=== PATIENT | female | born 1950 | race African-American/Black ===

== ENCOUNTER 2022-01-28 21:33 | Observation (INO) | payer MEDICARE, OTHER ==
[2022-01-28 22:35] LABS: Protime INR 1.37
[2022-01-28 22:36] LABS: Absolute Lymphocytes (CBC) 1.4 K/uL (0.7-4.9); Hematocrit 28.2 % (36.0-45.0); Lymphocytes % 13.4 % (15.3-44.8); MPV 9.4 fL (7.6-11.3); RBC Red Blood Cell Count 3.79 M/uL (3.86-4.86)
[2022-01-28 22:48] LABS: Albumin 3.6 g/dL (3.4-5.0); Bilirubin Direct 0.1 mg/dL (0-0.2); Bilirubin Total 0.3 mg/dL (0.2-1.0); Magnesium 2.5 mg/dL (1.8-2.4); Potassium 3.9 mmol/L (3.5-5.1); Protein, Total 8.1 g/dL (6.4-8.2); Troponin High Sensitivity 19.9 pg/mL (<58.9)
[2022-01-28] MEDS ORDERED: NA CHLORIDE 0.9% 1,000 ML ONE (22:49)
--- NOTE | 2022-01-29 00:14 | EDPHYS ---
Physician Documentation [facility] – [place], [place] Name: Mahendra Wilkins Age: 71 yrs Sex: Female : 1950 Arrival Date: 01/28/2022 Time: 21:36 Bed 3 Private MD: ED Physician Suraj Wilkins HPI: 01/29 00:03 This 71 yrs old Black Female presents to ER via EMS with complaints of chest pain, raghav dyspnea. 00:03 The patient has shortness of breath at rest, with light activity. Onset: The raghav symptoms/episode began/occurred just prior to arrival. Duration: The symptoms are intermittent, with no pattern. The patient's shortness of breath has no apparent modifying factors. The patient or guardian reports chest pain that is located primarily in the anterior chest wall. Onset: just prior to arrival. The pain does not radiate. Severity of symptoms: At their worst the symptoms were mild in the emergency department the symptoms are unchanged. The chest pain is described as a pressure. Historical: - Allergies: 01/28 22:01 No Known Allergies; lg3 - Home Meds: 22:01 gabapentin 300 mg oral cap 1 cap 3 times per day [Active]; Linzess 145 mcg oral cap 1 lg3 cap once daily [Active]; hydralazine 100 mg Oral tab 1 tab 3 times per day [Active]; Eliquis 5 mg oral tab 1 tab 2 times per day [Active]; isosorbide mononitrate 60 mg Oral Tb24 1 tab once daily [Active]; atorvastatin 40 mg oral tab 1 tab once daily [Active]; famotidine 20 mg Oral tab 1 tab once daily [Active]; - PMHx: 22:01 high cholesterol; acid reflux; hypertension; lg3 - PSHx: 22:01 heart; lg3 - Immunization history:: Adult Immunizations up to date, Client reports receiving the 2nd dose of the Covid vaccine, moderna X3. - Social history:: Smoking status: Patient denies any tobacco usage or history of. Patient/guardian denies using alcohol, street drugs. - Family history:: not pertinent. ROS: 01/29 00:03 Constitutional: Negative for fever, chills, and weight loss, Eyes: Negative for injury, raghav pain, redness, and discharge, ENT: Negative for injury, pain, and discharge, Neck: Negative for injury, pain, and swelling, Abdomen/GI: Negative for abdominal pain, nausea, vomiting, diarrhea, and constipation, Back: Negative for injury and pain, : Negative for injury, bleeding, discharge, and swelling, MS/Extremity: Negative for injury and deformity, Skin: Negative for injury, rash, and discoloration, Neuro: Negative for headache, weakness, numbness, tingling, and seizure, Psych: Negative for depression, anxiety, suicide ideation, homicidal ideation, and hallucinations, Allergy/Immunology: Negative for hives, rash, and allergies, Endocrine: Negative for neck swelling, polydipsia, polyuria, polyphagia, and marked weight changes, Hematologic/Lymphatic: Negative for swollen nodes, abnormal bleeding, and unusual bruising. Cardiovascular: Positive for chest pain. Respiratory: Positive for shortness of breath, at rest. Exam: 00:03 Constitutional: This is a well developed, well nourished patient who is awake, alert, raghav and in no acute distress. Head/Face: Normocephalic, atraumatic. Eyes: Pupils equal round and reactive to light, extra-ocular motions intact. Lids and lashes normal. Conjunctiva and sclera are non-icteric and not injected. Cornea within normal limits. Periorbital areas with no swelling, redness, or edema. ENT: Nares patent. No nasal discharge, no septal abnormalities noted. Tympanic membranes are normal and external auditory canals are clear. Oropharynx with no redness, swelling, or masses, exudates, or evidence of obstruction, uvula midline. Mucous membranes moist. Neck: Trachea midline, no thyromegaly or masses palpated, and no cervical lymphadenopathy. Supple, full range of motion without nuchal rigidity, or vertebral point tenderness. No Meningismus. Chest/axilla: Normal chest wall appearance and motion. Nontender with no deformity. No lesions are appreciated. Cardiovascular: Regular rate and rhythm with a normal S1 and S2. No gallops, murmurs, or rubs. Normal PMI, no JVD. No pulse deficits. Abdomen/GI: Soft, non-tender, with normal bowel sounds. No distension or tympany. No guarding or rebound. No evidence of tenderness throughout. Back: No spinal tenderness. No costovertebral tenderness. Full range of motion. Female : Normal external genitalia. Skin: Warm, dry with normal turgor. Normal color with no rashes, no lesions, and no evidence of cellulitis. MS/ Extremity: Pulses equal, no cyanosis. Neurovascular intact. Full, normal range of motion. Neuro: Awake and alert, GCS 15, oriented to person, place, time, and situation. Cranial nerves II-XII grossly intact. Motor strength 5/5 in all extremities. Sensory grossly intact. Cerebellar exam normal. Normal gait. Psych: Awake, alert, with orientation to person, place and time. Behavior, mood, and affect are within normal limits. 00:03 ECG was reviewed by the Attending Physician. 00:03 Respiratory: the patient does not display signs of respiratory distress, Respirations: normal, no acute changes, is not noted, Breath sounds: decreased breath sounds, that are moderate, are located in both bases, Respiratory rate: 22 Vital Signs: 01/28 21:43 BP 161 / 72; Pulse 76; Resp 24; Temp 98.4(O); Pulse Ox 98% on R/A; Weight 95.25 kg (R); lg3 Height 5 ft. 5 in. (165.10 cm) (R); Pain 9/10; 23:18 BP 146 / 88; Pulse 78; Resp 22; Pulse Ox 98% on R/A; lg3 01/29 02:25 BP 159 / 68; Pulse 80; Resp 20; Pulse Ox 99% on R/A; lg3 01/28 21:43 Body Mass Index 34.95 (95.25 kg, 165.10 cm) lg3 MDM: 01/28 21:50 Patient medically screened. raghav 01/29 00:08 Differential diagnosis: CHF exacerbation, Chronic Obstructive Pulmonary Disease raghav abnormal EKG, acute myocardial infarction, Cholelithiasis costochondritis, hiatal hernia, pancreatitis, pneumonia, stable angina, Myocardial Infarction pneumonia, pulmonary edema, reactive airway disease, Unstable Angina. Antibiotic administration: Not indicated. HEART Score: History: Moderately Suspicious (1), ECG: Non specific repolarization disturbance / LBTB / PM (1), Age: > or = 65 years (2), Risk Factors: > or = 3 Risk factors for atherosclerotic disease (2), [Hypercholesterolemia] [Hypertension] [+ Family HX] [Obesity] Troponin: < or = 1 x Normal Limit (0). The patient was not given aspirin in the Emergency Department. Not indicated due to patient's past medical history. The patient's Wells Deep Vein Thrombosis Score was calculated as follows: Total Score: 0. This patient was found to be at low risk for a deep vein thrombosis by using the Well's assessment criteria Total Score: 0-2 Pts- Low Risk. The patient's pulmonary embolism risk score was calculated as follows: Total Score: 0-2 points. This patient was found to be at low risk for a pulmonary embolism by using the Well's assessment criteria Total Score: 0-2 points. This patient was found to be at low risk for a pulmonary embolism by using the Well's assessment criteria. MARY Risk Score: 1 - patient's age is greater or equal to 65 years, 1 - Three or more CAD risk factors, TOTAL SCORE = 2. Immunization status: Pneumococcal vaccine: Influenza vaccine: Data reviewed: vital signs, nurses notes, EMS record, lab test result(s), EKG, radiologic studies, plain films. Data interpreted: riprap placer: rate is 78 beats/min, rhythm is regular, Pulse oximetry: on room air is 98 %. Test interpretation: by ED physician or midlevel provider: ECG, plain radiologic studies. 01/28 21:52 Order name: Basic Metabolic Panel; Complete Time: 00:01 [facility] 01/28 21:52 Order name: CBC with Diff; Complete Time: 00: [facility] 01/28 21:52 Order name: LFT's; Complete Time: 00:01 [facility] 01/28 21:52 Order name: Magnesium; Complete Time: 00:01 [facility] 01/28 21:52 Order name: NT PRO-BNP; Complete Time: 00:01 [facility] 01/28 21:52 Order name: PT-INR; Complete Time: 00:01 [facility] 01/28 21:52 Order name: Troponin HS; Complete Time: 00:01 [facility] 01/28 21:52 Order name: SARS-COV-2 RT PCR (Document "Date of Onset" if Symptomatic); Complete Time: [facility] 01/28 21:52 Order name: Flu; Complete Time: 00:01 [facility] 01/28 21:52 Order name: Blood Culture Adult (2) [facility] 01/29 01:34 Order name: Urine Dipstick-Ancillary EDMS 01/29 01:34 Order name: Urine Culture lg3 01/29 01:34 Order name: Urine Microscopic Only [facility] 01/29 02:04 Order name: Urine Microscopic Only [facility] 01/28 21:52 Order name: XRAY Chest (1 view) [facility] 01/28 21:52 Order name: EKG; Complete Time: 21:53 [facility] 01/28 21:52 Order name: Cardiac monitoring; Complete Time: 22:17 [facility] 01/28 21:52 Order name: EKG - Nurse/Tech; Complete Time: 23:05 [facility] 01/28 21:52 Order name: IV Saline Lock; Complete Time: 22:17 [facility] 01/28 21:52 Order name: Labs collected and sent; Complete Time: 22:17 [facility] 01/28 21:52 Order name: O2 Per Protocol; Complete Time: 22:17 [facility] 01/28 21:52 Order name: O2 Sat Monitoring; Complete Time: 22:17 [facility] 01/28 21:52 Order name: Urine Dipstick-Ancillary (obtain specimen); Complete Time: 01:35 [facility] 01/29 01:17 Order name: Benjamin; Complete Time: 01:17 lg3 EC:03 Rate is 74 beats/min. Rhythm is regular. QRS [place] is Normal. OR interval is normal. QRS raghav interval is normal. QT interval is normal. No Q waves. T waves are Normal. No ST changes noted. Clinical impression: NSR w/ Non-specific ST/T Changes and No evidence of ischemia. Interpreted by me. Reviewed by me. Administered Medications: 00:02 Discontinued: NS 0.9% 1000 ml IV at 75 ml/hr continuous [facility] 01/28 23:06 Drug: NS 0.9% 1000 ml Route: IV; Rate: 75 ml/hr; Site: left antecubital; lg3 01/29 02:25 Drug: Lasix (furosemide) 40 mg Route: IVP; Site: left antecubital; lg3 02:25 Follow up: Response: No adverse reaction lg3 02:25 Drug: Rocephin (cefTRIAXone) 1 grams Route: IV; Rate: per protocol; Site: left lg3 antecubital; 02:25 Follow up: Response: No adverse reaction; IV Status: Completed infusion; IV Intake: [id number] Disposition Summary: 01/29/22 00:13 Hospitalization Ordered Hospitalization Status: Observation raghav Provider: Kristine Ruiz cha Location: Telemetry/MedSurg (observation)(01/29/22 00:13) raghav Condition: Fair(01/29/22 00:13) raghav Problem: new(01/29/22 00:13) raghav Symptoms: have improved(01/29/22 00:13) raghav Bed/Room Type: Standard raghav Room Assignment: 228(01/29/22 01:45) cg Diagnosis - Chest pain, unspecified(01/29/22 00:13) raghav - Dyspnea raghav - Obesity, unspecified(01/29/22 00:13) raghav - Unspecified kidney failure raghav - Anemia, unspecified(01/29/22 00:13) raghav - UTI/ Urinary tract infection, site not specified raghav Forms: - Medication Reconciliation Form raghav - SBAR form raghav Signatures: Dispatcher [employer] EDSuraj Saleh MD MD cha Garcia, Cindy, RN RN Hazel Dutta RN RN lg3 Sissy Calixto, JAYLEN PA sb3 Corrections: (The following items were deleted from the chart) 00:12 00:11 Home raghav raghav 00: 00:11 new raghav raghav 00: 00:11 have improved raghav raghav :12 00:11 Stable raghav raghav : 00:11 Chest pain, unspecified raghav raghav 00:12 00:11 Anemia, unspecified raghav raghav 00:12 00:11 Obesity, unspecified raghav raghav 00:12 00:11 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
--- NOTE | 2022-01-29 00:14 | ER ---
Nurse's Notes [facility] Name: Mahendra Wilkins Age: 71 yrs Sex: Female : 1950 Arrival Date: 01/28/2022 Time: 21:36 Bed 3 Private MD: Diagnosis: Chest pain, unspecified;Dyspnea;Obesity, unspecified;Unspecified kidney failure;Anemia, unspecified;UTI/ Urinary tract infection, site not specified Presentation: 01/28 21:43 Chief complaint: EMS states: toned out for shortness of breath exacerbated by episode lg3 of chest pain. onset around 1900 and shortly dissipated. in transit to ER chest pain began again. 7/10 pain scale. described as pulling. pt reports HX of COPD and abnormal heart beat. wears 2L via NC at home as needed. Coronavirus screen: Client denies travel out of the [place] in the last 14 days. At this time, the client does not indicate any symptoms associated with coronavirus-19. Ebola Screen: No symptoms or risks identified at this time. Initial Sepsis Screen: Does the patient meet any 2 criteria? No. Patient's initial sepsis screen is negative. Does the patient have a suspected source of infection? No. Patient's initial sepsis screen is negative. Risk Assessment: Do you want to hurt yourself or someone else? Patient reports no desire to harm self or others. Onset of symptoms was January 28, 2022 at 19:00. 21:43 Method Of Arrival: EMS: [facility] lg3 21:43 Acuity: SUSAN 3 lg3 Triage Assessment: 22:01 General: Appears in no apparent distress. comfortable, Behavior is calm, cooperative. lg3 Pain: Complains of pain in chest Pain does not radiate. Pain currently is 9 out of 10 on a pain scale. Quality of pain is described as pulling/tearing. EENT: No deficits noted. No signs and/or symptoms were reported regarding the EENT system. Neuro: No deficits noted. [place] Agitation-Sedation Scale (RASS): 0 - Alert and Calm Level of Consciousness is awake, alert, obeys commands, Oriented to person, place, time, situation. Cardiovascular: Reports chest pain, Capillary refill < 3 seconds Clubbing of nail beds is absent Patient's skin is warm and dry. Respiratory: Reports shortness of breath on exertion Airway is patent Trachea midline Respiratory effort is even, unlabored, Respiratory pattern is regular, symmetrical. GI: No deficits noted. No signs and/or symptoms were reported involving the gastrointestinal system. Abdomen is round non-distended. : No deficits noted. No signs and/or symptoms were reported regarding the genitourinary system. Derm: No deficits noted. No signs and/or symptoms reported regarding the dermatologic system. Skin is intact, is healthy with good turgor, Skin is dry, Skin temperature is warm. Musculoskeletal: No deficits noted. No signs and/or symptoms reported regarding the musculoskeletal system. Circulation, motion, and sensation intact. Range of motion: intact in all extremities. Historical: - Allergies: 22:01 No Known Allergies; lg3 - Home Meds: 22:01 gabapentin 300 mg oral cap 1 cap 3 times per day [Active]; Linzess 145 mcg oral cap 1 lg3 cap once daily [Active]; hydralazine 100 mg Oral tab 1 tab 3 times per day [Active]; Eliquis 5 mg oral tab 1 tab 2 times per day [Active]; isosorbide mononitrate 60 mg Oral Tb24 1 tab once daily [Active]; atorvastatin 40 mg oral tab 1 tab once daily [Active]; famotidine 20 mg Oral tab 1 tab once daily [Active]; - PMHx: 22:01 high cholesterol; acid reflux; hypertension; lg3 - PSHx: 22:01 heart; lg3 - Immunization history:: Adult Immunizations up to date, Client reports receiving the 2nd dose of the Covid vaccine, moderna X3. - Social history:: Smoking status: Patient denies any tobacco usage or history of. Patient/guardian denies using alcohol, street drugs. - Family history:: not pertinent. Screenin:09 Abuse screen: Denies threats or abuse. Denies injuries from another. Nutritional lg3 screening: No deficits noted. Tuberculosis screening: No symptoms or risk factors identified. Fall Risk None identified. Assessment: 21:44 General: see triage assessment . lg3 23:17 Reassessment: Patient appears in no apparent distress at this time. No changes from lg3 previously documented assessment. Patient and/or family updated on plan of care and expected duration. Pain level reassessed. Patient is alert, oriented x 3, equal unlabored respirations, skin warm/dry/pink. Patient states feeling better. 01/29 02:25 Reassessment: Patient appears in no apparent distress at this time. No changes from lg3 previously documented assessment. Patient and/or family updated on plan of care and expected duration. Pain level reassessed. Patient is alert, oriented x 3, equal unlabored respirations, skin warm/dry/pink. Patient states feeling better. Patient states symptoms have improved. Vital Signs: 01/28 21:43 BP 161 / 72; Pulse 76; Resp 24; Temp 98.4(O); Pulse Ox 98% on R/A; Weight 95.25 kg (R); lg3 Height 5 ft. 5 in. (165.10 cm) (R); Pain 9/10; 23:18 BP 146 / 88; Pulse 78; Resp 22; Pulse Ox 98% on R/A; lg3 01/29 02:25 BP 159 / 68; Pulse 80; Resp 20; Pulse Ox 99% on R/A; lg3 01/28 21:43 Body Mass Index 34.95 (95.25 kg, 165.10 cm) lg3 ED Course: 01/28 21:36 Patient arrived in ED. mw2 21:41 Hazel De La Cruz, RN is Primary Nurse. lg3 21:50 Suraj Wilkins MD is Attending Physician. raghav 22:01 Triage completed. lg3 22:01 Arm band placed on left wrist. lg3 22:09 Patient has correct armband on for positive identification. Placed in gown. Bed in low lg3 position. Call light in reach. Side rails up X2. Client placed on continuous cardiac and pulse oximetry monitoring. NIBP monitoring applied. traffic monitor specialist on. Door closed. Noise minimized. Warm blanket given. Family accompanied patient. 22:16 Inserted saline lock: 20 gauge in left antecubital area, using aseptic technique. Blood lg3 collected. 22:17 Blood Culture Adult (2) Sent. lg3 22:17 Basic Metabolic Panel Sent. lg3 22:17 CBC with Diff Sent. lg3 22:17 LFT's Sent. lg3 22:17 Magnesium Sent. lg3 22:17 NT PRO-BNP Sent. lg3 22:17 PT-INR Sent. lg3 22:17 Troponin HS Sent. lg3 22:28 XRAY Chest (1 view) In Process Unspecified. EDMS 23:06 Blood Culture Adult (2) Sent. lg3 23:17 Flu Sent. lg3 23:17 SARS-COV-2 RT PCR (Document "Date of Onset" if Symptomatic) Sent. lg3 23:53 Flu Sent. lg3 23:53 SARS-COV-2 RT PCR (Document "Date of Onset" if Symptomatic) Sent. lg3 01/29 00:10 Kristine Ruiz MD is Referral Physician. raghav 00:12 Kristine Ruiz MD is Hospitalizing Provider. raghav 01:10 Benjamin cath inserted, using sterile technique, 16 Fr., by wv, balloon inflated, to ds4 gravity drainage, returned souleymane urine. Patient tolerated well. 01:40 Urine Microscopic Only Sent. lg3 01:40 Urine Culture Sent. lg3 02:25 Accessed peripheral vein via ultrasound, utilizing dynamic ultrasound technique using lp1 ,sterile technique, per hospital protocol. Clean \\T\\ dry. Dressing intact. Good blood return. Flushes easily. 20g IV to L AC. 02:26 No provider procedures requiring assistance completed. Patient admitted, IV remains in lg3 place. intact, No redness/swelling at site. Administered Medications: 00:02 Discontinued: NS 0.9% 1000 ml IV at 75 ml/hr continuous [facility] 01/28 23:06 Drug: NS 0.9% 1000 ml Route: IV; Rate: 75 ml/hr; Site: left antecubital; 3 01/29 02:25 Drug: Lasix (furosemide) 40 mg Route: IVP; Site: left antecubital; 3 02:25 Follow up: Response: No adverse reaction lg3 02:25 Drug: Rocephin (cefTRIAXone) 1 grams Route: IV; Rate: per protocol; Site: left lg3 antecubital; 02:25 Follow up: Response: No adverse reaction; IV Status: Completed infusion; IV Intake: [id number] Medication: 01/28 22:11 VIS not applicable for this client. lg3 Intake: 01/29 02:25 IV: 10ml; Total: 10ml. 3 Outcome: 00:11 Discharge ordered by . raghav 00:13 Decision to Hospitalize by Provider. raghav 02:40 Admitted to Med/surg accompanied by tech, via stretcher, room 228, [facility] 02:40 Condition: stable 02:40 Instructed on the need for admit, Demonstrated understanding of instructions. 02:44 Patient left the ED. lg3 Signatures: Dispatcher [employer] EDMS Suraj Wilkins MD MD cha Pena, Laura, RN RN lp1 Thomas Parkinson ds4 Luc Hoff mw2 Hazel De La Cruz RN RN lg3
--- NOTE | 2022-01-29 01:13 | P.HP ---
Certification for Inpatient Patient admitted to: Observation With expected LOS: <2 Midnights Patient will require the following post-hospital care: None Practitioner: I am a practitioner with admitting privileges, knowledge of patient current condition, hospital course, and medical plan of care. Services: Services provided to patient in accordance with Admission requirements found in Title 42 Section 412.3 of the Code of Federal Regulations Patient History Date of Service: 01/29/22 Reason for admission: Chest Pain, Dyspnea, CHF History of Present Illness: Patient is a 71-year-old female with PMH of hypertension, COPD on home oxygen, A. fib on eliquis, CHF who presented to the ED via EMS with complaints of shortness of breath and chest pain. Patient reports the pain comes and goes, rates it as a 7/10, and describes it as a "pulling" feeling. Vital signs WNL. Labs significant for creatinine 1.54, hemoglobin 8.7, BNP 344, troponin negative. Chest x-ray showed "left hemidiaphragm obscured which can be seen with left pleural effusion, as well as left lower lobe consolidation or atelectasis and prominent interstitial markings suggestive of interstitial edema." She was given IV Lasix in the ED. ED provider wishes to admit patient for further evaluation and treatment. Allergies No Known Allergies Allergy (Unverified 01/29/22 03:23) - Past Medical/Surgical History Diabetic: No -: COPD -: Hypertension -: Afib -: CHF -: HLD -: Heart Valve Repair Psychosocial/ Personal History: Patient lives at home. She has a son. - Family History Sister -: Heart disease - Social History Smoking Status: Former smoker Alcohol use: No CD- Drugs: No Caffeine use: No Place of Residence: Home Review of Systems Respiratory: Shortness of Breath Cardiovascular: Chest Pain Physical Examination - Physical Exam General: Alert, In no apparent distress HEENT: Atraumatic, PERRLA, EOMI, Sclerae nonicteric Neck: Supple, 2+ carotid pulse no bruit, No LAD, Without JVD or thyroid abnormality Respiratory: Normal air movement, Diminished Cardiovascular: No edema, Regular rate/rhythm, Normal S1 S2 Gastrointestinal: Normal bowel sounds, No tenderness Musculoskeletal: No tenderness Integumentary: No rashes Neurological: Normal speech, Normal strength at 5/5 x4 extr, Normal tone, Normal affect - Studies Laboratory Data (last 24 hrs) 01/28/22 22:15: PT 15.2 H, INR 1.37 01/28/22 22:15: WBC 10.2, Hgb 8.7 L, Hct 28.2 L, Plt Count 325 01/28/22 22:15: Sodium 145, Potassium 3.9, BUN 23 H, Creatinine 1.54 H, Glucose 84, Magnesium 2.5 H, Total Bilirubin 0.3, AST 26, ALT 30, Alkaline Phosphatase 131 H Microbiology Data (last 24 hrs): 01/28/22 23:08 Nasopharnyx Influenza Type A Antigen Screen - Final 01/28/22 23:08 Nasopharnyx Influenza Type B Antigen Screen - Final Assessment and Plan - Problems (Diagnosis) (1) Chest pain Current Visit: Yes Status: Acute Qualifiers: Chest pain type: unspecified Qualified Code(s): R07.9 - Chest pain, unspecified (2) CHF (congestive heart failure) Current Visit: Yes Status: Acute Qualifiers: Heart failure type: unspecified Heart failure chronicity: acute on chronic Qualified Code(s): I50.9 - Heart failure, unspecified (3) Afib Current Visit: No Status: Chronic Qualifiers: Atrial fibrillation type: unspecified Qualified Code(s): I48.91 - Unspecified atrial fibrillation (4) HTN (hypertension) Current Visit: Yes Status: Chronic Qualifiers: Hypertension type: primary hypertension Qualified Code(s): I10 - Essential (primary) hypertension (5) HLD (hyperlipidemia) Current Visit: No Status: Chronic Qualifiers: Hyperlipidemia type: unspecified Qualified Code(s): E78.5 - Hyperlipidemia, unspecified (6) COPD (chronic obstructive pulmonary disease) Current Visit: Yes Status: Chronic Qualifiers: COPD type: unspecified COPD Qualified Code(s): J44.9 - Chronic obstructive pulmonary disease, unspecified (7) BOOM (acute kidney injury) Current Visit: Yes Status: Acute (8) Anemia Current Visit: Yes Status: Chronic Qualifiers: Anemia type: due to chronic kidney disease Chronic kidney disease stage: s tage 3 (moderate) Chronic kidney disease stage 3 subtype: stage 3b (GFR 30-44) Qualified Code(s): N18.32 - Chronic kidney disease, stage 3b; D63.1 - Anemia in chronic kidney disease - Plan -Monitor on telemetry. Cardiology consulted. Echo ordered -Trend troponin. Initial WNL. -Lipid panel and TSH pending -Atorvastatin and aspirin daily -Supplemental O2 PRN. Patient was not requiring any during my assessment. -Monitor renal function, acute BOOM -Monitor hgb. Likely chronic anemia. -Continue eliquis (home med) for VTE ppx -Full code Discharge Plan: Home Plan to discharge in: 24 Hours - Advance Directives Does patient have a Living Will: No Does patient have a Durable POA for Healthcare: No - Code Status/Comfort Care Code Status Assessed: Yes (Full) Critical Care: No Time Spent Managing Pts Care (In Minutes): 50
[2022-01-29 01:33] LABS: Urine Blood Negative (Negative); Urine Glucose Negative (Negative); Urine Protein 1+ (Negative); Urine Specific Gravity 1.025 (1.005-1.030); Urine pH 5.5 (5.0-7.0)
[2022-01-29] MEDS ORDERED: FUROSEMIDE 40 MG/4 ML VIAL ONE (01:48)
[2022-01-29] MEDS ORDERED: CEFTRIAXONE 1000 MG/VIAL ONE (01:57)
[2022-01-29 02:03] LABS: Urine Bacteria >50 /HPF (<20); Urine RBC <5 /HPF (NONE SEEN)
[2022-01-29 02:04] LABS: Urine Urothelial Cells <5 /HPF (NONE SEEN)
[2022-01-29] MEDS ORDERED: ACETAMINOPHEN 500 MG TAB PO PRN (03:32)
[2022-01-29] MEDS ORDERED: ALBUTEROL 2.5 MG/3 ML NEB SOL NEB PRN ×2 (03:32→15:00)
[2022-01-29] MEDS ORDERED: ONDANSETRON 4 MG/2 ML VIAL IV PRN (03:32)
[2022-01-29] MEDS ORDERED: HYDRALAZINE HCL 20 MG/ML VIAL IV PRN (03:32)
[2022-01-29] MEDS ORDERED: IPRATROPIUM BROM 0.5MG/2.5ML NEB PRN (03:32)
[2022-01-29 04:54] VITALS: O2SAT 96
[2022-01-29 05:49] VITALS: BMI 34.0
[2022-01-29 06:13] LABS: Absolute Lymphocytes (CBC) 1.1 K/uL (0.7-4.9); Hematocrit 26.5 % (36.0-45.0); MPV 8.4 fL (7.6-11.3); RBC Red Blood Cell Count 3.58 M/uL (3.86-4.86)
[2022-01-29 07:07] LABS: Magnesium 2.2 mg/dL (1.8-2.4); Potassium 3.4 mmol/L (3.5-5.1); Thyroid Stimulating Hormone 0.53 uIU/mL (0.360-3.740); Troponin High Sensitivity 23.3 pg/mL (<58.9)
[2022-01-29] MEDS ORDERED: APIXABAN 5 MG TABLET PO SCH ×2 (09:00→21:00)
[2022-01-29] MEDS ORDERED: POTASSIUM CL SA 10 MEQ TAB PO ONE (09:00)
[2022-01-29] MEDS ORDERED: CEFTRIAXONE 1,000 MG in NA CHLORIDE 0.9% 50 ML IVPB SCH (09:00)
[2022-01-29] MEDS ORDERED: ASPIRIN EC 81 MG TAB PO SCH (09:00)
--- NOTE | 2022-01-29 10:34 | RAD REPORT ---
EXAM DESCRIPTION: XR Chest, 1 View CLINICAL HISTORY: The patient is 71 years old and is Female; Cough TECHNIQUE: Frontal view of the chest. COMPARISON: No relevant prior studies available. FINDINGS: Lungs: Prominent interstitial markings suggestive of interstitial edema. Prominent pulmonary vasculature. Pleural space: Left hemidiaphragm is obscured which can be seen with left pleural effusion, as we ll as left lower lobe consolidation or atelectasis. No pneumothorax. Heart: Unremarkable. Mediastinum: Unremarkable. Bones/joints: Disc space narrowing with degenerative endplate changes in the spine. IMPRESSION: 1. Left hemidiaphragm is obscured which can be seen with left pleural effusion, as wel l as left lower lobe consolidation or atelectasis. 2. Prominent interstitial markings suggestive of interstitial edema. Electronically signed by: Delvin Aguirre MD 01/29/2022 12:21 AM CDT Due to temporary technical issues with the PACS/Fluency reporting system, reports are being signed by the in house radiologists without review as a courtesy to insure prompt reporting. The interpreting radiologist is fully responsible for the content of the report.
[2022-01-29] MEDS ORDERED: GABAPENTIN 300 MG CAP PO SCH (14:00)
[2022-01-29] MEDS ORDERED: HOME MED 1 EA UNK (Hydralazine Hcl [Hydralazine Hcl] 100 MG Tablet) PO SCH (14:00)
[2022-01-29] MEDS ORDERED: HYDRALAZINE HCL 20 MG/ML VIAL IV ONE (14:00)
--- NOTE | 2022-01-29 15:28 | EKG ---
Test Date: 2022-01-28 Test Time: 22:48:50 Field Instructor: PAL MEASUREMENT RESULTS: Intervals: Rate: 74 MN: 168 QRSD: 98 QT: 412 QTc: 457 [place]: P: 69 MN: 168 QRS: 45 T: 70 INTERPRETIVE STATEMENTS: Normal sinus rhythm Nonspecific T wave abnormality Abnormal ECG No previous ECG available for comparison Electronically Signed On 01-29-22 15:27:02 CDT by Lauro Lowe
[2022-01-29 17:42] VITALS: BP 182/79; TEMP 98.3
[2022-01-29] MEDS ORDERED: HYDRALAZINE HCL 25 MG TABLET PO SCH (21:00)
[2022-01-29] MEDS ORDERED: ATORVASTATIN 40 MG TAB PO SCH ×2 (21:00)
[2022-01-30] MEDS ORDERED: HOME MED 1 EA UNK (Linaclotide [Linzess] 145 MCG Capsule) PO SCH ×2 (09:00)
[2022-01-30] MEDS ORDERED: ISOSORBIDE MONO SR 60 MG TAB PO SCH (09:00)
[2022-01-30] MEDS ORDERED: FAMOTIDINE 20 MG TAB PO SCH (09:00)
--- NOTE | 2022-01-30 09:51 | ECHO ---
HEIGHT: 5 ft 5 in WEIGHT: 204 lb 3.2 oz DATE OF STUDY: 01/29/[address]: Sissy Calixto 2-DIMENSIONAL: YES M.MODE: YES DOPPLER: YES COLOR FLOW: YES TDS: PORTABLE: YES DEFINITY: BUBBLE STUDY: DIAGNOSIS: CHEST PAIN, CONGESTIVE HEART FAILURE CARDIAC HISTORY: CATHERIZATION: YES SURGERY: NO PROSTHETIC VALVE: NO PACEMAKER: NO MEASUREMENTS (cm) DIASTOLIC (NORMALS) SYSTOLIC (NORMALS) IVSd 1.3 (0.6-1.2) LA Diam 4.5 (1.9-4.0) LVEF 69% LVIDd 6.3 (3.5-5.7) LVIDs 3.8 (2.0-3.5) %FS 39% LVPWd 1.4 (0.6-1.2) Ao Diam 3.3 (2.0-3.7) 2 DIMENSIONAL ASSESSMENT: RIGHT ATRIUM: NORMAL LEFT ATRIUM: ENLARGED RIGHT VENTRICLE: NORMAL LEFT VENTRICLE: NORMAL TRICUSPID VALVE: NORMAL MITRAL VALVE: CALCIFIED VALVE SEVERE MITRAL REGURGITATION PULMONIC VALVE: NORMAL AORTIC VALVE: THICKENED, NO AORTIC STENOSIS PERICARDIAL EFFUSION: SMALL AORTIC ROOT: NORMAL LEFT VENTRICULAR WALL MOTION: NORMAL DOPPLER/COLOR FLOW: SEE BELOW COMMENTS: NORMAL LEFT VENTRICULAR EJECTION FRACTION 60-65%. NORMAL WALL MOTION. CALCIFIED MITRAL VALVE WITH MILD MITRAL STENOSIS AND SEVERE MITRAL REGURGITATION. LEFT ATRIAL ENLARGEMENT. SMALL PERICARDIAL EFFUSION. TECHNOLOGIST: RENE HERNADEZ
--- NOTE | 2022-02-02 15:11 | CON ---
Date of Consultation: 01/29/[address] Ruiz on 01/29/2022. I saw the patient on 01/29/2022. Reason For Consultation: Shortness of breath and chest pain. History Of Present Illness: Ms. Wilkins is a 71-year-old woman, who has a history of deep venous th rombosis for which she takes Eliquis, has a history of dyslipidemia, hypertension, and GERD. Came in with chest pain and shortness of breath. Chest pain is atypical, sharp, stabbing, nonexertional wit hout any nausea, vomiting, diaphoresis, PND, orthopnea, pedal edema, palpitations, syncope. MN has b een ruled out. . She has UTI. BNP is 334. Creatinine is . EKG is nonspecific . Chest x-ray is negative. Asymptomatic now. Allergies: NONE. Past Medical History: As stated above. Review of Systems: Negative. Social History: Negative. Family History: Noncontributory. Medications: At home include Pepcid, Neurontin, Lipitor, hydralazine, Imdur, and Eliquis. Physical Examination: Vital Signs: Stable. Afebrile. HEENT: Negative. Neck: Supple with no bruit. Chest: Clear. Cardiac: Revealed a regular rhythm and rate. No murmurs, gallops, or rubs. Abdomen: Benign. EXTREMITIES: Revealed no clubbing, cyanosis, or edema. Diagnostic Data: As stated earlier. Impression And Plan: Atypical chest pain and shortness of breath in a patient with history of hypert ension, dyslipidemia, deep venous thrombosis. coronary artery disease. I think she shoul d have down the road. Continue present regimen otherwise. NB/MODL Voice ID: [id number] Report ID: [id number]
== END 2022-01-29 16:20 | disposition home or self-care (01) ==
LOC: ER 21:33 → ERHOLD 01-29 01:05 → 2ND 01-29 02:30
PROVIDERS: ADMIT Hospitalist; ATTEND Hospitalist
DX: R07.89 Other chest pain (principal); I13.0 Hypertensive heart and chronic kidney disease with heart failure and stage 1 through stage 4 chronic kidney disease, or unspecified chronic kidney disease; N18.32 Chronic kidney disease, stage 3b; I50.9 Heart failure, unspecified; N17.9 Acute kidney failure, unspecified; D63.1 Anemia in chronic kidney disease; I48.91 Unspecified atrial fibrillation; N39.0 Urinary tract infection, site not specified; J44.9 Chronic obstructive pulmonary disease, unspecified; E78.5 Hyperlipidemia, unspecified; E66.9 Obesity, unspecified; Z68.34 Body mass index [BMI] 34.0-34.9, adult; Z99.81 Dependence on supplemental oxygen; Z79.01 Long term (current) use of anticoagulants; Z87.891 Personal history of nicotine dependence; Z79.899 Other long term (current) drug therapy; Z20.822 Contact with and (suspected) exposure to COVID-19; Z82.49 Family history of ischemic heart disease and other diseases of the circulatory system
CPT/HCPCS: 93005; 93306; 87040 ×2; 87088; 85025 ×2; 87086; 80048 ×2; 36415; 83735 ×2; 84100; 84132; 85610; 80061; 80076; 84443; 87077; 87186; 84484 ×3; 83880; 87804 ×2; 71045; 51702; 96375; 96374; 99285; U0003; J0360; J1940; J7030; G0378 ×2; 81003; 81015

== ENCOUNTER 2022-03-29 00:43 | Inpatient (IN) | payer OTHER ==
--- OUTSIDE RECORDS SUMMARY | 2022-03-29 00:46 | XMS REPORT | Continuity of Care Document ---
:1950 Author Organization [facility] t Address [address] [place] [address] Care Team Providers Name Role Phone Lauro Lowe Attending Clinician Unavailable Lauro Lowe Admitting Clinician Unavailable Payers Payer Name Policy Type Policy Number Effective Date Expiration Date S ource Problems This patient has no known problems. Allergies, Adverse Reactions, Alerts Allergy Allergy Status Severity Reaction(s) Onset Inactive Treating Comm ents Source Name Type Date Date Clinician No Known DA Active U [facility] Allergie 03-17 Clear s 00:00: New [address] [place] [address] Medications This patient has no known medications. Procedures This patient has no known procedures. Encounters Start End Encounter Admission Attending Care Care Encounter Source Date/Time Date/Time Type Type Clinicians Facility Department ID 2022-03-18 2022-03-18 Outpatient SYMONE Maldonado OUTD [id number] 002 [facility] 09:16:00 09:16:00 Lauro 42 [facility] 2022-03-18 2022-03-18 Outpatient SYMONE Maldonado [id number] [id number] [facility] 09:16:00 09:16:00 Lauro [id number] [facility] Results Test Description Test Time Test Comments Results Result Comments Source BASIC METABOLIC PANEL 2022-03-18 12:15:00 Test Item Value Reference Range Interpretation Comme nts SODIUM (test code = NA) 142 mEq/L 134-147 N POTASSIUM (test code = K) 4.6 mEq/L 3.4-5.0 N CHLORIDE (test code = CL) 109 mEq/L 100-108 H CARBON DIOXIDE (test code = CO2) 25 mEq/l 21-33 N ANION GAP (test code = GAP) 12 0-20 N GLUCOSE (test code = GLU) 105 mg/dL 70-110 N BLOOD UREA NITROGEN (test code = 19 mg/dL 7-18 H BUN) GLOMERULAR FILTRATION RATE (test 45.1 80-90 L Units of measure = ml/min/1.73 code = GFR) m2 CREATININE (test code = CREAT) 1.4 mg/dL 0.6-1.3 H CALCIUM (test code = CA) 9.4 mg/dL 8.0-10.5 N CBC W/AUTO [id number] 10:45:00 Test Item Value Reference Range Interpretation Comments WHITE BLOOD CELL (test code = 7.6 x10 3/uL 4.5-11.0 N WBC) RED BLOOD CELL (test code = 3.83 x10 6/uL 3.54-5.02 N RBC) HEMOGLOBIN (test code = HGB) 8.9 g/dL 11.0-15.0 L HEMATOCRIT (test code = HCT) 30.8 % 33.0-45.0 L MEAN CELL VOLUME (test code = 80.4 fL 81.0-99.0 L MCV) MEAN CELL HGB (test code = MCH) 23.2 pg 27.0-33.0 L MEAN CELL HGB CONCETRATION 28.9 g/dL 33.0-37.0 L (test code = MCHC) RED CELL DISTRIBUTION WIDTH CV 19.6 % 11.5-14.5 H (test code = RDW) RED CELL DISTRIBUTION WIDTH SD 52.9 fL 37.0-54.0 N (test code = RDW-SD) PLATELET COUNT (test code = 318 x10 3/uL 150-400 N PLT) MEAN PLATELET VOLUME (test code 11.7 fL 7.0-9.0 H = MPV) NEUTROPHIL % (test code = NT%) 71.8 % 56.0-77.0 N IMMATURE GRANULOCYTE % (test 0.3 % 0.0-2.0 N code = IG%) LYMPHOCYTE % (test code = LY%) 18.0 % 14.0-32.0 N MONOCYTE % (test code = MO%) 7.5 % 4.8-9.0 N EOSINOPHIL % (test code = EO%) 1.5 % 0.3-3.7 N BASOPHIL % (test code = BA%) 0.9 % 0.0-2.0 N NUCLEATED RBC % (test code = 0.0 % 0-0 N NRBC%) NEUTROPHIL # (test code = NT#) 5.44 x10 3/uL 2.0-7.6 N IMMATURE GRANULOCYTE # (test 0.02 x10 3/uL 0.00-0.03 N code = IG#) LYMPHOCYTE # (test code = LY#) 1.36 x10 3/uL 1.0-3.8 N MONOCYTE # (test code = MO#) 0.57 x10 3/uL 0.1-0.8 N EOSINOPHIL # (test code = EO#) 0.11 x10 3/uL 0.0-0.2 N BASOPHIL # (test code = BA#) 0.07 x10 3/uL 0.0-0.2 N NUCLEATED RBC # (test code = 0.00 x10 3/uL 0.0-0.1 N NRBC#) MANUAL DIFF REQUIRED (test code NO = MDIFF)
[2022-03-29] MEDS ORDERED: ASPIRIN 81 MG CHEWABLE TABLET ONE (01:34)
[2022-03-29 02:46] LABS: Absolute Lymphocytes (CBC) 1.7 K/uL (0.7-4.9); Hematocrit 31.5 % (36.0-45.0); Lymphocytes % 17.5 % (15.3-44.8); MCV 76.7 fL (80-100); MPV 9.5 fL (7.6-11.3)
[2022-03-29 02:51] LABS: Protime INR 1.21
[2022-03-29 03:08] LABS: ALT/SGPT 35 U/L (12-78); Albumin 3.9 g/dL (3.4-5.0); Alkaline Phosphatase 141 U/L (45-117); BUN Blood Urea Nitrogen 54 mg/dL (7-18); Bicarbonate 28 mmol/L (21-32); Bilirubin Total 0.3 mg/dL (0.2-1.0); Glomerular Filtration Rate 19 ml/min (=/>90); Glucose Level 122 mg/dL (74-106); NT PRO-BNP 264 pg/mL (<125); Protein, Total 8.7 g/dL (6.4-8.2); Sodium Level 155 mmol/L (136-145); Troponin High Sensitivity 37.5 pg/mL (<58.9)
[2022-03-29 03:09] LABS: AST/SGOT 34 U/L (15-37); Bilirubin Direct < 0.1 mg/dL (0-0.2); Magnesium 3.1 mg/dL (1.8-2.4); Potassium 4.1 mmol/L (3.5-5.1)
--- NOTE | 2022-03-29 03:28 | EDPHYS ---
Physician Documentation [facility] Name: Mahendra Wilkins Age: 71 yrs Sex: Female : 1950 Arrival Date: 03/29/2022 Time: 00:50 Bed 6 Private MD: ED Physician Ponce Harmon HPI: 03/29 00:52 This 71 yrs old Black Female presents to ER via Unassigned with complaints of general snw weakness. 00:52 generalized weakness. Onset: The symptoms/episode began/occurred gradually. Severity of snw symptoms: At their worst the symptoms were moderate. The patient has experienced similar episodes in the past, multiple times. Historical: - Allergies: 01:33 No Known Allergies; vc1 - Home Meds: 01:33 atorvastatin 40 mg Oral tab 1 tab once daily [Active]; Eliquis 5 mg Oral tab 1 tab 2 vc1 times per day [Active]; famotidine 20 mg Oral tab 1 tab once daily [Active]; gabapentin 300 mg Oral cap 1 cap 3 times per day [Active]; hydralazine 100 mg Oral tab 1 tab 3 times per day [Active]; isosorbide mononitrate 60 mg Oral Tb24 1 tab once daily [Active]; Linzess 145 mcg Oral cap 1 cap once daily [Active]; - PMHx: 01:33 acid reflux; High Cholesterol; Hypertension; vc1 - PSHx: 01:33 heart; vc1 - Immunization history:: Adult Immunizations up to date, Client reports receiving the 2nd dose of the Covid vaccine. - Social history:: Smoking status: Patient denies any tobacco usage or history of. ROS: 00:52 Eyes: Negative for injury, pain, redness, and discharge, ENT: Negative for injury, snw pain, and discharge, Neck: Negative for injury, pain, and swelling. 00:52 Abdomen/GI: Negative for abdominal pain, nausea, vomiting, diarrhea, and constipation, Back: Negative for injury and pain, : Negative for injury, bleeding, discharge, and swelling, MS/Extremity: Negative for injury and deformity, Skin: Negative for injury, rash, and discoloration, Neuro: Negative for headache, weakness, numbness, tingling, and seizure, Psych: Negative for depression, anxiety, suicide ideation, homicidal ideation, and hallucinations. 00:52 Constitutional: Positive for malaise. 00:52 Cardiovascular: Positive for orthopnea, palpitations. 00:52 Respiratory: Positive for shortness of breath, at rest. Exam: 00:56 Head/Face: Normocephalic, atraumatic. Eyes: Pupils equal round and reactive to light, snw extra-ocular motions intact. Lids and lashes normal. Conjunctiva and sclera are non-icteric and not injected. Cornea within normal limits. Periorbital areas with no swelling, redness, or edema. ENT: Nares patent. No nasal discharge, no septal abnormalities noted. Tympanic membranes are normal and external auditory canals are clear. Oropharynx with no redness, swelling, or masses, exudates, or evidence of obstruction, uvula midline. Mucous membranes moist. Neck: Trachea midline, no thyromegaly or masses palpated, and no cervical lymphadenopathy. Supple, full range of motion without nuchal rigidity, or vertebral point tenderness. No Meningismus. Chest/axilla: Normal chest wall appearance and motion. Nontender with no deformity. No lesions are appreciated. Cardiovascular: Regular rate and rhythm with a normal S1 and S2. No gallops, murmurs, or rubs. Normal PMI, no JVD. No pulse deficits. 00:56 Abdomen/GI: Soft, non-tender, with normal bowel sounds. No distension or tympany. No guarding or rebound. No evidence of tenderness throughout. Back: No spinal tenderness. No costovertebral tenderness. Full range of motion. Skin: Warm, dry with normal turgor. Normal color with no rashes, no lesions, and no evidence of cellulitis. MS/ Extremity: Pulses equal, no cyanosis. Neurovascular intact. Full, normal range of motion. Neuro: Awake and alert, GCS 15, oriented to person, place, time, and situation. Cranial nerves II-XII grossly intact. Motor strength 5/5 in all extremities. Sensory grossly intact. Cerebellar exam normal. Normal gait. Psych: Awake, alert, with orientation to person, place and time. Behavior, mood, and affect are within normal limits. 00:56 Constitutional: The patient appears alert, awake, obese, restless. 00:56 Respiratory: mild respiratory distress is noted, Respirations: shallow respirations, tachypnea, Breath sounds: wheezing: expiratory is heard diffusely. 01:33 ECG was reviewed by the Attending Physician. ms3 Vital Signs: 00:50 BP 164 / 74; Pulse 84; Resp 18; Temp 97.2; Pulse Ox 100% on R/A; vc1 03:03 BP 156 / 62; Pulse 79; Resp 17; Pulse Ox 97% on R/A; vc1 04:00 BP 179 / 77; Pulse 74; Resp 15; Pulse Ox 99% ; vc1 05:00 BP 189 / 87; Pulse 74; Resp 15; Pulse Ox 100% ; vc1 05:15 BP 175 / 82; Pulse 74; Resp 16; Pulse Ox 99% ; vc1 MDM: 00:52 Patient medically screened. ms3 00:58 Data reviewed: vital signs, nurses notes. Data interpreted: Pulse oximetry: on room air snw is 95 %. Interpretation: acceptable. Counseling: I had a detailed discussion with the patient and/or guardian regarding: lab results, radiology results. 01:30 Transition of care: Care assumed from Brittany Vega [facility]. ms3 03:27 Data reviewed: lab test result(s), and as a result, I will admit patient. ED course: ms3 Discussed case with Mahendra Estrada NP, and he accepts patient on behalf of Dr Salmon.. 03/29 00:51 Order name: Basic Metabolic Panel; Complete Time: 03:22 snw 03/29 00:51 Order name: CBC with Diff; Complete Time: 03:22 snw 03/29 00:51 Order name: LFT's; Complete Time: 03:22 snw 03/29 00:51 Order name: Magnesium; Complete Time: 03:22 snw 03/29 00:51 Order name: NT PRO-BNP; Complete Time: 03:22 snw 03/29 00:51 Order name: PT-INR; Complete Time: 03:22 snw 03/29 00:51 Order name: Troponin HS; Complete Time: 03:22 snw 03/29 01:36 Order name: SARS RAPID; Complete Time: 04:09 snw 03/29 11:31 Order name: Electrolytes EDMS 03/29 11:31 Order name: Phosphorus EDMS 03/29 11:31 Order name: Creatine Phosphokinase EDWV 03/29 11:43 Order name: PTH Intact EDWV 03/29 11:50 Order name: Vitamin D, 25 ([place]), TOTAL EDMS 03/29 16:29 Order name: Electrolytes EDMS 03/29 00:51 Order name: XRAY Chest (1 view) snw 03/29 00:51 Order name: EKG; Complete Time: 00:53 03/29 00:51 Order name: Cardiac monitoring; Complete Time: 01:24 03/29 00:51 Order name: EKG - Nurse/Tech; Complete Time: :34 03/29 00:51 Order name: IV Saline Lock; Complete Time: 01:24 03/29 00:51 Order name: Labs collected and sent; Complete Time: :24 03/29 00:51 Order name: O2 Per Protocol; Complete Time: :34 03/29 00:51 Order name: O2 Sat Monitoring; Complete Time: :34 03/29 09:29 Order name: US EDMS EC:33 Rate is 81 beats/min. Rhythm is regular. QRS [place] is Normal. QT interval is prolonged. ms3 Clinical impression: NSR w/ Non-specific ST/T Changes. Interpreted by me. Reviewed by me. Administered Medications: 01:34 Drug: Aspirin Chewable Tablet 324 mg Route: PO; vc1 03:45 Follow up: Response: No adverse reaction; Marked relief of symptoms vc1 03:45 Drug: D5W 1000 ml Route: IV; Rate: 100 ml/hr; Site: right upper arm; vc1 20:52 Follow up: Response: No adverse reaction; IV Status: Infusion continued; IV Intake: aa9 500ml Disposition: 03:25 Co-signature as Attending Physician, Ponce Harmon DO. ms3 Disposition Summary: 03/29/22 03:27 Hospitalization Ordered Hospitalization Status: Inpatient Admission ms3 Provider: Carlos Alberto Salmon ms3 Condition: Stable ms3 Problem: new ms3 Symptoms: are unchanged ms3 Bed/Room Type: Standard ms3 Location: Telemetry/MedSurg (Inpatient)(03/29/22 19:20) dw Room Assignment: [facility](03/29/22 19:20) dw Diagnosis - Hyperosmolality and hypernatremia ms3 - Acute renal failure ms3 - Anemia, unspecified ms3 Forms: - Medication Reconciliation Form ms3 - SBAR form ms3 Signatures: Dispatcher [employer] EDMS Stefany Sorensen RN MAGDALENE Becca Tejeda RN RN Brittany Harmon FNP-C GEOVANY-Csnw Mahendra Estrada FNP-C FNP-Cla1 Ponce Harmon, DO CHURCH ms3 Elham Yip RN RN vc1 Marlena Meza RN aa9 Corrections: (The following items were deleted from the chart) 04:41 03:27 Telemetry/MedSurg (Inpatient) ms3 mw 04:41 03:27 ms3 mw 19:20 04:41 [facility] ER HOLD mw dw 19:20 04:41 ERHOLD- mw dw
--- NOTE | 2022-03-29 03:28 | ER ---
Nurse's Notes [facility] Name: Mahendra Wilkins Age: 71 yrs Sex: Female : 1950 Arrival Date: 03/29/2022 Time: 00:50 Bed 6 Private MD: Diagnosis: Hyperosmolality and hypernatremia;Acute renal failure;Anemia, unspecified Presentation: 03/29 00:50 Chief complaint: EMS states: " We were called out for generalized weakness, pt states vc1 she has been weak for a few days now.". 00:50 Coronavirus screen: Client presents with at least one sign or symptom that may indicate vc1 coronavirus-19. Standard/surgical mask placed on the client. Provider contacted for isolation considerations. Ebola Screen: No symptoms or risks identified at this time. Initial Sepsis Screen: Does the patient meet any 2 criteria? No. Patient's initial sepsis screen is negative. Does the patient have a suspected source of infection? No. Patient's initial sepsis screen is negative. Risk Assessment: Do you want to hurt yourself or someone else? Patient reports no desire to harm self or others. Onset of symptoms is unknown. 00:50 Method Of Arrival: EMS: [facility] vc1 00:50 Acuity: SUSAN 3 vc1 05:39 Coronavirus screen: Vaccine status: Patient reports receiving the 2nd dose of the covid vc1 vaccine. Moderna. Triage Assessment: 01:00 General: Appears in no apparent distress. uncomfortable, obese, Behavior is flat. Pain: vc1 Denies pain. EENT: No signs and/or symptoms were reported regarding the EENT system. Reports. Neuro: Level of Consciousness is awake, obeys commands, lethargic, Oriented to person, place, situation, Appropriate for age Reports weakness generalized weakness. Cardiovascular: No deficits noted. Respiratory: Airway is patent Respiratory effort is even, unlabored, Respiratory pattern is regular, symmetrical. GI: No deficits noted. : No signs and/or symptoms were reported regarding the genitourinary system. Derm: No signs and/or symptoms reported regarding the dermatologic system. Musculoskeletal: Reports weakness in right leg and left leg. Historical: - Allergies: 01:33 No Known Allergies; vc1 - Home Meds: 01:33 atorvastatin 40 mg Oral tab 1 tab once daily [Active]; Eliquis 5 mg Oral tab 1 tab 2 vc1 times per day [Active]; famotidine 20 mg Oral tab 1 tab once daily [Active]; gabapentin 300 mg Oral cap 1 cap 3 times per day [Active]; hydralazine 100 mg Oral tab 1 tab 3 times per day [Active]; isosorbide mononitrate 60 mg Oral Tb24 1 tab once daily [Active]; Linzess 145 mcg Oral cap 1 cap once daily [Active]; - PMHx: 01:33 acid reflux; High Cholesterol; Hypertension; vc1 - PSHx: 01:33 heart; vc1 - Immunization history:: Adult Immunizations up to date, Client reports receiving the 2nd dose of the Covid vaccine. - Social history:: Smoking status: Patient denies any tobacco usage or history of. Screenin:00 Abuse screen: Denies threats or abuse. Nutritional screening: No deficits noted. vc1 Tuberculosis screening: No symptoms or risk factors identified. Fall Risk None identified. Assessment: 01:30 Reassessment: Lab called to do blood draw on patient, unsuccessful IV placement. vc1 01:30 Reassessment: Patient and/or family updated on plan of care and expected duration. Pain vc1 level reassessed. Patient states symptoms have not improved. 02:02 General: per patient request. Patient provided two cups of ice. Two warm blankets and tw5 bed repositioned for comfort. . 03:00 Reassessment: Patient and/or family updated on plan of care and expected duration. Pain vc1 level reassessed. Patient is alert, oriented x 3, equal unlabored respirations, skin warm/dry/pink. Patient states symptoms have not improved. 04:00 Reassessment: Patient and/or family updated on plan of care and expected duration. Pain vc1 level reassessed. Patient is alert, oriented x 3, equal unlabored respirations, skin warm/dry/pink. 05:00 Reassessment: No changes from previously documented assessment. Patient and/or family vc1 updated on plan of care and expected duration. Pain level reassessed. Vital Signs: 00:50 BP 164 / 74; Pulse 84; Resp 18; Temp 97.2; Pulse Ox 100% on R/A; vc1 03:03 BP 156 / 62; Pulse 79; Resp 17; Pulse Ox 97% on R/A; vc1 04:00 BP 179 / 77; Pulse 74; Resp 15; Pulse Ox 99% ; vc1 05:00 BP 189 / 87; Pulse 74; Resp 15; Pulse Ox 100% ; vc1 05:15 BP 175 / 82; Pulse 74; Resp 16; Pulse Ox 99% ; vc1 ED Course: 00:50 Patient arrived in ED. mw2 00:50 Brittany Vega FNP-C is PHCP. snw 00:50 Ponce Harmon DO is Attending Physician. snw 00:59 Elham Yip, MAGDALENE is Primary Nurse. vc1 01:00 Patient has correct armband on for positive identification. Placed in gown. Bed in low vc1 position. Call light in reach. Side rails up X2. Client placed on continuous cardiac and pulse oximetry monitoring. NIBP monitoring applied. 01:15 Missed attempt(s): 22 gauge in left antecubital area. vc1 01:20 Missed attempt(s): 22 gauge in left forearm. vc1 01:25 Missed attempt(s): 22 gauge in right hand. vc1 01:28 XRAY Chest (1 view) In Process Unspecified. EDMS 01:33 Triage completed. vc1 01:34 Arm band placed on right wrist. vc1 02:39 Inserted saline lock: 20 gauge in right antecubital area, using aseptic technique. tw5 Blood collected. ultrasound guided IV. 03:11 Notified ED physician of a critical lab result(s). chloride 125. aa9 03:26 Carlos Alberto Salmon is Hospitalizing Provider. ms3 05:30 No provider procedures requiring assistance completed. Patient admitted, IV remains in vc1 place. Administered Medications: 01:34 Drug: Aspirin Chewable Tablet 324 mg Route: PO; vc1 03:45 Follow up: Response: No adverse reaction; Marked relief of symptoms vc1 03:45 Drug: D5W 1000 ml Route: IV; Rate: 100 ml/hr; Site: right upper arm; vc1 20:52 Follow up: Response: No adverse reaction; IV Status: Infusion continued; IV Intake: aa9 500ml Medication: 02:46 VIS not applicable for this client. vc1 Intake: 20:52 IV: 500ml; Total: 500ml. aa9 Outcome: 03:27 Decision to Hospitalize by Provider. ms3 05:30 Admitted to ER Hold. Please see [facility] for further documentation. vc1 05:30 Condition: good 05:30 Discharge instructions given to patient. 20:53 Patient left the ED. aa9 Signatures: Dispatcher [employer] EDMS Stefany Sorensen RN RN mw Brittany Vega, CORROSION CONTROL FITTER-C CORROSION CONTROL FITTER-Csnw Luc Hoff mw2 Ponce Harmon DO DO ms3 Rosalinda Patrick tw5 Elham Yip RN RN vc1 Marlena Meza RN RN aa9
[2022-03-29] MEDS ORDERED: D5W 1,000 ML IV ONE ×2 (03:46→16:31)
[2022-03-29 04:02] LABS: SARS-CoV-2 Antigen Rapid Res Positive (Negative)
--- NOTE | 2022-03-29 04:18 | P.HP ---
Certification for Inpatient Patient admitted to: Inpatient With expected LOS: >2 Midnights Patient will require the following post-hospital care: None Practitioner: I am a practitioner with admitting privileges, knowledge of patient current condition, hospital course, and medical plan of care. Services: Services provided to patient in accordance with Admission requirements found in Title 42 Section 412.3 of the Code of Federal Regulations Patient History Date of Service: 03/29/22 Reason for admission: ARF, hypernatremia History of Present Illness: 71-year-old female history of atrial fibrillation on chronic anticoagulant therapy, chronic diastolic congestive heart failure, COPD on home oxygen, hypertension, hyperlipidemia and GERD presents the emergency department for feeling unwell, she reports she has been having malaise, fatigue and just not feeling well over the course of the last couple of days. She was evaluated in the emergency department her labs were significant for acute kidney injury/acute renal failure with creatinine 2.6 EGFR 19 BUN of 54 sodium of 135 chloride 125 magnesium 3.1 hemoglobin 9.6 medical 31.5 incidentally COVID-positive. Patient reports she has been taking her Lasix as prescribed, reports decent oral intake, mucous membranes are dry. Patient started on D5W will admit patient for acute renal failure/hypernatremia with nephrology consult. Allergies No Known Allergies Allergy (Unverified 01/29/22 03:23) Home Medications: Apixaban [Eliquis] 5 mg PO BID 01/29/22 Atorvastatin Calcium [Lipitor] 40 mg PO BEDTIME 01/29/22 Cefdinir [Omnicef] 300 mg PO BID #14 capsule 01/29/22 Famotidine 20 mg PO DAILY 01/29/22 Furosemide [Lasix] 20 mg PO DAILY #30 tab 01/29/22 Gabapentin 300 mg PO TID 01/29/22 Hydralazine HCl 100 mg PO TID 01/29/22 Isosorbide Mononitrate [Isosorbide Mononitrate ER] 60 mg PO DAILY 01/29/22 Linaclotide [Linzess] 145 mcg PO DAILY 01/29/22 Potassium Chloride [K-Dur] 10 meq PO DAILY #30 tab.er.prt 01/29/22 predniSONE [Prednisone*] 20 mg PO DAILY #5 tab 01/29/22 - Past Medical/Surgical History Diabetic: No -: COPD with home O2 -: Hypertension -: Afib on chronic anticoagulation -: Chronic diastolic congestive heart failure -: HLD -: Heart Valve Repair Psychosocial/ Personal History: Patient lives at home. She has a son. - Family History Sister -: Heart disease - Social History Smoking Status: Never smoker Alcohol use: No CD- Drugs: No Caffeine use: No Place of Residence: Home Review of Systems 10-point ROS is otherwise unremarkable General: Weakness, Malaise Physical Examination - Physical Exam General: Alert, In no apparent distress, Oriented x3, Obese HEENT: Atraumatic, PERRLA, Mucous membr. moist/pink, EOMI, Sclerae nonicteric Neck: Supple, 2+ carotid pulse no bruit, No LAD, Without JVD or thyroid abnormality Respiratory: Clear to auscultation bilaterally, Normal air movement Cardiovascular: Regular rate/rhythm, Normal S1 S2 Gastrointestinal: Normal bowel sounds, No tenderness Musculoskeletal: No tenderness Integumentary: No rashes Neurological: Normal speech, Normal strength at 5/5 x4 extr, Normal tone, Normal affect - Studies Laboratory Data (last 24 hrs) 03/29/22 02:30: PT 13.4 H, INR 1.21 03/29/22 02:30: WBC 9.7, Hgb 9.6 L, Hct 31.5 L, Plt Count 276 03/29/22 02:30: Sodium 155 H, Potassium 4.1, BUN 54 H, Creatinine 2.68 H, Glucose 122 H, Magnesium 3.1 H D, Total Bilirubin 0.3, AST 34, ALT 35, Alkaline Phosphatase 141 H Assessment and Plan - Plan Assessment: Acute renal failure Hypernatremia, hyperchloremia Atrial fibrillation on chronic anticoagulation therapy Chronic diastolic congestive heart failure COPD on home oxygen Hypertension Hyperlipidemia Plan: Acute renal failure: Continue IV fluids with D5W, renal ultrasound ordered, nephrology consulted. Hypernatremia, hyperchloremia: Continue D5W monitor chemistry, nephrology consulted Atrial fibrillation on chronic anticoagulation therapy: Continue Eliquis, monitor on telemetry. Chronic diastolic congestive heart failure: Hold Lasix at this time patient does not appear to be significantly overloaded and has significant hypona tremia/hyperchloremia COPD on home oxygen: Supplemental oxygen as needed, as needed nebs. Hypertension: Continue home medications. Hyperlipidemia:Continue home medications. DVT PPX: Continue Eliquis Code status:full Discharge Plan: Home Plan to discharge in: 72 Hours - Advance Directives Does patient have a Living Will: No Does patient have a Durable POA for Healthcare: No - Code Status/Comfort Care Code Status Assessed: Yes (Full code) Critical Care: No Time Spent Managing Pts Care (In Minutes): 70
[2022-03-29] MEDS ORDERED: ONDANSETRON 4 MG/2 ML VIAL IV PRN (05:37)
[2022-03-29] MEDS ORDERED: D5W 1,000 ML IV SCH (05:37)
[2022-03-29] MEDS ORDERED: ACETAMINOPHEN 500 MG TAB PO PRN (05:37)
[2022-03-29] MEDS: HYDRALAZINE HCL 25 MG TABLET PO SCH ×3 (09:00→21:31)
[2022-03-29] MEDS: ISOSORBIDE MONO SR 60 MG TAB PO SCH (09:00)
[2022-03-29] MEDS: APIXABAN 5 MG TABLET PO SCH ×2 (09:00→21:30)
--- NOTE | 2022-03-29 09:28 | RAD REPORT ---
EXAM DESCRIPTION: US - Renal Ultrasound-Complete - 03/29/2022 8:40 am CLINICAL HISTORY: arf Flank pain COMPARISON: No comparisons FINDINGS: Both kidneys are normal in size, shape and echotexture. The right kidney measures 8.3 x 4.1 x 4.0 cm. No hydronephrosis, focal mass or perinephric fluid. 13 mm benign-appearing cortical right renal cyst. The left kidney measures 9.1 x 5.3 x 4.0 cm. No hydronephrosis, focal mass or perinephric fluid. The urinary bladder is incompletely distended without gross abnormality seen. IMPRESSION: Unremarkable renal sonogram.
--- NOTE | 2022-03-29 09:36 | P.CNS ---
Date of Consult: 03/29/22 Reason for Consult: Renal failure, hypernatremia Requesting Physician: tameka roblero Chief Complaint: ARF, hypernatremia History of Present Illness: 71F w/ PMHx of afib on AC, chronic diastolic heart failure, COPD on home O2, Htn, HLD, & GERD who p/w fatigue for the past 2 days, found to have covid infxn w/ BOOM & hypernatremia. She is receiving IV fluids. Renal US showed small R kidney. Urine studies pending. Allergies No Known Allergies Allergy (Unverified 01/29/22 03:23) Home Medications: Apixaban [Eliquis] 5 mg PO BID 01/29/22 Atorvastatin Calcium [Lipitor] 40 mg PO BEDTIME 01/29/22 Cefdinir [Omnicef] 300 mg PO BID #14 capsule 01/29/22 Famotidine 20 mg PO DAILY 01/29/22 Furosemide [Lasix] 20 mg PO DAILY #30 tab 01/29/22 Gabapentin 300 mg PO TID 01/29/22 Hydralazine HCl 100 mg PO TID 01/29/22 Isosorbide Mononitrate [Isosorbide Mononitrate ER] 60 mg PO DAILY 01/29/22 Linaclotide [Linzess] 145 mcg PO DAILY 01/29/22 Potassium Chloride [K-Dur] 10 meq PO DAILY #30 tab.er.prt 01/29/22 predniSONE [Prednisone*] 20 mg PO DAILY #5 tab 01/29/22 - Past Medical/Surgical History Diabetic: No -: COPD with home O2 -: Hypertension -: Afib on chronic anticoagulation -: Chronic diastolic congestive heart failure -: HLD -: Heart Valve Repair Psychosocial/ Personal History: Patient lives at home. She has a son. - Family History Sister Medical History: Heart disease - Social History Alcohol use: No CD- Drugs: No Caffeine use: No Place of Residence: Home Review of Systems General: Malaise Eyes: Unremarkable ENT: Unremarkable Respiratory: Unremarkable Cardiovascular: Unremarkable Gastrointestinal: Unremarkable Genitourinary: Unremarkable Musculoskeletal: Unremarkable Integumentary: Unremarkable Neurological: Weakness Lymphatics: Unremarkable Physical Examination General: Other (appears as her stated age) HEENT: Atraumatic, Normocephalic Neck: Supple, JVD not distended Respiratory: Other (symmetric chest expansion) Cardiovascular: No rubs, No murmurs Gastrointestinal: Soft and benign, No rebound Musculoskeletal: No clubbing Integumentary: No warmth Neurological: Normal speech, Normal tone Lymphatics: No axilla or inguinal lymphadenopathy Urinary: Other (No bladder distention) External genitalia: Deferred Rectal: Deferred Laboratory Data (last 24 hrs) 03/29/22 02:30: PT 13.4 H, INR 1.21 03/29/22 02:30: WBC 9.7, Hgb 9.6 L, Hct 31.5 L, Plt Count 276 03/29/22 02:30: Sodium 155 H, Potassium 4.1, BUN 54 H, Creatinine 2.68 H, Glucose 122 H, Magnesium 3.1 H D, Total Bilirubin 0.3, AST 34, ALT 35, Alkaline Phosphatase 141 H Conclusions/Impression: # BOOM 2/2 prerenal state +/- ATN from prolonged prerenal SCr 2.7 on adm Baseline SCr 1.5-1.6 as of 01/29/2022 Urinalysis no hematuria no pyuria Renal US showed small R kidney Urine chem non-prerenal No overt proteinuria BNP sl. elevated IVF as below [place] po fluid intake Monitor renal panel, I/O # HyperNa Serum Na 155 initially, decreased to 145 Wt 97.7 kgs TBW 44L Free water deficit 4.7L Insensible water loss 0.5L/d Urine free water loss at least 1L/d Received D5W gtt, switch to LR 75 cc/hr # Hypokalemia KCl repletion ongoing # Afib On AC via eliquis # Htn BP above goal Start Amlodipine 5 mg po daily Cont Hydralazine same dose # Secondary hyperPTH iPTH elevated at 150 25OHD low at 26 Start D3 2000 IU po daily # Chronic diastolic HF Cont cardioprudent meds # COPD On home O2 Per other services
[2022-03-29] MEDS: D5W 1,000 ML IV SCH ×3 (09:41→21:31)
[2022-03-29] MEDS ORDERED: HYDRALAZINE HCL 25 MG TABLET ONE ×2 (09:48→16:31)
[2022-03-29] MEDS ORDERED: APIXABAN 5 MG TABLET ONE (09:48)
[2022-03-29 11:20] LABS: Phosphorus 3.1 mg/dL (2.5-4.9); Potassium 3.3 mmol/L (3.5-5.1)
--- NOTE | 2022-03-29 14:28 | P.PN ---
Date of Service: 03/29/22 Patient seen and examined. She currently has no complaint. She endorsed decreased oral intake. Hyponatremia resolved. Plan: Nephrology input appreciated. Avoid overcorrection by more than 10 to 12 mEq/day. Nephrology is managing. Continue to monitor renal function. Continue Eliquis for A. fib anticoagulation.
[2022-03-29 16:27] LABS: Potassium 3.1 mmol/L (3.5-5.1)
[2022-03-29] MEDS: ATORVASTATIN 40 MG TAB PO SCH (21:31)
[2022-03-29 22:21] LABS: Urine Bilirubin Negative (Negative); Urine Blood Negative (Negative); Urine Clarity Clear (Clear); Urine Color Yellow (Yellow); Urine Glucose Negative (Negative); Urine Protein Negative (Negative); Urine Urobilinogen 0.2 mg/dL (0.2-1.0); Urine pH 5.5 (5.0-7.0)
[2022-03-29 22:29] LABS: Potassium 3.4 mmol/L (3.5-5.1)
[2022-03-29 22:31] LABS: UR PROTEIN 6.1 mg/dL (<11.9); Urine Protein/Creatinine Ratio 0.17 ratio (<0.15)
[2022-03-30 03:44] LABS: Absolute Lymphocytes (CBC) 1.4 K/uL (0.7-4.9); Hematocrit 27.5 % (36.0-45.0); Lymphocytes % 17.8 % (15.3-44.8); MCV 76.1 fL (80-100); MPV 9.8 fL (7.6-11.3); RBC Red Blood Cell Count 3.62 M/uL (3.86-4.86)
[2022-03-30 04:07] LABS: Albumin 3.1 g/dL (3.4-5.0); Bilirubin Total 0.3 mg/dL (0.2-1.0); Magnesium 2.3 mg/dL (1.8-2.4); Potassium 3.4 mmol/L (3.5-5.1); Protein, Total 6.9 g/dL (6.4-8.2); Thyroid Stimulating Hormone 0.99 uIU/mL (0.360-3.740)
[2022-03-30 05:36] VITALS: BMI 36.1
[2022-03-30] MEDS: D5W 1,000 ML IV SCH (06:28)
[2022-03-30] MEDS ORDERED: POTASSIUM CL 40 MEQ in NA CHLORIDE 0.9% 500 ML IV SCH (07:00)
[2022-03-30] MEDS: APIXABAN 5 MG TABLET PO SCH ×2 (08:30→20:58)
[2022-03-30] MEDS: HYDRALAZINE HCL 25 MG TABLET PO SCH ×3 (08:30→20:57)
[2022-03-30] MEDS: Ringers Lactate 1,000 ML IV SCH ×2 (08:31→20:59)
[2022-03-30] MEDS: AMLODIPINE 5 MG TAB PO SCH (08:31)
[2022-03-30] MEDS: VITAMIN D 1000 UNIT TAB PO SCH (08:31)
[2022-03-30] MEDS: ISOSORBIDE MONO SR 60 MG TAB PO SCH (09:57)
--- NOTE | 2022-03-30 11:30 | RAD REPORT ---
EXAM DESCRIPTION: XR Chest, 1 View CLINICAL HISTORY: The patient is 71 years old and is Female; CHEST PAIN TECHNIQUE: Frontal view of the chest. COMPARISON: January 28, 2022. FINDINGS: Lungs: Prominent interstitial markings which may indicate interstitial edema. Hazy opaci fication of the left lung base. Pleural space: Unremarkable. No pneumothorax. Heart: Unremarkable. Mediastinum: Unremarkable. Bones/joints: Unremarkable. IMPRESSION: Prominent interstitial markings which may indicate interstitial edema. Hazy opacificatio n of the left lung base. Electronically signed by: Delvin Aguirre MD 03/29/2022 1:47 AM CDT Due to temporary technical issues with the PACS/Fluency reporting system, reports are being signed by the in house radiologists without review as a courtesy to insure prompt reporting. The interpreting radiologist is fully responsible for the content of the report.
--- NOTE | 2022-03-30 15:39 | P.PN ---
Subjective Date of Service: 03/30/22 Chief Complaint: ARF, hypernatremia Patient has no complaint today. She states she feels fine. Renal function is trending down. Physical Examination - Vital Signs Temperature: 97 F Blood Pressure: 168/65 Pulse: 77 Respirations: 20 Pulse Ox (%): 100 Assessment And Plan - Current Problems (Diagnosis) (1) BOOM (acute kidney injury) Current Visit: No Status: Acute (2) Afib Current Visit: No Status: Chronic Qualifiers: Atrial fibrillation type: unspecified Qualified Code(s): I48.91 - Unspecified atrial fibrillation (3) COPD (chronic obstructive pulmonary disease) Current Visit: No Status: Chronic Qualifiers: COPD type: unspecified COPD Qualified Code(s): J44.9 - Chronic obstructive pulmonary disease, unspecified (4) HLD (hyperlipidemia) Current Visit: No Status: Chronic Qualifiers: Hyperlipidemia type: unspecified Qualified Code(s): E78.5 - Hyperlipidemia, unspecified (5) HTN (hypertension) Current Visit: No Status: Chronic Qualifiers: Hypertension type: primary hypertension Qualified Code(s): I10 - Essential (primary) hypertension (6) Hypernatremia Current Visit: Yes Status: Acute (7) Chronic diastolic heart failure Current Visit: Yes Status: Acute (8) Mitral regurgitation Current Visit: Yes Status: Acute (9) COVID-19 virus infection Current Visit: Yes Status: Acute - Plan Physical Exam General: Alert, In no apparent distress, Oriented x3, Obese HEENT: Atraumatic, PERRLA, Mucous membr. moist/pink, EOMI, Sclerae nonicteric Neck: Supple, 2+ carotid pulse no bruit, No LAD, Without JVD or thyroid abnormality Respiratory: Clear to auscultation bilaterally, Normal air movement Cardiovascular: Regular rate/rhythm, Normal S1 S2 Gastrointestinal: Normal bowel sounds, No tenderness Musculoskeletal: No tenderness Integumentary: No rashes Neurological: Normal speech, Normal strength at 5/5 x4 extr, Normal tone, Normal affect Hypernatremia resolved. Renal function is trending down Nephrology is managing BOOM and hyponatremia. Continue to monitor renal function. Continue Eliquis for A. fib anticoagulation. Lasix on hold due to BOOM. Activity as tolerated. PT. Patient is asymptomatic from the COVID-19 infection.
[2022-03-30] MEDS: ATORVASTATIN 40 MG TAB PO SCH (20:58)
--- NOTE | 2022-03-31 03:12 | PN ---
Date of Progress Note: 03/30/2022 Chief Complaint: Acute kidney injury and hypernatremia. History Of Present Illness: Patient is a 71-year-old woman with history of atrial fibrillation, on a nticoagulation; chronic diastolic congestive heart failure; hypertension; COPD, on home oxygen. She developed COVID infection complicated by acute kidney injury and hypernatremia. Patient was started on IV fluids. Renal ultrasound showed small right kidney. Urine studies were ordered to screen for proteinuria and abnormal urinary sediment. Review of Systems: No chest pain. No palpitation. Physical Examination: Lungs: Coarse breath sound bilaterally. Heart: S1, S2. Abdomen: Soft. Extremities: Slight edema. Laboratory Data: BUN 54, creatinine level 2.68, sodium level 155 on admission, glucose 122, magnesiu m 3.1. Impression And Plan: 1.Acute kidney injury secondary to prerenal state complicated by acute tubular necrosis due to renal hypoperfusion. Serum creatinine on admission was 2.7. Patient has underlying chronic kidney diseas e. Baseline creatinine level back in January 2022 was 1.5 and 1.6. Urinalysis did not show hematuria o r pyuria. Patient has right small kidney. Patient may need workup to rule out renal artery stenosis when patient is stable. Patient does not have overt proteinuria. Continue IV fluids for acute tubu lar necrosis to prevent renal hypoperfusion. Avoid nonsteroidal anti-inflammatory medication. 2.Hypernatremia, dehydration. Sodium level decreased to 145 and is improving gradually. Free water deficit was 4.7 L. Continue D5W fluids and already fluids were changed to lactated Ringer's. 3.Hypokalemia. Continue repletion with potassium chloride as needed. 4.Hypertension. Amlodipine was started. Continue hydralazine as started. EB/MODL Voice ID: [id number] Report ID: [id number]
[2022-03-31 04:41] LABS: Absolute Lymphocytes (CBC) 0.9 K/uL (0.7-4.9); Hematocrit 30.4 % (36.0-45.0); Lymphocytes % 9.7 % (15.3-44.8); MCV 74.8 fL (80-100); MPV 9.6 fL (7.6-11.3); RBC Red Blood Cell Count 4.07 M/uL (3.86-4.86)
[2022-03-31] MEDS: HYDRALAZINE HCL 25 MG TABLET PO SCH ×3 (05:06→20:57)
[2022-03-31 05:10] LABS: Albumin 3.2 g/dL (3.4-5.0); Bilirubin Total 0.4 mg/dL (0.2-1.0); Magnesium 2.4 mg/dL (1.8-2.4); Potassium 3.9 mmol/L (3.5-5.1); Protein, Total 7.3 g/dL (6.4-8.2)
--- NOTE | 2022-03-31 06:36 | P.PN ---
Date of Service: 03/31/22 Subjective: feeling better no acute events overnight nursing report patient requires assistance ambulating, patient states family typically help her at home ROS: 10 point ROS as noted above, otherwise negative Physical exam GEN: Alert, oriented, NAD HEENT: Normal conjunctiva, sclera anicteric CV: Regular rate and rhythm, no edema Pulm: Non-labored respirations on room air ABD: Soft, nontender, nondistended Neuro: Normal speech, normal affect Problem List BOOM, prerenal Afib, paroxysmal COPD HTN HLD Hypernatremia chronic diastolic CHF Mitral regurgitation COVID-19 positive Hypernatremia resolved Renal function improved nephrology assisting stable Continue Eliquis for A. fib anticoagulation. Lasix on hold due to BOOM. patient requires some assistance with ambulation uses walker and family assistance at home PT consulted patient concerned of infectious risk to family when returning home discussed masking in home reports general malaise, but improving slight loose stool symptoms secondary to dehydration and COVID-19 infection patient without respiratory symptoms, no pneumonia on CXR VTE: home eliquis Code: full Dispo: home, likely tomorrow Time Spent Managing Pts Care (In Minutes): 35
--- NOTE | 2022-03-31 06:49 | RAD REPORT ---
EXAM DESCRIPTION: RAD - Chest Single View - 03/31/2022 5:33 am CLINICAL HISTORY: f/u opacities; CHF / COVID+ COMPARISON: Portable 03/29/2022 TECHNIQUE: AP portable chest image was obtained 03/31/2022 5:33 am . FINDINGS: Interstitial opacification is still present but has improved since March 29. No progressi ve lung parenchymal process. Heart size remains prominent. Central vasculature is prominent but improved. No measurable pleural e ffusion and no pneumothorax. No acute bony abnormality seen. No acute aortic findings suspected. IMPRESSION: Partial clearing of the CHF/ volume overload pattern. No new or progressive finding.
--- NOTE | 2022-03-31 08:21 | EKG ---
Test Date: 2022-03-29 Test Time: 01:33:32 State Wildlife Officer: ANA MEASUREMENT RESULTS: Intervals: Rate: 81 CO: 170 QRSD: 106 QT: 430 QTc: 499 [place]: P: 66 CO: 170 QRS: 49 T: 28 INTERPRETIVE STATEMENTS: Normal sinus rhythm Nonspecific ST and T wave abnormality Prolonged QT Abnormal ECG Compared to ECG 01/28/2022 22:48:50 ST (T wave) deviation now present Prolonged QT interval now present T-wave abnormality no longer present Electronically Signed On 03-31-22 08:12:02 CDT by German Boateng
[2022-03-31] MEDS: VITAMIN D 1000 UNIT TAB PO SCH (08:46)
[2022-03-31] MEDS: ISOSORBIDE MONO SR 60 MG TAB PO SCH (08:47)
[2022-03-31] MEDS: APIXABAN 5 MG TABLET PO SCH ×2 (08:47→20:57)
[2022-03-31] MEDS: Ringers Lactate 1,000 ML IV SCH (08:47)
[2022-03-31] MEDS: AMLODIPINE 5 MG TAB PO SCH (08:47)
--- NOTE | 2022-03-31 11:05 | P.PN ---
Subjective Date of Service: 03/31/22 Chief Complaint: ARF, hypernatremia Subjective Pt with HX of CKD cr 1.6 in january, COPD, CHF , admitted with weakness, COVID 19 and BOOM today no onew complaints cr down to baseline will stop IVF cleared for discharge from nephrology point of view to follow with nephrology clinic in 2-3 wks Physical exam General: AAOx3, NAD, obese HEENT PERRLA, moist mucose membrane neck: supple, no elevated JVD CHEST; CTAB, no wheezes or rales HEART : RRR. Normal S1,2 no murmur or rub Abd: soft, Nt Ext: no edema Skin : No rash A?P # BOOM 2/2 on CKD III resolved Baseline SCr 1.5-1.6 as of 01/29/2022 Urinalysis no hematuria no pyuria Renal US showed small R kidney [place] fluid intake Monitor renal panel, I/O stop IVF cont to hold lasix # HyperNa resolved Serum Na 155 initially, decreased to 145 # Hypokalemia resolved replace prn # Afib On AC via eliquis # Htn BP above goal Amlodipine 5 mg po daily Cont Hydralazine same dose # Chronic diastolic HF cont to hold lasi x can restart after discharge # COPD On home O2 Per other services #COVID 19 as per primary team Total time spent 45 minutes including documentation, reviewing labs , placing orders and discussing with medical team pt can be discharged form nephrology point of view, Physical Examination - Vital Signs Temperature: 97.1 F Blood Pressure: 168/80 Pulse: 63 Respirations: 14 Pulse Ox (%): 100
[2022-03-31] MEDS: ATORVASTATIN 40 MG TAB PO SCH (20:57)
[2022-03-31 23:56] VITALS: O2SAT 96
[2022-04-01 03:54] LABS: Absolute Lymphocytes (CBC) 1.8 K/uL (0.7-4.9); Lymphocytes % 23.9 % (15.3-44.8); MCV 76.3 fL (80-100); MPV 9.8 fL (7.6-11.3); RBC Red Blood Cell Count 3.67 M/uL (3.86-4.86)
[2022-04-01 04:02] LABS: Albumin 3.1 g/dL (3.4-5.0); Bilirubin Total 0.3 mg/dL (0.2-1.0); Magnesium 2.3 mg/dL (1.8-2.4); Potassium 3.5 mmol/L (3.5-5.1); Protein, Total 6.8 g/dL (6.4-8.2)
[2022-04-01] MEDS: AMLODIPINE 5 MG TAB PO SCH (08:11)
[2022-04-01] MEDS: ISOSORBIDE MONO SR 60 MG TAB PO SCH (08:11)
[2022-04-01] MEDS: VITAMIN D 1000 UNIT TAB PO SCH (08:11)
[2022-04-01 08:12] VITALS: BP 169/78
[2022-04-01] MEDS: APIXABAN 5 MG TABLET PO SCH (08:12)
[2022-04-01] MEDS: HYDRALAZINE HCL 25 MG TABLET PO SCH (08:12)
[2022-04-01 08:15] VITALS: TEMP 97.5
--- NOTE | 2022-04-01 16:37 | PN ---
Date of Progress Note: 04/01/2022 Subjective: The patient was admitted with acute kidney injury, hypernatremia. Physical Examination: Vital Signs: When I saw the patient; blood pressure 169/78, pulse of 67, afebrile. Chest: Clear to auscultation. Heart: S1, S2. Regular. Abdomen: Soft, nontender. Extremities: No edema. Neurologic: Alert. No focality. Laboratory Data: WBC 7.5, H and H 8.7/28. Sodium 145, potassium 3.5, bicarb 28, BUN 20, creatinine 1.3, calcium 9.1. Current Medications: The patient on include gabapentin, hydralazine, isosorbide, Eliquis, prednisone . Assessment And Plan: 1.Acute kidney injury secondary to prerenal, recovered, resolved. 2.Hypertension, controlled, optimal. Continue current medication. 3.Hypernatremia secondary to dehydration, resolved. 4.Hypokalemia. We will supplement. 5.Atrial fibrillation as by primary. The patient cleared from the Renal standpoint for discharge janeth wharton MA/JOSE D Voice ID: [id number] Report ID: [id number]
--- NOTE | 2022-04-01 21:26 | P.DS ---
Admission Date: 03/29/22 Discharge Date: 04/01/22 Disposition: DC HOME/HOME HEALTH CARE Discharge Condition: GOOD Reason for Admission: ARF, hypernatremia Consultations: Nephrology - [place] Brief History of Present Illness: 71-year-old female history of atrial fibrillation on chronic anticoagulant therapy, chronic diastolic congestive heart failure, COPD on home oxygen, hypertension, hyperlipidemia and GERD presents the emergency department for feeling unwell, she reports she has been having malaise, fatigue and just not feeling well over the course of the last couple of days. She was evaluated in the emergency department her labs were significant for acute kidney injury/acute renal failure with creatinine 2.6 EGFR 19 BUN of 54 sodium of 135 chloride 125 magnesium 3.1 hemoglobin 9.6 medical 31.5 incidentally COVID-positive. Patient reports she has been taking her Lasix as prescribed, reports decent oral intake, mucous membranes are dry. Patient started on D5W will admit patient for acute renal failure/hypernatremia with nephrology consult. Hospital Course: Problem List BOOM, prerenal Afib, paroxysmal COPD HTN HLD Hypernatremia chronic diastolic CHF Mitral regurgitation COVID-19 positive Patient was found to be covid positive, without significant pneumonia. She was also noted to have some worsening of her renal function - which was due to decreased oral intake. She was treated with gentle IV fluids and had improvement of her symptoms. Repeat chest x-ray showed improvement of the mild bilateral haziness. She was ambulating with a walker, with normal oxygen saturations on room air. Nephrology was consulted, her lasix was held during hospitalization, and they recommended to restart lasix once discharged home. If still not drinking/eating much, would recommend to hold off on the lasix for another 1 - 2 days. Discharged home with 5 days of prednisone. Follow up: PCP in 3-5 days Nephrology in ~2-3 weeks. Physical exam GEN: Alert, oriented, NAD HEENT: Normal conjunctiva, sclera anicteric CV: Regular rate and rhythm, no edema Pulm: Non-labored respirations on room air, clear bilaterally ABD: Soft, nontender, nondistended Neuro: Normal speech, normal affect Vital Signs/Physical Exam: Temp Pulse Resp BP Pulse Ox 97.5 F 62 18 169/78 H 98 04/01/22 08:00 04/01/22 08:11 04/01/22 08:00 04/01/22 08:11 04/01/22 08:00 Laboratory Data at Discharge: WBC 7.50 K/uL (4.3-10.9) D 04/01/22 03:26 Hgb 8.7 g/dL (12.0-15.0) L 04/01/22 03:26 Hct 28.0 % (36.0-45.0) L 04/01/22 03:26 Plt Count 205 K/uL (152-406) 04/01/22 03:26 PT 13.4 SECONDS (9.5-12.5) H 03/29/22 02:30 INR 1.21 03/29/22 02:30 Sodium 145 mmol/L (136-145) 04/01/22 03:26 Potassium 3.5 mmol/L (3.5-5.1) 04/01/22 03:26 BUN 20 mg/dL (7-18) H 04/01/22 03:26 Creatinine 1.39 mg/dL (0.55-1.3) H 04/01/22 03:26 Glucose 117 mg/dL (74-106) H 04/01/22 03:26 Phosphorus 3.1 mg/dL (2.5-4.9) 03/29/22 10:47 Magnesium 2.3 mg/dL (1.8-2.4) 04/01/22 03:26 Total Bilirubin 0.3 mg/dL (0.2-1.0) 04/01/22 03:26 AST 41 U/L (15-37) H 04/01/22 03:26 ALT 59 U/L (12-78) 04/01/22 03:26 Alkaline Phosphatase 115 U/L (45-117) 04/01/22 03:26 Home Medications: Apixaban [Eliquis] 5 mg PO BID 01/29/22 Atorvastatin Calcium [Lipitor] 40 mg PO BEDTIME 01/29/22 Famotidine 20 mg PO DAILY 01/29/22 Furosemide [Lasix*] 20 mg PO DAILY #30 tab 01/29/22 Gabapentin 300 mg PO TID 01/29/22 Hydralazine HCl 100 mg PO TID 01/29/22 Isosorbide Mononitrate [Isosorbide Mononitrate ER] 60 mg PO DAILY 01/29/22 Linaclotide [Linzess] 145 mcg PO DAILY 01/29/22 Potassium Chloride [K-Dur] 10 meq PO DAILY #30 tab.er.prt 01/29/22 predniSONE [Prednisone*] 20 mg PO DAILY 5 Days #5 tab 04/01/22 New Medications: predniSONE [Prednisone*] 20 mg PO DAILY 5 Days #5 tab Physician Discharge Instructions: Patient was found to be covid positive, without significant pneumonia. She was also noted to have some worsening of her renal function - which was due to decreased oral intake. She was treated with gentle IV fluids and had improvement of her symptoms. Repeat chest x-ray showed improvement of the mild bilateral haziness. She was ambulating with a walker, with normal oxygen saturations on room air. Nephrology was consulted, her lasix was held during hospitalization, and they recommended to restart lasix once discharged home. If still not drinking/eating much, would recommend to hold off on the lasix for another 1 - 2 days. Discharged home with 5 days of prednisone. Follow up: PCP in 3-5 days Nephrology in ~2-3 weeks. Followup: Adrienne Urbina MD [ACTIVE - CAN ADMIT] - Unknown,U [Primary Care Provider] - Time spent managing pt's care (in minutes): 45
== END 2022-04-01 11:34 | disposition home health service (06) | DRG 682 ==
LOC: ER 00:43 → ERHOLD 04:05 → 4TH 19:37
PROVIDERS: ADMIT Internal Medicine; ATTEND Hospitalist
DX: N17.9 Acute kidney failure, unspecified (principal); U07.1 COVID-19; E87.0 Hyperosmolality and hypernatremia; I13.0 Hypertensive heart and chronic kidney disease with heart failure and stage 1 through stage 4 chronic kidney disease, or unspecified chronic kidney disease; I48.11 Longstanding persistent atrial fibrillation; I50.32 Chronic diastolic (congestive) heart failure; Z79.01 Long term (current) use of anticoagulants; J44.9 Chronic obstructive pulmonary disease, unspecified; Z99.81 Dependence on supplemental oxygen; E87.6 Hypokalemia; E78.5 Hyperlipidemia, unspecified; K21.9 Gastro-esophageal reflux disease without esophagitis; E87.8 Other disorders of electrolyte and fluid balance, not elsewhere classified; I34.0 Nonrheumatic mitral (valve) insufficiency
CPT/HCPCS: 36415; 71045; 76770; 80048; 80051; 80053; 80076; 81003; 82306; 82550; 82570; 83735; 83880; 83935; 83970; 84100; 84132; 84156; 84300; 84439; 84443; 84484; 85025; 85610; 87811; 93005; 96360; 96361; 97116; 97161; 97530; 99285; J3480; J7040; J7120

== ENCOUNTER 2022-08-06 01:19 | Emergency (ER) | payer OTHER ==
--- OUTSIDE RECORDS SUMMARY | 2022-08-06 01:23 | XMS REPORT | Continuity of Care Document ---
:1950 Author Organization [facility] t Address [address] [place] [address] Care Team Providers Name Role Phone PCP, PATIENT DOES NOT HAVE A Primary Care Physician Unavaila ble KELSIE MCNEILL Attending Clinician Unavailable Kelsie Mcneill MD Attending Clinician Doctor Unassigned, [place] Attending Clinician Unavailable Lauro Lowe Attending Clinician Unavailable KELSIE MCNEILL Admitting Clinician Unavailable Lauro Lowe Admitting Clinician Unavailable Payers Payer Name Policy Type Policy Number Effective Date Expiration Date [facility] DUAL [id number] 2022 00:00:00 COMP CHOICE PPO DSNP [facility] [place] STAR [id number] 2022 00:00:00 PLUS Problems Condition Condition Condition Status Onset Resolution Last Treating Co mments Source Name Details Category Date Date Treatment Clinician Date No known No known Disease Unive rs active active ity of problems problems [facility] Allergies, Adverse Reactions, Alerts Allergy Allergy Status Severity Reaction(s) Onset Inactive Treating Comm ents Source Name Type Date Date Clinician No Known DA Active U [facility] Allergie 03-17 Clear s 00:00: New [address] [place] [address] NO KNOWN Drug Active Univers ALLERGIE Class ity of S [facility] Social History Social Habit Start Date Stop Date Quantity Comments Source History of Cigarette Smoker Universi ty of tobacco use [facility] Exposure to 2022-07-14 2022-07-24 Not sure University of SARS-CoV-2 00:00:00 15:16:00 [place] [facility] (event) Branch Tobacco use and 2022-06-25 2022-06-25 Smokeless tobacco Un iversity of exposure 00:00:00 00:00:00 non-user [facility] Sex Assigned At [birth year] Universit y of 00:00:00 00:00:00 [facility] Smoking Status Start Date Stop Date Source Tobacco smoking [facility] xa consumption unknown Medical Bran ch Ex-smoker 2022-06-25 00:00:00 2022-06-25 University o f [place] 00:00:00 Medical Branch Medications Ordered Filled Start Stop Current Ordering Indication Dosage Frequency Signature Comments Components Source Medication Medication Date Date Medication? Clinician (SIG) Name Name apixaban 2021-08- No 5mg Take 5 mg Uni vers (ELIQUIS) 5 1-10 11-10 by mouth ity of mg tablet 15:20: 00:00 in the [place] 04 :00 morning Medical and 5 mg Branch in the evening. KCL 10 mEq 2021-08 No 10meq Take 10 Un mike tablet 1-10 11-10 mEq by ity of 15:20: 00:00 mouth in [place] 04 :00 the Medical morning. Branch isosorbide 2021-08- No 60mg Take 60 mg Univers mononitrate 1-10 11-10 by mouth ity of 60 mg 24 hr 15:20: 00:00 in the [place] [facility] as tablet 04 :00 morning. Medical Branch hydrALAZINE 2021-08- No 100mg Take 100 Univers 100 mg 1-10 11-10 mg by ity of tablet 15:20: 00:00 mouth in [place] 04 :00 the Medical morning Branch and 100 mg at noon and 100 mg in the evening. atorvastati 2021-08- No 40mg Take 40 mg Univers n 40 mg 1-10 11-10 by mouth ity of tablet 15:20: 00:00 at [place] 04 :00 bedtime. Medical Branch furosemide 2021-08- No 40mg Take 40 mg Univers (LASIX) 40 1-10 11-10 by mouth ity of mg tablet 15:20: 00:00 in the [place] 04 :00 morning. Medical Branch apixaban 2021-08- No 5mg Take 5 mg Uni vers (ELIQUIS) 5 1-10 11-10 by mouth ity of mg tablet 15:20: 00:00 in the [place] 04 :00 morning Medical and 5 mg Branch in the evening. KCL 10 mEq 2021-08- No 10meq Take 10 Un mike tablet 1-10 11-10 mEq by ity of 15:20: 00:00 mouth in [place] 04 :00 the Medical morning. Branch isosorbide 2021-08- No 60mg Take 60 mg Univers mononitrate 1-10 11-10 by mouth ity of 60 mg 24 hr 15:20: 00:00 in the [place] as tablet 04 :00 morning. Medical Branch hydrALAZINE 2021-08- No 100mg Take 100 Univers 100 mg 1-10 11-10 mg by ity of tablet 15:20: 00:00 mouth in [place] 04 :00 the Medical morning Branch and 100 mg at noon and 100 mg in the evening. atorvastati 2021-08- No 40mg Take 40 mg Univers n 40 mg 1-10 11-10 by mouth ity of tablet 15:20: 00:00 at [place] 04 :00 bedtime. Medical Branch furosemide 2021-08- No 40mg Take 40 mg Univers (LASIX) 40 1-10 11-10 by mouth ity of mg tablet 15:20: 00:00 in the [place] 04 :00 morning. Medical Branch apixaban 2021-08- No 5mg Take 5 mg Uni vers (ELIQUIS) 5 1-10 11-10 by mouth ity of mg tablet 15:20: 00:00 in the [place] 04 :00 morning Medical and 5 mg Branch in the evening. KCL 10 mEq 2021-08- No 10meq Take 10 Un mike tablet 1-10 11-10 mEq by ity of 15:20: 00:00 mouth in [place] 04 :00 the Medical morning. Branch isosorbide 2021-08- No 60mg Take 60 mg Univers mononitrate 1-10 11-10 by mouth ity of 60 mg 24 hr 15:20: 00:00 in the [facility] as tablet 04 :00 morning. Medical Branch hydrALAZINE 2021-08- No 100mg Take 100 Univers 100 mg 1-10 11-10 mg by ity of tablet 15:20: 00:00 mouth in [place] 04 :00 the Medical morning Branch and 100 mg at noon and 100 mg in the evening. atorvastati 2021-08- No 40mg Take 40 mg Univers n 40 mg 1-10 11-10 by mouth ity of tablet 15:20: 00:00 at [place] 04 :00 bedtime. Medical Branch furosemide 2021-08- No 40mg Take 40 mg Univers (LASIX) 40 1-10 11-10 by mouth ity of mg tablet 15:20: 00:00 in the [place] 04 :00 morning. Medical Branch apixaban 2021-08- No 5mg Take 5 mg Uni vers (ELIQUIS) 5 1-10 11-10 by mouth ity of mg tablet 15:20: 00:00 in the [place] 04 :00 morning Medical and 5 mg Branch in the evening. KCL 10 mEq 2021-08- No 10meq Take 10 Un mike tablet 1-10 11-10 mEq by ity of 15:20: 00:00 mouth in [place] 04 :00 the Medical morning. Branch isosorbide 2021-08- No 60mg Take 60 mg Univers mononitrate 1-10 11-10 by mouth ity of 60 mg 24 hr 15:20: 00:00 in the [facility] as tablet 04 :00 morning. Medical Branch hydrALAZINE 2021-08- No 100mg Take 100 Univers 100 mg 1-10 11-10 mg by ity of tablet 15:20: 00:00 mouth in [place] 04 :00 the Medical morning Branch and 100 mg at noon and 100 mg in the evening. atorvastati 2021-08- No 40mg Take 40 mg Univers n 40 mg 1-10 11-10 by mouth ity of tablet 15:20: 00:00 at [place] 04 :00 bedtime. Medical Branch furosemide 2021-2021- No 40mg Take 40 mg Univers (LASIX) 40 1-10 11-10 by mouth ity of mg tablet 15:20: 00:00 in the [place] 04 :00 morning. Medical Branch gabapentin 2021- Yes 300mg Take 300 Un mike 300 mg 1-10 mg by ity of capsule 14:54: mouth in [place] 45 the Medical morning Branch and 300 mg at noon and 300 mg in the evening. linaCLOtide 2021- Yes Take by Uni vers (LINZESS) 1-10 mouth ity of 145 mcg 14:54: every [place] capsule 45 morning. Medical Branch gabapentin 2021- Yes 300mg Take 300 Un mike 300 mg 1-10 mg by ity of capsule 14:54: mouth in [place] [address] the Medical morning Branch and 300 mg at noon and 300 mg in the evening. linaCLOtide 2021- Yes Take by Uni vers (LINZESS) 1-10 mouth ity of 145 mcg 14:54: every [place] capsule 45 morning. Medical Branch gabapentin 2021- Yes 300mg Take 300 Un mike 300 mg 1-10 mg by ity of capsule 14:54: mouth in [place] [address] the Medical morning Branch and 300 mg at noon and 300 mg in the evening. linaCLOtide 2021- Yes Take by Uni vers (LINZESS) 1-10 mouth ity of 145 mcg 14:54: every [place] capsule 45 morning. Medical Branch gabapentin 2021- Yes 300mg Take 300 Un mike 300 mg 1-10 mg by ity of capsule 14:54: mouth in [place] [address] the Medical morning Branch and 300 mg at noon and 300 mg in the evening. linaCLOtide 2021- Yes Take by Uni vers (LINZESS) 1-10 mouth ity of 145 mcg 14:54: every [place] capsule 45 morning. Medical Branch gabapentin 2021- Yes 300mg Take 300 Un mike 300 mg 1-10 mg by ity of capsule 14:54: mouth in [place] [address] the Medical morning Branch and 300 mg at noon and 300 mg in the evening. linaCLOtide 2021- Yes Take by Uni vers (LINZESS) 1-10 mouth ity of 145 mcg 14:54: every [place] capsule 45 morning. Medical Branch gabapentin 2021- Yes 300mg Take 300 Un mike 300 mg 1-10 mg by ity of capsule 14:54: mouth in [place] [address] the Medical morning Branch and 300 mg at noon and 300 mg in the evening. linaCLOtide 2021- Yes Take by Uni vers (LINZESS) 1-10 mouth ity of 145 mcg 14:54: every [place] capsule 45 morning. Medical Branch gabapentin 2022-1 Yes 300mg Take 300 Un mike 300 mg 1-10 mg by ity of capsule 14:54: mouth in [place] 45 the Medical morning Branch and 300 mg at noon and 300 mg in the evening. linaCLOtide 2021-08 Yes Take by Uni vers (LINZESS) 1-10 mouth ity of 145 mcg 14:54: every [place] capsule 45 morning. Medical Branch gabapentin 2021-08 Yes 300mg Take 300 Un mike 300 mg 1-10 mg by ity of capsule 14:54: mouth in [place] 45 the Medical morning Branch and 300 mg at noon and 300 mg in the evening. linaCLOtide 2021-08 Yes Take by Uni vers (LINZESS) 1-10 mouth ity of 145 mcg 14:54: every [place] capsule 45 morning. Medical Branch famotidine 2021-08 Yes 20mg Take 20 mg U nivers 20 mg 1-10 by mouth ity of tablet 14:53: in the [place] [address] morning. Medical Branch famotidine 2021-08 Yes 20mg Take 20 mg U nivers 20 mg 1-10 by mouth ity of tablet 14:53: in the [place] [address] morning. Medical Branch famotidine 2021-08 Yes 20mg Take 20 mg U nivers 20 mg 1-10 by mouth ity of tablet 14:53: in the [place] [address] morning. Medical Branch famotidine 2021-08 Yes 20mg Take 20 mg U nivers 20 mg 1-10 by mouth ity of tablet 14:53: in the [place] [address] morning. Medical Branch famotidine 2021-08 Yes 20mg Take 20 mg U nivers 20 mg 1-10 by mouth ity of tablet 14:53: in the [place] [address] morning. Medical Branch famotidine 2021-08 Yes 20mg Take 20 mg U nivers 20 mg 1-10 by mouth ity of tablet 14:53: in the [place] [address] morning. Medical Branch famotidine 2021-08 Yes 20mg Take 20 mg U nivers 20 mg 1-10 by mouth ity of tablet 14:53: in the [place] [address] morning. Medical Branch famotidine 2021-08 Yes 20mg Take 20 mg U nivers 20 mg 1-10 by mouth ity of tablet 14:53: in the [place] [address] morning. Medical Branch isosorbide 2021-08 Yes [id number] 60mg Take 1 Univers mononitrate 1-10 tablet by ity of 60 mg 24 hr 00:00: mouth in [facility] tablet 00 the morning. Branch KCL 10 mEq 2021-08 Yes [id number] 10meq Take 1 Univers tablet 1-10 tablet by ity of 00:00: mouth in [place] the morning. Branch amLODIPine 2021-08 Yes [id number] 5mg Take 1 Univers 5 mg tablet 1-10 tablet by ity of 00:00: mouth in [place] 00 the morning. Branch apixaban 2021-08 Yes 1358 5mg Take 1 Univers (ELIQUIS) 5 1-10 tablet by ity of mg tablet 00:00: mouth in [facility] the morning Branch and 1 tablet in the evening. Indication s: atrial fibrillati on atorvastati 2021-08 Yes [id number] 40mg Take 1 Univers n 40 mg 1-10 tablet by ity of tablet 00:00: mouth at [place] [address] bedtime. Medical Branch furosemide 2021-08 Yes [id number] 40mg Take 1 Univers (LASIX) 40 1-10 tablet by ity of mg tablet 00:00: mouth in [facility] the morning. Branch hydrALAZINE 2021-08 Yes [id number] 100mg Take 1 Univers 100 mg 1-10 tablet by ity of tablet 00:00: mouth in [place] [address] the morning Branch and 1 tablet at noon and 1 tablet in the evening. isosorbide 2021-08 Yes [id number] 60mg Take 1 Univers mononitrate 1-10 tablet by ity of 60 mg 24 hr 00:00: mouth in [place] tablet the morning. Branch KCL 10 mEq 2021-08 Yes [id number] 10meq Take 1 Univers tablet 1-10 tablet by ity of 00:00: mouth in [place] the morning. Branch amLODIPine 2021-08 Yes [id number] 5mg Take 1 Univers 5 mg tablet 1-10 tablet by ity of 00:00: mouth in [place] 00 the morning. Branch apixaban 2021-08 Yes 1358 5mg Take 1 Univers (ELIQUIS) 5 1-10 tablet by ity of mg tablet 00:00: mouth in [facility] 00 the morning Branch and 1 tablet in the evening. Indication s: atrial fibrillati on atorvastati 2021-08 Yes [id number] 40mg Take 1 Univers n 40 mg 1-10 tablet by ity of tablet 00:00: mouth at [place] 00 bedtime. Medical Branch furosemide 2021-08 Yes [id number] 40mg Take 1 Univers (LASIX) 40 1-10 tablet by ity of mg tablet 00:00: mouth in [facility] 00 the morning. Branch hydrALAZINE 2021-08 Yes [id number] 100mg Take 1 Univers 100 mg 1-10 tablet by ity of tablet 00:00: mouth in [place] the morning Branch and 1 tablet at noon and 1 tablet in the evening. isosorbide 2021-08 Yes [id number] 60mg Take 1 Univers mononitrate 1-10 tablet by ity of 60 mg 24 hr 00:00: mouth in [place] tablet the morning. Branch KCL 10 mEq 2021-08 Yes [id number] 10meq Take 1 Univers tablet 1-10 tablet by ity of 00:00: mouth in [place] the morning. Branch amLODIPine 2021-08 Yes [id number] 5mg Take 1 Univers 5 mg tablet 1-10 tablet by ity of 00:00: mouth in [place] the morning. Branch apixaban 2021-08 Yes 1358 5mg Take 1 Univers (ELIQUIS) 5 1-10 tablet by ity of mg tablet 00:00: mouth in [facility] s the morning Branch and 1 tablet in the evening. Indication s: atrial fibrillati on atorvastati 2021-08 Yes [id number] 40mg Take 1 Univers n 40 mg 1-10 tablet by ity of tablet 00:00: mouth at [place] [address] bedtime. Medical Branch furosemide 2021-08 Yes [id number] 40mg Take 1 Univers (LASIX) 40 1-10 tablet by ity of mg tablet 00:00: mouth in [facility] s 00 the morning. Branch hydrALAZINE 2021-08 Yes [id number] 100mg Take 1 Univers 100 mg 1-10 tablet by ity of tablet 00:00: mouth in [place] 00 the morning Branch and 1 tablet at noon and 1 tablet in the evening. isosorbide 2021-08 Yes [id number] 60mg Take 1 Univers mononitrate 1-10 tablet by ity of 60 mg 24 hr 00:00: mouth in [place] tablet 00 the morning. Branch KCL 10 mEq 2021-08 Yes [id number] 10meq Take 1 Univers tablet 1-10 tablet by ity of 00:00: mouth in [place] 00 the morning. Branch amLODIPine 2021-08 Yes [id number] 5mg Take 1 Univers 5 mg tablet 1-10 tablet by ity of 00:00: mouth in [place] 00 the morning. Branch apixaban 2021-08 Yes 1358 5mg Take 1 Univers (ELIQUIS) 5 1-10 tablet by ity of mg tablet 00:00: mouth in [facility] the morning Branch and 1 tablet in the evening. Indication s: atrial fibrillati on atorvastati 2021-08 Yes [id number] 40mg Take 1 Univers n 40 mg 1-10 tablet by ity of tablet 00:00: mouth at [place] [address] bedtime. Medical Branch furosemide 2021-08 Yes [id number] 40mg Take 1 Univers (LASIX) 40 1-10 tablet by ity of mg tablet 00:00: mouth in [facility] the morning. Branch hydrALAZINE 2021-08 Yes [id number] 100mg Take 1 Univers 100 mg 1-10 tablet by ity of tablet 00:00: mouth in [place] 00 the morning Branch and 1 tablet at noon and 1 tablet in the evening. isosorbide 2021-08 Yes [id number] 60mg Take 1 Univers mononitrate 1-10 tablet by ity of 60 mg 24 hr 00:00: mouth in [place] tablet 00 the morning. Branch KCL 10 mEq 2021-08 Yes [id number] 10meq Take 1 Univers tablet 1-10 tablet by ity of 00:00: mouth in [place] 00 the morning. Branch amLODIPine 2021-08 Yes [id number] 5mg Take 1 Univers 5 mg tablet 1-10 tablet by ity of 00:00: mouth in [place] 00 the morning. Branch apixaban 2021-08 Yes 1358 5mg Take 1 Univers (ELIQUIS) 5 1-10 tablet by ity of mg tablet 00:00: mouth in [facility] 00 the morning Branch and 1 tablet in the evening. Indication s: atrial fibrillati on atorvastati 2021-08 Yes [id number] 40mg Take 1 Univers n 40 mg 1-10 tablet by ity of tablet 00:00: mouth at [place] 00 bedtime. Medical Branch furosemide 2021-08 Yes [id number] 40mg Take 1 Univers (LASIX) 40 1-10 tablet by ity of mg tablet 00:00: [place] 00 the morning. Branch hydrALAZINE 2021-08 Yes [id number] 100mg Take 1 Univers 100 mg 1-10 tablet by ity of tablet 00:00: mouth in [place] 00 the morning Branch and 1 tablet at noon and 1 tablet in the evening. isosorbide 2021-08 Yes [id number] 60mg Take 1 Univers mononitrate 1-10 tablet by ity of 60 mg 24 hr 00:00: mouth in [place] tablet the Medical morning. Branch KCL 10 mEq 2021-08 Yes [id number] 10meq Take 1 Univers tablet 1-10 tablet by ity of 00:00: mouth in [place] 00 the morning. Branch amLODIPine 2021-08 Yes [id number] 5mg Take 1 Univers 5 mg tablet 1-10 tablet by ity of 00:00: mouth in [place] 00 the morning. Branch apixaban 2021-08 Yes 1358 5mg Take 1 Univers (ELIQUIS) 5 1-10 tablet by ity of mg tablet 00:00: [place] the morning Branch and 1 tablet in the evening. Indication s: atrial fibrillati on atorvastati 2021-08 Yes [id number] 40mg Take 1 Univers n 40 mg 1-10 tablet by ity of tablet 00:00: mouth at [place] [address] bedtime. Medical Branch furosemide 2021-08 Yes [id number] 40mg Take 1 Univers (LASIX) 40 1-10 tablet by ity of mg tablet 00:00: [place] 00 the morning. Branch hydrALAZINE 2021-08 Yes [id number] 100mg Take 1 Univers 100 mg 1-10 tablet by ity of tablet 00:00: mouth in [place] 00 the morning Branch and 1 tablet at noon and 1 tablet in the evening. isosorbide 2021-08 Yes [id number] 60mg Take 1 Univers mononitrate 1-10 tablet by ity of 60 mg 24 hr 00:00: mouth in [place] tablet 00 the morning. Branch KCL 10 mEq 2021-08 Yes [id number] 10meq Take 1 Univers tablet 1-10 tablet by ity of 00:00: mouth in [place] 00 the morning. Branch amLODIPine 2021-08 Yes [id number] 5mg Take 1 Univers 5 mg tablet 1-10 tablet by ity of 00:00: mouth in [place] 00 the morning. Branch apixaban 2021-08 Yes 1358 5mg Take 1 Univers (ELIQUIS) 5 1-10 tablet by ity of mg tablet 00:00: mouth in [facility] the morning Branch and 1 tablet in the evening. Indication s: atrial fibrillati on atorvastati 2021-08 Yes [id number] 40mg Take 1 Univers n 40 mg 1-10 tablet by ity of tablet 00:00: mouth at [place] [address] bedtime. Medical Branch furosemide 2021-08 Yes [id number] 40mg Take 1 Univers (LASIX) 40 1-10 tablet by ity of mg tablet 00:00: mouth in [facility] 00 the morning. Branch hydrALAZINE 2021-08 Yes [id number] 100mg Take 1 Univers 100 mg 1-10 tablet by ity of tablet 00:00: mouth in [place] [address] the morning Branch and 1 tablet at noon and 1 tablet in the evening. isosorbide 2021-08 Yes [id number] 60mg Take 1 Univers mononitrate 1-10 tablet by ity of 60 mg 24 hr 00:00: mouth in [place] tablet 00 the morning. Branch KCL 10 mEq 2021-08 Yes [id number] 10meq Take 1 Univers tablet 1-10 tablet by ity of 00:00: mouth in [place] the morning. Branch amLODIPine 2021-08 Yes [id number] 5mg Take 1 Univers 5 mg tablet 1-10 tablet by ity of 00:00: mouth in [place] 00 the Medical morning. Branch apixaban 2021-08 Yes 1358 5mg Take 1 Univers (ELIQUIS) 5 1-10 tablet by ity of mg tablet 00:00: mouth in [facility] 00 the Medical morning Branch and 1 tablet in the evening. Indication s: atrial fibrillati on atorvastati 2021-08 Yes [id number] 40mg Take 1 Univers n 40 mg 1-10 tablet by ity of tablet 00:00: mouth at [place] [address] bedtime. Medical Branch furosemide 2021-08 Yes [id number] 40mg Take 1 Univers (LASIX) 40 1-10 tablet by ity of mg tablet 00:00: mouth [facility] the Medical morning. Branch hydrALAZINE 2021-08 Yes [id number] 100mg Take 1 Univers 100 mg 1-10 tablet by ity of tablet 00:00: mouth in [place] 00 the Medical morning Branch and 1 tablet at noon and 1 tablet in the evening. TRELEGY 2021-08 Yes 1{puff} Take 1 Unive rs ELLIPTA 1-02 Puff by ity of 100-62.5-25 00:00: mouth [place] mcg DsDv 00 daily. Medical Branch TRELEGY 2021-08 Yes 1{puff} Take 1 Unive rs ELLIPTA 1-02 Puff by ity of 100-62.5-25 00:00: mouth [place] mcg DsDv 00 daily. Medical Branch TRELEGY 2021-08 Yes 1{puff} Take 1 Unive rs ELLIPTA 1-02 Puff by ity of 100-62.5-25 00:00: mouth [place] mcg DsDv 00 daily. Medical Branch TRELEGY 2021-08 Yes 1{puff} Take 1 Unive rs ELLIPTA 1-02 Puff by ity of 100-62.5-25 00:00: mouth [place] mcg DsDv 00 daily. Medical Branch TRELEGY 2021-08 Yes 1{puff} Take 1 Unive rs ELLIPTA 1-02 Puff by ity of 100-62.5-25 00:00: mouth [place] mcg DsDv 00 daily. Medical Branch TRELEGY 2021-08 Yes 1{puff} Take 1 Unive rs ELLIPTA 1-02 Puff by ity of 100-62.5-25 00:00: mouth [place] mcg DsDv 00 daily. Medical Branch TRELEGY 2021-08 Yes 1{puff} Take 1 Unive rs ELLIPTA 1-02 Puff by ity of 100-62.5-25 00:00: mouth [place] mcg DsDv 00 daily. Medical Branch TRELEGY 2021-08 Yes 1{puff} Take 1 Unive rs ELLIPTA 1-02 Puff by ity of 100-62.5-25 00:00: mouth [place] mcg DsDv 00 daily. Medical Branch Vital Signs Vital Name Observation Time Observation Value Comments Source Systolic blood 2022-06-25 21:00:00 165 mm[Hg] Univer sity of pressure [facility] Diastolic blood 2022-06-25 21:00:00 74 mm[Hg] [facility] Heart rate 2022-06-25 21:00:00 77 /min [facility] Respiratory rate 2022-06-25 20:59:00 19 /min [facility] Body height 2022-06-25 20:59:00 165.1 cm [facility] Body weight 2022-06-25 20:59:00 85.276 kg [facility] BMI 2022-06-25 20:59:00 31.28 kg/m2 [facility] Oxygen saturation in 2022-06-25 20:59:00 98 /min [facility] Arterial blood by [facility] Pulse oximetry Branch Procedures Procedure Date / Time Performing Clinician Source Performed INSURANCE CORRESPONDENCE 2022-07-16 06:01:00 Doctor Chato, [facility] [place] [facility] EXTERNAL PROVIDER - ADC 2022-07-06 06:01:00 Doctor Chato, [facility] CARDIOLOGY [place] [facility] HB ECG ROUTINE & RHYTHM 2022-06-25 20:46:54 Kelsie Mcneill [facility] NOTICE OF PRIVACY 2022-06-25 20:28:07 Doctor [facility], [facility] PRACTICES [place] [facility] CONSENT/REFUSAL FOR 2022-06-25 20:27:39 Doctor Chato, [facility] DIAGNOSIS AND TREATMENT [place] [facility] ASSIGNMENT OF BENEFITS 2022-06-25 20:27:19 Doctor Chato, [facility] [place] [facility] Encounters Start End Encounter Admission Attending Care Care Encounter Source Date/Time Date/Time Type Type Clinicians Facility Department ID 2022-09-01 2022-09-01 Outpatient R ALEX MCNEILL [facility] [id number] Univers 15:00:00 15:00:00 KELSIE lugo [facility] 2022-07-27 2022-07-27 Telephone Torey [facility] [id number] Univers 00:00:00 00:00:00 Romulomauricio [place] [id number] [facility] [place] [id number] Ne dical NAL 059 [facility] 2022-07-24 2022-07-24 Outpatient R [facility] [id number] Univers 15:17:20 23:59:00 QIAMAURICIO kolb o f [facility] 2022-07-16 2022-07-16 Orders Doctor SAMI [id number] Univers 00:00:00 00:00:00 Only Unassigned, RADHA [id number] [place]y of [place] [facility] 4.2.7.2.686 [place] Manuel as [id number] [address] 2022-07-06 2022-07-06 Orders Doctor SAMI [id number] Univers 00:00:00 00:00:00 Only Unassigned, RADHA 350.1.13.10 ity of [place] [facility] 4.2.7.2.686 [place] Manuel as [id number] [address] 2022-07-02 2022-07-02 [facility] [id number] Univers 00:00:00 00:00:00 Romulomauricio [place] [id number] [place] of [place] [id number] Ne dical NAL 9 [facility] 2022-06-25 2022-06-25 Outpatient R [facility] [id number] Univers 14:40:00 15:25:40 QIAMAURICIO ity o f [facility] 2022-06-25 2022-06-25 Office [facility] [id number] Univers 14:40:00 15:25:40 Visit Kelsie [place] 350.1.13.10 [facility] [id number] [id number] Ne dical NAL 059 [facility] 2022-06-25 2022-06-25 Orders Doctor GALLARDO [id number] [facility] 00:00:00 00:00:00 Only Unassigned, RADHA 350.1.13.10 [place]y of [place] [facility] [id number] Victor Manuel as [id number] [facility] 009 Branch 2022-03-18 2022-03-18 Outpatient SYMONE Maldonado OUTD [id number] [facility] 09:16:00 09:16:00 Lauro 42 [facility] 2022-03-18 2022-03-18 Outpatient SYMONE Maldonado [id number] [facility] 09:16:00 09:16:00 Lauro [id number] [facility] Results Test Description Test Time Test [...] CA) 9.4 mg/dL 8.0-10.5 N CBC W/AUTO [id number] 10:45:00 Test Item Value Reference Range Interpretation [...]
--- NOTE | 2022-08-06 01:52 | ER ---
Nurse's Notes [facility] Name: Mahendra Wilkins Age: 71 yrs Sex: Female : 1950 Arrival Date: 08/06/2022 Time: 01:24 Bed 19 Private MD: Diagnosis: Epistaxis Presentation: 08/06 01:34 Chief complaint: Patient states: nose bleed x 30 minutes. Coronavirus screen: Vaccine kl status: Patient reports receiving the 2nd dose of the covid vaccine. Ebola Screen: Patient negative for fever greater than or equal to 101.5 degrees Fahrenheit, and additional compatible Ebola Virus Disease symptoms. Initial Sepsis Screen: Does the patient meet any 2 criteria? No. Patient's initial sepsis screen is negative. Does the patient have a suspected source of infection? No. Patient's initial sepsis screen is negative. Risk Assessment: Do you want to hurt yourself or someone else? Patient reports no desire to harm self or others. Onset of symptoms was August 06, 2022 at 01:00. 01:34 Method Of Arrival: Ambulatory 01:34 Acuity: SUSAN 4 kl Triage Assessment: 01:36 General: Appears in no apparent distress. comfortable, Behavior is calm, cooperative. kl Pain: Denies pain. EENT: Nares no active bleeding noted . Historical: - Allergies: 01:35 No Known Allergies; kl - Home Meds: 01:35 atorvastatin 40 mg Oral tab 1 tab once daily [Active]; Eliquis 2.5 mg oral tab 1 tab [Active]; famotidine 20 mg Oral tab 1 tab once daily [Active]; gabapentin 300 mg Oral cap 1 cap 3 times per day [Active]; hydralazine 100 mg Oral tab 1 tab 3 times per day [Active]; isosorbide mononitrate 60 mg Oral Tb24 1 tab once daily [Active]; Linzess 145 mcg Oral cap 1 cap once daily [Active]; - PMHx: 01:35 acid reflux; High Cholesterol; Hypertension; Atrial fibrillation; kl - PSHx: 01:35 heart; kl - Immunization history:: Adult Immunizations up to date. - Social history:: Smoking status: Patient denies any tobacco usage or history of. Screenin:[facility] ED Fall Risk Assessment (Adult) History of falling in the last 3 months, ke1 including since admission No falls in past 3 months (0 pts) Confusion or Disorientation No (0 pts) Intoxicated or Sedated No (0 pts) Impaired Gait No (0 pts) Mobility Assist Device Used No (0 pt) Altered Elimination No (0 pt) Score/Fall Risk Level 0 - 2 = Low Risk. Abuse screen: Denies threats or abuse. Nutritional screening: No deficits noted. Tuberculosis screening: No symptoms or risk factors identified. Assessment: 01:35 General: Appears in no apparent distress. comfortable, well groomed, well developed, pf1 Behavior is calm, cooperative, appropriate for age, quiet. 01:35 Pain: Denies pain. Neuro: No deficits noted. Cardiovascular: No deficits noted. pf1 Reports. Respiratory: No deficits noted. Reports Airway is patent Respiratory effort is even, unlabored, Respiratory pattern is regular, symmetrical. GI: No deficits noted. No signs and/or symptoms were reported involving the gastrointestinal system. : No deficits noted. No signs and/or symptoms were reported regarding the genitourinary system. EENT: Reports nasal discharge that is bloody Patient stated right naris nose bleed,onset 1.5 hours ago that lasted for approximately 30 minutes. Derm: No deficits noted. No signs and/or symptoms reported regarding the dermatologic system. Musculoskeletal: No deficits noted. No signs and/or symptoms reported regarding the musculoskeletal system. Vital Signs: 01:34 BP 156 / 75; Pulse 68; Resp 18; Temp 98.7(O); Pulse Ox 98% ; Weight 38.33 kg; Height 5 kl ft. 4 in. (162.56 cm); Pain 0/10; 02:06 BP 156 / 74; Pulse 61; Resp 20; Temp 98.2; Pulse Ox 98% ; Pain 0/10; pf1 01:34 Body Mass Index 14.50 (38.33 kg, 162.56 cm) ED Course: 01:24 Patient arrived in ED. ja2 01:26 Cori Vu MD is Attending Physician. sd2 01:35 Triage completed. kl 01:43 Arm band placed on left wrist. ke1 01:43 Bed in low position. Call light in reach. Side rails up X 1. ke1 01:55 Elena ortiz, MAGDALENE is Primary Nurse. pf1 02:04 No provider procedures requiring assistance completed. Patient did not have IV access pf1 during this emergency room visit. Administered Medications: No medications were administered Medication: 02:04 VIS not applicable for this client. pf1 Outcome: 01:51 Discharge ordered by . sd2 02:03 Discharged to home ambulatory, with family. pf1 02:03 Condition: stable 02:03 Discharge instructions given to patient, family, Instructed on discharge instructions, follow up and referral plans. Demonstrated understanding of instructions, follow-up care. 02:07 Patient left the ED. pf1 Signatures: Salima Akins RN RN Sylvai Mehta Kouassi, RN RN Cori Whitley MD MD sd2 Elena ortiz RN RN pf1
--- NOTE | 2022-08-06 01:52 | EDPHYS ---
Physician Documentation [facility] Name: Mahendra Wilkins Age: 71 yrs Sex: Female : 1950 Arrival Date: 08/06/2022 Time: 01:24 Bed 19 Private MD: ED Physician Cori Vu HPI: 08/06 01:47 This 71 yrs old Black Female presents to ER via Ambulatory with complaints of Nose sd2 Bleed. 01:47 71 yo F on Eliquis presents with CC of nosebleed that lasted for approximately 30 mins sd2 [employer]. Bleeding has now stopped. Pt denies any pain or other complaint. She reports she was having nosebleeds in the past more frequently and they decreased her Eliquis dose a couple of months ago. . Historical: - Allergies: 01:35 No Known Allergies; kl - Home Meds: 01:35 atorvastatin 40 mg Oral tab 1 tab once daily [Active]; Eliquis 2.5 mg oral tab 1 tab kl [Active]; famotidine 20 mg Oral tab 1 tab once daily [Active]; gabapentin 300 mg Oral cap 1 cap 3 times per day [Active]; hydralazine 100 mg Oral tab 1 tab 3 times per day [Active]; isosorbide mononitrate 60 mg Oral Tb24 1 tab once daily [Active]; Linzess 145 mcg Oral cap 1 cap once daily [Active]; - PMHx: 01:35 acid reflux; High Cholesterol; Hypertension; Atrial fibrillation; kl - PSHx: 01:35 heart; kl - Immunization history:: Adult Immunizations up to date. - Social history:: Smoking status: Patient denies any tobacco usage or history of. ROS: 01:47 Constitutional: Negative for fever, chills, and weight loss, Eyes: Negative for injury, sd2 pain, redness, and discharge, ENT: Negative for injury, pain, and discharge, Positive for epistaxis. Cardiovascular: Negative for chest pain, palpitations, and edema, Respiratory: Negative for shortness of breath, cough, wheezing. Skin: Negative for injury, rash, and discoloration. Exam: 01:47 Constitutional: This is a well developed, well nourished patient who is awake, alert, sd2 and in no acute distress. Head/Face: Normocephalic, atraumatic. Eyes: EOMI, normal conjunctiva bilaterally ENT: Nares patent. No nasal discharge, no septal abnormalities noted. No nasal septal hematoma. No signs of active bleeding in nasal area or OP area. Oropharynx with no redness, swelling, or masses, exudates, or evidence of obstruction, uvula midline. Mucous membranes moist. Chest/axilla: Normal chest wall appearance and motion. Nontender with no deformity. Cardiovascular: Regular rate and rhythm with a normal S1 and S2. No gallops, murmurs, or rubs. 2+ distal pulses. Respiratory: Lungs have equal breath sounds bilaterally, clear to auscultation and percussion. No rales, rhonchi or wheezes noted. No increased work of breathing, no retractions or nasal flaring. Skin: Warm, dry with normal turgor. Normal color with no rashes, no lesions, and no evidence of cellulitis. MS/ Extremity: Pulses equal, no cyanosis. Neurovascular intact. Full, normal range of motion. Ambulatory without difficulty. Psych: Awake, alert, with orientation to person, place and time. Behavior, mood, and affect are within normal limits. Vital Signs: 01:34 BP 156 / 75; Pulse 68; Resp 18; Temp 98.7(O); Pulse Ox 98% ; Weight 38.33 kg; Height 5 kl ft. 4 in. (162.56 cm); Pain 0/10; 02:06 BP 156 / 74; Pulse 61; Resp 20; Temp 98.2; Pulse Ox 98% ; Pain 0/10; pf1 01:34 Body Mass Index 14.50 (38.33 kg, 162.56 cm) kl MDM: 01:26 Patient medically screened. sd2 01:47 Differential diagnosis: epistaxis, blood thinner side effect, doubt anemia among sd2 others. Data reviewed: vital signs, nurses notes. Counseling: I had a detailed discussion with the patient and/or guardian regarding: the historical points, exam findings, and any diagnostic results supporting the discharge/admit diagnosis, the need for outpatient follow up, to return to the emergency department if symptoms worsen or persist or if there are any questions or concerns that arise at home. Medical screen evaluation completed. [facility] emergency medical condition absent. ED course: Patient with no current bleeding. BP and VS stable with no signs of shock or significant blood loss. Discussed possible labs but patient comfortable with deferring with no current bleeding and otherwise feeling well at this time with stable VS. Advised to follow up outpatient with PCP and given recommendations for supportive care if recurrence. Verbalizes understanding of strict return precautions. . Administered Medications: No medications were administered Disposition Summary: 08/06/22 01:51 Discharge Ordered Location: Home sd2 Problem: new sd2 Symptoms: have improved sd2 Condition: Stable sd2 Diagnosis - Epistaxis sd2 Followup: sd2 - With: Private Physician - When: 2 - 3 days - Reason: Recheck today's complaints, Continuance of care, Re-evaluation by your physician Discharge Instructions: - Discharge Summary Sheet sd2 - Nosebleed, Adult sd2 Forms: - Medication Reconciliation Form sd2 - Thank You Letter sd2 - Antibiotic Education sd2 - Prescription Opioid Use sd2 Signatures: Salima Akins RN RN kl Dunlop, Stephanie, MD MD sd2
[2022-08-06 02:23] VITALS: O2SAT 98
[2022-08-06 02:25] VITALS: BP 156/74; TEMP 98.2
== END 2022-08-06 02:07 | disposition home or self-care (01) ==
LOC: ER 01:19
DX: R04.0 Epistaxis (principal); I48.91 Unspecified atrial fibrillation; I10 Essential (primary) hypertension; E78.00 Pure hypercholesterolemia, unspecified; Z79.01 Long term (current) use of anticoagulants
CPT/HCPCS: 99281

== ENCOUNTER 2023-03-16 20:39 | Emergency (ER) | payer OTHER ==
--- OUTSIDE RECORDS SUMMARY | 2023-03-16 20:47 | XMS REPORT | Continuity of Care Document ---
:1950 Author Organization [facility] t Address [address] [place] [address] Care Team Providers Name Role Phone Gely Joseph MD Primary Care Physician [phone] KELSIE MCNEILL Attending Clinician Unavailable GELY JOSEPH Attending Clinician Unavailable Kelsie Mcneill MD Attending Clinician Gely Joseph MD Attending Clinician [phone] Doctor Unassigned, [place] Attending Clinician Unavailable ROLAN ELISE Attending Clinician Unavailable Rolan Elise MD Attending Clinician Lab, Ang - Db Attending Clinician Unavailable Lauro Lowe Attending Clinician Unavailable ROLAN ELISE Admitting Clinician Unavailable Rolan Elise MD Admitting Clinician KELSIE MCNEILL Admitting Clinician Unavailable Lauro Lowe Admitting Clinician Unavailable Payers Payer Name Policy Type Policy Number Effective Date Expiration Date S robin [facility] DUAL [id number] 2022 00:00:00 COMP CHOICE PPO DSNP [facility] [place] STAR [id number] 2022 00:00:00 PLUS Problems Condition Condition Condition Status Onset Resolution Last Treating Co mments Source Name Details Category Date Date Treatment Clinician Date Obesity Obesity Disease Active Univers (BMI (BMI 1-25 ity of 30-39.9) 30-39.9) 00:00: 00 Medical Branch Nonrheumat Nonrheumat Disease Active U nivers ic mitral ic mitral 1-25 ity of valve valve 00:00: [place] regurgitat regurgitat 00 Me dical ion ion Branch Pericardia Pericardia Disease Active U nivers l effusion l effusion -25 it y of 00:: Medical Branch COPD COPD Disease Active Univers (chronic (chronic 1-06 it[place] of obstructiv obstructiv 00:[place] e e 00 Medical pulmonary pulmonary Bran ch disease) disease) Other Other Disease Active Univers hyperlipid hyperlipid 1-06 it y of emia emia 00:00: [place] [facility] CVA CVA Disease Active Univers (cerebral (cerebral 1-06 ity of vascular vascular 00:00: [place] accident) accident) 00 [facility] Branch Paroxysmal Paroxysmal Disease Active U nivers atrial atrial 1-06 ity of fibrillati fibrillati [place] on [place] Chronic Chronic Disease Active Univers heart heart 1-06 ity of failure failure 00:00: [place] with with 00 Medical preserved preserved Bran ch ejection ejection fraction fraction Primary Primary Disease Active Univers hypertensi hypertensi 1-06 it y of on on 00:00: [place] 00 Medical Branch RLS RLS Disease Active Univers (restless (restless -06 ity of legs legs 00:00: [place] syndrome) syndrome) 00 [facility] Branch Gastroesop Gastroesop Disease Active U nivers hageal hageal 1-06 ity of reflux reflux 00:00: [place] disease disease 00 Medical without without Branch esophagiti esophagiti s s Primary Primary Disease Active Univers osteoarthr osteoarthr 1-06 it y of itis itis 00:00: [place] involving involving 00 [facility] multiple multiple Branch joints joints No known No known Disease Unive rs active active ity of problems problems [place] [facility] Allergies, Adverse Reactions, Alerts Allergy Allergy Status Severity Reaction(s) Onset Inactive Treating Comm ents Source Name Type Date Date Clinician No Known DA Active U [facility] Allergie 03-17 Clear s 00:00: New 00 [facility] NO KNOWN Drug Active Univers ALLERGIE Class ity of S [facility] Social History Social Habit Start Date Stop Date Quantity Comments Source History of tobacco Cigarette Smoker University of use [facility] Gender identity Universit y of [facility] Sexual orientation Univer sity [facility] Alcohol intake 2023-03-09 2023-03-09 Ex-drinker University 00:00:00 00:00:00 (finding) [facility] Exposure to 2022-11-30 2022-12-10 Not sure [facility] SARS-CoV-2 (event) 00:00:00 12:44:00 [facility] History of Social 2022-09-23 2022-09-23 Univers ity of function 00:00:00 00:00:00 [facility] Cigarettes smoked 2022-08-21 2022-08-21 Univers ity of current (pack per 00:00:00 00:00:00 ) - Reported Branch Cigarette 2022-08-21 2022-08-21 University of pack-years 00:00:00 00:00:00 [facility] Tobacco use and 2022-08-21 2022-08-21 Smokeless Universit y of exposure 00:00:00 00:00:00 tobacco non-user [facility] dical [place] Sex Ass[birth year] Universit y of 00:00:00 00:00:00 [facility] Smoking Status Start Date Stop Date Source Tobacco smoking [place] consumption unknown Medical Bran ch Ex-smoker 2022-08-21 00:00:00 2022-08-21 [place] o f [place] 00:00:00 [facility] Medications Ordered Filled Start Stop Current Ordering Indication Dosage Frequency Signature Comments Components Source Medication Medication Date Date Medication? Clinician (SIG) Name Name acetaminoph Yes [id number] 1000mg Take 2 Univers en (TYLENOL 6-07 tablets by it y of EXTRA 00:00: mouth [place] STRENGTH) 00 every 6 Medical 500 mg (six) Branch tablet hours as needed for Pain. acetaminoph Yes [id number] 1000mg Take 2 Univers en (TYLENOL 6-07 tablets by it y of EXTRA 00:00: mouth [place] STRENGTH) 00 every 6 Medical 500 mg (six) Branch tablet hours as needed for Pain. acetaminoph 2023-0 Yes [id number] 1000mg Take 2 Univers en (TYLENOL 6-07 tablets by it y of EXTRA 00:00: mouth [place] STRENGTH) 00 every 6 Medical 500 mg (six) Branch tablet hours as needed for Pain. acetaminoph 2023-0 Yes [id number] 1000mg Take 2 Univers en (TYLENOL 6-07 tablets by it y of EXTRA 00:00: mouth [place] STRENGTH) 00 every 6 Medical 500 mg (six) Branch tablet hours as needed for Pain. acetaminoph 2023-0 Yes [id number] 1000mg Take 2 Univers en (TYLENOL 6-07 tablets by it y of EXTRA 00:00: mouth [place] STRENGTH) 00 every 6 Medical 500 mg (six) Branch tablet hours as needed for Pain. acetaminoph 3-0 Yes [id number] 1000mg Take 2 Univers en (TYLENOL 6-07 tablets by it y of EXTRA 00:00: mouth [place] STRENGTH) 00 every 6 Medical 500 mg (six) Branch tablet hours as needed for Pain. acetaminoph 3-0 Yes [id number] 1000mg Take 2 Univers en (TYLENOL 6-07 tablets by it y of EXTRA 00:00: mouth [place] STRENGTH) 00 every 6 Medical 500 mg (six) Branch tablet hours as needed for Pain. acetaminoph 3-0 Yes [id number] 1000mg Take 2 Univers en (TYLENOL 6-07 tablets by it y of EXTRA 00:00: mouth [place] STRENGTH) 00 every 6 Medical 500 mg (six) Branch tablet hours as needed for Pain. acetaminoph 2023-0 Yes [id number] 1000mg Take 2 Univers en (TYLENOL 6-07 tablets by it y of EXTRA 00:00: mouth [place] STRENGTH) 00 every 6 Medical 500 mg (six) Branch tablet hours as needed for Pain. gabapentin 2023-0 Yes [id number] 300mg Take 1 Univers 300 mg 6-01 capsule by ity of capsule 00:00: mouth in [place] 00 the Medical morning Branch and 1 capsule in the evening. gabapentin 2023-0 Yes [id number] 300mg Take 1 Univers 300 mg 6-01 capsule by ity of capsule 00:00: mouth in [place] 00 the Medical morning Branch and 1 capsule in the evening. gabapentin 2023-0 Yes [id number] 300mg Take 1 Univers 300 mg 6-01 capsule by ity of capsule 00:00: mouth in [place] 00 the Medical morning Branch and 1 capsule in the evening. gabapentin 2023-0 Yes [id number] 300mg Take 1 Univers 300 mg 6-01 capsule by ity of capsule 00:00: mouth in [place] 00 the Medical morning Branch and 1 capsule in the evening. gabapentin 2023-0 Yes [id number] 300mg Take 1 Univers 300 mg 6-01 capsule by ity of capsule 00:00: mouth in [place] [address] the Medical morning Branch and 1 capsule in the evening. gabapentin 2023-0 Yes [id number] 300mg Take 1 Univers 300 mg 6-01 capsule by ity of capsule 00:00: mouth in [place] [address] the Medical morning Branch and 1 capsule in the evening. gabapentin 2023-0 Yes [id number] 300mg Take 1 Univers 300 mg 6-01 capsule by ity of capsule 00:00: mouth in [place] [address] the Medical morning Branch and 1 capsule in the evening. gabapentin 2023-0 Yes [id number] 300mg Take 1 Univers 300 mg 6-01 capsule by ity of capsule 00:00: mouth in [place] [address] the Medical morning Branch and 1 capsule in the evening. gabapentin 2023-0 Yes [id number] 300mg Take 1 Univers 300 mg 6-01 capsule by ity of capsule 00:00: mouth in [place] [address] the Medical morning Branch and 1 capsule in the evening. gabapentin 2023-0 Yes [id number] 300mg Take 1 Univers 300 mg 6-01 capsule by ity of capsule 00:00: mouth in [place] [address] the Medical morning Branch and 1 capsule in the evening. pramipexole 2023-0 Yes .125mg Take 1 Un mike 0.125 mg 5-29 tablet by ity of tablet 00:00: mouth at [place] [address] bedtime. Medical Branch pramipexole 2023-0 Yes .125mg Take 1 Un mike 0.125 mg 5-29 tablet by ity of tablet 00:00: mouth at [place] [address] bedtime. Medical Branch pramipexole 2023-0 Yes .125mg Take 1 Un mike 0.125 mg 5-29 tablet by ity of tablet 00:00: mouth at [place] [address] bedtime. Medical Branch pramipexole 2023-0 Yes .125mg Take 1 Un mike 0.125 mg 5-29 tablet by ity of tablet 00:00: mouth at [place] [address] bedtime. Medical Branch pramipexole 3-0 Yes .125mg Take 1 Un mike 0.125 mg 5-29 tablet by ity of tablet 00:00: mouth at [place] [address] bedtime. Medical Branch pramipexole 3-0 Yes .125mg Take 1 Un mike 0.125 mg 5-29 tablet by ity of tablet 00:00: mouth at [place] [address] bedtime. Medical Branch pramipexole 2023-0 Yes .125mg Take 1 Un mike 0.125 mg 5-29 tablet by ity of tablet 00:00: mouth at [place] [address] bedtime. Medical Branch pramipexole 3-0 Yes .125mg Take 1 Un mkie 0.125 mg 5-29 tablet by ity of tablet 00:00: mouth at [place] [address] bedtime. Medical Branch pramipexole 3-0 Yes .125mg Take 1 Un mike 0.125 mg 5-29 tablet by ity of tablet 00:00: mouth at [place] [address] bedtime. Medical Branch linaCLOtide 3-0 Yes 145ug Take 1 Uni vers (LINZESS) 4-27 capsule by ity of 145 mcg 13:04: mouth [place] capsule 52 every Medical other day. Branch linaCLOtide 3-0 Yes 145ug Take 1 Uni vers (LINZESS) 4-27 capsule by ity of 145 mcg 13:04: mouth [place] capsule 52 every Medical other day. Branch linaCLOtide 2022-0 Yes 145ug Take 1 Uni vers (LINZESS) 4-27 capsule by ity of 145 mcg 13:04: mouth [place] capsule 52 every Medical other day. Branch linaCLOtide 2022-0 Yes 145ug Take 1 Uni vers (LINZESS) 4-27 capsule by ity of 145 mcg 13:04: mouth [place] capsule 52 every Medical other day. Branch linaCLOtide 2023-0 Yes 145ug Take 1 Uni vers (LINZESS) 4-27 capsule by ity of 145 mcg 13:04: mouth [place] capsule 52 every Medical other day. Branch linaCLOtide 2023-0 Yes 145ug Take 1 Uni vers (LINZESS) 4-27 capsule by ity of 145 mcg 13:04: mouth [place] capsule 52 every Medical other day. Branch linaCLOtide 202-0 Yes 145ug Take 1 Uni vers (LINZESS) 4-27 capsule by ity of 145 mcg 13:04: mouth [place] capsule 52 every Medical other day. Branch linaCLOtide 0 Yes 145ug Take 1 Uni vers (LINZESS) 4-27 capsule by ity of 145 mcg 13:04: mouth [place] capsule 52 every Medical other day. Branch linaCLOtide 0 Yes 145ug Take 1 Uni vers (LINZESS) 4-27 capsule by ity of 145 mcg 13:04: mouth [place] capsule 52 every Medical other day. Branch linaCLOtide 0 Yes 145ug Take 1 Uni vers (LINZESS) 4-27 capsule by ity of 145 mcg 13:04: mouth [place] capsule 52 every Medical other day. Branch linaCLOtide 0 Yes 145ug Take 1 Uni vers (LINZESS) 4-27 capsule by ity of 145 mcg 13:04: mouth [place] capsule 52 every Medical other day. Branch linaCLOtide Yes 145ug Take 1 Uni vers (LINZESS) 4-27 capsule by ity of 145 mcg 13:04: mouth [place] capsule 52 every Medical other day. Branch KCL 10 mEq Yes [id number] 10meq Take 1 Univers tablet 4-27 tablet by ity of 00:00: mouth in [place] 00 the Medical morning. Branch fluticasone Yes [id number] 1{spray Use 1 Univers propionate 4-27 } [place] in ity o f 50 00:00: each [place] mcg/actuati 00 nostril in Ar dical on nasal the Branch spray morning. furosemide Yes [id number] 40mg Take 1 Univers (LASIX) 40 4-27 tablet by ity of mg tablet 00:00: [place] the Medical morning. Branch isosorbide Yes [id number] 60mg Take 1 Univers mononitrate 4-27 tablet by ity of 60 mg 24 hr 00:00: mouth in [place] tablet 00 the Medical morning. Branch apixaban Yes 1358 5mg Take 1 Univers (ELIQUIS) 5 4-27 tablet by ity of mg tablet 00:00: [place] 00 the Medical morning Branch and 1 tablet in the evening. Indication s: atrial fibrillati on KCL 10 mEq 2023-0 Yes [id number] 10meq Take 1 Univers tablet 4-27 tablet by ity of 00:00: mouth in [place] 00 the Medical morning. Branch fluticasone 2022-0 Yes [id number] 1{spray Use 1 Univers propionate 4-27 } [place] in ity o f 50 00:00: each [place] mcg/actuati 00 nostril in Me dical on nasal the Branch spray morning. furosemide 2022-0 Yes [id number] 40mg Take 1 Univers (LASIX) 40 4-27 tablet by ity of mg tablet 00:00: [place] 00 the Medical morning. Branch isosorbide 2022-0 Yes [id number] 60mg Take 1 Univers mononitrate 4-27 tablet by ity of 60 mg 24 hr 00:00: mouth [place] tablet 00 the Medical morning. Branch apixaban 2022-0 Yes 1358 5mg Take 1 Univers (ELIQUIS) 5 4-27 tablet by ity of mg tablet 00:00: [place] 00 the Medical morning Branch and 1 tablet in the evening. Indication s: atrial fibrillati on KCL 10 mEq 2022-0 Yes [id number] 10meq Take 1 Univers tablet 4-27 tablet by ity of 00:00: mouth in [place] 00 the Medical morning. Branch fluticasone 2022-0 Yes [id number] 1{spray Use 1 Univers propionate 4-27 } [place] in ity o f 50 00:00: each [place] mcg/actuati 00 nostril in Ar dical on nasal the Branch spray morning. furosemide 2022-0 Yes [id number] 40mg Take 1 Univers (LASIX) 40 4-27 tablet by ity of mg tablet 00:00: [place] 00 the Medical morning. Branch isosorbide 2022-0 Yes [id number] 60mg Take 1 Univers mononitrate 4-27 tablet by ity of 60 mg 24 hr 00:00: [place] tablet 00 the Medical morning. Branch apixaban 2022-0 Yes 1358 5mg Take 1 Univers (ELIQUIS) 5 4-27 tablet by ity of mg tablet 00:00: [place] the Medical morning Branch and 1 tablet in the evening. Indication s: atrial fibrillati on KCL 10 mEq 2023-0 Yes [id number] 10meq Take 1 Univers tablet 4-27 tablet by ity of 00:00: mouth in [place] 00 the Medical morning. Branch furosemide 3-0 Yes [id number] 40mg Take 1 Univers (LASIX) 40 4-27 tablet by ity of mg tablet 00:00: [place] 00 the Medical morning. Branch isosorbide 3-0 Yes [id number] 60mg Take 1 Univers mononitrate 4-27 tablet by ity of 60 mg 24 hr 00:00: [place] tablet 00 the Medical morning. Branch apixaban 2022-0 Yes 1358 5mg Take 1 Univers (ELIQUIS) 5 4-27 tablet by ity of mg tablet 00:00: [place] 00 the Medical morning Branch and 1 tablet in the evening. Indication s: atrial fibrillati on KCL 10 mEq 2022-0 Yes [id number] 10meq Take 1 Univers tablet 4-27 tablet by ity of 00:00: mouth in [place] 00 the Medical morning. Branch furosemide 2022-0 Yes [id number] 40mg Take 1 Univers (LASIX) 40 4-27 tablet by ity of mg tablet 00:00: [place] 00 the Medical morning. Branch isosorbide 2022-0 Yes [id number] 60mg Take 1 Univers mononitrate 4-27 tablet by ity of 60 mg 24 hr 00:00: [place] tablet 00 the Medical morning. Branch apixaban 2022-0 Yes 1358 5mg Take 1 Univers (ELIQUIS) 5 4-27 tablet by ity of mg tablet 00:00: [place] 00 the Medical morning Branch and 1 tablet in the evening. Indication s: atrial fibrillati on KCL 10 mEq 2022-0 Yes [id number] 10meq Take 1 Univers tablet 4-27 tablet by ity of 00:00: mouth in [place] 00 the Medical morning. Branch furosemide 2022-0 Yes [id number] 40mg Take 1 Univers (LASIX) 40 4-27 tablet by ity of mg tablet 00:00: [place] 00 the Medical morning. Branch isosorbide 3-0 Yes [id number] 60mg Take 1 Univers mononitrate 4-27 tablet by ity of 60 mg 24 hr 00:00: mouth [place] tablet 00 the Medical morning. Branch apixaban 2022-0 Yes 1358 5mg Take 1 Univers (ELIQUIS) 5 4-27 tablet by ity of mg tablet 00:00: [place] the Medical morning Branch and 1 tablet in the evening. Indication s: atrial fibrillati on KCL 10 mEq 2022-0 Yes [id number] 10meq Take 1 Univers tablet 4-27 tablet by ity of 00:00: mouth in [place] 00 the Medical morning. Branch furosemide 2022-0 Yes [id number] 40mg Take 1 Univers (LASIX) 40 4-27 tablet by ity of mg tablet 00:00: [place] 00 the Medical morning. Branch isosorbide 2022-0 Yes [id number] 60mg Take 1 Univers mononitrate 4-27 tablet by ity of 60 mg 24 hr 00:00: mouth in [place] tablet 00 the Medical morning. Branch apixaban 2022-0 Yes 1358 5mg Take 1 Univers (ELIQUIS) 5 4-27 tablet by ity of mg tablet 00:00: [place] the Medical morning Branch and 1 tablet in the evening. Indication s: atrial fibrillati on KCL 10 mEq 2022-0 Yes [id number] 10meq Take 1 Univers tablet 4-27 tablet by ity of 00:00: mouth in [place] 00 the Medical morning. Branch furosemide 2022-0 Yes [id number] 40mg Take 1 Univers (LASIX) 40 4-27 tablet by ity of mg tablet 00:00: [place] the Medical morning. Branch isosorbide 2022-0 Yes [id number] 60mg Take 1 Univers mononitrate 4-27 tablet by ity of 60 mg 24 hr 00:00: mouth in [place] tablet 00 the Medical morning. Branch apixaban 2022-0 Yes 1358 5mg Take 1 Univers (ELIQUIS) 5 4-27 tablet by ity of mg tablet 00:00: [place] 00 the Medical morning Branch and 1 tablet in the evening. Indication s: atrial fibrillati on KCL 10 mEq 2022-0 Yes [id number] 10meq Take 1 Univers tablet 4-27 tablet by ity of 00:00: mouth in [place] 00 the Medical morning. Branch furosemide 2022-0 Yes [id number] 40mg Take 1 Univers (LASIX) 40 4-27 tablet by ity of mg tablet 00:00: [place] 00 the Medical morning. Branch isosorbide 2022-0 Yes [id number] 60mg Take 1 Univers mononitrate 4-27 tablet by ity of 60 mg 24 hr 00:00: mouth [place] tablet 00 the Medical morning. Branch apixaban 2022-0 Yes 1358 5mg Take 1 Univers (ELIQUIS) 5 4-27 tablet by ity of mg tablet 00:00: [place] 00 the Medical morning Branch and 1 tablet in the evening. Indication s: atrial fibrillati on KCL 10 mEq 2022-0 Yes [id number] 10meq Take 1 Univers tablet 4-27 tablet by ity of 00:00: mouth in [place] 00 the Medical morning. Branch furosemide 2022-0 Yes [id number] 40mg Take 1 Univers (LASIX) 40 4-27 tablet by ity of mg tablet 00:00: [place] 00 the Medical morning. Branch isosorbide 2022-0 Yes [id number] 60mg Take 1 Univers mononitrate 4-27 tablet by ity of 60 mg 24 hr 00:00: mouth in [place] tablet 00 the Medical morning. Branch apixaban 2022-0 Yes 1358 5mg Take 1 Univers (ELIQUIS) 5 4-27 tablet by ity of mg tablet 00:00: [place] 00 the Medical morning Branch and 1 tablet in the evening. Indication s: atrial fibrillati on KCL 10 mEq 2022-0 Yes [id number] 10meq Take 1 Univers tablet 4-27 tablet by ity of 00:00: mouth in [place] 00 the Medical morning. Branch furosemide 2022-0 Yes [id number] 40mg Take 1 Univers (LASIX) 40 4-27 tablet by ity of mg tablet 00:00: [place] 00 the Medical morning. Branch isosorbide 2022-0 Yes [id number] 60mg Take 1 Univers mononitrate 4-27 tablet by ity of 60 mg 24 hr 00:00: mouth [place] tablet 00 the Medical morning. Branch apixaban 2022-0 Yes 1358 5mg Take 1 Univers (ELIQUIS) 5 4-27 tablet by [facility] mg tablet [facility] Branch and 1 tablet in the evening. Indication s: atrial fibrillati on KCL 10 mEq 0 Yes [id number] 10meq Take 1 Univers tablet 4-27 tablet by ity of 00:00: mouth in [place] 00 the Medical morning. Branch furosemide 0 Yes [id number] 40mg Take 1 Univers (LASIX) 40 4-27 tablet by ity of mg tablet 00:00: mouth in [facility] 00 the Medical morning. Branch isosorbide Yes [id number] 60mg Take 1 Univers mononitrate 4-27 tablet by ity of 60 mg 24 hr 00:00: mouth [place] tablet 00 the Medical morning. Branch apixaban Yes 1358 5mg Take 1 Univers (ELIQUIS) 5 4-27 tablet by ity of mg tablet 00:00: mouth in [facility] s 00 the Medical morning Branch and 1 tablet in the evening. Indication s: atrial fibrillati on fluticasone 2022- No [id number] 1{spray Use 1 Univers propionate 4-09 02-07 } [place] in ity of 50 00:00: 00:00 each [place] mcg/actuati 00 :00 nostril in Me dical on nasal the Branch spray morning. fluticasone 2022- No [id number] 1{spray Use 1 Univers propionate 12-10-07 } [place] in ity of 50 00:00: 00:00 each [place] mcg/actuati 00 :00 nostril in Me dical on nasal the Branch spray morning. famotidine 2022- No 20mg Take 20 mg Univers 20 mg 3-31 03-31 by mouth ity of tablet 09:26: 00:00 in the [place] 02 :00 morning. Medical Branch famotidine 2022-0 Yes [id number] 20mg Take 1 Univers 20 mg 3-31 tablet by ity of tablet 00:00: mouth in [place] 00 the Medical morning. Branch famotidine 2022-0 Yes [id number] 20mg Take 1 Univers 20 mg 3-31 tablet by ity of tablet 00:00: mouth in [place] 00 the Medical morning. Branch famotidine 2022-0 Yes [id number] 20mg Take 1 Univers 20 mg 3-31 tablet by ity of tablet 00:00: mouth in [place] the Medical morning. Branch famotidine 2022-0 Yes [id number] 20mg Take 1 Univers 20 mg 3-31 tablet by ity of tablet 00:00: mouth in [place] the Medical morning. Branch famotidine 2022-0 Yes [id number] 20mg Take 1 Univers 20 mg 3-31 tablet by ity of tablet 00:00: mouth in [place] the Medical morning. Branch famotidine 2022-0 Yes [id number] 20mg Take 1 Univers 20 mg 3-31 tablet by ity of tablet 00:00: mouth in [place] the Medical morning. Branch famotidine 2022-0 Yes [id number] 20mg Take 1 Univers 20 mg 3-31 tablet by ity of tablet 00:00: mouth in [place] the Medical morning. Branch famotidine 2022-0 Yes [id number] 20mg Take 1 Univers 20 mg 3-31 tablet by ity of tablet 00:00: mouth in [place] the Medical morning. Branch famotidine 2022-0 Yes [id number] 20mg Take 1 Univers 20 mg 3-31 tablet by ity of tablet 00:00: mouth in [place] the Medical morning. Branch famotidine 2022-0 Yes [id number] 20mg Take 1 Univers 20 mg 3-31 tablet by ity of tablet 00:00: mouth in [place] the Medical morning. Branch famotidine 2022-0 Yes [id number] 20mg Take 1 Univers 20 mg 3-31 tablet by ity of tablet 00:00: mouth in [place] the Medical morning. Branch famotidine 2022-0 Yes [id number] 20mg Take 1 Univers 20 mg 3-31 tablet by ity of tablet 00:00: mouth in [place] the Medical morning. Branch famotidine 2022-0 Yes [id number] 20mg Take 1 Univers 20 mg 3-31 tablet by ity of tablet 00:00: mouth in [place] the Medical morning. Branch atorvastati 2022-0 Yes [id number] 40mg Take 1 Univers n 40 mg 3-23 tablet by ity of tablet 00:00: mouth at [place] [address] bedtime. Medical Branch montelukast 3-0 Yes [id number] 10mg Take 1 Univers 10 mg 3-23 tablet by ity of tablet 00:00: mouth in [place] 00 the Medical morning. Branch atorvastati 2022-0 Yes [id number] 40mg Take 1 Univers n 40 mg 3-23 tablet by ity of tablet 00:00: mouth at [place] [facility] [id number] 10mg Take 1 Univers 10 mg 3-23 tablet by ity of tablet 00:00: mouth in [place] the Medical morning. Branch atorvastati 2022-0 Yes [id number] 40mg Take 1 Univers n 40 mg 3-23 tablet by ity of tablet 00:00: mouth at [place] 00 bedtime. [facility] 2022-0 Yes [id number] 10mg Take 1 Univers 10 mg 3-23 tablet by ity of tablet 00:00: mouth in [place] the Medical morning. Branch atorvastati 2022-0 Yes [id number] 40mg Take 1 Univers n 40 mg 3-23 tablet by ity of tablet 00:00: mouth at [place] 00 bedtime. [facility] 2022-0 Yes [id number] 10mg Take 1 Univers 10 mg 3-23 tablet by ity of tablet 00:00: mouth in [place] the Medical morning. Branch atorvastati 0 Yes [id number] 40mg Take 1 Univers n 40 mg 3-23 tablet by ity of tablet 00:00: mouth at [place] 00 bedtime. [facility] 2022-0 Yes [id number] 10mg Take 1 Univers 10 mg 3-23 tablet by ity of tablet 00:00: mouth in [place] the Medical morning. Branch atorvastati 2022-0 Yes [id number] 40mg Take 1 Univers n 40 mg 3-23 tablet by ity of tablet 00:00: mouth at [place] 00 bedtime. [facility] 2022-0 Yes [id number] 10mg Take 1 Univers 10 mg 3-23 tablet by ity of tablet 00:00: mouth in [place] 00 the Medical morning. Branch atorvastati 2022-0 Yes [id number] 40mg Take 1 [facility] n 40 mg 3-23 tablet by ity of tablet 00:00: mouth at [place] 00 bedtime. [facility] 2022-0 Yes [id number] 10mg Take 1 [facility] 10 mg 3-23 tablet by ity of tablet 00:00: mouth in [place] the Medical morning. Branch atorvastati 2022-0 Yes [id number] 40mg Take 1 [facility] n 40 mg 3-23 tablet by ity of tablet 00:00: mouth at [place] 00 bedtime. [facility] montelukast 2022-0 Yes [id number] 10mg Take 1 [facility] 10 mg 3-23 tablet by ity of tablet 00:00: mouth in [place] the Medical morning. Branch atorvastati 2022-0 Yes [id number] 40mg Take 1 [facility] n 40 mg 3-23 tablet by ity of tablet 00:00: mouth at [place] 00 bedtime. [facility] montekast 2022-0 Yes [id number] 10mg Take 1 [facility] 10 mg 3-23 tablet by ity of tablet 00:00: mouth in [place] the Medical morning. Branch atorvastati 2022-0 Yes [id number] 40mg Take 1 [facility] n 40 mg 3-23 tablet by ity of tablet 00:00: mouth at [place] 00 bedtime. [facility]-0 Yes [id number] 10mg Take 1 [facility] 10 mg 3-23 tablet by ity of tablet 00:00: mouth in [place] the Medical morning. Branch atorvastati 0 Yes [id number] 40mg Take 1 [facility] n 40 mg 3-23 tablet by ity of tablet 00:00: mouth at [place] [address] bedtime. [facility] montekast 2022-0 Yes [id number] 10mg Take 1 [facility] 10 mg 3-23 tablet by ity of tablet 00:00: mouth in [place] the Medical morning. Branch atorvastati 2022-0 Yes [id number] 40mg Take 1 [facility] n 40 mg 3-23 tablet by ity of tablet 00:00: mouth at [place] 00 bedtime. [facility] montelukast 2022-0 Yes [id number] 10mg Take 1 [facility] 10 mg 3-23 tablet by ity of tablet 00:00: mouth in [place] 00 the Medical morning. Branch atorvastati 2022-0 Yes [id number] 40mg Take 1 [facility] n 40 mg 3-23 tablet by ity of tablet 00:00: mouth at [place] 00 bedtime. Medical Branch montelukast Yes [id number] 10mg Take 1 [facility] 10 mg 3-23 tablet by ity of tablet 00:00: mouth in [place] 00 the morning. Branch atorvastati Yes [id number] 40mg Take 1 [facility] n 40 mg 3-23 tablet by ity of tablet 00:00: mouth at [place] 00 bedtime. Medical Branch montelukast Yes [id number] 10mg Take 1 [facility] 10 mg 3-23 tablet by ity of tablet 00:00: mouth in [place] 00 the morning. Branch lactated Yes 1000mL at 50 Univer s ringers IV 2-08 mL/hr, ity of infusion 17:15: 1,000 [place] 1[place]000 mL 00 IV Medical Infusion, Branch CONTINUOUS , Starting on Wed09/23/22 at 1115, Until Discontinu ed, Routine, PACU lactated 2022- No 1000mL at 50 Unive rs ringers IV 2-08 02-08 mL/hr, ity of infusion 17:15: 20:49 1,000 mL, [place] as 1,000 mL 00 :09 IV Medical Infusion, Branch CONTINUOUS , Starting on Wed09/23/22 at 1115, Until Wed09/23/22 at 1449, Routine, PACU ondansetron Yes 4mg 4 mg, Slow Univers (ZOFRAN 09-23 IV Push, ity of (PF)) 17:13: PRN, 1 [place] injection 4 10 dose, Medical mg Starting Branch on Wed09/23/22 at 1113, Until Discontinu ed, Routine, Nausea and Vomiting (N/V), PACU ondansetron 2022- No 4mg 4 mg, Slow Univers (ZOFRAN 09-23 02-08 IV Push, ity of (PF)) 17:13: 20:49 PRN, 1 [place] injection 4 10 :09 dose, Medical mg Starting Branch on Wed09/23/22 at 1113, Until Wed09/23/22 at 1449, Routine, Nausea and Vomiting (N/V), PACU neomycin-po 2022- No PRN, Unive rs lymyxin-dex 09-23 Starting ity of amethasone 16:58: 17:08 on Wed [place] (MAXITROL) 00 :49 823 at [facility] artie 3.5 1058, Branch mg/g-10,000 Until Wed unit/g-0.1 09/23/22 at % 1108, ophthalmic Routine, ointment Intra-op dexamethaso 2022- No PRN, Unive rs ne 09-23 Starting ity of (DECADRON 16:56: 17:08 on Wed [place] PHOSPHATE) 00 :49 823 at Medi artie injection 1056, Branch Until Wed09/23/22 at 1108, Routine, Intra-op ceFAZolin 2022- No PRN, Univers (ANCEF) 09-23 Starting ity of injection 16:56: 17:08 on Wed [place] 00 :49 2823 at Medical 1056, Branch Until Wed09/23/22 at 1108, ROSENDO, Intra-op carbachoL 2022- No PRN, Univers (MIOSTAT) 09-23 Starting ity o f 0.01 % 16:55: 17:08 on Wed [place] intraocular 00 :49 823 at Med ical injection 1055, Branch Until Wed09/23/22 at 1108, Routine, Intra-op chondroitin 2022- No PRN, Unive rs sulf-sod 09-23 Starting ity of hyaluronate 16:44: 17:08 on Wed [place] as (DUOVISC 00 :49 8 at Medica l VISCO 1044, Branch ELASTIC) Until Wed intraocular 09/23/22 at injection 1108, Routine, Intra-op EPINEPHrine 2022- No PRN, Unive rs 1:1,000 (1 09-23 Starting ity of mg/mL) 16:44: 17:08 on Wed [place] (ADRENALIN) 00 :49 2823 at Med ical injection 1044, Branch Until 09/23/22 at 1108, Routine, Intra-op balanced 2022-2022- No PRN, Univers salt irrig 09-23 Starting ity of soln comb1 16:44: 17:08 on Wed [place] (BSS PLUS) 00 :49 2/8/23 at [facility] ophthalmic 1044, Branch solution Until Wed 500 mL bag 09/23/22 at 1108, Routine, Intra-op sodium 2022- No PRN, Univers chloride 09-23 Starting ity of (NS) 16:43: 17:08 on Wed [place] injection 00 :49 2/8/23 at Medic al 1043, Branch Until Wed8 at 1108, Routine, Intra-op trypan blue 2022- No PRN, Unive rs (VISION 09-23 Starting ity of BLUE) 0.06 16:43: 17:08 on Wed [place] % syringe 00 :49 2/8/23 at [facility] al 1043, Branch Until Wed09/23/22 at 1108, Routine, Intra-op water for 2022- No PRN, Univers irrigation 09-23 Starting ity of irrigation 16:36: 17:08 on Wed [place] solution 00 :49 823 at Medica l 1036, Branch Until Wed09/23/22 at 1108, Routine, Intra-op Hyaluronida 2022- No PRN, Unive rs se, Human 09-23 Starting ity o f Recomb. 16:32: 17:08 on Wed (HYLENEX) 00 :49 2823 at Medic al injection 1032, Branch Until Wed09/23/22 at 1108, Routine, Intra-op eye block 2022- No PRN, Univers syringe 11 09-23 Starting ity of mL 16:32: 17:08 on Wed 00 :49 2/8/23 at Medical 1032, Branch Until Wed09/23/22 at 1108, Intra-op cyclopent 2022- No .5mL 0.5 mL, Univ ers 1%-tropic 09-23 Right Eye, ity of 1%-phenyl 15:15: 15:16 ONCE, 1 [place] 2.5%-ketor 00 :00 dose, On Medic al 0.5% 09/23/22 Branch (MYDRIATIC at 0915, #5) Routine, ophthalmic DSU Pre-op solution syringe 0.5 mL lactated 2023-0 2023- No 1000mL at 42 Unive rs ringers IV 208 02-08 mL/hr, ity of infusion 15:15: 15:32 1,000 mL, [place] as 1,000 mL 00 :00 IV Medical Infusion, Branch ONCE, 1 dose, On Wed09/23/22 at 0915, Routine, DSU Pre-op cyclopent 3-0 2023- No .5mL 0.5 mL, Univ ers 1%-tropic 09-23- Right Eye, ity of 1%-phenyl 15:15: 15:16 ONCE, 1 [place] 2.5%-ketor 00 :00 dose, On Medic al 0.5% Wed09/23/22 Branch (MYDRIATIC at 09, #5) Routine, ophthalmic DSU Pre-op solution syringe 0.5 mL lactated 3-0 2023- No 1000mL at 42 Unive rs ringers IV 2 02-08 mL/hr, ity of infusion 15:15: 15:32 1,000 mL, [place] as 1,000 mL 00 :00 IV Medical Infusion, Branch ONCE, 1 dose, On Wed09/23/22 at 0915, Routine, DSU Pre-op famotidine 2023-0 Yes 20mg Take 20 mg U nivers 20 mg 2-08 by mouth ity of tablet 12:44: in the morning. Medical Branch linaCLOtide 2023-0 Yes 1{capsu Take 1 U nivers (LINZESS) 2-08 le} capsule by ity of 145 mcg 12:44: mouth [place] capsule 07 every Medical other day. Branch famotidine 2023-0 Yes 20mg Take 20 mg U nivers 20 mg 2-08 by mouth ity of tablet 12:44: in the morning. Medical Branch linaCLOtide 2023-0 Yes 1{capsu Take 1 U nivers (LINZESS) 2-08 le} capsule by ity of 145 mcg 12:44: mouth [place] capsule 07 every Medical other day. Branch famotidine 2023-0 Yes 20mg Take 20 mg U nivers 20 mg 2-08 by mouth ity of tablet 12:44: in the morning. Medical Branch linaCLOtide 2023-0 Yes 1{capsu Take 1 U nivers (LINZESS) 2-08 le} capsule by ity of 145 mcg 12:44: mouth [place] capsule 07 every Medical other day. Branch famotidine 2023-0 Yes 20mg Take 20 mg U nivers 20 mg 2-08 by mouth ity of tablet 12:44: in the [place] 07 morning. Medical Branch linaCLOtide 2023-0 Yes 1{capsu Take 1 U nivers (LINZESS) 2-08 le} capsule by ity of 145 mcg 12:44: mouth [place] capsule 07 every Medical other day. Branch famotidine 2023-0 Yes 20mg Take 20 mg U nivers 20 mg 2-08 by mouth ity of tablet 12:44: in the [place] 07 morning. Medical Branch linaCLOtide 2023-0 Yes 1{capsu Take 1 U nivers (LINZESS) 2-08 le} capsule by ity of 145 mcg 12:44: mouth [place] capsule 07 every Medical other day. Branch linaCLOtide 2023-0 Yes 1{capsu Take 1 U nivers (LINZESS) 2-08 le} capsule by ity of 145 mcg 12:44: mouth [place] capsule 07 every Medical other day. Branch famotidine 2023-0 Yes 20mg Take 20 mg U nivers 20 mg 2-02 by mouth ity of tablet 12:38: in the morning. Medical Branch linaCLOtide 3-0 Yes 1{capsu Take 1 U nivers (LINZESS) 2-02 le} capsule by ity of 145 mcg 12:38: mouth [place] capsule 47 every Medical other day. Branch famotidine 2023-0 Yes 20mg Take 20 mg U nivers 20 mg 2-02 by mouth ity of tablet 12:38: in the morning. Medical Branch linaCLOtide 2023-0 Yes 1{capsu Take 1 U nivers (LINZESS) 2-02 le} capsule by ity of 145 mcg 12:38: mouth [place] capsule 47 every Medical other day. Branch atorvastati 2023-0 Yes [id number] 40mg Take 1 [facility] n 40 mg 1-31 tablet by ity of tablet 00:00: mouth at [place] 00 bedtime. Medical Branch atorvastati 2023-0 Yes [id number] 40mg Take 1 [facility] n 40 mg 1-31 tablet by ity of tablet 00:00: mouth at [place] 00 bedtime. Medical Branch atorvastati 2022-0 Yes [id number] 40mg Take 1 [facility] n 40 mg 1-31 tablet by ity of tablet 00:00: mouth at [place] 00 bedtime. Medical Branch atorvastati 2022-0 Yes [id number] 40mg Take 1 [facility] n 40 mg 1-31 tablet by ity of tablet 00:00: mouth at [place] 00 bedtime. Medical Branch atorvastati 2022-0 Yes [id number] 40mg Take 1 [facility] n 40 mg 1-31 tablet by ity of tablet 00:00: mouth at [place] 00 bedtime. Medical Branch atorvastati 2022-0 Yes [id number] 40mg Take 1 [facility] n 40 mg 1-31 tablet by ity of tablet 00:00: mouth at [place] 00 bedtime. Medical Branch atorvastati 2022-0 Yes [id number] 40mg Take 1 [facility] n 40 mg 1-31 tablet by ity of tablet 00:00: mouth at [place] 00 bedtime. Medical Branch atorvastati 0 Yes [id number] 40mg Take 1 [facility] n 40 mg 1-31 tablet by ity of tablet 00:00: mouth at [place] 00 bedtime. Medical Branch atorvastati 0 2022- No [id number] 40mg Take 1 [facility] n 40 mg 1-31 03-23 tablet by ity of tablet 00:00: 00:00 mouth at [place] 00 :00 bedtime. Medical Branch gabapentin 2022-0 2022- No 300mg Take 300 U nivers 300 mg 08-21 01-06 mg by ity of capsule 14:37: 00:00 mouth in [place] 42 :00 the Medical morning Branch and 300 mg at noon and 300 mg in the evening. gabapentin 2022-0 2022- No 300mg Take 300 U nivers 300 mg 08-21 01-06 mg by ity of capsule 14:37: 00:00 mouth in [place] 42 :00 the Medical morning Branch and 300 mg at noon and 300 mg in the evening. gabapentin 2022-0 Yes [id number] 300mg Take 1 [facility] 300 mg 1-06 capsule by ity of capsule 00:00: mouth in [place] 00 the Medical morning Branch and 1 capsule in the evening. fluticasone 2023-0 Yes [id number] 1{spray Use 1 Univers propionate 1-06 } [place] in ity o f 50 00:00: each [place] mcg/actuati 00 nostril in Me dical on nasal the Branch spray morning. gabapentin 3-0 Yes [id number] 300mg Take 1 [facility] 300 mg 1-06 capsule by ity of capsule 00:00: mouth in [place] 00 the Medical morning Branch and 1 capsule in the evening. fluticasone 2022-0 Yes [id number] 1{spray Use 1 [facility] propionate 1-06 } [place] in ity o f 50 00:00: each [place] mcg/actuati 00 nostril in Me dical on nasal the Branch spray morning. gabapentin 2022-0 Yes [id number] 300mg Take 1 [facility] 300 mg 1-06 capsule by ity of capsule 00:00: mouth in [place] 00 the Medical morning Branch and 1 capsule in the evening. fluticasone 2022-0 Yes [id number] 1{spray Use 1 [facility] propionate 1-06 } [place] in ity o f 50 00:00: each [place] mcg/actuati 00 nostril in Me dical on nasal the Branch spray morning. gabapentin 2022-0 Yes [id number] 300mg Take 1 [facility] 300 mg 1-06 capsule by ity of capsule 00:00: mouth in [place] 00 the Medical morning Branch and 1 capsule in the evening. fluticasone 2022-0 Yes [id number] 1{spray Use 1 [facility] propionate 1-06 } [place] in ity o f 50 00:00: each [place] mcg/actuati 00 nostril in Me dical on nasal the Branch spray morning. gabapentin 2022-0 Yes [id number] 300mg Take 1 [facility] 300 mg 1-06 capsule by ity of capsule 00:00: mouth in [place] 00 the Medical morning Branch and 1 capsule in the evening. fluticasone 2022-0 Yes [id number] 1{spray Use 1 [facility] propionate 1-06 } [place] in ity o f 50 00:00: each [place] mcg/actuati 00 nostril in Me dical on nasal the Branch spray morning. gabapentin 2023-0 Yes [id number] 300mg Take 1 [facility] 300 mg 1-06 capsule by ity of capsule 00:00: mouth in [place] 00 the Medical morning Branch and 1 capsule in the evening. fluticasone 2023-0 Yes [id number] 1{spray Use 1 [facility] propionate 1-06 } [place] in ity o f 50 00:00: each [place] mcg/actuati 00 nostril in Me dical on nasal the Branch spray morning. gabapentin 3-0 Yes [id number] 300mg Take 1 [facility] 300 mg 1-06 capsule by ity of capsule 00:00: mouth in [place] 00 the Medical morning Branch and 1 capsule in the evening. fluticasone 2022-0 Yes [id number] 1{spray Use 1 [facility] propionate 1-06 } [place] in ity o f 50 00:00: each [place] mcg/actuati 00 nostril in Me dical on nasal the Branch spray morning. gabapentin 2022-0 Yes [id number] 300mg Take 1 [facility] 300 mg 1-06 capsule by ity of capsule 00:00: mouth in [place] 00 the Medical morning Branch and 1 capsule in the evening. fluticasone 2022-0 Yes [id number] 1{spray Use 1 [facility] propionate 1-06 } [place] in ity o f 50 00:00: each [place] mcg/actuati 00 nostril in Me dical on nasal the Branch spray morning. gabapentin 2022-0 Yes [id number] 300mg Take 1 [facility] 300 mg 1-06 capsule by ity of capsule 00:00: mouth in [place] 00 the Medical morning Branch and 1 capsule in the evening. fluticasone 2022-0 Yes [id number] 1{spray Use 1 [facility] propionate 1-06 } [place] in ity o f 50 00:00: each [place] mcg/actuati 00 nostril in Me dical on nasal the Branch spray morning. gabapentin 2022-0 Yes [id number] 300mg Take 1 [facility] 300 mg 1-06 capsule by ity of capsule 00:00: mouth in [place] 00 the Medical morning Branch and 1 capsule in the evening. fluticasone 2022-0 Yes [id number] 1{spray Use 1 [facility] propionate 1-06 } [place] in ity o f 50 00:00: each [place] mcg/actuati 00 nostril in Me dical on nasal the Branch spray morning. gabapentin 2023-0 Yes [id number] 300mg Take 1 [facility] 300 mg 1-06 capsule by ity of capsule 00:00: mouth in [place] 00 the Medical morning Branch and 1 capsule in the evening. fluticasone 2023-0 Yes [id number] 1{spray Use 1 [facility] propionate 1-06 } [place] in ity o f 50 00:00: each [place] mcg/actuati 00 nostril in Me dical on nasal the Branch spray morning. gabapentin 3-0 Yes [id number] 300mg Take 1 [facility] 300 mg 1-06 capsule by ity of capsule 00:00: mouth in [place] 00 the Medical morning Branch and 1 capsule in the evening. fluticasone 2022-0 Yes [id number] 1{spray Use 1 [facility] propionate 1-06 } [place] in ity o f 50 00:00: each [place] mcg/actuati 00 nostril in Me dical on nasal the Branch spray morning. gabapentin 2022-0 Yes [id number] 300mg Take 1 [facility] 300 mg 1-06 capsule by ity of capsule 00:00: mouth in [place] 00 the Medical morning Branch and 1 capsule in the evening. fluticasone 2022-0 Yes [id number] 1{spray Use 1 [facility] propionate 1-06 } [place] in ity o f 50 00:00: each [place] mcg/actuati 00 nostril in Me dical on nasal the Branch spray morning. gabapentin 2022-0 Yes [id number] 300mg Take 1 [facility] 300 mg 1-06 capsule by ity of capsule 00:00: mouth in [place] 00 the Medical morning Branch and 1 capsule in the evening. fluticasone 2022-0 Yes [id number] 1{spray Use 1 [facility] propionate 1-06 } [place] in ity o f 50 00:00: each [place] mcg/actuati 00 nostril in Me dical on nasal the Branch spray morning. gabapentin 2022-0 Yes [id number] 300mg Take 1 [facility] 300 mg 1-06 capsule by ity of capsule 00:00: mouth in [place] 00 the Medical morning Branch and 1 capsule in the evening. fluticasone 2022-0 Yes [id number] 1{spray Use 1 [facility] propionate 1-06 } [place] in ity o f 50 00:00: each [place] mcg/actuati 00 nostril in Me dical on nasal the Branch spray morning. gabapentin 2023-0 Yes [id number] 300mg Take 1 [facility] 300 mg 1-06 capsule by ity of capsule 00:00: mouth in [place] 00 the Medical morning Branch and 1 capsule in the evening. fluticasone 2023-0 Yes [id number] 1{spray Use 1 [facility] propionate 1-06 } [place] in ity o f 50 00:00: each [place] mcg/actuati 00 nostril in Me dical on nasal the Branch spray morning. gabapentin 2022-0 Yes [id number] 300mg Take 1 [facility] 300 mg 1-06 capsule by ity of capsule 00:00: mouth in [place] 00 the Medical morning Branch and 1 capsule in the evening. gabapentin 2022-0 Yes [id number] 300mg Take 1 [facility] 300 mg 1-06 capsule by ity of capsule 00:00: mouth in [place] 00 the Medical morning Branch and 1 capsule in the evening. gabapentin 202- No [id number] 300mg Take 1 [facility] 300 mg 1-06 - capsule by ity of capsule 00:00: 00:00 mouth in [place] 00 :00 the Medical morning Branch and 1 capsule in the evening. fluticasone 2022- No [id number] 1{spray Use 1 [facility] propionate 08-21 } [place] in ity of 50 00:00: 00:00 each [place] mcg/actuati 00 :00 nostril in Me dical on nasal the Branch spray morning. fluticasone 2022- No [id number] 1{spray Use 1 [facility] propionate 08-21 } [place] in ity of 50 00:00: 00:00 each [place] mcg/actuati 00 :00 nostril in Me dical on nasal the Branch spray morning. timolol 0.5 2021-08 Yes INSTILL 1 U nivers % 2-20 DROP INTO ity of ophthalmic 00:00: EACH EYE Victor Manuel as solution 00 TWICE Medical DAILY Branch timolol 0.5 2021-08 Yes INSTILL 1 U nivers % 2-20 DROP INTO ity of ophthalmic 00:00: EACH EYE [place] as solution 00 TWICE Medical DAILY Branch timolol 0.5 2021-08 Yes INSTILL 1 U nivers % 2-20 DROP INTO ity of ophthalmic 00:00: EACH EYE [place] as solution 00 TWICE Medical DAILY Branch timolol 0.5 2021-08 Yes INSTILL 1 U nivers % 2-20 DROP INTO ity of ophthalmic 00:00: EACH EYE [place] as solution 00 TWICE Medical DAILY Branch timolol 0.5 2021-08 Yes INSTILL 1 U nivers % 2-20 DROP INTO ity of ophthalmic 00:00: EACH EYE [place] as solution 00 TWICE Medical DAILY Branch timolol 0.5 2021-08 Yes INSTILL 1 U nivers % 2-20 DROP INTO ity of ophthalmic 00:00: EACH EYE [place] as solution 00 TWICE Medical DAILY Branch timolol 0.5 2021-08 Yes INSTILL 1 U nivers % 2-20 DROP INTO ity of ophthalmic 00:00: EACH EYE [place] as solution 00 TWICE Medical DAILY Branch timolol 0.5 2021-08 Yes INSTILL 1 U nivers % 2-20 DROP INTO ity of ophthalmic 00:00: EACH EYE [place] as solution 00 TWICE Medical DAILY Branch timolol 0.5 2021-08 Yes INSTILL 1 U nivers % 2-20 DROP INTO ity of ophthalmic 00:00: EACH EYE [place] as solution 00 TWICE Medical DAILY Branch timolol 0.5 2021-08 Yes INSTILL 1 U nivers % 2-20 DROP INTO ity of ophthalmic 00:00: EACH EYE [place] as solution 00 TWICE Medical DAILY Branch timolol 0.5 2021-08 Yes INSTILL 1 U nivers % 2-20 DROP INTO ity of ophthalmic 00:00: EACH EYE [place] as solution 00 TWICE Medical DAILY Branch timolol 0.5 2021-08 Yes INSTILL 1 U nivers % 2-20 DROP INTO ity of ophthalmic 00:00: EACH EYE [place] as solution 00 TWICE Medical DAILY Branch timolol 0.5 2021-08 Yes INSTILL 1 U nivers % 2-20 DROP INTO ity of ophthalmic 00:00: EACH EYE [place] as solution 00 TWICE Medical DAILY Branch timolol 0.5 2021-08 Yes INSTILL 1 U nivers % 2-20 DROP INTO ity of ophthalmic 00:00: EACH EYE [place] as solution 00 TWICE Medical DAILY Branch timolol 0.5 2021-08 Yes INSTILL 1 U nivers % 2-20 DROP INTO ity of ophthalmic 00:00: EACH EYE [place] as solution 00 TWICE Medical DAILY Branch timolol 0.5 2021-08 Yes INSTILL 1 U nivers % 2-20 DROP INTO ity of ophthalmic 00:00: EACH EYE [place] as solution 00 TWICE Medical DAILY Branch timolol 0.5 2021-08 Yes INSTILL 1 U nivers % 2-20 DROP INTO ity of ophthalmic 00:00: EACH EYE [place] as solution 00 TWICE Medical DAILY Branch timolol 0.5 2021-08 Yes INSTILL 1 U nivers % 2-20 DROP INTO ity of ophthalmic 00:00: EACH EYE [place] as solution 00 TWICE Medical DAILY Branch timolol 0.5 2021-08 Yes INSTILL 1 U nivers % 2-20 DROP INTO ity of ophthalmic 00:00: EACH EYE [place] as solution 00 TWICE Medical DAILY Branch timolol 0.5 2021-08 Yes INSTILL 1 U nivers % 2-20 DROP INTO ity of ophthalmic 00:00: EACH EYE [place] as solution 00 TWICE Medical DAILY Branch timolol 0.5 2021-08 Yes INSTILL 1 U nivers % 2-20 DROP INTO ity of ophthalmic 00:00: EACH EYE [place] as solution 00 TWICE Medical DAILY Branch timolol 0.5 2021-08 Yes INSTILL 1 U nivers % 2-20 DROP INTO ity of ophthalmic 00:00: EACH EYE [place] as solution 00 TWICE Medical DAILY Branch timolol 0.5 2021-08 Yes INSTILL 1 U nivers % 2-20 DROP INTO ity of ophthalmic 00:00: EACH EYE [place] as solution 00 TWICE Medical DAILY Branch timolol 0.5 2021-08 Yes INSTILL 1 U nivers % 2-20 DROP INTO ity of ophthalmic 00:00: EACH EYE [place] as solution 00 TWICE Medical DAILY Branch timolol 0.5 2021-08 Yes INSTILL 1 U nivers % 2-20 DROP INTO ity of ophthalmic 00:00: EACH EYE [place] as solution 00 TWICE Medical DAILY Branch timolol 0.5 2021-08 Yes INSTILL 1 U nivers % 2-20 DROP INTO ity of ophthalmic 00:00: EACH EYE [place] as solution 00 TWICE Medical DAILY Branch timolol 0.5 2021-08 Yes INSTILL 1 U nivers % 2-20 DROP INTO ity of ophthalmic 00:00: EACH EYE [place] as solution 00 TWICE Medical DAILY Branch timolol 0.5 2021-08 Yes INSTILL 1 U nivers % 2-20 DROP INTO ity of ophthalmic 00:00: EACH EYE [place] as solution 00 TWICE Medical DAILY Branch montelukast 2021-08 Yes [id number] TAKE 1 [facility] 10 mg 2-06 TABLET BY ity of tablet 00:00: MOUTH ONCE [place] 00 DAILY FOR Medical COUGH, Branch COPD, ASTHMA, OR ALLERGIES montelukast 2021-08 Yes [id number] TAKE 1 [facility] 10 mg 2-06 TABLET BY ity of tablet 00:00: MOUTH ONCE [place] 00 DAILY FOR Medical COUGH, Branch COPD, ASTHMA, OR ALLERGIES montelukast 2021-08 Yes [id number] TAKE 1 [facility] 10 mg 2-06 TABLET BY ity of tablet 00:00: MOUTH ONCE [place] 00 DAILY FOR Medical COUGH, Branch COPD, ASTHMA, OR ALLERGIES montelukast 2021-08 Yes [id number] TAKE 1 [facility] 10 mg 2-06 TABLET BY ity of tablet 00:00: MOUTH ONCE [place] 00 DAILY FOR Medical COUGH, Branch COPD, ASTHMA, OR ALLERGIES montelukast 2021-08 Yes [id number] TAKE 1 [facility] 10 mg 2-06 TABLET BY ity of tablet 00:00: MOUTH ONCE [place] 00 DAILY FOR Medical COUGH, Branch COPD, ASTHMA, OR ALLERGIES montelukast 2021-08 Yes [id number] TAKE 1 [facility] 10 mg 2-06 TABLET BY ity of tablet 00:00: MOUTH ONCE [place] 00 DAILY FOR Medical COUGH, Branch COPD, ASTHMA, OR ALLERGIES montelukast 2021-08 Yes [id number] TAKE 1 [facility] 10 mg 2-06 TABLET BY ity of tablet 00:00: MOUTH ONCE [place] 00 DAILY FOR Medical COUGH, Branch COPD, ASTHMA, OR ALLERGIES montelukast 2021-08 Yes [id number] TAKE 1 [facility] 10 mg 2-06 TABLET BY ity of tablet 00:00: MOUTH ONCE [place] 00 DAILY FOR Medical COUGH, Branch COPD, ASTHMA, OR ALLERGIES montelukast 2021-08 Yes [id number] TAKE 1 [facility] 10 mg 2-06 TABLET BY ity of tablet 00:00: MOUTH ONCE [place] 00 DAILY FOR Medical COUGH, Branch COPD, ASTHMA, OR ALLERGIES montelukast 2021-08 Yes [id number] TAKE 1 [facility] 10 mg 2-06 TABLET BY ity of tablet 00:00: MOUTH ONCE [place] 00 DAILY FOR Medical COUGH, Branch COPD, ASTHMA, OR ALLERGIES montelukast 2021-08 Yes [id number] TAKE 1 [facility] 10 mg 2-06 TABLET BY ity of tablet 00:00: MOUTH ONCE [place] 00 DAILY FOR Medical COUGH, Branch COPD, ASTHMA, OR ALLERGIES montelukast 2021-08 Yes [id number] TAKE 1 [facility] 10 mg 2-06 TABLET BY ity of tablet 00:00: MOUTH ONCE [place] 00 DAILY FOR Medical COUGH, Branch COPD, ASTHMA, OR ALLERGIES montelukast 2021-08 Yes [id number] TAKE 1 [facility] 10 mg 2-06 TABLET BY ity of tablet 00:00: MOUTH ONCE [place] 00 DAILY FOR Medical COUGH, Branch COPD, ASTHMA, OR ALLERGIES montelukast 2021-08 Yes [id number] TAKE 1 [facility] 10 mg 2-06 TABLET BY ity of tablet 00:00: MOUTH ONCE [place] 00 DAILY FOR Medical COUGH, Branch COPD, ASTHMA, OR ALLERGIES montelukast 2021-08- No [id number] TAKE 1 [facility] 10 mg 2-06 -23 TABLET BY ity of tablet 00:00: 00:00 [place]CE [place] 00 :[place] DAILY FOR Medical COUGH, Branch COPD, ASTHMA, OR ALLERGIES apixaban 2021-08- No 5mg Take 5 mg Uni vers (ELIQUIS) 5 1-10 11-10 by mouth ity of mg tablet 15:20: 00:00 in the [place] 04 :00 morning Medical and 5 mg Branch in the evening. KCL 10 mEq 2021-08- No 10meq Take 10 Un mike tablet 1-10 11-10 mEq by ity of 15:20: 00:00 mouth in [place] 04 :00 the Medical morning. Branch isosorbide 2021-08- No 60mg Take 60 mg [facility] mononitrate 1-10 11-10 by mouth ity of 60 mg 24 hr 15:20: 00:00 in the [place] [facility] as tablet 04 :00 morning. Medical Branch hydrALAZINE 2021-08- No 100mg Take 100 [facility] 100 mg 1-10 11-10 mg by ity of tablet 15:20: 00:00 mouth in [place] 04 :00 the Medical morning Branch and 100 mg at noon and 100 mg in the evening. atorvastati 2021-08- No 40mg Take 40 mg [facility] n 40 mg 1-10 11-10 by mouth ity of tablet 15:20: 00:00 at [place] 04 :00 bedtime. Medical Branch furosemide 2021-08- No 40mg Take 40 mg [facility] (LASIX) 40 1-10 11-10 by mouth ity of mg tablet 15:20: 00:00 in the [place] 04 :00 morning. Medical Branch apixaban 2021-08- No 5mg Take 5 mg [facility] vers (ELIQUIS) 5 1-10 11-10 by mouth ity of mg tablet 15:20: 00:00 in the [place] 04 :00 morning Medical and 5 mg [...] ity of tablet 15:20: 00:00 mouth in [place] 04 :00 the Medical morning Branch and 100 mg at noon and 100 mg in the evening. atorvastati 2021-08- No 40mg Take 40 mg [facility] n 40 mg 1-10 11-10 by mouth ity of tablet 15:20: 00:00 at [place] 04 :00 bedtime. Medical Branch furosemide 2021-08- No 40mg Take 40 mg [facility] (LASIX) 40 1-10 11-10 by mouth ity of mg tablet 15:20: 00:00 in the [place] 04 :00 morning. Medical Branch apixaban 2021-08- No 5mg Take 5 mg [facility] vers (ELIQUIS) 5 1-10 11-10 by mouth ity of mg tablet 15:20: 00:00 in the [place] 04 :00 morning Medical and 5 mg [...] ity of tablet 15:20: 00:00 mouth in [place] 04 :00 the Medical morning Branch and 100 mg at noon and 100 mg in the evening. atorvastati 2021-08- No 40mg Take 40 mg [facility] n 40 mg 1-10 11-10 by mouth ity of tablet 15:20: 00:00 at [place] 04 :00 bedtime. Medical Branch furosemide 2021-2021- No 40mg Take 40 mg [facility] (LASIX) 40 1-10 11-10 by mouth ity of mg tablet 15:20: 00:00 in the [place] 04 :00 morning. Medical Branch apixaban 2021-08- No 5mg Take 5 mg [facility] vers (ELIQUIS) 5 1-10 11-10 by mouth ity of mg tablet 15:20: 00:00 in the [place] 04 :00 morning Medical and 5 mg Branch in the evening. KCL 10 mEq 2021-08- No 10meq Take 10 Un mike tablet 1-10 11-10 mEq by ity of 15:20: 00:00 mouth in [place] 04 :00 the Medical morning. Branch isosorbide 2021-08- No 60mg Take 60 mg [facility] mononitrate 1-10 11-10 by mouth ity of 60 mg 24 hr 15:20: 00:00 in the [facility] as tablet 04 :00 morning. Medical Branch hydrALAZINE 2021-08- No 100mg Take 100 [facility] 100 mg 1-10 11-10 mg by ity of tablet 15:20: 00:00 mouth in [place] 04 :00 the Medical morning Branch and 100 mg at noon and 100 mg in the evening. atorvastati 2021-08- No 40mg Take 40 mg [facility] n 40 mg 1-10 11-10 by mouth ity of tablet 15:20: 00:00 at [place] 04 :00 bedtime. Medical Branch furosemide 2021-08- No 40mg Take 40 mg [facility] (LASIX) 40 1-10 11-10 by mouth ity of mg tablet 15:20: 00:00 in the [place] 04 :00 morning. Medical Branch gabapentin 2021- Yes 300mg Take 300 Un mike 300 mg 1-10 mg by ity of capsule 14:54: mouth in [place] 45 the Medical morning Branch and 300 mg at noon and 300 mg in the evening. linaCLOtide 2021- Yes Take by [facility] vers (LINZESS) 1-10 mouth ity of 145 mcg 14:54: every [place] capsule 45 morning. Medical Branch gabapentin 2021- Yes 300mg Take 300 Un mike 300 mg 1-10 mg by ity of capsule 14:54: mouth in [place] [address] the Medical morning Branch and 300 mg at noon and 300 mg in the evening. linaCLOtide 2021- Yes Take by [facility] vers (LINZESS) 1-10 mouth ity of 145 mcg 14:54: every [place] capsule 45 morning. Medical Branch gabapentin 2021- Yes 300mg Take 300 Un mike 300 mg 1-10 mg by ity of capsule 14:54: mouth in [place] [address] the Medical morning Branch and 300 mg at noon and 300 mg in the evening. linaCLOtide 2021- Yes Take by [facility] vers (LINZESS) 1-10 mouth ity of 145 mcg 14:54: every [place] capsule 45 morning. Medical Branch gabapentin 2021- Yes 300mg Take 300 Un mike 300 mg 1-10 mg by ity of capsule 14:54: mouth in [place] [address] the Medical morning Branch and 300 mg at noon and 300 mg in the evening. linaCLOtide 2021- Yes Take by [facility] vers (LINZESS) 1-10 mouth ity of 145 mcg 14:54: every [place] capsule 45 morning. Medical Branch gabapentin 2021- Yes 300mg Take 300 Un mike 300 mg 1-10 mg by ity of capsule 14:54: mouth in [place] [address] the Medical morning Branch and 300 mg at noon and 300 mg in the evening. linaCLOtide 2021- Yes Take by [facility] vers (LINZESS) 1-10 mouth ity of 145 mcg 14:54: every [place] capsule 45 morning. Medical Branch linaCLOtide 2021- Yes Take by [facility] vers (LINZESS) 1-10 mouth ity of 145 mcg 14:54: every [place] capsule 45 morning. Medical Branch linaCLOtide 2021- Yes Take by [facility] vers (LINZESS) 1-10 mouth ity of 145 mcg 14:54: every [place] capsule 45 morning. Medical Branch linaCLOtide 2021- Yes Take by [facility] vers (LINZESS) 1-10 mouth ity of 145 mcg 14:54: every [place] capsule 45 morning. Medical Branch linaCLOtide 2021-08 Yes Take by [facility] vers (LINZESS) 1-10 mouth ity of 145 mcg 14:54: every [place] capsule 45 morning. Medical Branch linaCLOtide 2021-08 Yes Take by [facility] vers (LINZESS) 1-10 mouth ity of 145 mcg 14:54: every [place] capsule 45 morning. Medical Branch linaCLOtide 2021-08 Yes Take by [facility] vers (LINZESS) 1-10 mouth ity of 145 mcg 14:54: every [place] capsule 45 morning. Medical Branch gabapentin 2021-08 Yes 300mg Take 300 Un mike 300 mg 1-10 mg by ity of capsule 14:54: mouth in [place] 45 the Medical morning Branch and 300 mg at noon and 300 mg in the evening. linaCLOtide 2021-08 Yes Take by [facility] vers (LINZESS) 1-10 mouth ity of 145 mcg 14:54: every [place] capsule 45 morning. Medical Branch linaCLOtide 2021-08 Yes Take by [facility] vers (LINZESS) 1-10 mouth ity of 145 mcg 14:54: every [place] capsule 45 morning. Medical Branch linaCLOtide 2021-08 Yes Take by [facility] vers (LINZESS) 1-10 mouth ity of 145 mcg 14:54: every [place] capsule 45 morning. Medical Branch gabapentin 2021-08 Yes 300mg Take 300 Un mike 300 mg 1-10 mg by ity of capsule 14:54: mouth in [place] [address] the Medical morning Branch and 300 mg at noon and 300 mg in the evening. linaCLOtide 2021-08 Yes Take by [facility] vers (LINZESS) 1-10 mouth ity of 145 mcg 14:54: every [place] capsule 45 morning. Medical Branch gabapentin 2021-08 Yes 300mg Take 300 Un mike 300 mg 1-10 mg by ity of capsule 14:54: mouth in [place] 45 the Medical morning Branch and 300 mg at noon and 300 mg in the evening. linaCLOtide 2021-08 Yes Take by [facility] vers (LINZESS) 1-10 mouth ity of 145 mcg 14:54: every [place] capsule 45 morning. Medical Branch gabapentin 2021- Yes 300mg Take 300 Un mike 300 mg 1-10 mg by ity of capsule 14:54: mouth in [place] 45 the Medical morning Branch and 300 mg at noon and 300 mg in the evening. linaCLOtide 2021-08 Yes Take by [facility] vers (LINZESS) 1-10 mouth ity of 145 mcg 14:54: every [facility] 45 morning. Medical Branch famotidine 2021- Yes 20mg Take 20 mg U nivers 20 mg 1-10 by mouth ity of tablet 14:53: in the [place] 52 morning. Medical Branch famotidine 2021- Yes 20mg Take 20 mg U nivers 20 mg 1-10 by mouth ity of tablet 14:53: in the [place] 52 morning. Medical Branch famotidine 2021- Yes 20mg Take 20 mg U nivers 20 mg 1-10 by mouth ity of tablet 14:53: in the [place] 52 morning. Medical Branch famotidine 2021- Yes 20mg Take 20 mg U nivers 20 mg 1-10 by mouth ity of tablet 14:53: in the [place] 52 morning. Medical Branch famotidine 2021- Yes 20mg Take 20 mg U nivers 20 mg 1-10 by mouth ity of tablet 14:53: in the [place] 52 morning. Medical Branch famotidine 2021- Yes 20mg Take 20 mg U nivers 20 mg 1-10 by mouth ity of tablet 14:53: in the [place] 52 morning. Medical Branch famotidine 2021- Yes 20mg Take 20 mg U nivers 20 mg 1-10 by mouth ity of tablet 14:53: in the [place] 52 morning. Medical Branch famotidine 2021- Yes 20mg Take 20 mg U nivers 20 mg 1-10 by mouth ity of tablet 14:53: in the [place] 52 morning. Medical Branch famotidine 2021-1 Yes 20mg Take 20 mg U nivers 20 mg 1-10 by mouth ity of tablet 14:53: in the [place] 52 morning. Medical Branch famotidine 2021-1 Yes 20mg Take 20 mg U nivers 20 mg 1-10 by mouth ity of tablet 14:53: in the [place] 52 morning. Medical Branch famotidine 2021-1 Yes 20mg Take 20 mg U nivers 20 mg 1-10 by mouth ity of tablet 14:53: in the [place] 52 morning. Medical Branch famotidine 2021-1 Yes 20mg Take 20 mg U nivers 20 mg 1-10 by mouth ity of tablet 14:53: in the [place] 52 morning. Medical Branch famotidine 2021-08 Yes 20mg Take 20 mg U nivers 20 mg 1-10 by mouth ity of tablet 14:53: in the [place] 52 morning. Medical Branch famotidine 2021-08 Yes 20mg Take 20 mg U nivers 20 mg 1-10 by mouth ity of tablet 14:53: in the [place] 52 morning. Medical Branch famotidine 2021-08 Yes 20mg Take 20 mg U nivers 20 mg 1-10 by mouth ity of tablet 14:53: in the [place] 52 morning. Medical Branch famotidine 2021-08 Yes 20mg Take 20 mg U nivers 20 mg 1-10 by mouth ity of tablet 14:53: in the [place] 52 morning. Medical Branch famotidine 2021-08 Yes 20mg Take 20 mg U nivers 20 mg 1-10 by mouth ity of tablet 14:53: in the [place] 52 morning. Medical Branch apixaban 2021-08 Yes 1358 5mg Take 1 [facility] (ELIQUIS) 5 1-10 tablet by ity of mg tablet 00:00: mouth [place] 00 the Medical morning Branch and 1 tablet in the evening. Indication s: atrial fibrillati on atorvastati 2021-08 Yes [id number] 40mg Take 1 [facility] n 40 mg 1-10 tablet by ity of tablet 00:00: mouth at [place] [address] bedtime. Medical Branch furosemide 2021-08 Yes [id number] 40mg Take 1 [facility] (LASIX) 40 1-10 tablet by ity of mg tablet 00:00: mouth [place] 00 the Medical morning. Branch hydrALAZINE 2021-08 Yes [id number] 100mg Take 1 [facility] 100 mg 1-10 tablet by ity of tablet 00:00: mouth in [place] 00 the Medical morning Branch and 1 tablet at noon and 1 tablet in the evening. isosorbide 2021-08 Yes [id number] 60mg Take 1 [facility] mononitrate 1-10 tablet by ity of 60 mg 24 hr 00:00: mouth in [place] tablet 00 the Medical morning. Branch KCL 10 mEq 2021-08 Yes [id number] 10meq Take 1 [facility] tablet 1-10 tablet by ity of 00:00: mouth in [place] 00 the Medical morning. Branch amLODIPine 2021-08 Yes [id number] 5mg Take 1 [facility] 5 mg tablet 1-10 tablet by ity of 00:00: mouth in [place] the morning. Branch apixaban 2021-08 Yes 1358 5mg Take 1 [facility] (ELIQUIS) 5 1-10 tablet by ity of mg tablet 00:00: mouth in [facility] the morning Branch and 1 tablet in the evening. Indication s: atrial fibrillati on atorvastati 2021-08 Yes [id number] 40mg Take 1 [facility] n 40 mg 1-10 tablet by ity of tablet 00:00: mouth at [place] [address] bedtime. Medical Branch furosemide 2021-08 Yes [id number] 40mg Take 1 [facility] (LASIX) 40 1-10 tablet by ity of mg tablet 00:00: mouth in [place] [address] the morning. Branch hydrALAZINE 2021-08 Yes [id number] 100mg Take 1 [facility] 100 mg 1-10 tablet by ity of tablet 00:00: mouth in [place] the morning Branch and 1 tablet at noon and 1 tablet in the evening. isosorbide 2021-08 Yes [id number] 60mg Take 1 [facility] mononitrate 1-10 tablet by ity of 60 mg 24 hr 00:00: mouth in [place] tablet the morning. Branch KCL 10 mEq 2021-08 Yes [id number] 10meq Take 1 [facility] tablet 1-10 tablet by ity of 00:00: mouth in [place] the morning. Branch amLODIPine 2021-08 Yes [id number] 5mg Take 1 [facility] 5 mg tablet 1-10 tablet by ity of 00:00: mouth in [place] the morning. Branch apixaban 2021-08 Yes 1358 5mg Take 1 [facility] (ELIQUIS) 5 1-10 tablet by ity of mg tablet 00:00: mouth in [place] [address] the morning Branch and 1 tablet in the evening. Indication s: atrial fibrillati on atorvastati 2021-08 Yes [id number] 40mg Take 1 [facility] n 40 mg 1-10 tablet by ity of tablet 00:00: mouth at [place] [address] bedtime. Medical Branch furosemide 2021-08 Yes [id number] 40mg Take 1 [facility] (LASIX) 40 1-10 tablet by ity of mg tablet 00:00: mouth in [facility] 00 the morning. Branch hydrALAZINE 2021-08 Yes [id number] 100mg Take 1 [facility] 100 mg 1-10 tablet by ity of tablet 00:00: mouth in [place] 00 the morning Branch and 1 tablet at noon and 1 tablet in the evening. isosorbide 2021-08 Yes [id number] 60mg Take 1 [facility] mononitrate 1-10 tablet by ity of 60 mg 24 hr 00:00: mouth in [place] tablet the morning. Branch KCL 10 mEq 2021-08 Yes [id number] 10meq Take 1 [facility] tablet 1-10 tablet by ity of 00:00: mouth in [place] 00 the morning. Branch amLODIPine 2021-08 Yes [id number] 5mg Take 1 [facility] 5 mg tablet 1-10 tablet by ity of 00:00: mouth in [place] the morning. Branch apixaban 2021-08 Yes 1358 5mg Take 1 [facility] (ELIQUIS) 5 1-10 tablet by ity of mg tablet 00:00: mouth in [facility] 00 the morning Branch and 1 tablet in the evening. Indication s: atrial fibrillati on atorvastati 2021-08 Yes [id number] 40mg Take 1 [facility] n 40 mg 1-10 tablet by ity of tablet 00:00: mouth at [place] [address] bedtime. Medical Branch furosemide 2021-08 Yes [id number] 40mg Take 1 [facility] (LASIX) 40 1-10 tablet by ity of mg tablet 00:00: mouth in [facility] the morning. Branch hydrALAZINE 2021-08 Yes [id number] 100mg Take 1 [facility] 100 mg 1-10 tablet by ity of tablet 00:00: mouth in [place] 00 the Medical morning Branch and 1 tablet at noon and 1 tablet in the evening. isosorbide 2021-08 Yes [id number] 60mg Take 1 [facility] mononitrate 1-10 tablet by ity of 60 mg 24 hr 00:00: mouth in [place] tablet the morning. Branch KCL 10 mEq 2021-08 Yes [id number] 10meq Take 1 [facility] tablet 1-10 tablet by ity of 00:00: mouth in [place] 00 the morning. Branch amLODIPine 2021-08 Yes [id number] 5mg Take 1 [facility] 5 mg tablet 1-10 tablet by ity of 00:00: mouth in [place] 00 the Medical morning. Branch apixaban 2021-08 Yes 1358 5mg Take 1 [facility] (ELIQUIS) 5 1-10 tablet by ity of mg tablet 00:00: [facility] morning Branch and 1 tablet in the evening. Indication s: atrial fibrillati on atorvastati 2021-08 Yes [id number] 40mg Take 1 [facility] n 40 mg 1-10 tablet by ity of tablet 00:00: mouth at [place] 00 bedtime. Medical Branch furosemide 2021-08 Yes [id number] 40mg Take 1 [facility] (LASIX) 40 1-10 tablet by ity of mg tablet 00:00: mouth in [facility] 00 the morning. Branch hydrALAZINE 2021-08 Yes [id number] 100mg Take 1 [facility] 100 mg 1-10 tablet by ity of tablet 00:00: mouth in [place] 00 the Medical morning Branch and 1 tablet at noon and 1 tablet in the evening. isosorbide 2021-08 Yes [id number] 60mg Take 1 [facility] mononitrate 1-10 tablet by ity of 60 mg 24 hr 00:00: mouth in [place] tablet 00 the Medical morning. Branch KCL 10 mEq 2021-08 Yes [id number] 10meq Take 1 [facility] tablet 1-10 tablet by ity of 00:00: mouth in [place] 00 the Medical morning. Branch amLODIPine 2021-08 Yes [id number] 5mg Take 1 [facility] 5 mg tablet 1-10 tablet by ity of 00:00: mouth in [place] 00 the Medical morning. Branch apixaban 2021-08 Yes 1358 5mg Take 1 [facility] (ELIQUIS) 5 1-10 tablet by ity of mg tablet 00:00: mouth in [facility] s 00 the Medical morning Branch and 1 tablet in the evening. Indication s: atrial fibrillati on atorvastati 2021-08 Yes [id number] 40mg Take 1 [facility] n 40 mg 1-10 tablet by ity of tablet 00:00: mouth at [place] [address] bedtime. Medical Branch furosemide 2021-08 Yes [id number] 40mg Take 1 [facility] (LASIX) 40 1-10 tablet by ity of mg tablet 00:00: mouth in [facility] 00 the Medical morning. Branch hydrALAZINE 2021-08 Yes [id number] 100mg Take 1 [facility] 100 mg 1-10 tablet by ity of tablet 00:00: mouth in [place] 00 the morning Branch and 1 tablet at noon and 1 tablet in the evening. isosorbide 2021-08 Yes [id number] 60mg Take 1 [facility] mononitrate 1-10 tablet by ity of 60 mg 24 hr 00:00: mouth in [place] tablet the morning. Branch KCL 10 mEq 2021-08 Yes [id number] 10meq Take 1 [facility] tablet 1-10 tablet by ity of 00:00: mouth in [place] 00 the morning. Branch amLODIPine 2021-08 Yes [id number] 5mg Take 1 [facility] 5 mg tablet 1-10 tablet by ity of 00:00: mouth in [place] [address] the morning. Branch apixaban 2021-08 Yes 1358 5mg Take 1 [facility] (ELIQUIS) 5 1-10 tablet by ity of mg tablet 00:00: mouth in [facility] the morning Branch and 1 tablet in the evening. Indication s: atrial fibrillati on atorvastati 2021-08 Yes [id number] 40mg Take 1 [facility] n 40 mg 1-10 tablet by ity of tablet 00:00: mouth at [place] [address] bedtime. Medical Branch furosemide 2021-08 Yes [id number] 40mg Take 1 [facility] (LASIX) 40 1-10 tablet by ity of mg tablet 00:00: mouth in [facility] the morning. Branch hydrALAZINE 2021-08 Yes [id number] 100mg Take 1 [facility] 100 mg 1-10 tablet by ity of tablet 00:00: mouth in [place] the morning Branch and 1 tablet at noon and 1 tablet in the evening. isosorbide 2021-08 Yes [id number] 60mg Take 1 [facility] mononitrate 1-10 tablet by ity of 60 mg 24 hr 00:00: mouth in [place] tablet the Medical morning. Branch KCL 10 mEq 2021-08 Yes [id number] 10meq Take 1 [facility] tablet 1-10 tablet by ity of 00:00: mouth in [place] 00 the morning. Branch amLODIPine 2021-08 Yes [id number] 5mg Take 1 [facility] 5 mg tablet 1-10 tablet by ity of 00:00: mouth in [place] 00 the Medical morning. Branch apixaban 2021-08 Yes 1358 5mg Take 1 [facility] (ELIQUIS) 5 1-10 tablet by ity of mg tablet 00:00: mouth in [place] 00 the Medical morning Branch and 1 tablet in the evening. Indication s: atrial fibrillati on atorvastati 2021-08 Yes [id number] 40mg Take 1 [facility] n 40 mg 1-10 tablet by ity of tablet 00:00: mouth at [place] 00 bedtime. Medical Branch furosemide 2021-08 Yes [id number] 40mg Take 1 [facility] (LASIX) 40 1-10 tablet by ity of mg tablet 00:00: mouth in [facility] 00 the Medical morning. Branch hydrALAZINE 2021-08 Yes [id number] 100mg Take 1 [facility] 100 mg 1-10 tablet by ity of tablet 00:00: mouth in [place] 00 the Medical morning Branch and 1 tablet at noon and 1 tablet in the evening. isosorbide 2021-08 Yes [id number] 60mg Take 1 [facility] mononitrate 1-10 tablet by ity of 60 mg 24 hr 00:00: mouth in [place] tablet 00 the Medical morning. Branch KCL 10 mEq 2021-08 Yes [id number] 10meq Take 1 [facility] tablet 1-10 tablet by ity of 00:00: mouth in [place] 00 the Medical morning. Branch amLODIPine 2021-08 Yes [id number] 5mg Take 1 [facility] 5 mg tablet 1-10 tablet by ity of 00:00: mouth in [place] 00 the Medical morning. Branch apixaban 2021-08 Yes 1358 5mg Take 1 [facility] (ELIQUIS) 5 1-10 tablet by ity of mg tablet 00:00: mouth in [facility] s 00 the Medical morning Branch and 1 tablet in the evening. Indication s: atrial fibrillati on atorvastati 2021-08 Yes [id number] 40mg Take 1 [facility] n 40 mg 1-10 tablet by ity of tablet 00:00: mouth at [place] 00 bedtime. Medical Branch furosemide 2021-08 Yes [id number] 40mg Take 1 [facility] (LASIX) 40 1-10 tablet by ity of mg tablet 00:00: mouth in [facility] 00 the Medical morning. Branch hydrALAZINE 2021-08 Yes [id number] 100mg Take 1 [facility] 100 mg 1-10 tablet by ity of tablet 00:00: mouth in [place] the morning Branch and 1 tablet at noon and 1 tablet in the evening. isosorbide 2021-08 Yes [id number] 60mg Take 1 [facility] mononitrate 1-10 tablet by ity of 60 mg 24 hr 00:00: mouth in [place] tablet the morning. Branch KCL 10 mEq 2021-08 Yes [id number] 10meq Take 1 [facility] tablet 1-10 tablet by ity of 00:00: mouth in [place] the morning. Branch amLODIPine 2021-08 Yes [id number] 5mg Take 1 [facility] 5 mg tablet 1-10 tablet by ity of 00:00: mouth in [place] [address] the morning. Branch apixaban 2021-08 Yes 1358 5mg Take 1 [facility] (ELIQUIS) 5 1-10 tablet by ity of mg tablet 00:00: mouth in [facility] the morning Branch and 1 tablet in the evening. Indication s: atrial fibrillati on atorvastati 2021-08 Yes [id number] 40mg Take 1 [facility] n 40 mg 1-10 tablet by ity of tablet 00:00: mouth at [place] [address] bedtime. Medical Branch furosemide 2021-08 Yes [id number] 40mg Take 1 [facility] (LASIX) 40 1-10 tablet by ity of mg tablet 00:00: mouth in [facility] the morning. Branch hydrALAZINE 2021-08 Yes [id number] 100mg Take 1 [facility] 100 mg 1-10 tablet by ity of tablet 00:00: mouth in [place] the morning Branch and 1 tablet at noon and 1 tablet in the evening. isosorbide 2021-08 Yes [id number] 60mg Take 1 [facility] mononitrate 1-10 tablet by ity of 60 mg 24 hr 00:00: mouth in [place] tablet the morning. Branch KCL 10 mEq 2021-08 Yes [id number] 10meq Take 1 [facility] tablet 1-10 tablet by ity of 00:00: mouth in [place] [address] the morning. Branch amLODIPine 2021-08 Yes [id number] 5mg Take 1 [facility] 5 mg tablet 1-10 tablet by ity of 00:00: mouth in [place] 00 the Medical morning. Branch apixaban 2021-08 Yes 1358 5mg Take 1 [facility] (ELIQUIS) 5 1-10 tablet by ity of mg tablet 00:00: mouth in [place] 00 the Medical morning Branch and 1 tablet in the evening. Indication s: atrial fibrillati on atorvastati 2021-08 Yes [id number] 40mg Take 1 [facility] n 40 mg 1-10 tablet by ity of tablet 00:00: mouth at [place] 00 bedtime. Medical Branch furosemide 2021-08 Yes [id number] 40mg Take 1 [facility] (LASIX) 40 1-10 tablet by ity of mg tablet 00:00: mouth in [facility] 00 the Medical morning. Branch hydrALAZINE 2021-08 Yes [id number] 100mg Take 1 [facility] 100 mg 1-10 tablet by ity of tablet 00:00: mouth in [place] 00 the Medical morning Branch and 1 tablet at noon and 1 tablet in the evening. isosorbide 2021-08 Yes [id number] 60mg Take 1 [facility] mononitrate 1-10 tablet by ity of 60 mg 24 hr 00:00: mouth in [place] tablet 00 the Medical morning. Branch KCL 10 mEq 2021-08 Yes [id number] 10meq Take 1 [facility] tablet 1-10 tablet by ity of 00:00: mouth in [place] 00 the Medical morning. Branch amLODIPine 2021-08 Yes [id number] 5mg Take 1 [facility] 5 mg tablet 1-10 tablet by ity of 00:00: mouth in [place] 00 the Medical morning. Branch apixaban 2021-08 Yes [id number] 5mg Take 1 [facility] (ELIQUIS) 5 1-10 tablet by ity of mg tablet 00:00: mouth in [place] 00 the Medical morning Branch and 1 tablet in the evening. Indication s: atrial fibrillati on atorvastati 2021-08 Yes [id number] 40mg Take 1 [facility] n 40 mg 1-10 tablet by ity of tablet 00:00: mouth at [place] 00 bedtime. Medical Branch furosemide 2021-08 Yes [id number] 40mg Take 1 [facility] (LASIX) 40 1-10 tablet by ity of mg tablet 00:00: mouth in [facility] 00 the Medical morning. Branch hydrALAZINE 2021-08 Yes [id number] 100mg Take 1 [facility] 100 mg 1-10 tablet by ity of tablet 00:00: mouth in [place] the morning Branch and 1 tablet at noon and 1 tablet in the evening. isosorbide 2021-08 Yes [id number] 60mg Take 1 [facility] mononitrate 1-10 tablet by ity of 60 mg 24 hr 00:00: mouth in [place] tablet the Medical morning. Branch KCL 10 mEq 2021-08 Yes [id number] 10meq Take 1 [facility] tablet 1-10 tablet by ity of 00:00: mouth in [place] the morning. Branch amLODIPine 2021-08 Yes [id number] 5mg Take 1 [facility] 5 mg tablet 1-10 tablet by ity of 00:00: mouth in [place] the morning. Branch apixaban 2021-08 Yes 1358 5mg Take 1 [facility] (ELIQUIS) 5 1-10 tablet by ity of mg tablet 00:00: mouth in [facility] the morning Branch and 1 tablet in the evening. Indication s: atrial fibrillati on furosemide 2021-08 Yes [id number] 40mg Take 1 [facility] (LASIX) 40 1-10 tablet by ity of mg tablet 00:00: mouth in [facility] the morning. Branch hydrALAZINE 2021-08 Yes [id number] 100mg Take 1 [facility] 100 mg 1-10 tablet by ity of tablet 00:00: mouth in [place] the morning Branch and 1 tablet at noon and 1 tablet in the evening. isosorbide 2021-08 Yes [id number] 60mg Take 1 [facility] mononitrate 1-10 tablet by ity of 60 mg 24 hr 00:00: mouth in [place] tablet the Medical morning. Branch KCL 10 mEq 2021-08 Yes [id number] 10meq Take 1 [facility] tablet 1-10 tablet by ity of 00:00: mouth in [place] the morning. Branch amLODIPine 2021-08 Yes [id number] 5mg Take 1 [facility] 5 mg tablet 1-10 tablet by ity of 00:00: mouth in [place] 00 the Medical morning. Branch amLODIPine 2021-08 Yes [id number] 5mg Take 1 [facility] 5 mg tablet 1-10 tablet by ity of 00:00: mouth in [place] 00 the morning. Branch apixaban 2021-08 Yes [id number] 5mg Take 1 [facility] (ELIQUIS) 5 1-10 tablet by ity of mg tablet 00:00: mouth in [facility] s 00 the morning Branch and 1 tablet in the evening. Indication s: atrial fibrillati on furosemide 2021-08 Yes [id number] 40mg Take 1 [facility] (LASIX) 40 1-10 tablet by ity of mg tablet 00:00: mouth in [facility] 00 the morning. Branch hydrALAZINE 2021-08 Yes [id number] 100mg Take 1 [facility] 100 mg 1-10 tablet by ity of tablet 00:00: mouth in [place] 00 the morning Branch and 1 tablet at noon and 1 tablet in the evening. isosorbide 2021-08 Yes [id number] 60mg Take 1 [facility] mononitrate 1-10 tablet by ity of 60 mg 24 hr 00:00: mouth in [place] tablet 00 the morning. Branch KCL 10 mEq 2021-08 Yes [id number] 10meq Take 1 [facility] tablet 1-10 tablet by ity of 00:00: mouth in [place] 00 the morning. Branch apixaban 2021-08 Yes 1358 5mg Take 1 [facility] (ELIQUIS) 5 1-10 tablet by ity of mg tablet 00:00: mouth in [facility] the morning Branch and 1 tablet in the evening. Indication s: atrial fibrillati on atorvastati 2021-08 Yes [id number] 40mg Take 1 [facility] n 40 mg 1-10 tablet by ity of tablet 00:00: mouth at [place] [address] bedtime. Medical Branch amLODIPine 2021-08 Yes [id number] 5mg Take 1 [facility] 5 mg tablet 1-10 tablet by ity of 00:00: mouth in [place] 00 the morning. Branch furosemide 2021-08 Yes [id number] 40mg Take 1 [facility] (LASIX) 40 1-10 tablet by ity of mg tablet 00:00: mouth in [facility] 00 the morning. Branch apixaban 2021-08 Yes 1358 5mg Take 1 [facility] (ELIQUIS) 5 1-10 tablet by ity of mg tablet 00:00: mouth in [facility] 00 the morning Branch and 1 tablet in the evening. Indication s: atrial fibrillati on furosemide 2021-08 Yes [id number] 40mg Take 1 [facility] (LASIX) 40 1-10 tablet by ity of mg tablet 00:00: mouth in [facility] 00 the morning. Branch hydrALAZINE 2021-08 Yes [id number] 100mg Take 1 [facility] 100 mg 1-10 tablet by ity of tablet 00:00: mouth in [place] 00 the morning Branch and 1 tablet at noon and 1 tablet in the evening. isosorbide 2021-08 Yes [id number] 60mg Take 1 [facility] mononitrate 1-10 tablet by ity of 60 mg 24 hr 00:00: mouth in [place] tablet 00 the morning. Branch KCL 10 mEq 2021-08 Yes [id number] 10meq Take 1 [facility] tablet 1-10 tablet by ity of 00:00: mouth in [place] the morning. Branch hydrALAZINE 2021-08 Yes [id number] 100mg Take 1 [facility] 100 mg 1-10 tablet by ity of tablet 00:00: mouth in [place] the morning Branch and 1 tablet at noon and 1 tablet in the evening. isosorbide 2021-08 Yes [id number] 60mg Take 1 [facility] mononitrate 1-10 tablet by ity of 60 mg 24 hr 00:00: mouth in [place] tablet the morning. Branch amLODIPine 2021-08 Yes [id number] 5mg Take 1 [facility] 5 mg tablet 1-10 tablet by ity of 00:00: mouth in [place] the morning. Branch apixaban 2021-08 Yes 1358 5mg Take 1 [facility] (ELIQUIS) 5 1-10 tablet by ity of mg tablet 00:00: mouth in [facility] 00 the morning Branch and 1 tablet in the evening. Indication s: atrial fibrillati on furosemide 2021-08 Yes [id number] 40mg Take 1 [facility] (LASIX) 40 1-10 tablet by ity of mg tablet 00:00: mouth in [facility] 00 the morning. Branch hydrALAZINE 2021-08 Yes [id number] 100mg Take 1 [facility] 100 mg 1-10 tablet by ity of tablet 00:00: mouth in [place] [address] the morning Branch and 1 tablet at noon and 1 tablet in the evening. isosorbide 2021-08 Yes [id number] 60mg Take 1 [facility] mononitrate 1-10 tablet by ity of 60 mg 24 hr 00:00: mouth in [place] tablet the morning. Branch KCL 10 mEq 2021-08 Yes [id number] 10meq Take 1 [facility] tablet 1-10 tablet by ity of 00:00: mouth in [place] the morning. Branch KCL 10 mEq 2021-08 Yes [id number] 10meq Take 1 [facility] tablet 1-10 tablet by ity of 00:00: mouth in [place] the morning. Branch amLODIPine 2021-08 Yes [id number] 5mg Take 1 [facility] 5 mg tablet 1-10 tablet by ity of 00:00: mouth in [place] the morning. Branch apixaban 2021-08 Yes 1358 5mg Take 1 [facility] (ELIQUIS) 5 1-10 tablet by ity of mg tablet 00:00: mouth in [facility] the morning Branch and 1 tablet in the evening. Indication s: atrial fibrillati on furosemide 2021-08 Yes [id number] 40mg Take 1 [facility] (LASIX) 40 1-10 tablet by ity of mg tablet 00:00: mouth in [facility] the morning. Branch hydrALAZINE 2021-08 Yes [id number] 100mg Take 1 [facility] 100 mg 1-10 tablet by ity of tablet 00:00: mouth in [place] the morning Branch and 1 tablet at noon and 1 tablet in the evening. isosorbide 2021-08 Yes [id number] 60mg Take 1 [facility] mononitrate 1-10 tablet by ity of 60 mg 24 hr 00:00: mouth in [place] tablet the morning. Branch KCL 10 mEq 2021-08 Yes [id number] 10meq Take 1 [facility] tablet 1-10 tablet by ity of 00:00: mouth in [place] the morning. Branch amLODIPine 2021-08 Yes [id number] 5mg Take 1 [facility] 5 mg tablet 1-10 tablet by ity of 00:00: mouth in [place] [address] the morning. Branch apixaban 2021-08 Yes 1358 5mg Take 1 [facility] (ELIQUIS) 5 1-10 tablet by ity of mg tablet 00:00: mouth in [place] [address] the morning Branch and 1 tablet in the evening. Indication s: atrial fibrillati on furosemide 2021-08 Yes [id number] 40mg Take 1 [facility] (LASIX) 40 1-10 tablet by ity of mg tablet 00:00: mouth in [facility] the morning. Branch hydrALAZINE 2021-08 Yes [id number] 100mg Take 1 [facility] 100 mg 1-10 tablet by ity of tablet 00:00: mouth in [place] the morning Branch and 1 tablet at noon and 1 tablet in the evening. isosorbide 2021-08 Yes [id number] 60mg Take 1 [facility] mononitrate 1-10 tablet by ity of 60 mg 24 hr 00:00: mouth in [place] tablet 00 the morning. Branch KCL 10 mEq 2021-08 Yes [id number] 10meq Take 1 [facility] tablet 1-10 tablet by ity of 00:00: mouth in [place] the morning. Branch amLODIPine 2021-08 Yes [id number] 5mg Take 1 [facility] 5 mg tablet 1-10 tablet by ity of 00:00: mouth in [place] the morning. Branch apixaban 2021-08 Yes 1358 5mg Take 1 [facility] (ELIQUIS) 5 1-10 tablet by ity of mg tablet 00:00: mouth in [facility] the morning Branch and 1 tablet in the evening. Indication s: atrial fibrillati on furosemide 2021-08 Yes [id number] 40mg Take 1 [facility] (LASIX) 40 1-10 tablet by ity of mg tablet 00:00: mouth in [facility] the morning. Branch hydrALAZINE 2021-08 Yes [id number] 100mg Take 1 [facility] 100 mg 1-10 tablet by ity of tablet 00:00: mouth in [place] the morning Branch and 1 tablet at noon and 1 tablet in the evening. isosorbide 2021-08 Yes [id number] 60mg Take 1 [facility] mononitrate 1-10 tablet by ity of 60 mg 24 hr 00:00: mouth in [place] tablet the morning. Branch KCL 10 mEq 2021-08 Yes [id number] 10meq Take 1 [facility] tablet 1-10 tablet by ity of 00:00: mouth in [place] [address] the morning. Branch amLODIPine 2021-08 Yes [id number] 5mg Take 1 [facility] 5 mg tablet 1-10 tablet by ity of 00:00: mouth in [place] the morning. Branch apixaban 2021-08 Yes 1358 5mg Take 1 [facility] (ELIQUIS) 5 1-10 tablet by ity of mg tablet 00:00: mouth in [facility] the morning Branch and 1 tablet in the evening. Indication s: atrial fibrillati on furosemide 2021-08 Yes [id number] 40mg Take 1 [facility] (LASIX) 40 1-10 tablet by ity of mg tablet 00:00: mouth in [facility] the morning. Branch hydrALAZINE 2021-08 Yes [id number] 100mg Take 1 [facility] 100 mg 1-10 tablet by ity of tablet 00:00: mouth in [place] [address] the morning Branch and 1 tablet at noon and 1 tablet in the evening. isosorbide 2021-08 Yes [id number] 60mg Take 1 [facility] mononitrate 1-10 tablet by ity of 60 mg 24 hr 00:00: mouth in [place] tablet 00 the morning. Branch KCL 10 mEq 2021-08 Yes [id number] 10meq Take 1 [facility] tablet 1-10 tablet by ity of 00:00: mouth in [place] the morning. Branch amLODIPine 2021-08 Yes [id number] 5mg Take 1 [facility] 5 mg tablet 1-10 tablet by ity of 00:00: mouth in [place] [address] the morning. Branch apixaban 2021-08 Yes 1358 5mg Take 1 [facility] (ELIQUIS) 5 1-10 tablet by ity of mg tablet 00:00: mouth in [facility] the morning Branch and 1 tablet in the evening. Indication s: atrial fibrillati on furosemide 2021-08 Yes [id number] 40mg Take 1 [facility] (LASIX) 40 1-10 tablet by ity of mg tablet 00:00: mouth in [facility] 00 the morning. Branch hydrALAZINE 2021-08 Yes [id number] 100mg Take 1 [facility] 100 mg 1-10 tablet by ity of tablet 00:00: mouth in [place] [address] the morning Branch and 1 tablet at noon and 1 tablet in the evening. isosorbide 2021-08 Yes [id number] 60mg Take 1 [facility] mononitrate 1-10 tablet by ity of 60 mg 24 hr 00:00: mouth in [place] tablet 00 the morning. Branch KCL 10 mEq 2021-08 Yes [id number] 10meq Take 1 [facility] tablet 1-10 tablet by ity of 00:00: mouth in [place] the morning. Branch amLODIPine 2021-08 Yes [id number] 5mg Take 1 [facility] 5 mg tablet 1-10 tablet by ity of 00:00: mouth in [place] the morning. Branch apixaban 2021-08 Yes 1358 5mg Take 1 [facility] (ELIQUIS) 5 1-10 tablet by ity of mg tablet 00:00: mouth in [facility] 00 the morning Branch and 1 tablet in the evening. Indication s: atrial fibrillati on furosemide 2021-08 Yes [id number] 40mg Take 1 [facility] (LASIX) 40 1-10 tablet by ity of mg tablet 00:00: mouth in [place] [address] the morning. Branch hydrALAZINE 2021-08 Yes [id number] 100mg Take 1 [facility] 100 mg 1-10 tablet by ity of tablet 00:00: mouth in [place] the morning Branch and 1 tablet at noon and 1 tablet in the evening. isosorbide 2021-08 Yes [id number] 60mg Take 1 [facility] mononitrate 1-10 tablet by ity of 60 mg 24 hr 00:00: mouth in [place] tablet the morning. Branch KCL 10 mEq 2021-08 Yes [id number] 10meq Take 1 [facility] tablet 1-10 tablet by ity of 00:00: mouth in [place] the morning. Branch amLODIPine 2021-08 Yes [id number] 5mg Take 1 [facility] 5 mg tablet 1-10 tablet by ity of 00:00: mouth in [place] the morning. Branch amLODIPine 2021-08 Yes [id number] 5mg Take 1 [facility] 5 mg tablet 1-10 tablet by ity of 00:00: mouth in [place] the morning. Branch hydrALAZINE 2021-08 Yes [id number] 100mg Take 1 [facility] 100 mg 1-10 tablet by ity of tablet 00:00: mouth in [place] the morning Branch and 1 tablet at noon and 1 tablet in the evening. apixaban 2021-08 Yes 1358 5mg Take 1 [facility] (ELIQUIS) 5 1-10 tablet by ity of mg tablet 00:00: mouth in [facility] s 00 the morning Branch and 1 tablet in the evening. Indication s: atrial fibrillati on atorvastati 2021-08 Yes [id number] 40mg Take 1 [facility] n 40 mg 1-10 tablet by ity of tablet 00:00: mouth at [place] [address] bedtime. Medical Branch amLODIPine 2021-08 Yes [id number] 5mg Take 1 [facility] 5 mg tablet 1-10 tablet by ity of 00:00: mouth in [place] the morning. Branch hydrALAZINE 2021-08 Yes [id number] 100mg Take 1 [facility] 100 mg 1-10 tablet by ity of tablet 00:00: mouth in [place] 00 the morning Branch and 1 tablet at noon and 1 tablet in the evening. furosemide 2021-08 Yes [id number] 40mg Take 1 [facility] (LASIX) 40 1-10 tablet by ity of mg tablet 00:00: mouth in [facility] 00 the morning. Branch hydrALAZINE 2021-08 Yes [id number] 100mg Take 1 [facility] 100 mg 1-10 tablet by ity of tablet 00:00: mouth in [place] 00 the morning Branch and 1 tablet at noon and 1 tablet in the evening. isosorbide 2021-08 Yes [id number] 60mg Take 1 [facility] mononitrate 1-10 tablet by ity of 60 mg 24 hr 00:00: mouth in [place] tablet the morning. Branch amLODIPine 2021-08 Yes [id number] 5mg Take 1 [facility] 5 mg tablet 1-10 tablet by ity of 00:00: mouth in [place] the morning. Branch hydrALAZINE 2021-08 Yes [id number] 100mg Take 1 [facility] 100 mg 1-10 tablet by ity of tablet 00:00: mouth in [place] the morning Branch and 1 tablet at noon and 1 tablet in the evening. KCL 10 mEq 2021-08 Yes [id number] 10meq Take 1 [facility] tablet 1-10 tablet by ity of 00:00: mouth in [place] [address] the morning. Branch amLODIPine 2021-08 Yes [id number] 5mg Take 1 [facility] 5 mg tablet 1-10 tablet by ity of 00:00: mouth in [place] the morning. Branch hydrALAZINE 2022-1 Yes [id number] 100mg Take 1 [facility] 100 mg 1-10 tablet by ity of tablet 00:00: mouth in [place] the Medical morning Branch and 1 tablet at noon and 1 tablet in the evening. amLODIPine 2021- Yes [id number] 5mg Take 1 [facility] 5 mg tablet 1-10 tablet by ity of 00:00: mouth in [place] the morning. Branch hydrALAZINE 2021-08 Yes [id number] 100mg Take 1 [facility] 100 mg 1-10 tablet by ity of tablet 00:00: mouth in [place] [address] the Medical morning Branch and 1 tablet at noon and 1 tablet in the evening. amLODIPine 2021-08 Yes [id number] 5mg Take 1 [facility] 5 mg tablet 1-10 tablet by ity of 00:00: mouth in [place] the morning. Branch hydrALAZINE 2021-08 Yes [id number] 100mg Take 1 [facility] 100 mg 1-10 tablet by ity of tablet 00:00: mouth in [place] [address] the Medical morning Branch and 1 tablet at noon and 1 tablet in the evening. amLODIPine 2021-08 Yes [id number] 5mg Take 1 [facility] 5 mg tablet 1-10 tablet by ity of 00:00: mouth in [place] the morning. Branch hydrALAZINE 2021-08 Yes [id number] 100mg Take 1 [facility] 100 mg 1-10 tablet by ity of tablet 00:00: mouth in [place] [address] the Medical morning Branch and 1 tablet at noon and 1 tablet in the evening. amLODIPine 2021- Yes [id number] 5mg Take 1 [facility] 5 mg tablet 1-10 tablet by ity of 00:00: mouth in [place] the morning. Branch hydrALAZINE 2021-08 Yes [id number] 100mg Take 1 [facility] 100 mg 1-10 tablet by ity of tablet 00:00: mouth in [place] [address] the Medical morning Branch and 1 tablet at noon and 1 tablet in the evening. amLODIPine 2021-1 Yes [id number] 5mg Take 1 [facility] 5 mg tablet 1-10 tablet by ity of 00:00: mouth in [place] [address] the morning. Branch apixaban 2021-08 Yes 1358 5mg Take 1 [facility] (ELIQUIS) 5 1-10 tablet by ity of mg tablet 00:00: mouth in [place] s 00 the Medical morning Branch and 1 tablet in the evening. Indication s: atrial fibrillati on amLODIPine 2021-08 Yes [id number] 5mg Take 1 [facility] 5 mg tablet 1-10 tablet by ity of 00:00: mouth in [place] the morning. Branch hydrALAZINE 2021-08 Yes [id number] 100mg Take 1 [facility] 100 mg 1-10 tablet by ity of tablet 00:00: mouth in [place] 00 the morning Branch and 1 tablet at noon and 1 tablet in the evening. atorvastati 2021-08 Yes [id number] 40mg Take 1 [facility] n 40 mg 1-10 tablet by ity of tablet 00:00: mouth at [place] [address] bedtime. Medical Branch furosemide 2021-08 Yes [id number] 40mg Take 1 [facility] (LASIX) 40 1-10 tablet by ity of mg tablet 00:00: mouth in [facility] 00 the morning. Branch amLODIPine 2021-08 Yes [id number] 5mg Take 1 [facility] 5 mg tablet 1-10 tablet by ity of 00:00: mouth in [place] the morning. Branch hydrALAZINE 2021-08 Yes [id number] 100mg Take 1 [facility] 100 mg 1-10 tablet by ity of tablet 00:00: mouth in [place] 00 the Medical morning Branch and 1 tablet at noon and 1 tablet in the evening. hydrALAZINE 2021-08 Yes [id number] 100mg Take 1 [facility] 100 mg 1-10 tablet by ity of tablet 00:00: mouth in [place] 00 the morning Branch and 1 tablet at noon and 1 tablet in the evening. isosorbide 2021-08 Yes [id number] 60mg Take 1 [facility] mononitrate 1-10 tablet by ity of 60 mg 24 hr 00:00: mouth in [place] tablet 00 the morning. Branch KCL 10 mEq 2021-08 Yes [id number] 10meq Take 1 [facility] tablet 1-10 tablet by ity of 00:00: mouth in [place] 00 the morning. Branch amLODIPine 2021-08 Yes [id number] 5mg Take 1 [facility] 5 mg tablet 1-10 tablet by ity of 00:00: mouth in [place] 00 the morning. Branch hydrALAZINE 2021-08 Yes [id number] 100mg Take 1 [facility] 100 mg 1-10 tablet by ity of tablet 00:00: mouth in [place] 00 the Medical morning Branch and 1 tablet at noon and 1 tablet in the evening. amLODIPine 2021-08 Yes [id number] 5mg Take 1 [facility] 5 mg tablet 1-10 tablet by ity of 00:00: mouth in [place] 00 the Medical morning. Branch hydrALAZINE 2021-08 Yes [id number] 100mg Take 1 [facility] 100 mg 1-10 tablet by ity of tablet 00:00: mouth in [place] 00 the Medical morning Branch and 1 tablet at noon and 1 tablet in the evening. amLODIPine 2021-08 Yes [id number] 5mg Take 1 [facility] 5 mg tablet 1-10 tablet by ity of 00:00: mouth in [place] 00 the Medical morning. Branch apixaban 2021-08- No 1358 5mg Take 1 Univer s (ELIQUIS) 5 1-05 19-27 tablet by it y of mg tablet 00:00: 00:00 mouth in [facility] as 00 :00 the Medical morning Branch and 1 tablet in the evening. Indication s: atrial fibrillati on furosemide 2021-08- No [id number] 40mg Take 1 [facility] (LASIX) 40 1-05 19-27 tablet by ity of mg tablet 00:00: 00:00 mouth in [place] as 00 :00 the Medical morning. Branch isosorbide 2021-08- No [id number] 60mg Take 1 [facility] mononitrate -05 19-27 tablet by it y of 60 mg 24 hr 00:00: 00:00 mouth in [place] tablet 00 :00 the Medical morning. Branch KCL 10 mEq 2021-08- No [id number] 10meq Take 1 [facility] tablet -05 19-27 tablet by ity of 00:00: 00:00 mouth in [place] 00 :00 the Medical morning. Branch apixaban 2021-08- No 1358 5mg Take 1 Univer s (ELIQUIS) 5 1-05 19-27 tablet by it y of mg tablet 00:00: 00:00 mouth in [place] as 00 :00 the Medical morning Branch and 1 tablet in the evening. Indication s: atrial fibrillati on furosemide 2021-08- No [id number] 40mg Take 1 [facility] (LASIX) 40 1-10 -27 tablet by ity of mg tablet 00:00: 00:00 mouth in [place] as 00 :00 the Medical morning. Branch isosorbide 2021-08- No [id number] 60mg Take 1 [facility] mononitrate 08-25 tablet by it y of 60 mg 24 hr 00:00: 00:00 mouth in [place] tablet 00 :00 the Medical morning. Branch KCL 10 mEq 2021-08- No [id number] 10meq Take 1 [facility] tablet 08-25 tablet by ity of 00:00: 00:00 mouth in [place] 00 :00 the Medical morning. Branch atorvastati 2021-08- No [id number] 40mg Take 1 [facility] n 40 mg 08-25 tablet by ity of tablet 00:00: 00:00 mouth at [place] 00 :00 bedtime. Medical Branch atorvastati 2021-08- No [id number] 40mg Take 1 [facility] n 40 mg 08-25 tablet by ity of tablet 00:00: 00:00 mouth at [place] 00 :00 bedtime. Medical Branch atorvastati 2021-08- No [id number] 40mg Take 1 [facility] n 40 mg 08-25 tablet by ity of tablet 00:00: 00:00 mouth at [place] 00 :00 bedtime. Medical Branch atorvastati 2021-08- No [id number] 40mg Take 1 [facility] n 40 mg 08-25 tablet by ity of tablet 00:00: 00:00 mouth at [place] 00 :00 bedtime. Medical Branch TRELEGY 2021-08 Yes 1{puff} Take 1 Unive rs ELLIPTA 1-02 Puff by ity of 100-62.5-25 00:00: mouth [place] mcg DsDv 00 daily. Medical Branch TREGY 2021-08 Yes 1{puff} Take 1 Unive rs [...] Puff by ity of 100-62.5-25 00:00: mouth in [place] mcg DsDv 00 the Medical morning. Branch TRELEGY 2021-08 Yes 1{puff} Take 1 Unive rs ELLIPTA 1-02 Puff by ity of 100-62.5-25 00:00: mouth in [place] mcg DsDv 00 the Medical morning. Branch TRELEGY 2021-08 Yes 1{puff} Take 1 Unive rs ELLIPTA 1-02 Puff by ity of 100-62.5-25 00:00: mouth in [place] mcg DsDv 00 the Medical morning. Branch TRELEGY 2021-08 Yes 1{puff} Take 1 Unive rs ELLIPTA 1-02 Puff by ity of 100-62.5-25 00:00: mouth in [place] mcg DsDv 00 the Medical morning. Branch TRELEGY 2021-08 Yes 1{puff} Take 1 Unive rs ELLIPTA 1-02 Puff by ity of 100-62.5-25 00:00: mouth in [place] mcg DsDv 00 the Medical morning. Branch TRELEGY 2021-08 Yes 1{puff} Take 1 Unive rs ELLIPTA 1-02 Puff by ity of 100-62.5-25 00:00: mouth in [place] mcg DsDv 00 the Medical morning. Branch TRELEGY 2021-08 Yes 1{puff} Take 1 Unive rs ELLIPTA 1-02 Puff by ity of 100-62.5-25 00:00: mouth in [place] mcg DsDv 00 the Medical morning. Branch TRELEGY 2021-08 Yes 1{puff} Take 1 Unive rs ELLIPTA 1-02 Puff by ity of 100-62.5-25 00:00: mouth [place] mcg DsDv 00 daily. Medical Branch TRELEGY 2021-08 Yes 1{puff} Take 1 Unive rs ELLIPTA 1-02 Puff by ity of 100-62.5-25 00:00: mouth in [place] mcg DsDv 00 the Medical morning. Branch TRELEGY 2021-08 Yes 1{puff} Take 1 Unive rs ELLIPTA 1-02 Puff by ity of 100-62.5-25 00:00: mouth in [place] mcg DsDv 00 the Medical morning. Branch TRELEGY 2021-08 Yes 1{puff} Take 1 Unive rs ELLIPTA 1-02 Puff by ity of 100-62.5-25 00:00: mouth in [place] mcg DsDv 00 the morning. Branch TRELEGY 2021-08 Yes 1{puff} Take 1 Unive rs ELLIPTA 1-02 Puff by ity of 100-62.5-25 00:00: mouth in [place] mcg DsDv 00 the morning. Branch TRELEGY 2021-08 Yes 1{puff} Take 1 Unive rs ELLIPTA 1-02 Puff by ity of 100-62.5-25 00:00: mouth in [place] mcg DsDv 00 the morning. Branch TRELEGY 2021-08 Yes 1{puff} Take 1 Unive rs ELLIPTA 1-02 Puff by ity of 100-62.5-25 00:00: mouth [place] mcg DsDv 00 daily. [facility] Vital Signs Vital Name Observation Time Observation Value Comments Source Systolic blood 2023-03-09 18:19:00 136 mm[Hg] Univer sity of pressure [facility] Diastolic blood 2023-03-09 18:19:00 55 mm[Hg] Unive rsity of pressure [facility] Heart rate 2023-03-09 18:19:00 72 /min [facility] Body weight 2023-03-09 18:19:00 76.476 kg [facility] BMI 2023-03-09 18:19:00 28.06 kg/m2 [facility] Oxygen saturation in 2023-03-09 18:19:00 98 /min [facility] Arterial blood by [facility] Pulse oximetry Branch Respiratory rate 2023-03-09 18:17:00 19 /[facility] 2023-03-09 18:17:00 165.1 cm [facility] Systolic blood 2023-01-20 18:14:00 145 mm[Hg] Univer sity of pressure [facility] Diastolic blood 2023-01-20 18:14:00 59 mm[Hg] Unive rsity of pressure [place] [facility] Heart rate 2023-01-20 18:07:00 75 /min [facility] [place] [facility] Respiratory rate 2023-01-20 18:07:00 16 /min Univ ersity of [place] [facility] Body height 2023-01-20 18:07:00 165.1 cm [facility] [place] [facility] Body weight 2023-01-20 18:07:00 78.472 kg [facility] [place] [facility] BMI 2023-01-20 18:07:00 28.79 kg/m2 [facility] [place] [facility] Oxygen saturation in 2023-01-20 18:07:00 99 /min [facility] of Arterial blood by [place] [facility] Pulse oximetry Branch Systolic blood 2022-12-10 18:05:00 134 mm[Hg] Univer sity of pressure [place] [facility] Diastolic blood 2022-12-10 18:05:00 75 mm[Hg] Unive rsity of pressure [place] [facility] Heart rate 2022-12-10 18:05:00 62 /min [facility] [place] [facility] Body height 2022-12-10 18:05:00 165.1 cm [facility]i [facility] of [place] [facility] Body weight 2022-12-10 18:05:00 78.79 kg [facility] [place] [facility] BMI 2022-12-10 18:05:00 28.91 kg/m2 [facility] [place] [facility] Oxygen saturation in 2022-12-10 18:05:00 98 /min [facility] of Arterial blood by [place] [facility] Pulse oximetry Branch Systolic blood 2022-09-23 17:25:00 138 mm[Hg] Univer sity of pressure [place] [facility] Diastolic blood 2022-09-23 17:25:00 71 mm[Hg] Unive rsity of pressure [place] [facility] Heart rate 2022-09-23 17:25:00 60 /min [facility] [place] [facility] Respiratory rate 2022-09-23 17:25:00 29 /min Univ ersity of [place] [facility] Oxygen saturation in 2022-09-23 17:25:00 100 /min University of Arterial blood by [place] [facility] Pulse oximetry Branch Body temperature 2022-09-23 17:07:00 36.56 Gabriella Univ ersity of [place] [facility] Body height 2022-09-17 18:00:00 165.1 cm [facility] [place] [facility] Body weight 2022-09-17 18:00:00 83.462 kg [facility] [place] [facility] BMI 2022-09-17 18:00:00 30.62 kg/m2 [facility] [place] [facility] Systolic blood 2022-09-23 15:19:00 144 mm[Hg] Univer sity of pressure [place] [facility] Diastolic blood 2022-09-23 15:19:00 69 mm[Hg] Unive rsity of pressure [place] [facility] Heart rate 2022-09-23 15:19:00 68 /min [facility] [place] [facility] Body temperature 2022-09-23 15:19:00 36.56 Gabriella Univ ersity of [facility] Branch Respiratory rate 2022-09-23 15:19:00 21 /min Univ ersity of [facility] Oxygen saturation in 2022-09-23 15:19:00 100 /min University of Arterial blood by [facility] Pulse oximetry Branch Body height 2022-09-17 18:00:00 165.1 cm [facility] [place] [facility] Body weight 2022-09-17 18:00:00 83.462 kg [facility] [place] [facility] BMI 2022-09-17 18:00:00 30.62 kg/m2 [facility] Systolic blood 2022-09-15 16:51:00 178 mm[Hg] Univer sity of pressure [facility] Diastolic blood 2022-09-15 16:51:00 72 mm[Hg] Unive rsity of pressure [facility] Heart rate 2022-09-15 16:50:00 65 /min [facility] Body temperature 2022-09-15 16:50:00 36.06 Gabriella Univ ersity of [facility] Body height 2022-09-15 16:50:00 165.1 cm [facility] Body weight 2022-09-15 16:50:00 83.462 kg [facility] BMI 2022-09-15 16:50:00 30.62 kg/m2 [facility] Systolic blood 2022-09-09 19:23:00 138 mm[Hg] [facility] Diastolic blood 2022-09-09 19:23:00 60 mm[Hg] [facility] Heart rate 2022-09-09 19:23:00 63 /min [facility] Body height 2022-09-09 19:23:00 165.1 cm [facility] Body weight 2022-09-09 19:23:00 78.472 kg [facility] BMI 2022-09-09 19:23:00 28.79 kg/m2 [facility] Oxygen saturation in 2022-09-09 19:23:00 100 /min [facility] Arterial blood by [facility] [employer] artie Pulse oximetry Branch Systolic blood 2022-08-21 20:02:00 147 mm[Hg] [facility] Diastolic blood 2022-08-21 20:02:00 72 mm[Hg] [facility] Heart rate 2022-08-21 20:01:00 58 /min [facility] Body temperature 2022-08-21 20:01:00 36.56 Gabriella [facility] Body height 2022-08-21 20:01:00 165.1 cm [facility] Body weight 2022-08-21 20:01:00 85.276 kg [facility] BMI 2022-08-21 20:01:00 31.28 kg/m2 [facility] Oxygen saturation in 2022-08-21 20:01:00 100 /min [facility] Arterial blood by [facility] artie Pulse oximetry Branch Systolic blood 2022-06-25 21:00:00 165 mm[Hg] [facility] Diastolic blood 2022-06-25 21:00:00 74 mm[Hg] [facility] Heart rate 2022-06-25 21:00:00 77 /min [facility] Respiratory rate 2022-06-25 20:59:00 19 /min [facility] Body height 2022-06-25 20:59:00 165.1 cm [facility] Body weight 2022-06-25 20:59:00 85.276 kg [facility] BMI 2022-06-25 20:59:00 31.28 kg/m2 [facility] Oxygen saturation in 2022-06-25 20:59:00 98 /min [facility] Arterial blood by [facility] Pulse oximetry Branch Procedures Procedure Date / Time Performing Source Performed Clinician DEXA AXIAL (HIP AND SPINE) 2023-01-25 [facility] 19:21:32 Gely Reyes [facility] ASSIGNMENT OF BENEFITS 2023-01-25 Doctor Unassigned, [facility] 18:32:37 [facility] PHACOEMULSIFICATION OF 2022-09-23 Rolan Elise [facility] CATARACT WITH INTRAOCULAR 16:20:00 Medica l Rosales LENS IMPLANT DAY SURGERY - [facility] 2022-09-23 Doctor Unassigned, [facility] 06:01:00 [facility] CONSENT/REFUSAL FOR DIAGNOSIS 2022-09-14 Doctor Unassigned, [facility] AND TREATMENT 19:08:37 [facility] ASSIGNMENT OF BENEFITS 2022-09-14 Doctor Unassigned, [facility] 19:08:18 [facility] MEDICAL RELEASE/CLEARANCE 2022-08-18 Doctor Unassigned, [facility] FORMS 06:01:00 [facility] MEDICAL RELEASE/CLEARANCE 2022-08-18 Doctor Unassigned, [facility] FORMS 06:01:00 [facility] INSURANCE CORRESPONDENCE 2022-07-16 Doctor Unatara, [facility] 06:01:00 [facility] EXTERNAL PROVIDER - [facility] 2022-07-06 Doctor Unasskarsten, [facility] CARDIOLOGY 06:01:00 [facility] HB ECG ROUTINE & RHYTHM STRIP 2022-06-25 Kelsie Mcneill [facility] 20:46:54 Medical Branch NOTICE OF PRIVACY PRACTICES 2022-06-25 Doctor Unasskarsten, [facility] 20:28:07 [facility] CONSENT/REFUSAL FOR DIAGNOSIS 2022-06-25 Doctor Unassigned, [facility] AND TREATMENT 20:27:39 [facility] ASSIGNMENT OF BENEFITS 2022-06-25 Doctor Unasskarsten, [facility] 20:27:19 [facility] Encounters Start End Encounter Admission Attending Care Care Encounter Source Date/Time Date/Time Type Type Clinicians Facility Department ID 2023-04-22 2023-04-22 Outpatient R [facility] [id number] Univers 13:20:00 13:20:00 , GELY it y of [facility] 2023-03-09 2023-03-09 Outpatient R OSITO [facility] [id number] Univers 13:20:00 13:43:51 KELSIE pastory o f [facility] 2023-03-09 2023-03-09 [facility] 1.2.840.114 [id number] Univers 13:20:00 13:43:51 Visit Kelsie MCCLELLAND 350.1.13.10 ity of [facility] 4.2.[address] [id number] [place] [id number] [facility] 2023-01-25 2023-01-25 [facility] 1.2.840.114 [id number] Univers 13:49:13 23:59:00 Encounter , Gely MCCLELLAND 350.1.13.10 ity of M [place] 4.2.7.2.686 [facility] [id number] [facility] artie 807 Branch 2023-01-25 2023-01-25 [facility] 1.2.840.114 1 [id number] Univers 13:33:43 13:48:00 Encounter , Gelycameron MCCLELLAND 350.1.13.10 ity of [place] 4.2.7.2.686 [facility] [id number] [facility] artie 800 Branch 2023-01-25 2023-01-25 Outpatient R [facility] [id number] Univers 13:32:52 13:32:52 , GELY it y of [facility] 2023-01-25 2023-01-25 [facility] 1.2.840.114 [id number] Univers 13:32:52 13:32:52 Encounter , Gelycameron MCC[place]LL[place] 350.1.13.10 ity of M [place] 4.2.7.2.686 [facility] [id number] [facility] 800 Branch 2023-01-25 2023-01-25 Orders Doctor SAMI 1.2.840.114 [id number] Univers 00:00:00 00:00:00 Only Unassigned, RADHA 350.1.13.10 ity of [place] [facility] 4.2.7.2.686 Victor Manuel as [phone] [facility] 009 Branch 2023-01-20 2023-01-20 Outpatient R [facility] [id number] Univers 14:28:14 23:59:00 , GELY it y of [facility] 2023-01-20 2023-01-20 [facility] 1.2.840.114 [id number] Univers 14:28:14 23:59:00 Encounter , Gely MCCLELLAND 350.1.13.10 ity of [place] [id number] [facility] [address] 2023-01-20 2023-01-[address] [facility] 1.2.840.114 10 [id number] Univers 13:20:00 13:48:26 Visit , Gely OCAMPO 350.1.13.10 ity of [place] 4.2.7.2.686 Victor Manuel as RADHA?BLEA [id number] [address] MEDICAL OFFICE BUILDING 2023-01-14 2023-01-[address] [facility] 1.2.840.114 10 [id number] Univers 00:00:00 00:00:00 , Gely OCAMPO 350.1.13.10 ity of [place] 4.2.7.2.686 Victor Manuel as RADHA?BLEA [id number] [address] MEDICAL OFFICE BUILDING 2023-01-07 2023-01-07 [facility] [id number] Univers 13:00:00 13:00:00 KELSIE lugo [facility] 2022-12-11 2022-12-11 Outpatient R [facility] [id number] Univers 11:15:00 11:15:00 , GELY it y of [facility] 2022-12-10 2022-12-10 Outpatient R [facility] [id number] [facility] 13:20:00 13:42:01 , GELY it y of [facility] 2022-12-10 2022-12-[address] [facility] 1.2.840.114 [id number] [facility] 13:20:00 13:42:01 Visit , Gely OCAMPO 350.1.13.10 ity of M [place] 4.2.7.2.686 Victor Manuel as RADHA?BLEA [id number] [address] MEDICAL OFFICE BUILDING 2022-11-10 2022-11-[address] [facility] 1.2.840.114 10 [id number] Univers 00:00:00 00:00:00 , Gely HEALTH 350.1.13.10 ity of [place] 4.2.7.2.686 Victor Manuel as RADHA?BLEA [id number] [address] OFFICE [facility] 2022-11-04 2022-11-[address] [facility] 1.2.840.114 10 [id number] Univers 00:00:00 00:00:00 , Gely OCAMPO 350.1.13.10 ity of [place] 4.2.7.2.686 Victor Manuel as RADHA?BLEA [id number] [address] OFFICE [facility] 2022-09-23 2022-09-23 Outpatient R [facility] OPH [id number] Univers 09:12:00 11:50:00 ROLAN ity of [facility] 2022-09-23 2022-09-23 Hospital [facility] 1.2.201.328 [id number] Univers 09:12:00 11:50:00 Encounter Rolan Adenike [place] 350.1.13.10 it[place] of [place] [id number] [address] 2022-09-23 2022-09-23 Surgery [facility] 1.2.840.114 [id number] Univers 10:09:00 10:43:00 Rolan A [place] 350.1.13.10 ity of [place] [id number] [facility] [address] 2022-09-23 2022-09-[address] [facility] 1.2.840.114 10 [id number] Univers 00:00:00 00:00:00 Management Gely HEALTH 350.1.13.10 ity of [place] 4.2.7.2.686 Victor Manuel as RADHA?BLEA [id number] [facility] [address] MEDICAL OFFICE BUILDING 2022-09-23 2022-09-23 Orders Doctor SAMI 1.2.840.114 [id number] Univers 00:00:00 00:00:00 Only Unassigned, RADHA 350.1.13.10 ity of [place] [facility] 4.2.7.2.686 Victor Manuel as [id number] [address] 2022-09-18 2022-09-18 [employer], [facility] 1.2.840.1 14 [id number] Univers 13:30:00 13:45:00 Visit Rolan Elise HEALTH 350.1.13.10 ity of [place] 4.2.7.2.686 Victor Manuel as RADHA?BLEA [id number] [facility] [address] MEDICAL OFFICE [facility] 2022-09-18 2022-09-18 Outpatient R ANIKA [facility] [id number] Univers 13:30:00 13:30:00 ROLAN ity [facility] 2022-09-18 2022-09-[address] [facility] 1.2.840.114 [id number] Univers 00:00:00 00:00:00 Management , Gely HEALTH 350.1.13.10 ity of [place] 4.2.7.2.686 Victor Manuel as RADHA?BLEA [id number] [facility] [address] MEDICAL OFFICE BUILDING 2022-09-15 2022-09-15 Outpatient R JAKE [facility] [id number] Univers 11:30:00 12:18:17 , GELY it y of [facility] 2022-09-15 2022-09-[address] [facility] 1.2.840.114 [id number] Univers 11:30:00 12:18:17 Visit Gely 350.1.13.10 ity of [place] 4.2.7.2.686 Victor Manuel as RADHA?BLEA [id number] Ar dicjudie TONEY [address] MEDICAL OFFICE BUILDING 2022-09-14 2022-09-14 Orders Doctor SAMI 1.2.840.114 [id number] Univers 00:00:00 00:00:00 Only Unassigned, RADHA 350.1.13.10 ity of [place] [facility] 4.2.7.2.686 Victor Manuel as [id number] [address] 2022-09-09 2022-09-09 [facility] [id number] Univers 13:40:00 13:41:05 KELSIE dawity o f [facility] 2022-09-09 2022-09-09 Office [facility] 1.2.840.114 [id number] Univers 13:40:00 13:41:05 [facility] 350.1.13.10 ity of [place] [id number] Ar dical NAL 059 [facility] 2022-09-01 2022-09-01 Outpatient R OSITO, [facility] [id number] Univers 15:00:00 15:00:00 EDUARDNELL dawity o f [facility] 2022-08-21 2022-08-21 Market Researcher Lab, [facility] 1.2.840.1 14 [id number] Univers 14:45:00 14:51:39 Visit Gely Joseph [facility] 350.1 .13.10 ity of [place] 4.2.7.2.686 Victor Manuel as RADHA?BLEA [id number] Ar sarah TONEY [address] MEDICAL OFFICE [facility] 2022-08-21 2022-08-21 Outpatient R JAKE [facility] [id number] Univers 14:00:00 14:46:29 , GELY it y of [facility] 2022-08-21 2022-08-21 Office Adrian [facility] 1.2.840.114 [id number] Univers 14:00:00 14:46:29 Visit Gely 350.1.13.10 ity of [place] 4.2.7.2.686 Victor Manuel as RADHA?BLEA [id number] [facility] 044 [facility] 2022-08-20 2022-08-20 Telephone [facility] 1.2.126.563 [id number] Univers 00:00:00 00:00:00 Kelsie MCCLELLAND 350.1.13.10 ity of [facility] [place].2.[place] [id number] [facility] 059 [facility] 2022-07-27 2022-07-27 [facility] 1.2.028.899 [id number] Univers 00:00:00 00:00:00 Kelsie MCCLELLAND 350.1.13.10 ity of [facility] [place] [id number] [address] 2022-07-24 2022-07-24 [facility] R [facility] [id number] Univers 15:17:20 23:59:00 KELSIE ity o f [facility] 2022-07-16 2022-07-16 Orders Doctor SAMI 1.2.840.114 [id number] Univers 00:00:00 00:00:00 Only Unassigned, RADHA 350.1.13.10 ity of [place] [facility] 4.2.7.2.686 Victor Manuel as [id number] [address] 2022-07-06 2022-07-06 Orders Doctor SAMI 1.2.840.114 [id number] Univers 00:00:00 00:00:00 Only Unassigned, RADHA 350.1.13.10 ity of [place] [facility] 4.2.7.2.686 Victor Manuel as [id number] [address] 2022-07-02 2022-07-02 [facility] 1.2.132.131 [id number] Univers 00:00:00 00:00:00 Kelsie MCCLELLAND 350.1.13.10 ity of [facility] 4[place] [id number] Ar dic[address] 2022-06-25 2022-06-25 Outpatient R OSITO [facility] [id number] Univers 14:40:00 15:25:40 JOSHRANJITNELL dawity o f [facility] 2022-06-25 2022-06-25 Office Osito [facility] 1.2.840.114 [id number] Univers 14:40:00 15:25:40 Visit Kelsie STAS 350.1.13.10 ity of [place] [id number] Ar dical NAL 059 [facility] 2022-06-25 2022-06-25 Orders Doctor SAMI 1.2.840.114 [id number] Univers 00:00:00 00:00:00 Only Unassigned, RADHA 350.1.13.10 ity of [place] [facility] 4.2.7.2.686 Victor Manuel as [id number] [place] [address] Branch 2022-03-18 2022-03-18 Outpatient SYMONE Maldonado [facility] [id number] [facility] 09:16:00 09:16:00 Lauro 42 [facility] 2022-03-18 2022-03-18 Outpatient SYMONE Maldonado [id number] 3-2 [facility] 09:16:00 09:16:00 Lauro [id number] [facility] Results Test Description Test Time [...] CA) 9.4 mg/dL 8.0-10.5 N CBC W/AUTO [id number] 10:45:00 Test Item Value Reference Range Interpretation [...] DIFF REQUIRED (test code NO = MDIFF) Notes Date/Time Note Provider Source 2022-03-20 09:06:00-00:00 [facility] ([facility]) Clinical Note REPORT#:[id number] REPORT STATUS: Signed DATE:03/20/22 TIME: 905 PATIENT: JANUARY WILKINS UNIT #: [id number] ROOM/BED: : 52 AGE: 71 SEX: F ATTEND: Jazmine Lowe MD ADM AUTHOR: Jana Marie DRY WALL FINISHER * ALL edits or amendments must be made on the el [employer]/computer document * Clinical Note Note: The case was presented in the complex cardiovasc ular cases meeting this am MALACHI images reviewed, history of mitral clip.. Alex mtz has severe mitral regurgitation and will benefit from intervention to the aortic valve. She will need right and left heart cath prior to surgery as well as full pulmonary function test at 1550 RPT #:[id number] END OF REPORT 2022-03-20 09:06:00-00:00 [facility] ([facility]) Clinical Note REPORT#:[id number] REPORT STATUS: Signed DATE:03/20/22 TIME: 905 PATIENT: JANUARY WILKINS UNIT #: [id number] ROOM/BED: : 52 AGE: 71 SEX: F ATTEND: Jazmine Lowe MD ADM AUTHOR: Jana Marie P * ALL edits or amendments must be made on the [employer] document * Radha Nayak 03/20/22 0906: Clinical Note Note: The case was presented in the complex cardiovasc ular cases meeting this am MALACHI images reviewed, history of mitral clip.. Alex mtz has severe mitral regurgitation and will benefit from intervention to the aortic valve. She will need right and left heart cath prior to surgery as well as full pulmonary function test Adilia Fu 04/21/22 1702: Clinical Note Note: I have seen and examined Ms. Wilkins. I agree w ith the plan as documented by Becca Johnson there has been typo, patient will benefit from intervention on the mitral valve not the aortic as mentioned in the note. at 1550 at 0444 RPT #:[id number] END OF REPORT 2022-03-18 15:15:00-00:00 [facility] Clinical Note REPORT#:[id number] REPORT STATUS: Signed DATE:03/18/22 TIME: 151 PATIENT: JANUARY WILKINS UNIT #: [id number] ROOM/BED: : 52 AGE: 71 SEX: F ATTEND: Jazmine Lowe MD ADM AUTHOR: Jana Marie * ALL edits or amendments must be made on the [employer] document * Clinical Note Note: STS RISK SCORES Procedure: Isolated MVR Risk of Mortality: 6.812% Renal Failure: 9.589% Permanent Stroke: 1.707% Prolonged Ventilation: 29.124% DSW Infection: 0.296% Reoperation: 5.421% Morbidity or Mortality: 34.985% Short Length of Stay: 5.408% Long Length of Stay: 24.520% at 0856 at 5764 RPT #:[id number] END OF REPORT 2022-03-18 15:15:00-00:00 [facility] ([facility]) Clinical Note REPORT#:[id number] REPORT STATUS: Signed DATE:03/18/22 TIME: 1515 PATIENT: JANUARY WILKINS UNIT #: [id number] ROOM/BED: : 52 AGE: 71 SEX: F ATTEND: Jazmine Lowe MD ADM AUTHOR: Jana Marie * ALL edits or amendments must be made on the [employer] document * Clinical Note Note: STS RISK SCORES Procedure: Isolated MVR Risk of Mortality: 6.812% Renal Failure: 9.589% Permanent Stroke: 1.707% Prolonged Ventilation: 29.124% DSW Infection: 0.296% Reoperation: 5.421% Morbidity or Mortality: 34.985% Short Length of Stay: 5.408% Long Length of Stay: 24.520% at 0856 RPT #:[id number] END OF REPORT 2022-03-18 14:55:00-00:00 [facility] ([facility]) Cardiothoracic Surgery Consult REPORT#:[id number] REPORT STATUS: Signed DATE:03/18/22 TIME: 145 PATIENT: JANUARY WILKINS UNIT #: [id number] ROOM/BED: : 52 AGE: 71 SEX: F ATTEND: Jazmine Lowe MD ADM AUTHOR: Jana Marie P * ALL edits or amendments must be made on the [employer] document * Radha Nayak 03/18/22 1455: History of Present Illness HPI Chief complaint: Shortness of breath Chest pain PCP: PCP: Lauro Lowe MD Requesting Clinician Dr Lowe HPI: Very pleasant 71-year-old -Americ an female with past medical history of stroke about 10 years ago with residual expressi ve aphasia, obesity (BMI 36), hypertension, hyperlipidemia, COPD on home O2 [place] N, former smoker, Kathleen bateman on Eliquis who has been experie ncing short worsening shortness of breath and chest pain. She also reports history of nonspecific tr anscatheter heart valve procedure. Work-up with echocardiogram showed EF 69%, calcified mitral valve with mild stenosis and severe regurgitation. She has been admitted to the hospital today for MALACHI that showed sever e mitral regurgitation, flale anterior leaflet. CV surgery consulted for evaluation. History Additional Medical History: Stroke Hypertension Hyperlipidemia COPD on home O2 Atrial fibrillation Additional Surgical History: Transcatheter heart valve procedure Alcohol Use Denies EtOH use Drug Use Denies recreational drugs Smoking status: Smoking status for patients 13 years old or old er: Former Smoker Date last smoked: 08/16/18 Packs per day: 1.5 Years smoked: 49 Pack years: 73.5 Medications: Home Medications: Medication Dose/Rte/Freq Days Qty Entered Last Max Daily Dose Reviewed ATORVASTATIN (LIPITOR) 40 MG PO DAILY 03/17/22 03/18/22 Strength: 40 MG TAB 1148 0930 APIXABAN (ELIQUIS) 5 MG PO BID 03/17/22 Strength: 5 MG TAB 1148 0930 FAMOTIDINE (PEPCID) 20 MG PO BID 03/17/2203/18 Strength: 20 MG TAB 1148 0930 FUROSEMIDE (LASIX) 40 MG PO DAILY 03/17/22 08/11/04 Strength: 20 MG TAB 1148 0930 GABAPENTIN (NEURONTIN) 300 MG PO TID 03/17/22 0 03/18/22 Strength: 300 MG CAP 1149 0930 hydrALAZINE (APRESOLINE) 100 MG PO TID 03/17/22 03/18/22 Strength: 100 MG TAB 1149 0930 ISOSORBIDE 30 MG PO QAM 03/17/22 03/18/22 MONONITRATE SR 1150 0930 (IMDUR) Strength: 60 MG TAB.SR.24H LINACLOTIDE (LINZESS) 145 MCG PO DAILY 2 03/18/22 Strength: 145 MCG CAP 1151 0930 POTASSIUM CHLORIDE ER 10 MEQ PO BID 03/17/22 (KLOR-CON 10) 1152 0930 Strength: 10 MEQ TAB.SA predniSONE 20 MG PO DAILY 03/17/22 03/18/22 Strength: 20 MG TAB 1153 0930 1 PUFF INH DAILY 03/17/22 03/18/22 Fluticasone/Umeclidin/Vilante r (TRELEGY ELLIPTA 1156 0930 100-62.5-25) Strength: 100-62.5 BLST.W.DEV Current Hospital Medications: Central Nervous System Agents Sig/Danay Start time Last Medication Dose Route Stop Time Status Admin Propofol 20 ML .STK-MED ONE 03/18 1250 DC (DIPRIVAN 200MG/20ML IV INJECTION) Skin And Mucous Membrane Agent Sig/Danay Start time Last Medication Dose Route Stop Time Status Admin Benzocaine/Butamben/ 0 .STK-MED ONE 03/18 1336 DC 03/18 Tetracaine HCl MM 1344 (CETACAINE) Allergies: Coded Allergies: No Known Allergies (03/17/22) Review of Systems Review of Systems Constitutional: Denies: fever, malaise. Respiratory: Reports: SOB. Cardiovascular: Reports: chest pain. GI: Denies: abdominal pain, nausea, vomiting. Heme: Denies: bleeding. Neuro: Denies: dizziness, vision change. Objective Physical Exam VS/I O: Last Documented: Result Date Time Pulse Ox 100 03/18 927 B/P 221/97 03/18 927 Temp 97.8 03/18 927 Pulse 70 03/18 927 Resp 18 03/18 927 PATIENT WEIGHT: Weight (lb): 216 Weight (oz): 7.27 Weight (kg): 98.182 General appearance: alert, oriented, pleasant, m ental status normal, no respiratory distress HEENT: anicteric Neck: supple/no meningismus Cardiovascular: normal heart sounds, regular rat e rhythm Murmur: Systolic 4/6 Respiratory: decreased breath sounds, symmetric expansion, no distress Abdomen: soft, non-tender Extremities: moves all Neuro/DRIVER EXAMINER: abnormal speech, alert, oriented X 3 Psychiatry: normal affect, normal mood Results Findings/Data: Laboratory Tests 03/18 1130 Chemistry Sodium (134 - 147 mEq/L) 142 Potassium (3.4 - 5.0 mEq/L) 4.6 Chloride (100 - 108 mEq/L) 109 H Carbon Dioxide (21 - 33 mEq/l) 25 Anion Gap (0 - 20) 12 BUN (7 - 18 mg/dL) 19 H Creatinine (0.6 - 1.3 mg/dL) 1.4 H Glomerular Filtr Rate (80 - 90) 45.1 L Glucose (70 - 110 mg/dL) 105 Calcium (8.0 - 10.5 mg/dL) 9.4 Laboratory Tests 03/18 1028 Hematology WBC (4.5 - 11.0 x10 3/uL) 7.6 RBC (3.54 - 5.02 x10 6/uL) 3.83 Hgb (11.0 - 15.0 g/dL) 8.9 L Hct (33.0 - 45.0 %) 30.8 L MCV (81.0 - 99.0 fL) 80.4 L MCH (27.0 - 33.0 pg) 23.2 L MCHC (33.0 - 37.0 g/dL) 28.9 L RDW (11.5 - 14.5 %) 19.6 H Plt Count (150 - 400 x10 3/uL) 318 MPV (7.0 - 9.0 fL) 11.7 H Neut % (Auto) (56.0 - 77.0 %) 71.8 Lymph % (Auto) (14.0 - 32.0 %) 18.0 Phelps % (Auto) (4.8 - 9.0 %) 7.5 Eos % (Auto) (0.3 - 3.7 %) 1.5 Baso % (Auto) (0.0 - 2.0 %) 0.9 Neut # (Auto) (2.0 - 7.6 x10 3/uL) 5.44 Lymph # (Auto) (1.0 - 3.8 x10 3/uL) 1.36 Phelps # (Auto) (0.1 - 0.8 x10 3/uL) 0.57 Eos # (Auto) (0.0 - 0.2 x10 3/uL) 0.11 Baso # (Auto) (0.0 - 0.2 x10 3/uL) 0.07 Abs Immat Gran (auto) (0.00 - 0.03 x10 3/uL) 0. 02 Add Manual Diff NO Immature Gran % (0.0 - 2.0 %) 0.3 Nucleated RBC % (0 - 0 %) 0.0 Nucleated RBCs # (Man) (0.0 - 0.1 x10 3/uL) 0.0 0 Diagnosis, Assessment Plan Free Text A P: Very pleasant 71-year-old -[place] an female with past medical history of stroke about 10 years ago with residual expressi ve aphasia, obesity (BMI 36), hypertension, hyperlipidemia, COPD on home O2 [place] N, former smoker, A. fib on Eliquis who has been experie ncing short worsening shortness of breath and chest pain. She also reports history of nonspecific tr anscatheter heart valve procedure. Work-up with echocardiogram showed EF 69%, calcified mitral valve with mild stenosis and severe regurgitation. She has been admitted to the hospital today for MALACHI that showed sever e mitral regurgitation, flale anterior leaflet. LHC is pending. CV surgery consulted fo r evaluation. PLAN Dr. Fu explained to the patient the MALACHI elsa lopes. She will benefit from intervention to the mitral valve. Because of her age, history of stroke and pulmonary condition, she is high risk surgical c andidate (STS 6.8% risk of mortality). The case will be presented in the co mplex cardiovascular cases meeting this Wednesday. Further recommendations to follow Thank you for the consultation. Patient was seen and plan reviewed with Adilia Caballero 04/21/22 1701: Attestations Physician Attestation Agree w/findings plan: I have seen and examined Ms. Wilkins. I agree w ith the findings and plan as documented by ARTEM Piper. at 0856 at 1714 RPT #:[id number] END OF REPORT 2022-03-18 14:55:00-00:00 [facility] Cardiothoracic Surgery Consult REPORT#:[id number] REPORT STATUS: Signed DATE:03/18/22 TIME: 1454 PATIENT: JANUARY WILKINS UNIT #: [id number] ROOM/BED: : 52 AGE: 71 SEX: F ATTEND: Jazmine Lowe MD ADM AUTHOR: Jana Marie P * ALL edits or amendments must be made on the el [employer]/computer document * History of Present Illness HPI Chief complaint: Shortness of breath Chest pain PCP: PCP: Lauro Lowe MD Requesting Clinician Dr Lowe HPI: Very pleasant 71-year-old -[place] an female with past medical history of stroke about 10 years ago with residual expressi ve aphasia, obesity (BMI 36), hypertension, hyperlipidemia, COPD on home O2 [place] N, former smoker, A. fib on Eliquis who has been experie ncing short worsening shortness of breath and chest pain. She also reports history of nonspecific tr anscatheter heart valve procedure. Work-up with echocardiogram showed EF 69%, calcified mitral valve with mild stenosis and severe regurgitation. She has been admitted to the hospital today for MALACHI that showed sever e mitral regurgitation, flale anterior leaflet. CV surgery consulted for evaluation. History Additional Medical History: Stroke Hypertension Hyperlipidemia COPD on home O2 Atrial fibrillation Additional Surgical History: Transcatheter heart valve procedure Alcohol Use Denies EtOH use Drug Use Denies recreational drugs Smoking status: Smoking status for patients 13 years old or old er: Former Smoker Date last smoked: 08/16/18 Packs per day: 1.5 Years smoked: 49 Pack years: 73.5 Medications: Home Medications: Medication Dose/Rte/Freq Days Qty Entered Last Max Daily Dose Reviewed ATORVASTATIN (LIPITOR) 40 MG PO DAILY 03/17/22 03/18/22 Strength: 40 MG TAB 1148 0930 APIXABAN (ELIQUIS) 5 MG PO BID 03/17/22 2 Strength: 5 MG TAB 1148 0930 FAMOTIDINE (PEPCID) 20 MG PO BID 03/17/2203/18 Strength: 20 MG TAB 1148 0930 FUROSEMIDE (LASIX) 40 MG PO DAILY 03/17/22 0811/04 Strength: 20 MG TAB 1148 0930 GABAPENTIN (NEURONTIN) 300 MG PO TID 03/17/22 0 03/18/22 Strength: 300 MG CAP 1149 0930 hydrALAZINE (APRESOLINE) 100 MG PO TID 03/17/22 03/18/22 Strength: 100 MG TAB 1149 0930 ISOSORBIDE 30 MG PO QAM 03/17/22 03/18/22 MONONITRATE SR 1150 0930 (IMDUR) Strength: 60 MG TAB.SR.24H LINACLOTIDE (LINZESS) 145 MCG PO DAILY 03/17/22 03/18/22 Strength: 145 MCG CAP 1151 0930 POTASSIUM CHLORIDE ER 10 MEQ PO BID 03/17/22 0 03/18/22 (KLOR-CON 10) 1152 0930 Strength: 10 MEQ TAB.SA predniSONE 20 MG PO DAILY 03/17/22 03/18/22 Strength: 20 MG TAB 1153 0930 1 PUFF INH DAILY 03/17/22 03/18/22 Fluticasone/Umeclidin/Vilante r (TRELEGY ELLIPTA 1156 0930 100-62.5-25) Strength: 100-62.5 BLST.W.DEV Current Hospital Medications: Central Nervous System Agents Sig/Danay Start time Last Medication Dose Route Stop Time Status Admin Propofol 20 ML .STK-MED ONE 03/18 1250 DC (DIPRIVAN 200MG/20ML IV INJECTION) Skin And Mucous Membrane Agent Sig/Danay Start time Last Medication Dose Route Stop Time Status Admin Benzocaine/Butamben/ 0 .STK-MED ONE 03/18 1336 DC 03/18 Tetracaine HCl MM 1344 (CETACAINE) Allergies: Coded Allergies: No Known Allergies (03/17/22) Review of Systems Review of Systems Constitutional: Denies: fever, malaise. Respiratory: Reports: SOB. Cardiovascular: Reports: chest pain. GI: Denies: abdominal pain, nausea, vomiting. Heme: Denies: bleeding. Neuro: Denies: dizziness, vision change. Objective Physical Exam VS/I O: Last Documented: Result Date Time Pulse Ox 100 03/18 927 B/P 221/97 03/18 927 Temp 97.8 03/18 927 Pulse 70 03/18 927 Resp 18 03/18 927 PATIENT WEIGHT: Weight (lb): 216 Weight (oz): 7.27 Weight (kg): 98.182 General appearance: alert, oriented, pleasant, m ental status normal, no respiratory distress HEENT: anicteric Neck: supple/no meningismus Cardiovascular: normal heart sounds, regular rat e rhythm Murmur: Systolic 4/6 Respiratory: decreased breath sounds, symmetric expansion, no distress Abdomen: soft, non-tender Extremities: moves all Neuro/DRIVER EXAMINER: abnormal speech, alert, oriented X 3 Psychiatry: normal affect, normal mood Results Findings/Data: Laboratory Tests 03/18 1130 Chemistry Sodium (134 - 147 mEq/L) 142 Potassium (3.4 - 5.0 mEq/L) 4.6 Chloride (100 - 108 mEq/L) 109 H Carbon Dioxide (21 - 33 mEq/l) 25 Anion Gap (0 - 20) 12 BUN (7 - 18 mg/dL) 19 H Creatinine (0.6 - 1.3 mg/dL) 1.4 H Glomerular Filtr Rate (80 - 90) 45.1 L Glucose (70 - 110 mg/dL) 105 Calcium (8.0 - 10.5 mg/dL) 9.4 Laboratory Tests 03/18 1028 Hematology WBC (4.5 - 11.0 x10 3/uL) 7.6 RBC (3.54 - 5.02 x10 6/uL) 3.83 Hgb (11.0 - 15.0 g/dL) 8.9 L Hct (33.0 - 45.0 %) 30.8 L MCV (81.0 - 99.0 fL) 80.4 L MCH (27.0 - 33.0 pg) 23.2 L MCHC (33.0 - 37.0 g/dL) 28.9 L RDW (11.5 - 14.5 %) 19.6 H Plt Count (150 - 400 x10 3/uL) 318 MPV (7.0 - 9.0 fL) 11.7 H Neut % (Auto) (56.0 - 77.0 %) 71.8 Lymph % (Auto) (14.0 - 32.0 %) 18.0 Phelps % (Auto) (4.8 - 9.0 %) 7.5 Eos % (Auto) (0.3 - 3.7 %) 1.5 Baso % (Auto) (0.0 - 2.0 %) 0.9 Neut # (Auto) (2.0 - 7.6 x10 3/uL) 5.44 Lymph # (Auto) (1.0 - 3.8 x10 3/uL) 1.36 Phelps # (Auto) (0.1 - 0.8 x10 3/uL) 0.57 Eos # (Auto) (0.0 - 0.2 x10 3/uL) 0.11 Baso # (Auto) (0.0 - 0.2 x10 3/uL) 0.07 Abs Immat Gran (auto) (0.00 - 0.03 x10 3/uL) 0. 02 Add Manual Diff NO Immature Gran % (0.0 - 2.0 %) 0.3 Nucleated RBC % (0 - 0 %) 0.0 Nucleated RBCs # (Man) (0.0 - 0.1 x10 3/uL) 0.0 0 Diagnosis, Assessment Plan Free Text A P: Very pleasant 71-year-old -[place] an female with past medical history of stroke about 10 years ago with residual expressi ve aphasia, obesity (BMI 36), hypertension, hyperlipidemia, COPD on home O2 [place] N, former smoker, A. fib on Eliquis who has been experie ncing short worsening shortness of breath and chest pain. She also reports history of nonspecific tr anscatheter heart valve procedure. Work-up with echocardiogram showed EF 69%, calcified mitral valve with mild stenosis and severe regurgitation. She has been admitted to the hospital today for MALACHI that showed sever e mitral regurgitation, flale anterior leaflet. LHC is pending. CV surgery consulted fo r evaluation. PLAN Dr. Fu explained to the patient the MALACHI fin dings. She will benefit from intervention to the mitral valve. Because of her age, history of stroke and pulmonary condition, she is high risk surgical c andidate (STS 6.8% risk of mortality). The case will be presented in the co mplex cardiovascular cases meeting this Wednesday. Further recommendations to follow Thank you for the consultation. Patient was seen and plan reviewed with Dr. Fu at 0856 RPT #:[id number] END OF REPORT
--- NOTE | 2023-03-16 22:10 | EDPHYS ---
Physician Documentation [facility] Name: Mahendra Wilkins Age: 72 yrs Sex: Female : 1950 Arrival Date: 03/16/2023 Time: 20:39 Bed 12 Private MD: ED Physician Mario Silverman HPI: 03/16 20:45 This 72 yrs old Black Female presents to ER via Unassigned with complaints of Nose sp4 Bleed, PT IS ON BLOOD THINNERS. 20:47 Review of patient's medications - atorvastatin 40 mg Oral tab 1 tab once daily; Eliquis sp4 2.5 mg oral tab 1 tab; famotidine 20 mg Oral tab 1 tab once daily; gabapentin 300 mg Oral cap 1 cap 3 times per day; hydralazine 100 mg Oral tab 1 tab 3 times per day; isosorbide mononitrate 60 mg Oral Tb24 1 tab once daily; Linzess 145 mcg Oral cap 1 cap once daily;. 20:52 9-year-old female presents with intermittent nosebleeds for the past 3 weeks. Patient sp4 is on Eliquis 2.5 mg p.o. twice a day. Patient reports today nosebleed has worsened and she has stopped some tissue paper up bilateral nostril, at this time there is no active nosebleed with patient reported spitting up some clots. Patient desires evaluation for nosebleeds. Historical: - Allergies: 20:57 No Known Allergies; cm10 - Home Meds: 20:57 Eliquis 2.5 mg Oral tab 1 tab [Active]; cm10 - PMHx: 20:57 acid reflux; Atrial fibrillation; High Cholesterol; Hypertension; cm10 - PSHx: 20:57 heart; cm10 - Immunization history:: Adult Immunizations unknown. - Social history:: Smoking status: Patient denies any tobacco usage or history of. - Family history:: not pertinent. ROS: 20:52 Constitutional: Negative for fever, chills, and weight loss, Eyes: Negative for injury, sp4 pain, redness, and discharge, ENT: Negative for injury, pain, and discharge, positive bilateral nosebleed Neck: Negative for injury, pain, and swelling, Cardiovascular: Negative for chest pain, palpitations, and edema. 20:52 All other systems are negative. Exam: 20:52 Constitutional: This is a well developed, well nourished patient who is awake, alert, sp4 and in no acute distress. Head/Face: Normocephalic, atraumatic. Eyes: Pupils equal round and reactive to light, extra-ocular motions intact. Lids and lashes normal. Conjunctiva and sclera are not injected. Cornea within normal limits. Periorbital areas with no swelling, redness, or edema. ENT: Nares patent. Tympanic membranes are normal and external auditory canals are clear. Oropharynx with no redness, swelling, or masses, exudates, or evidence of obstruction, uvula midline. Mucous membranes moist. Positive bilateral epistaxis the source is not clearly visualized Neck: Trachea midline, no thyromegaly or masses palpated, and no cervical lymphadenopathy. Supple, full range of motion without nuchal rigidity, or vertebral point tenderness. Chest/axilla: Normal chest wall appearance and motion. Nontender with no deformity. No lesions are appreciated. Cardiovascular: Regular rate and rhythm with a normal S1 and S2. No gallops, murmurs, or rubs. Normal PMI, no JVD. No pulse deficits. Respiratory: Lungs have equal breath sounds bilaterally, clear to auscultation and percussion. No rales, rhonchi or wheezes noted. No increased work of breathing, no retractions or nasal flaring. Abdomen/GI: Soft, non-tender, with normal bowel sounds. No distension or tympany. No guarding or rebound. No evidence of tenderness throughout. Back: No spinal tenderness. No costovertebral tenderness. Skin: Warm, dry with normal turgor. Normal color with no rashes, no lesions, and no evidence of cellulitis. MS/ Extremity: Pulses equal, no cyanosis. Neurovascular intact. Full, normal range of motion. Neuro: Awake and alert, GCS 15, oriented to person, place, time, and situation. Cranial nerves II-XII grossly intact. Motor strength 5/5 in all extremities. Sensory grossly intact. Psych: Awake, alert, with orientation to person, place and time. Behavior, mood, and affect are within normal limits Vital Signs: 20:55 BP 124 / 70; Pulse 78; Resp 18; Temp 98.8; Pulse Ox 97% ; Weight 76.2 kg; Height 5 ft. cm10 5 in. ; Pain 0/10; 20:55 Body Mass Index 27.96 (76.20 kg, 165.1 cm) cm10 20:55 Pain Scale: Adult cm10 MDM: 20:47 Patient medically screened. sp4 22:01 ED course: [facility] Dr. Morales contacted and reported that patient is OK to discontinue sp4 Eliquis for 7 days . . 22:07 Differential Diagnosis epistaxis , anterior nose bleed, posterior nose bleed, arterial sp4 bleed,venous bleed . Data reviewed: vital signs, nurses notes, old medical records. ED course: Patient was advised to contact [facility] ENT clinic . Administered Medications: 22:10 CANCELLED (Other Intervention Used): Ondansetron IVP 4 mg IVP once; over 2 minutes vc1 22:13 Drug: [place] PO 10 mg-325 mg 1 tabs Route: PO; vc1 22:13 Drug: Ondansetron PO 4 mg Route: PO; vc1 Disposition Summary: 03/16/23 22:09 Discharge Ordered Location: Home sp4 Problem: new sp4 Symptoms: have improved sp4 Condition: Stable sp4 Diagnosis - Epistaxis sp4 Followup: sp4 - With: Private Physician - When: 2 - 3 days - Reason: Recheck today's complaints Discharge Instructions: - Discharge Summary Sheet sp4 - Nosebleed, Adult, [id number] sp4 Forms: - Patient Portal Instructions sp4 Prescriptions: - Zofran 4 mg Oral Tablet - take 1 tablet by ORAL route every 6 hours As needed PRN nausea; 30 tablet; sp4 Refills: 0, Product Selection Permitted - Tramadol 50 mg Oral Tablet - take 1 tablet by ORAL route every 6 hours PRN pain; 20 tablet; Refills: 0, sp4 Product Selection Permitted Signatures: Elham Yip RN RN vc1 Mario Silverman MD MD sp4 Sushma Keys RN RN cm10 Corrections: (The following items were deleted from the chart) 22:09 22:01 ED course: [facility] reported that patient is OK to discontinue Eliquis for 7 days sp4 . . sp4 22:10 21:23 Ondansetron IVP 4 mg IVP once; over 2 minutes ordered. sp4 vc1
--- NOTE | 2023-03-16 22:10 | ER ---
Nurse's Notes [facility] Name: Mahendra Wilkins Age: 72 yrs Sex: Female : 1950 Arrival Date: 03/16/2023 Time: 20:39 Bed 12 Private MD: Diagnosis: Epistaxis Presentation: 03/16 20:55 Chief complaint: Patient states: intermittent nose bleeds X3 weeks. Pt currently taking cm10 eliquis. No bleeding at this time. Coronavirus screen: Vaccine status: Patient reports receiving the 2nd dose of the covid vaccine. Ebola Screen: No symptoms or risks identified at this time. Initial Sepsis Screen: Does the patient meet any 2 criteria? No. Patient's initial sepsis screen is negative. Does the patient have a suspected source of infection? No. Patient's initial sepsis screen is negative. Risk Assessment: Do you want to hurt yourself or someone else? Patient reports no desire to harm self or others. Onset of symptoms was March 16, 2023. 20:55 Method Of Arrival: Ambulatory cm10 20:55 Acuity: SUSAN 4 cm10 Historical: - Allergies: 20:57 No Known Allergies; cm10 - Home Meds: 20:57 Eliquis 2.5 mg Oral tab 1 tab [Active]; cm10 - PMHx: 20:57 acid reflux; Atrial fibrillation; High Cholesterol; Hypertension; cm10 - PSHx: 20:57 heart; cm10 - Immunization history:: Adult Immunizations unknown. - Social history:: Smoking status: Patient denies any tobacco usage or history of. - Family history:: not pertinent. Screenin:25 [facility] ED Fall Risk Assessment (Adult) History of falling in the last 3 months, vc1 including since admission No falls in past 3 months (0 pts) Confusion or Disorientation No (0 pts) Intoxicated or Sedated No (0 pts) Impaired Gait No (0 pts) Mobility Assist Device Used No (0 pt) Altered Elimination No (0 pt) Score/Fall Risk Level 0 - 2 = Low Risk Oriented to surroundings, Maintained a safe environment, Educated pt \T\ family on fall prevention, incl call for assistance when getting out of bed. Abuse screen: Denies threats or abuse. Nutritional screening: No deficits noted. Tuberculosis screening: No symptoms or risk factors identified. Assessment: 21:30 Reassessment: No changes from previously documented assessment. Patient and/or family vc1 updated on plan of care and expected duration. Pain level reassessed. Patient is alert, oriented x 3, equal unlabored respirations, skin warm/dry/pink. General: Appears in no apparent distress. comfortable, Behavior is calm, cooperative, appropriate for age. Pain: Denies pain. EENT: Nares with bleeding noted. Vital Signs: 20:55 BP 124 / 70; Pulse 78; Resp 18; Temp 98.8; Pulse Ox 97% ; Weight 76.2 kg; Height 5 ft. cm10 5 in. ; Pain 0/10; 20:55 Body Mass Index 27.96 (76.20 kg, 165.1 cm) cm10 20:55 Pain Scale: Adult cm10 ED Course: 20:44 Patient arrived in ED. jj6 20:45 aMrio Silverman MD is Attending Physician. sp4 20:57 Triage completed. cm10 20:57 Arm band placed on Patient placed in waiting room. cm10 21:25 Patient has correct armband on for positive identification. Bed in low position. Call vc1 light in reach. 22:25 Provided Education on: Stop blood thinner; follow up with ENT and Cardiology. vc1 22:25 No provider procedures requiring assistance completed. Patient did not have IV access vc1 during this emergency room visit. Administered Medications: 22:10 CANCELLED (Other Intervention Used): Ondansetron IVP 4 mg IVP once; over 2 minutes vc1 22:13 Drug: [place] PO 10 mg-325 mg 1 tabs Route: PO; vc1 22:13 Drug: Ondansetron PO 4 mg Route: PO; vc1 Medication: 22:25 VIS not applicable for this client. vc1 Outcome: 22:09 Discharge ordered by . sp4 22:25 Discharged to home ambulatory, with family. vc1 22:25 Condition: good 22:25 Discharge instructions given to patient, Instructed on discharge instructions, follow up and referral plans. medication usage, Demonstrated understanding of instructions, follow-up care, medications, Prescriptions given X 2. 22:46 Patient left the ED. vc1 Signatures: Elodia Lagos jj6 Elham Yip RN RN vc1 Mario Silverman MD MD sp4 Massimo, Sushma, RN RN cm10 Corrections: (The following items were deleted from the chart) 22:44 22:00 Patient has correct armband on for positive identification. Bed in low position. vc1 Call light in reach. vc1
[2023-03-16] MEDS ORDERED: HYDROCODONE/APAP 10/325 TAB ONE (22:18)
[2023-03-16] MEDS ORDERED: ONDANSETRON 4 MG/2 ML VIAL ONE (22:19)
[2023-03-16] MEDS ORDERED: ONDANSETRON 4 MG (ODT) TAB ONE (22:21)
[2023-03-16 22:56] VITALS: BP 124/70; TEMP 98.8; O2SAT 97
== END 2023-03-16 22:46 | disposition home or self-care (01) ==
LOC: ER 20:39
DX: R04.0 Epistaxis (principal); I48.91 Unspecified atrial fibrillation; Z79.01 Long term (current) use of anticoagulants
CPT/HCPCS: J2405; Q0162

== ENCOUNTER 2023-03-17 18:20 | Emergency (ER) | payer OTHER ==
--- OUTSIDE RECORDS SUMMARY | 2023-03-17 18:43 | XMS REPORT | Continuity of Care Document ---
:1950 Author Organization [facility] t Address [address] [place] [address] Care Team Providers Name Role Phone GELY JOSEPH Primary Care Physician Unavailable KELSIE MCNEILL Attending Clinician Unavailable GELY JOSEPH Attending Clinician Unavailable ELSA BRIDGES Attending Clinician Unavailable Andrew YUEN, Sendotilia K.HAshley Attending Clinician Kelsie Mcneill MD Attending Clinician Gely Joseph MD Attending Clinician [phone] Doctor Unassigned, [place] Attending Clinician Unavailable ROLAN ELISE Attending Clinician Unavailable Rolan Elise MD Attending Clinician Lab, Ang - Db Attending Clinician Unavailable Lauro Lowe Attending Clinician Unavailable ROLAN ELISE Admitting Clinician Unavailable Rolan Elise MD Admitting Clinician KELSIE MCNEILL Admitting Clinician Unavailable Lauro Lowe Admitting Clinician Unavailable Payers Payer Name Policy Type Policy Number Effective Date Expiration Date Marnie RICHARDS/[facility] DUAL [id number] 2022 00:00:00 COMP CHOICE PPO DSNP [facility] [place] STAR [id number] 2022 00:00:00 PLUS Problems Condition Condition Condition Status Onset Resolution Last Treating Co mments Source Name Details Category Date Date Treatment Clinician Date Obesity Obesity Disease Active Univers (BMI (BMI 1-25 ity of 30-39.9) 30-39.9) 00:00: Medical Branch Nonrheumat Nonrheumat Disease Active U [...] 1-06 it y of emia emia 00:00: Medical Branch CVA CVA Disease Active Univers (cerebral (cerebral 1-06 ity of vascular vascular 00:00: [place] accident) accident) 00 [facility] Branch Paroxysmal Paroxysmal Disease Active U nivers [...] RLS RLS Disease Active Univers (restless (restless 1-06 ity of legs legs 00:00: [place] syndrome) syndrome) 00 [facility] Branch Gastroesop Gastroesop Disease Active U nivers hageal hageal 1-06 ity of reflux reflux 00:00: [place] disease disease 00 Medical without without Branch esophagiti esophagiti s s Primary Primary Disease Active Univers osteoarthr osteoarthr 1-06 it y of itis itis 00:00: [place] involving involving 00 [facility] multiple multiple Branch joints joints No known No known Disease Unive rs active active ity of problems problems [place] [facility] Allergies, Adverse Reactions, Alerts Allergy Allergy Status Severity Reaction(s) Onset Inactive Treating Comm ents Source Name Type Date Date Clinician No Known DA Active U [facility] Allergie 8-02 Clear s 00:00: New 00 [facility] NO KNOWN Drug Active Univers ALLERGIE Class ity of S [facility] Social History Social Habit Start Date Stop Date Quantity Comments Source Gender identity Universit y of [facility] Sexual orientation Univer sity of [facility] History of tobacco Cigarette Smoker University of use [facility] Alcohol intake 2023-03-09 2023-03-09 Ex-drinker University 00:00:00 00:00:00 (finding) [facility] Exposure to 2022-11-30 2022-12-10 Not sure [facility] SARS-CoV-2 (event) 00:00:00 12:44:00 [facility] History of Social 2022-09-23 2022-09-23 Univers ity of function 00:00:00 00:00:00 [facility] Cigarettes smoked 2022-08-21 2022-08-21 Univers ity of current (pack per 00:00:00 00:00:00 [facility] ) - Reported Branch Cigarette 2022-08-21 2022-08-21 University of pack-years 00:00:00 00:00:00 [facility] Tobacco use and 2022-08-21 2022-08-21 Smokeless Universit y of exposure 00:00:00 00:00:00 tobacco non-user [facility] [place] [facility] At [birth year] Universit y of 00:00:00 00:00:00 [facility] Smoking Status Start Date Stop Date Source Tobacco smoking [place] consumption unknown Medical Bran ch Ex-smoker 2022-08-21 00:00:00 2022-08-21 University o f [place] 00:00:00 [facility] Medications Ordered Filled Start Stop Current Ordering Indication Dosage Frequency Signature Comments Components Source Medication Medication Date Date Medication? Clinician (SIG) Name Name acetaminoph Yes [id number] 1000mg Take 2 Univers en (TYLENOL 6-07 tablets by it y of EXTRA 00:00: mouth [place] STRENGTH) 00 every 6 Medical 500 mg (six) Branch tablet hours as needed for Pain. acetaminoph Yes [id number] 1000mg Take 2 Univers en (TYLENOL 6-07 tablets by it y of EXTRA 00:00: mouth [place] STRENGTH) 00 every 6 Medical 500 mg (six) Branch tablet hours as needed for Pain. acetaminoph 3-0 Yes [id number] 1000mg Take 2 Univers en (TYLENOL 6-07 tablets by it y of EXTRA 00:00: mouth [place] STRENGTH) 00 every 6 Medical 500 mg (six) Branch tablet hours as needed for Pain. acetaminoph 3-0 Yes [id number] 1000mg Take 2 Univers en (TYLENOL 6-07 tablets by it y of EXTRA 00:00: mouth [place] STRENGTH) 00 every 6 Medical 500 mg (six) Branch tablet hours as needed for Pain. acetaminoph 3-0 Yes [id number] 1000mg Take 2 Univers en (TYLENOL 6-07 tablets by it y of EXTRA 00:00: mouth [place] STRENGTH) 00 every 6 Medical 500 mg (six) Branch tablet hours as needed for Pain. acetaminoph 3-0 Yes [id number] 1000mg Take 2 Univers en (TYLENOL 6-07 tablets by it y of EXTRA 00:00: mouth [place] STRENGTH) 00 every 6 Medical 500 mg (six) Branch tablet hours as needed for Pain. acetaminoph 3-0 Yes [id number] 1000mg Take 2 Univers en (TYLENOL 6-07 tablets by it y of EXTRA 00:00: mouth [place] STRENGTH) 00 every 6 Medical 500 mg (six) Branch tablet hours as needed for Pain. acetaminoph 3-0 Yes [id number] 1000mg Take 2 Univers en (TYLENOL 6-07 tablets by it y of EXTRA 00:00: mouth [place] STRENGTH) 00 every 6 Medical 500 mg (six) Branch tablet hours as needed for Pain. acetaminoph 3-0 Yes [id number] 1000mg Take 2 Univers en (TYLENOL 6-07 tablets by it y of EXTRA 00:00: mouth [place] STRENGTH) 00 every 6 Medical 500 mg (six) Branch tablet hours as needed for Pain. acetaminoph 3-0 Yes [id number] 1000mg Take 2 Univers en (TYLENOL 6-07 tablets by it y of EXTRA 00:00: mouth [place] STRENGTH) 00 every 6 Medical 500 mg (six) Branch tablet hours as needed for Pain. gabapentin 3-0 Yes [id number] 300mg Take 1 Univers 300 mg 6-01 capsule by ity of capsule 00:00: mouth in [place] 00 the Medical morning Branch and 1 capsule in the evening. gabapentin 2022-0 Yes [id number] 300mg Take 1 Univers 300 mg 6-01 capsule by ity of capsule 00:00: mouth in [place] [address] the Medical morning Branch and 1 capsule in the evening. gabapentin 2023-0 Yes [id number] 300mg Take 1 Univers 300 mg 6-01 capsule by ity of capsule 00:00: mouth in [place] [address] the Medical morning [place] and 1 capsule in the evening. gabapentin 2023-0 Yes [id number] 300mg Take 1 Univers 300 mg 6-01 capsule by ity of capsule 00:00: mouth in [place] [address] the Medical morning [place] and 1 capsule in the evening. gabapentin 2023-0 Yes [id number] 300mg Take 1 Univers 300 mg 6-01 capsule by ity of capsule 00:00: mouth in [place] [address] the Medical morning [place] and 1 capsule in the evening. gabapentin 2023-0 Yes [id number] 300mg Take 1 Univers 300 mg 6-01 capsule by ity of capsule 00:00: mouth in [address] morning [place] and 1 capsule in the evening. gabapentin 2023-0 Yes [id number] 300mg Take 1 Univers 300 mg 6-01 capsule by ity of capsule 00:00: mouth in [address] morning [place] and 1 capsule in the evening. gabapentin 2023-0 Yes [id number] 300mg Take 1 Univers 300 mg 6-01 capsule by ity of capsule 00:00: mouth in [address] morning [place] and 1 capsule in the evening. gabapentin 2023-0 Yes [id number] 300mg Take 1 Univers 300 mg 6-01 capsule by ity of capsule 00:00: mouth in [address] morning [place] and 1 capsule in the evening. gabapentin 2023-0 Yes [id number] 300mg Take 1 Univers 300 mg 6-01 capsule by ity of capsule 00:00: mouth in [address] morning [place] and 1 capsule in the evening. gabapentin 2023-0 Yes [id number] 300mg Take 1 Univers 300 mg 6-01 capsule by ity of capsule 00:00: mouth in [address] morning [place] and 1 capsule in the evening. pramipexole 2023-0 Yes .125mg Take 1 Un mike 0.125 mg 5-29 tablet by ity of tablet 00:00: mouth at [place] [address] bedtime. [facility] Branch pramipexole 2023-0 Yes .125mg Take 1 Un mike 0.125 mg 5-29 tablet by ity of tablet 00:00: mouth at [place] [address] bedtime. Medical Branch pramipexole 3-0 Yes .125mg Take 1 Un mike 0.125 mg 5-29 tablet by ity of tablet 00:00: mouth at [place] bedtime. Medical Branch pramipexole 3-0 Yes .125mg Take 1 Un mike 0.125 mg 5-29 tablet by ity of tablet 00:00: mouth at [place] bedtime. Medical Branch pramipexole 3-0 Yes .125mg Take 1 Un mike 0.125 mg 5-29 tablet by ity of tablet 00:00: mouth at [place] bedtime. Medical Branch pramipexole 3-0 Yes .125mg Take 1 Un mike 0.125 mg 5-29 tablet by ity of tablet 00:00: mouth at [place] bedtime. Medical Branch pramipexole 3-0 Yes .125mg Take 1 Un mike 0.125 mg 5-29 tablet by ity of tablet 00:00: mouth at [place] bedtime. Medical Branch pramipexole 3-0 Yes .125mg Take 1 Un mike 0.125 mg 5-29 tablet by ity of tablet 00:00: mouth at [place] bedtime. Medical Branch pramipexole 3-0 Yes .125mg Take 1 Un mike 0.125 mg 5-29 tablet by ity of tablet 00:00: mouth at [place] bedtime. Medical Branch pramipexole 3-0 Yes .125mg Take 1 Un mike 0.125 mg 5-29 tablet by ity of tablet 00:00: mouth at [place] bedtime. Medical Branch linaCLOtide 3-0 Yes 145ug [...] Medical other day. Branch KCL 10 mEq 2022-0 Yes [id number] 10meq Take 1 Univers tablet 4-27 tablet by ity of 00:00: mouth in [place] 00 the Medical morning. Branch fluticasone 2022-0 Yes [id number] 1{spray Use 1 Univers propionate 4-27 } [place] in ity o f 50 00:00: each [place] mcg/actuati 00 nostril in Me dical on nasal the Branch spray morning. furosemide 2022-0 Yes [id number] 40mg Take 1 Univers (LASIX) 40 4-27 tablet by ity of mg tablet 00:00: [place] the Medical morning. Branch isosorbide 2022-0 Yes [id number] 60mg Take 1 Univers mononitrate 4-27 tablet [...] fibrillati on KCL 10 mEq 2022-0 Yes [id number] 10meq Take 1 Univers tablet 4-27 tablet by ity of 00:00: mouth in [place] 00 the Medical morning. Branch fluticasone 2022-0 Yes [id number] 1{spray Use 1 Univers propionate 4-27 } [place] in ity o f 50 00:00: each [place] mcg/actuati 00 nostril in Me dical on nasal the Branch spray morning. furosemide 0 Yes [id number] 40mg Take 1 Univers (LASIX) 40 4-27 tablet by ity of mg tablet 00:00: [place] 00 the Medical morning. Branch isosorbide 2022-0 Yes [id number] 60mg Take 1 Univers mononitrate 4-27 tablet [...] fibrillati on KCL 10 mEq 2022-0 Yes [id number] 10meq Take 1 Univers tablet 4-27 tablet by ity of 00:00: mouth in [place] 00 the Medical morning. Branch fluticasone 2022-0 Yes [id number] 1{spray Use 1 Univers propionate 4-27 } [place] in ity o f 50 00:00: each [place] mcg/actuati 00 nostril in Md dical on nasal the Branch spray morning. furosemide 3-0 Yes [id number] 40mg Take 1 Univers (LASIX) 40 4-27 tablet by ity of mg tablet 00:00: [place] 00 the Medical morning. Branch isosorbide 3-0 Yes [id number] 60mg Take 1 Univers mononitrate 4-27 tablet [...] fibrillati on KCL 10 mEq 2022-0 Yes [id number] 10meq Take 1 Univers tablet 4-27 tablet by ity of 00:00: mouth in [place] 00 the Medical morning. Branch furosemide 2022-0 Yes [id number] 40mg Take 1 Univers (LASIX) 40 4-27 tablet by ity of mg tablet 00:00: [place] 00 the Medical morning. Branch isosorbide 2022-0 Yes [id number] 60mg Take 1 Univers mononitrate 4-27 tablet by ity of 60 mg 24 hr 00:00: mouth [place] tablet 00 the Medical morning. Branch apixaban 3-0 Yes [id number] 5mg Take 1 Univers (ELIQUIS) 5 4-27 tablet by ity of mg tablet 00:00: [place] 00 the Medical morning Branch and 1 tablet in the evening. Indication s: atrial fibrillati on KCL 10 mEq 2022-0 Yes [id number] 10meq Take 1 Univers tablet 4-27 tablet by ity of 00:00: mouth in [place] 00 the Medical morning. Branch furosemide 3-0 Yes [id number] 40mg Take 1 Univers (LASIX) 40 4-27 tablet by ity of mg tablet 00:00: [place] 00 the Medical morning. Branch isosorbide 3-0 Yes [id number] 60mg Take 1 Univers mononitrate 4-27 tablet by ity of 60 mg 24 hr 00:00: [place] tablet 00 the Medical morning. Branch apixaban 2022-0 Yes 1358 5mg Take 1 Univers (ELIQUIS) 5 4-27 tablet by ity of mg tablet 00:00: [place] the morning Branch and 1 tablet in the evening. Indication s: atrial fibrillati on KCL 10 mEq 2022-0 Yes [id number] 10meq Take 1 Univers tablet 4-27 tablet by ity of 00:00: mouth in [place] 00 the Medical morning. Branch furosemide 2022-0 Yes [id number] 40mg Take 1 Univers (LASIX) 40 4-27 tablet by ity of mg tablet 00:00: [place] the Medical morning. Branch isosorbide 3-0 Yes [id number] 60mg Take 1 Univers mononitrate 4-27 tablet by ity of 60 mg 24 hr 00:00: [place] tablet 00 the Medical morning. Branch apixaban 2022-0 Yes 1358 5mg Take 1 Univers (ELIQUIS) 5 4-27 tablet [facility] and 1 tablet in the evening. Indication s: atrial fibrillati on KCL 10 mEq 2022-0 Yes [id number] 10meq Take 1 Univers tablet 4-27 tablet by ity of 00:00: mouth in [place] 00 the Medical morning. Branch furosemide 2022-0 Yes [id number] 40mg Take 1 Univers (LASIX) 40 4-27 tablet by ity of mg tablet 00:00: mouth in [facility] the Medical morning. Branch isosorbide 2022-0 Yes [id number] 60mg Take 1 Univers mononitrate 4-27 tablet [...] fibrillati on KCL 10 mEq 2022-0 Yes [id number] 10meq Take 1 Univers tablet 4-27 tablet by ity of 00:00: mouth in [place] 00 the Medical morning. Branch furosemide 2023-0 Yes [id number] 40mg Take 1 Univers (LASIX) 40 4-27 tablet by ity of mg tablet 00:00: [place] 00 the Medical morning. Branch isosorbide 2022-0 Yes [id number] 60mg Take 1 Univers mononitrate 4-27 tablet [...] fibrillati on KCL 10 mEq 2022-0 Yes [id number] 10meq Take 1 Univers tablet 4-27 tablet by ity of 00:00: mouth in [place] 00 the Medical morning. Branch furosemide 2022-0 Yes [id number] 40mg Take 1 Univers (LASIX) 40 4-27 tablet by ity of mg tablet 00:00: [place] the Medical morning. Branch isosorbide 2022-0 Yes [id number] 60mg Take 1 Univers mononitrate 4-27 tablet [...] fibrillati on KCL 10 mEq 2022-0 Yes [id number] 10meq Take 1 Univers tablet 4-27 tablet by ity of 00:00: mouth in [place] 00 the Medical morning. Branch furosemide 2022-0 Yes [id number] 40mg Take 1 Univers (LASIX) 40 4-27 tablet by ity of mg tablet 00:00: [place] 00 the Medical morning. Branch isosorbide 3-0 Yes [id number] 60mg Take 1 Univers mononitrate 4-27 tablet [...] s: atrial fibrillati on KCL 10 mEq 3-0 Yes [id number] 10meq Take 1 Univers tablet 4-27 tablet by ity of 00:00: mouth in [place] 00 the Medical morning. Branch furosemide 3-0 Yes [id number] 40mg Take 1 Univers (LASIX) 40 4-27 tablet by ity of mg tablet 00:00: [place] 00 the Medical morning. Branch isosorbide 3-0 Yes [id number] 60mg Take 1 Univers mononitrate 4-27 tablet by ity of 60 mg 24 hr 00:00: [place] tablet 00 the Medical morning. Branch apixaban 3-0 Yes 1358 5mg Take 1 Univers (ELIQUIS) 5 4-27 tablet by ity of mg tablet 00:00: [place] 00 the Medical morning Branch and 1 tablet in the evening. Indication s: atrial fibrillati on KCL 10 mEq 2022-0 Yes [id number] 10meq Take 1 Univers tablet 4-27 tablet by ity of 00:00: mouth in [place] 00 the Medical morning. Branch furosemide 3-0 Yes [id number] 40mg Take 1 Univers (LASIX) 40 4-27 tablet by ity of mg tablet 00:00: [place] 00 the Medical morning. Branch isosorbide 3-0 Yes [id number] 60mg Take 1 Univers mononitrate 4-27 tablet by ity of 60 mg 24 hr 00:00: [place] tablet 00 the Medical morning. Branch apixaban 3-0 Yes 1358 5mg Take 1 Univers (ELIQUIS) 5 4-27 tablet by ity of mg tablet 00:00: [place] 00 the Medical morning Branch and 1 tablet in the evening. Indication s: atrial fibrillati on KCL 10 mEq 3-0 Yes [id number] 10meq Take 1 Univers tablet 4-27 tablet by ity of 00:00: mouth in [place] 00 the Medical morning. Branch furosemide 3-0 Yes [id number] 40mg Take 1 Univers (LASIX) 40 4-27 tablet by ity of mg tablet 00:00: [place] 00 the Medical morning. Branch isosorbide 2022-0 Yes [id number] 60mg Take 1 Univers mononitrate 4-27 tablet [...] evening. Indication s: atrial fibrillati on fluticasone 2022-0 2022- No [id number] 1{spray Use 1 Univers propionate 4-27 06-07 } [place] in ity of 50 00:00: 00:00 each [place] mcg/actuati 00 :00 nostril in Me dical on nasal the Branch spray morning. fluticasone 2022-0 2022- No [id number] 1{spray Use 1 Univers propionate 4-27 06-07 } [place] in ity of 50 00:00: 00:00 each [place] mcg/actuati 00 :00 nostril in Me dical on nasal the Branch spray morning. famotidine 2022-0 3- No 20mg Take 20 mg Univers 20 mg 3-31 03-31 by mouth ity of tablet 09:26: 00:00 in the [place] 02 :00 morning. Medical Branch famotidine 2022-0 Yes [id number] 20mg Take 1 Univers 20 mg 3-31 tablet by ity of tablet 00:00: mouth in [place] the Medical morning. Branch famotidine 2022-0 Yes [id number] 20mg Take 1 Univers 20 mg 3-31 tablet by ity of tablet 00:00: mouth in [place] 00 the Medical morning. Branch famotidine 3-0 Yes [id number] 20mg Take 1 Univers 20 mg 3-31 tablet by ity of tablet 00:00: mouth in [place] the Medical morning. Branch famotidine 2023-0 Yes [id number] 20mg Take 1 Univers 20 mg 3-31 tablet by ity of tablet 00:00: mouth in [place] 00 the Medical morning. Branch famotidine 3-0 Yes [id number] 20mg Take 1 Univers 20 mg 3-31 tablet by ity of tablet 00:00: mouth in [place] 00 the Medical morning. Branch famotidine 2023-0 Yes [id number] 20mg Take 1 Univers 20 mg 3-31 tablet by ity of tablet 00:00: mouth in [place] the Medical morning. Branch famotidine 2022-0 Yes [id number] 20mg Take 1 Univers 20 mg 3-31 tablet by ity of tablet 00:00: mouth in [place] the Medical morning. Branch famotidine 2022-0 Yes [id number] 20mg Take 1 Univers 20 mg 3-31 tablet by ity of tablet 00:00: mouth in [place] the Medical morning. Branch famotidine 2022-0 Yes [id number] 20mg Take 1 Univers 20 mg 3-31 tablet by ity of tablet 00:00: mouth in [place] the Medical morning. Branch famotidine 2022-0 Yes [id number] 20mg Take 1 Univers 20 mg 3-31 tablet by ity of tablet 00:00: mouth in [place] the Medical morning. Branch famotidine 2022-0 Yes [id number] 20mg Take 1 Univers 20 mg 3-31 tablet by ity of tablet 00:00: mouth in [place] the Medical morning. Branch famotidine 2022-0 Yes [id number] 20mg Take 1 Univers 20 mg 3-31 tablet by ity of tablet 00:00: mouth in [place] the Medical morning. Branch famotidine 2022-0 Yes [id number] 20mg Take 1 Univers 20 mg 3-31 tablet by ity of tablet 00:00: mouth in [place] the Medical morning. Branch famotidine 2022-0 Yes [id number] 20mg Take 1 Univers 20 mg 3-31 tablet by ity of tablet 00:00: mouth in [place] the Medical morning. Branch atorvastati 2022-0 Yes [id number] 40mg Take 1 Univers n 40 mg 3-23 tablet by ity of tablet 00:00: mouth at [place] [address] bedtime. [facility] Branch montelukast 2022-0 Yes [id number] 10mg Take 1 Univers 10 mg 3-23 tablet by ity of tablet 00:00: mouth in [place] 00 the Medical morning. Branch atorvastati 2022-0 Yes [id number] 40mg Take 1 Univers n 40 mg 3-23 tablet by ity of tablet 00:00: mouth at [place] [address] bedtime. [facility] [place] [facility] 2022-0 Yes [id number] 10mg Take 1 Univers 10 mg 3-23 tablet by ity of tablet 00:00: mouth in [place] the Medical morning. Branch atorvasti 2022-0 Yes [id number] 40mg Take 1 Univers n 40 mg 3-23 tablet by ity of tablet 00:00: mouth at [place] 00 bedtime. [facility] [place] [facility] 2022-0 Yes [id number] 10mg Take 1 Univers 10 mg 3-23 tablet by ity of tablet 00:00: mouth in [place] the Medical morning. [place] atorvasti 0 Yes [id number] 40mg Take 1 Univers n 40 mg 3-23 tablet by ity of tablet 00:00: mouth at [place] 00 bedtime. [facility] [place] [facility] 0 Yes [id number] 10mg Take 1 Univers 10 mg 3-23 tablet by ity of tablet 00:00: mouth in [place] the Medical morning. [place] [facility] 0 Yes [id number] 40mg Take 1 Univers n 40 mg 3-23 tablet by ity of tablet 00:00: mouth at [place] 00 bedtime. [facility] [place] [facility] 0 Yes [id number] 10mg Take 1 Univers 10 mg 3-23 tablet by ity of tablet 00:00: mouth in [place] the Medical morning. [place] atorvastati 0 Yes [id number] 40mg Take 1 Univers n 40 mg 3-23 tablet by ity of tablet 00:00: mouth at [place] 00 bedtime. [facility] [place] [facility] 2022-0 Yes [id number] 10mg Take 1 Univers 10 mg 3-23 tablet by ity of tablet 00:00: mouth in [place] the Medical morning. [place] atorvasti 0 Yes [id number] 40mg Take 1 Univers n 40 mg 3-23 tablet by ity of tablet 00:00: mouth at [place] 00 bedtime. [facility] [place] [facility] 0 Yes [id number] 10mg Take 1 Univers 10 mg 3-23 tablet by ity of tablet 00:00: mouth in [place] 00 the Medical morning. [place] atorvastati 0 Yes [id number] 40mg Take 1 Univers n 40 mg 3-23 tablet by ity of tablet 00:00: mouth at [place] 00 [facility]. [facility] Yes [id number] 10mg Take 1 Univers 10 mg 3-23 tablet by ity of tablet 00:00: mouth in [place] the Medical morning. Branch atorvastati 2022-0 Yes [id number] 40mg Take 1 Univers n 40 mg 3-23 tablet by ity of tablet 00:00: mouth at [place] 00 bedtime. [facility] [place] [facility] 2022-0 Yes [id number] 10mg Take 1 Univers 10 mg 3-23 tablet by ity of tablet 00:00: mouth in [place] the Medical morning. [place] atorvastati 2022-0 Yes [id number] 40mg Take 1 Univers n 40 mg 3-23 tablet by ity of tablet 00:00: mouth at [place] 00 bedtime. [facility] [place] [facility] 2022-0 Yes [id number] 10mg Take 1 Univers 10 mg 3-23 tablet by ity of tablet 00:00: mouth in [place] the Medical morning. [place] atorvastati 0 Yes [id number] 40mg Take 1 Univers n 40 mg 3-23 tablet by ity of tablet 00:00: mouth at [place] 00 bedtime. [facility] [place] [facility] 0 Yes [id number] 10mg Take 1 Univers 10 mg 3-23 tablet by ity of tablet 00:00: mouth in [place] the Medical morning. [place] atorvasti 0 Yes [id number] 40mg Take 1 Univers n 40 mg 3-23 tablet by ity of tablet 00:00: mouth at [place] 00 bedtime. [facility] [place] [facility] 2022-0 Yes [id number] 10mg Take 1 Univers 10 mg 3-23 tablet by ity of tablet 00:00: mouth in [place] the Medical morning. [place] atorvastati 2022-0 Yes [id number] 40mg Take 1 Univers n 40 mg 3-23 tablet by ity of tablet 00:00: mouth at [place] 00 bedtime. [facility] [place] [facility] 2022-0 Yes [id number] 10mg Take 1 Univers 10 mg 3-23 tablet by ity of tablet 00:00: mouth in [place] 00 the Medical morning. [place] atorvastati 2022-0 Yes [id number] 40mg Take 1 Univers n 40 mg 3-23 tablet by ity of tablet 00:00: mouth at [place] 00 bedtime. Medical Branch montelukast Yes [id number] 10mg Take 1 Univers 10 mg 3-23 tablet by ity of tablet 00:00: mouth in [place] 00 the Medical morning. Branch atorvastati Yes [id number] 40mg Take 1 Univers n 40 mg 3-23 tablet by ity of tablet 00:00: mouth at [place] 00 bedtime. Medical Branch montelukast Yes [id number] 10mg Take 1 Univers 10 mg 3-23 tablet by ity of tablet 00:00: mouth in [place] 00 the morning. Branch lactated Yes 1000mL [...] Until Wed09/23/22 at 1449, Routine, PACU ondansetron 2022-0 Yes 4mg 4 mg, Slow Univers (ZOFRAN 2-08 IV Push, ity of (PF)) 17:13: PRN, 1 [place] injection 4 10 dose, Medical mg Starting Branch on Wed09/23/22 at 1113, Until Discontinu ed, Routine, Nausea and Vomiting (N/V), PACU ondansetron 0 2022- No 4mg 4 mg, Slow Univers (ZOFRAN 2-08 02-08 IV Push, ity of (PF)) 17:13: 20:49 PRN, 1 [place] injection 4 10 :09 dose, Medical mg Starting Branch on Wed09/23/22 at 1113, Until Wed09/23/22 at 1449, Routine, Nausea and Vomiting (N/V), PACU neomycin-po 2022-2022- No PRN, Unive rs lymyxin-dex 09-23 Starting ity of amethasone 16:58: 17:08 [place] (MAXITROL[place] 00 :49 09/23/22 at [facility] artie 3.5 1058, Branch mg/g-10,000 Until Wed unit/g-0.1 09/23/22 at % 1108, ophthalmic Routine, ointment Intra-op dexamethaso 2022- No PRN, Unive rs ne 09-23 Starting ity of (DECADRON 16:56: 17:08 on Wed [place] PHOSPHATE) 00 :49 09/23/22 at [facility] artie injection 1056, Branch Until Wed09/23/22 at 1108, Routine, Intra-op ceFAZolin 2022- No PRN, Univers (ANCEF) 09-23 Starting ity of injection 16:56: 17:08 on Wed [place] 00 :49 823 at Medical 1056, Branch Until Wed09/23/22 at 1108, ROSENDO, Intra-op carbachoL 2022- No PRN, Univers (MIOSTAT) 09-23 Starting ity o f 0.01 % 16:55: 17:08 on Wed [place] intraocular 00 :49 23 at Med ical injection 1055, Branch Until Wed09/23/22 at 1108, Routine, Intra-op chondroitin 2022- No PRN, Unive rs sulf-sod 09-23 Starting ity of hyaluronate 16:44: 17:08 on Wed [place] as (DUOVISC 00 :49 09/23/22 at Medica l VISCO 1044, Branch ELASTIC) Until Wed intraocular 09/23/22 at injection 1108, Routine, Intra-op EPINEPHrine 2022- No PRN, Unive rs 1:1,000 (1 09-23 Starting ity of mg/mL) 16:44: 17:08 on Wed [place] (ADRENALIN) 00 :49 823 at Med ical injection 1044, Branch Until Wed09/23/22 at 1108, Routine, Intra-op balanced 2022- No PRN, Univers salt irrig 09-23 Starting ity of soln comb1 16:44: 17:08 on [place] (BSS PLUS) 00 :49 823 at [facility] ophthalmic 1044, Branch solution Until Wed 500 mL bag 09/23/22 at 1108, Routine, Intra-op sodium 2022- No PRN, Univers chloride 09-23 Starting ity of (NS) 16:43: 17:08 on Wed [place] injection 00 :49 823 at Medic al 1043, Branch Until Wed09/23/22 at 1108, Routine, Intra-op trypan blue 2022- No PRN, Unive rs (VISION 09-23 Starting ity of BLUE) 0.06 16:43: 17:08 on Wed [place] % syringe 00 :49 23 at [facility] al 1043, Branch Until Wed09/23/22 at 1108, Routine, Intra-op water for 2022- No PRN, Univers irrigation 09-23 Starting ity of irrigation 16:36: 17:08 on Wed [place] solution 00 :49 23 at Medica l 1036, Branch Until Wed09/23/22 at 1108, Routine, Intra-op Hyaluronida 2022- No PRN, Unive rs se, Human 09-23 Starting ity o f Recomb. 16:32: 17:08 on Wed [place] (HYLENEX) 00 :49 23 at Medic al injection 1032, Branch Until Wed09/23/22 at 1108, Routine, Intra-op eye block 2022- No PRN, Univers syringe 11 09-23 Starting ity of mL 16:32: 17:08 on Wed [place] 00 :49 8 at [facility] 1032, Branch Until Wed09/23/22 at 1108, Intra-op cyclopent 2022- No .5mL 0.5 mL, Univ ers 1%-tropic 09-23 Right Eye, ity of 1%-phenyl 15:15: 15:16 ONCE, 1 [place] 2.5%-ketor 00 :00 dose, On Medic al 0.5% 09/23/22 Branch (MYDRIATIC at 09, #5) Routine, ophthalmic DSU Pre-op solution syringe 0.5 mL lactated 3-0 2022- No 1000mL at 42 Unive rs ringers IV 09-23 02-08 mL/hr, ity of infusion 15:15: 15:32 1,000 mL, [place] Manuel as 1,000 mL 00 :00 IV Medical Infusion, Branch ONCE, 1 dose, On Wed09/23/22 at 0915, Routine, DSU Pre-op cyclopent 2022-0 2022- No .5mL 0.5 mL, Univ ers 1%-tropic 09-23 Right Eye, ity of 1%-phenyl 15:15: 15:16 ONCE, 1 [place] 2.5%-ketor 00 :00 dose, On Medic al 0.5% Wed09/23/22 Branch (MYDRIATIC at 09, #5) Routine, ophthalmic DSU Pre-op solution syringe 0.5 mL lactated 2022-0 2022- No 1000mL at 42 Unive rs ringers IV 09-23 02-08 mL/hr, ity of infusion 15:15: 15:32 [...] mouth ity of tablet 12:44: in the 07 morning. Medical Branch linaCLOtide 2023-0 Yes [...] 07 every Medical other day. Branch famotidine 3-0 Yes 20mg Take 20 mg U nivers [...] mouth ity of tablet 12:38: in the 47 morning. Medical Branch linaCLOtide 2023-0 Yes 1{capsu Take 1 U nivers (LINZESS) 2-02 le} capsule by ity of 145 mcg 12:38: mouth [place] capsule 47 every Medical other day. Branch atorvastati 2023-0 Yes [id number] 40mg Take 1 Univers n 40 mg 1-31 tablet by ity of tablet 00:00: mouth at [place] 00 bedtime. Medical Branch atorvastati 2023-0 Yes [id number] 40mg Take 1 Univers n 40 mg 1-31 tablet by ity of tablet 00:00: mouth at [place] 00 bedtime. Medical Branch atorvastati 2022-0 Yes [id number] 40mg Take 1 [facility] n 40 mg 1-31 tablet by ity of tablet 00:00: mouth at [place] 00 bedtime. Medical Branch atorvastati 2022-0 Yes [id number] 40mg Take 1 [facility] n 40 mg 1-31 tablet by ity of tablet 00:00: mouth at [place] 00 bedtime. Medical Branch atorvastati 2022-0 Yes [id number] 40mg Take 1 [facility] n 40 mg 1-31 tablet by ity of tablet 00:00: mouth at [place] 00 bedtime. Medical Branch atorvastati 0 Yes [id number] 40mg Take 1 [facility] n 40 mg 1-31 tablet by ity of tablet 00:00: mouth at [place] 00 bedtime. Medical Branch atorvastati 2022-0 Yes [id number] 40mg Take 1 [facility] n 40 mg 1-31 tablet by ity of tablet 00:00: mouth at [place] 00 bedtime. Medical Branch atorvastati 0 Yes [id number] 40mg Take 1 [facility] n 40 mg 1-31 tablet by ity of tablet 00:00: mouth at [place] 00 bedtime. Medical Branch atorvastati 0 3- No [id number] 40mg Take 1 [facility] n 40 mg 1-31 03-23 tablet by ity of tablet 00:00: 00:00 mouth at [place] 00 :00 bedtime. Medical Branch gabapentin 2022-0 2022- No 300mg Take 300 U nivers 300 mg 08-21-06 mg by ity of capsule 14:37: 00:00 mouth in [place] 42 :00 the Medical morning Branch and 300 mg at noon and 300 mg in the evening. gabapentin 2022-0 2022- No 300mg Take 300 U nivers 300 mg 08-21-06 mg by ity of capsule 14:37: 00:00 mouth in [place] 42 :00 the Medical morning Branch and 300 mg at noon and 300 mg in the evening. gabapentin 2022-0 Yes [id number] 300mg Take 1 [facility] 300 mg -06 capsule by ity of capsule 00:00: mouth in [place] 00 the Medical morning Branch and 1 capsule in the evening. fluticasone 2023-0 Yes [id number] 1{spray Use 1 [facility] propionate 1-06 } [place] in ity o f 50 00:00: each [place] mcg/actuati 00 nostril in Me dical on nasal the Branch spray morning. gabapentin 2023-0 Yes [id number] 300mg Take 1 [facility] 300 mg 1-06 capsule by ity of capsule 00:00: mouth in [place] 00 the Medical morning Branch and 1 capsule in the evening. fluticasone 2023-0 Yes [id number] 1{spray Use 1 [facility] propionate 1-06 } [place] in ity o f 50 00:00: each [place] mcg/actuati 00 nostril in Me dical on nasal the Branch spray morning. gabapentin 2022-0 Yes [id number] 300mg Take 1 [facility] 300 mg 1-06 capsule by ity of capsule 00:00: mouth in [place] 00 the Medical morning Branch and 1 capsule in the evening. fluticasone 202-0 Yes [id number] 1{spray Use 1 [facility] propionate 1-06 } [place] in ity o f 50 00:00: each [place] mcg/actuati 00 nostril in Me dical on nasal the Branch spray morning. gabapentin 3-0 Yes [id number] 300mg Take 1 [facility] 300 mg 1-06 capsule by ity of capsule 00:00: mouth in [place] 00 the Medical morning Branch and 1 capsule in the evening. fluticasone 2023-0 Yes [id number] 1{spray Use 1 [facility] propionate 1-06 } [place] in ity o f 50 00:00: each [place] mcg/actuati 00 nostril in Me dical on nasal the Branch spray morning. gabapentin 3-0 Yes [id number] 300mg Take 1 [facility] 300 mg 1-06 capsule by ity of capsule 00:00: mouth in [place] 00 the Medical morning Branch and 1 capsule in the evening. fluticasone 2023-0 Yes [id number] 1{spray Use 1 [facility] propionate 1-06 } [place] in ity o f 50 00:00: each [place] mcg/actuati 00 nostril in Me dical on nasal the Branch spray morning. gabapentin 2023-0 Yes [id number] 300mg Take 1 [facility] 300 mg 1-06 capsule by ity of capsule 00:00: mouth in [place] 00 the Medical morning Branch and 1 capsule in the evening. fluticasone 2023-0 Yes [id number] 1{spray Use 1 [facility] propionate 1-06 } [place] in ity o f 50 00:00: each [place] mcg/actuati 00 nostril in Me dical on nasal the Branch spray morning. gabapentin 2023-0 Yes [id number] 300mg Take 1 [facility] 300 mg 1-06 capsule by ity of capsule 00:00: mouth in [place] 00 the Medical morning Branch and 1 capsule in the evening. fluticasone 2023-0 Yes [id number] 1{spray Use 1 [facility] propionate 1-06 } [place] in ity o f 50 00:00: each [place] mcg/actuati 00 nostril in Me dical on nasal the Branch spray morning. gabapentin 2022-0 Yes [id number] 300mg Take 1 [facility] 300 mg 1-06 capsule by ity of capsule 00:00: mouth in [place] 00 the Medical morning Branch and 1 capsule in the evening. fluticasone 202-0 Yes [id number] 1{spray Use 1 [facility] propionate 1-06 } [place] in ity o f 50 00:00: each [place] mcg/actuati 00 nostril in Me dical on nasal the Branch spray morning. gabapentin 3-0 Yes [id number] 300mg Take 1 [facility] 300 mg 1-06 capsule by ity of capsule 00:00: mouth in [place] 00 the Medical morning Branch and 1 capsule in the evening. fluticasone 2023-0 Yes [id number] 1{spray Use 1 [facility] propionate 1-06 } [place] in ity o f 50 00:00: each [place] mcg/actuati 00 nostril in Me dical on nasal the Branch spray morning. gabapentin 3-0 Yes [id number] 300mg Take 1 [facility] 300 mg 1-06 capsule by ity of capsule 00:00: mouth in [place] 00 the Medical morning Branch and 1 capsule in the evening. fluticasone 2023-0 Yes [id number] 1{spray Use 1 [facility] propionate 1-06 } [place] in ity o f 50 00:00: each [place] mcg/actuati 00 nostril in Me dical on nasal the Branch spray morning. gabapentin 2023-0 Yes [id number] 300mg Take 1 [facility] 300 mg 1-06 capsule by ity of capsule 00:00: mouth in [place] 00 the Medical morning Branch and 1 capsule in the evening. fluticasone 2023-0 Yes [id number] 1{spray Use 1 [facility] propionate 1-06 } [place] in ity o f 50 00:00: each [place] mcg/actuati 00 nostril in Me dical on nasal the Branch spray morning. gabapentin 2023-0 Yes [id number] 300mg Take 1 [facility] 300 mg 1-06 capsule by ity of capsule 00:00: mouth in [place] 00 the Medical morning Branch and 1 capsule in the evening. fluticasone 2023-0 Yes [id number] 1{spray Use 1 [facility] propionate 1-06 } [place] in ity o f 50 00:00: each [place] mcg/actuati 00 nostril in Me dical on nasal the Branch spray morning. gabapentin 2022-0 Yes [id number] 300mg Take 1 [facility] 300 mg 1-06 capsule by ity of capsule 00:00: mouth in [place] 00 the Medical morning Branch and 1 capsule in the evening. fluticasone 202-0 Yes [id number] 1{spray Use 1 [facility] propionate 1-06 } [place] in ity o f 50 00:00: each [place] mcg/actuati 00 nostril in Me dical on nasal the Branch spray morning. gabapentin 3-0 Yes [id number] 300mg Take 1 [facility] 300 mg 1-06 capsule by ity of capsule 00:00: mouth in [place] 00 the Medical morning Branch and 1 capsule in the evening. fluticasone 2023-0 Yes [id number] 1{spray Use 1 [facility] propionate 1-06 } [place] in ity o f 50 00:00: each [place] mcg/actuati 00 nostril in Me dical on nasal the Branch spray morning. gabapentin 3-0 Yes [id number] 300mg Take 1 [facility] 300 mg 1-06 capsule by ity of capsule 00:00: mouth in [place] 00 the Medical morning Branch and 1 capsule in the evening. fluticasone 2023-0 Yes [id number] 1{spray Use 1 [facility] propionate 1-06 } [place] in ity o f 50 00:00: each [place] mcg/actuati 00 nostril in Me dical on nasal the Branch spray morning. gabapentin 2023-0 Yes [id number] 300mg Take 1 [facility] 300 mg 1-06 capsule by ity of capsule 00:00: mouth in [place] 00 the Medical morning Branch and 1 capsule in the evening. fluticasone 2022-0 Yes [id number] 1{spray Use 1 [facility] propionate 1-06 } [place] in ity o f 50 00:00: each [place] mcg/actuati 00 nostril in Me dical on nasal the Branch spray morning. gabapentin 2022-0 Yes [id number] 300mg Take 1 [facility] 300 mg 1-06 capsule by ity of capsule 00:00: mouth in [place] 00 the Medical morning Branch and 1 capsule in the evening. gabapentin 2022-0 Yes [id number] 300mg Take 1 [facility] 300 mg 1-06 capsule by ity of capsule 00:00: mouth in [place] 00 the Medical morning Branch and 1 capsule in the evening. gabapentin 2022-0 2022- No [id number] 300mg Take 1 [facility] 300 mg 1-06 06- capsule by ity of capsule 00:00: 00:00 mouth in [place] 00 :00 the Medical morning Branch and 1 capsule in the evening. fluticasone 2022- No [id number] 1{spray Use 1 [facility] propionate 08-21-27 } [place] in ity of 50 00:00: 00:00 each [place] mcg/actuati 00 :00 nostril in Me dical on nasal the Branch spray morning. fluticasone 2022- No [id number] 1{spray Use 1 [facility] propionate 08-21-27 } [place] in ity of 50 00:00: 00:00 each [...] ity of ophthalmic 00:00: EACH EYE Victor Mnauel as solution 00 TWICE Medical DAILY Branch [...] INTO ity of ophthalmic 00:00: EACH EYE Ivctor Manuel as solution 00 TWICE Medical DAILY [...] TWICE Medical DAILY Branch montelukast 2021-08 Yes [id number] TAKE 1 [facility] 10 mg 2-06 TABLET BY ity of tablet 00:00: MOUTH ONCE [place] 00 DAILY FOR Medical COUGH, Branch COPD, ASTHMA, OR ALLERGIES montelukast 2021-08 Yes [id number] TAKE 1 [facility] 10 mg 2-06 TABLET BY ity of tablet 00:00: MOUTH ONCE [place] 00 DAILY FOR Medical COUGH, Branch COPD, ASTHMA, OR ALLERGIES montelukast 2021-08 Yes [id number] TAKE 1 [facility] 10 mg 2-06 TABLET BY ity of tablet 00:00: MOUTH ONCE [place] 00 DAILY FOR Medical COUGH, Branch COPD, ASTHMA, OR ALLERGIES montelukast 2021-08 Yes [id number] TAKE 1 [facility] 10 mg 2-06 TABLET BY ity of tablet 00:00: MOUTH ONCE [place] 00 DAILY FOR Medical COUGH, Branch COPD, ASTHMA, OR ALLERGIES montelukast 2021-08 Yes [id number] TAKE 1 [facility] 10 mg 2-06 TABLET BY ity of tablet 00:00: MOUTH ONCE [place] 00 DAILY FOR Medical COUGH, Branch COPD, ASTHMA, OR ALLERGIES montelukast 2021-08 Yes [id number] TAKE 1 [facility] 10 mg 2-06 TABLET BY ity of tablet 00:00: MOUTH ONCE [place] 00 DAILY FOR Medical COUGH, Branch COPD, ASTHMA, OR ALLERGIES montelukast 2021-08 Yes [id number] TAKE 1 [facility] 10 mg 2-06 TABLET BY ity of tablet 00:00: MOUTH ONCE [place] 00 DAILY FOR Medical COUGH, Branch COPD, ASTHMA, OR ALLERGIES montelukast 2021-08 Yes [id number] TAKE 1 [facility] 10 mg 2-06 TABLET BY ity of tablet 00:00: MOUTH ONCE [place] 00 DAILY FOR Medical COUGH, Branch COPD, ASTHMA, OR ALLERGIES montelukast 2021-08 Yes [id number] TAKE 1 [facility] 10 mg 2-06 TABLET BY ity of tablet 00:00: MOUTH ONCE [place] 00 DAILY FOR Medical COUGH, Branch COPD, ASTHMA, OR ALLERGIES montelukast 2021-08 Yes [id number] TAKE 1 [facility] 10 mg 2-06 TABLET BY ity of tablet 00:00: MOUTH ONCE [place] 00 DAILY FOR Medical COUGH, Branch COPD, ASTHMA, OR ALLERGIES montelukast 2021-08 Yes [id number] TAKE 1 [facility] 10 mg 2-06 TABLET BY ity of tablet 00:00: MOUTH ONCE [place] 00 DAILY FOR Medical COUGH, Branch COPD, ASTHMA, OR ALLERGIES montelukast 2021-08 Yes [id number] TAKE 1 [facility] 10 mg 2-06 TABLET BY ity of tablet 00:00: MOUTH ONCE [place] 00 DAILY FOR Medical COUGH, Branch COPD, ASTHMA, OR ALLERGIES montelukast 2021-08 Yes [id number] TAKE 1 [facility] 10 mg 2-06 TABLET BY ity of tablet 00:00: MOUTH ONCE [place] 00 DAILY FOR Medical COUGH, Branch COPD, ASTHMA, OR ALLERGIES montelukast 2021-08 Yes [id number] TAKE 1 [facility] 10 mg 2-06 TABLET BY ity of tablet 00:00: MOUTH ONCE [place] 00 DAILY FOR Medical COUGH, Branch COPD, ASTHMA, OR ALLERGIES montelukast 2021-08- No [id number] TAKE 1 [facility] 10 mg 2-06 03-23 TABLET BY ity of tablet 00:00: 00:00 [facility]CE [facility] FOR Medical COUGH, Branch COPD, ASTHMA, OR ALLERGIES apixaban 2021-08- No 5mg Take 5 mg Uni vers (ELIQUIS) 5 1-10 11-10 by mouth ity of mg tablet 15:20: 00:00 in the [place] 04 :00 morning Medical and 5 mg Branch in the evening. KCL 10 mEq 2021-08- No 10meq Take 10 Un mike tablet 1-10 11-10 mEq by ity of 15:20: 00:00 mouth in [place] 04 :00 the Medical morning. Branch isosorbide 2021-08- No 60mg Take 60 mg Univers mononitrate 1-10 11-10 by mouth ity of 60 mg 24 hr 15:20: 00:00 in the [place] Manuel as tablet 04 :00 morning. Medical Branch hydrALAZINE 2021-08- No 100mg Take 100 Univers 100 mg 1-10 11-10 mg by ity of tablet 15:20: 00:00 mouth in [place] 04 :00 the Medical morning Branch and 100 mg at noon and 100 mg in the evening. atorvastati 2021-08- No 40mg Take 40 mg Univers n 40 mg 1-10 11-10 by mouth ity of tablet 15:20: 00:00 at [place] 04 :00 bedtime. Medical Branch furosemide 2021-08- No 40mg Take 40 mg Univers (LASIX) 40 1-10 11-10 by mouth ity of mg tablet 15:20: 00:00 in the [place] 04 :00 morning. Medical Branch apixaban 2021-08- No 5mg Take 5 mg Uni vers (ELIQUIS) 5 1-10 11-10 by mouth ity of mg tablet 15:20: 00:00 in the [place] 04 :00 morning Medical and 5 mg Branch in the evening. KCL 10 mEq 2021-08- No 10meq Take 10 Un mike tablet 1-10 11-10 mEq by ity of 15:20: 00:00 mouth in [place] 04 :00 the Medical morning. Branch isosorbide 2021-08- No 60mg Take 60 mg Univers mononitrate 1-10 11-10 by mouth ity of 60 mg 24 hr 15:20: 00:00 in the [facility] as tablet 04 :00 morning. Medical Branch hydrALAZINE 2021-08- No 100mg Take 100 Univers 100 mg 1-10 11-10 mg by ity of tablet 15:20: 00:00 mouth in [place] 04 :00 the Medical morning Branch and 100 mg at noon and 100 mg in the evening. atorvastati 2021-08- No 40mg Take 40 mg Univers n 40 mg 1-10 11-10 by mouth ity of tablet 15:20: 00:00 at [place] 04 :00 bedtime. Medical Branch furosemide 2021-08- No 40mg Take 40 mg Univers (LASIX) 40 1-10 11-10 by mouth ity of mg tablet 15:20: 00:00 in the [place] 04 :00 morning. Medical Branch apixaban 2021-08- No 5mg Take 5 mg Uni vers (ELIQUIS) 5 1-10 11-10 by mouth ity of mg tablet 15:20: 00:00 in the [place] 04 :00 morning Medical and 5 mg Branch in the evening. KCL 10 mEq 2021-08- No 10meq Take 10 Un mike tablet 1-10 11-10 mEq by ity of 15:20: 00:00 mouth in [place] 04 :00 the Medical morning. Branch isosorbide 2021-08- No 60mg Take 60 mg [facility] mononitrate 1-10 11-10 by mouth ity of 60 mg 24 hr 15:20: 00:00 in the [place] Manuel as tablet 04 :00 morning. Medical Branch hydrALAZINE 2021-08- No 100mg Take 100 Univers 100 mg 1-10 11-10 mg by ity of tablet 15:20: 00:00 mouth in [place] 04 :00 the Medical morning Branch and 100 mg at noon and 100 mg in the evening. atorvastati 2021-08- No 40mg Take 40 mg Univers n 40 mg 1-10 11-10 by mouth ity of tablet 15:20: 00:00 at [place] 04 :00 bedtime. Medical Branch furosemide 2021-08- No 40mg Take 40 mg Univers (LASIX) 40 1-10 11-10 by mouth ity of mg tablet 15:20: 00:00 in the [place] 04 :00 morning. Medical Branch apixaban 2021-08- No 5mg Take 5 mg Uni vers (ELIQUIS) 5 1-10 11-10 by mouth ity of mg tablet 15:20: 00:00 in the [place] 04 :00 morning Medical and 5 mg Branch in the evening. KCL 10 mEq 2021-08- No 10meq Take 10 Un mike tablet 1-10 11-10 mEq by ity of 15:20: 00:00 mouth in [place] 04 :00 the Medical morning. Branch isosorbide 2021-08- No 60mg Take 60 mg [facility] mononitrate 1-10 11-10 by mouth ity of 60 mg 24 hr 15:20: 00:00 in the [facility] as tablet 04 :00 morning. Medical Branch hydrALAZINE 2021-08- No 100mg Take 100 Univers 100 mg 1-10 11-10 mg by ity of tablet 15:20: 00:00 mouth in [place] 04 :00 the Medical morning Branch and 100 mg at noon and 100 mg in the evening. atorvastati 2021-2021- No 40mg Take 40 mg Univers n 40 mg 1-10 11-10 by mouth ity of tablet 15:20: 00:00 at [place] 04 :00 bedtime. Medical Branch furosemide 2021-08- No 40mg Take 40 mg Univers (LASIX) 40 1-10 11-10 by mouth ity of mg tablet 15:20: 00:00 in the [place] 04 :00 morning. Medical Branch gabapentin 2021- Yes 300mg Take 300 Un mike 300 mg 1-10 mg by ity of capsule 14:54: mouth in [place] [address] the Medical morning Branch and 300 mg at noon and 300 mg in the evening. linaCLOtide 2021- Yes Take by Uni vers (LINZESS) 1-10 mouth ity of 145 mcg 14:54: every [place] capsule 45 morning. Medical Branch gabapentin 2021- Yes 300mg Take 300 Un mike 300 mg 1-10 mg by ity of capsule 14:54: mouth in [place] [address] the Medical morning Branch and 300 mg at noon and 300 mg in the evening. linaCLOtide 2021- Yes Take by Uni vers (LINZESS) 1-10 mouth ity of 145 mcg 14:54: every [place] capsule 45 morning. Medical Branch gabapentin 2021- Yes 300mg Take 300 Un mike 300 mg 1-10 mg by ity of capsule 14:54: mouth in [place] [address] the Medical morning Branch and 300 mg at noon and 300 mg in the evening. linaCLOtide 2021- Yes Take by Uni vers (LINZESS) 1-10 mouth ity of 145 mcg 14:54: every [place] capsule 45 morning. Medical Branch gabapentin 2021- Yes 300mg Take 300 Un mike 300 mg 1-10 mg by ity of capsule 14:54: mouth in [place] [address] the Medical morning Branch and 300 mg at noon and 300 mg in the evening. linaCLOtide 2021- Yes Take by Uni vers (LINZESS) 1-10 mouth ity of 145 mcg 14:54: every [place] capsule 45 morning. Medical Branch gabapentin 2021- Yes 300mg Take 300 Un mike 300 mg 1-10 mg by ity of capsule 14:54: mouth in [place] [address] the Medical morning Branch and 300 mg at noon and 300 mg in the evening. linaCLOtide 2021-1 Yes Take by Uni vers (LINZESS) 1-10 mouth ity of 145 mcg 14:54: every [place] capsule 45 morning. Medical Branch linaCLOtide 2021- Yes Take by Uni vers (LINZESS) 1-10 mouth ity of 145 mcg 14:54: every [place] capsule 45 morning. Medical Branch linaCLOtide 2022-1 Yes Take by Uni vers (LINZESS) 1-10 [...] by ity of capsule 14:54: mouth in [place] 45 the Medical morning Branch and 300 [...] mouth ity of 145 mcg 14:54: every [place] capsule 45 morning. Medical Branch famotidine 2021-08 Yes 20mg Take 20 mg U nivers 20 mg 1-10 by mouth ity of tablet 14:53: in the [place] 52 morning. Medical Branch famotidine 2021- Yes 20mg Take 20 mg U nivers 20 mg 1-10 by mouth ity of tablet 14:53: in the [place] 52 morning. Medical Branch famotidine 2021-08 Yes 20mg Take 20 mg U nivers 20 mg 1-10 by mouth ity of tablet 14:53: in the [place] 52 morning. Medical Branch famotidine 2021- Yes 20mg Take 20 mg U nivers 20 mg 1-10 by mouth ity of tablet 14:53: in the [place] 52 morning. Medical Branch famotidine 2021- Yes 20mg Take 20 mg U nivers 20 mg 1-10 by mouth ity of tablet 14:53: in the [place] 52 morning. Medical Branch famotidine 2021-08 Yes 20mg Take 20 mg U nivers 20 mg 1-10 by mouth ity of tablet 14:53: in the [place] 52 morning. Medical Branch famotidine 2021- Yes 20mg Take 20 mg U nivers 20 mg 1-10 by mouth ity of tablet 14:53: in the [place] 52 morning. Medical Branch famotidine 2021- Yes 20mg Take 20 mg U nivers 20 mg 1-10 by mouth ity of tablet 14:53: in the [place] 52 morning. Medical Branch famotidine 2021- Yes 20mg Take 20 mg U nivers 20 mg 1-10 by mouth ity of tablet 14:53: in the [place] 52 morning. Medical Branch famotidine 2021- Yes 20mg Take 20 mg U nivers 20 mg 1-10 by mouth ity of tablet 14:53: in the [place] 52 morning. Medical Branch famotidine 2021-08 Yes 20mg Take 20 mg U nivers 20 mg 1-10 by mouth ity of tablet 14:53: in the [place] 52 morning. Medical Branch famotidine 2021-08 Yes 20mg Take 20 mg U nivers 20 mg 1-10 by mouth ity of tablet 14:53: in the [place] 52 morning. Medical Branch famotidine 2021-08 Yes 20mg Take 20 mg U nivers 20 mg 1-10 by mouth ity of tablet 14:53: in the [place] 52 morning. Medical Branch famotidine 2021-08 Yes 20mg Take 20 mg U nivers 20 mg 1-10 by mouth ity of tablet 14:53: in the [place] 52 morning. Medical Branch famotidine 2021-08 Yes 20mg Take 20 mg U nivers 20 mg 1-10 by mouth ity of tablet 14:53: in the [place] 52 morning. Medical Branch famotidine 2021-08 Yes 20mg Take 20 mg U nivers 20 mg 1-10 by mouth ity of tablet 14:53: in the [place] 52 morning. Medical Branch famotidine 2021-08 Yes 20mg Take 20 mg U nivers 20 mg 1-10 by mouth ity of tablet 14:53: in the [place] 52 morning. Medical Branch apixaban 2021-08 Yes [id number] 5mg Take 1 [facility] (ELIQUIS) 5 1-10 tablet by ity of mg tablet 00:00: mouth [place] 00 the Medical morning Branch and 1 tablet in the evening. Indication s: atrial fibrillati on atorvastati 2021-08 Yes [id number] 40mg Take 1 [facility] n 40 mg 1-10 tablet by ity of tablet 00:00: mouth at [place] 00 bedtime. Medical Branch furosemide 2021-08 Yes [id number] 40mg Take 1 [facility] (LASIX) 40 1-10 tablet by ity of mg tablet 00:00: mouth in [place] 00 the Medical morning. Branch hydrALAZINE 2021-08 Yes [id number] 100mg Take 1 [facility] 100 mg 1-10 tablet by ity of tablet 00:00: mouth in [place] 00 the Medical morning Branch and 1 tablet at noon and 1 tablet in the evening. isosorbide 2021-08 Yes [id number] 60mg Take 1 [facility] mononitrate 1-10 tablet by ity of 60 mg 24 hr 00:00: mouth in [place] tablet 00 the morning. Branch KCL 10 mEq 2021-08 Yes [id number] 10meq Take 1 [facility] tablet 1-10 tablet by ity of 00:00: mouth in [place] 00 the morning. Branch amLODIPine 2021-08 Yes [id number] 5mg Take 1 [facility] 5 mg tablet 1-10 tablet by [facility] of 00:00: mouth in [place] 00 the morning. Branch apixaban 2021-08 Yes 1358 5mg Take 1 [facility] (ELIQUIS) 5 1-10 tablet by [facility] of mg tablet 00:00: mouth in [facility] 00 the morning Branch and 1 tablet in the evening. Indication s: atrial fibrillati on atorvastati 2021-08 Yes [id number] 40mg Take 1 [facility] n 40 mg 1-10 tablet by [facility] of tablet 00:00: mouth at [place] [address] bedtime. Medical Branch furosemide 2021-08 Yes [id number] 40mg Take 1 [facility] (LASIX) 40 1-10 tablet by [facility] of mg tablet 00:00: mouth in [facility] 00 the morning. Branch hydrALAZINE 2021-08 Yes [id number] 100mg Take 1 [facility] 100 mg 1-10 tablet by [facility] of tablet 00:00: mouth in [place] the morning Branch and 1 tablet at noon and 1 tablet in the evening. isosorbide 2021-08 Yes [id number] 60mg Take 1 [facility] mononitrate 1-10 tablet by [facility] of 60 mg 24 hr 00:00: mouth in [place] tablet the morning. Branch KCL 10 mEq 2021-08 Yes [id number] 10meq Take 1 [facility] tablet 1-10 tablet by [facility] of 00:00: mouth in [place] 00 the morning. Branch amLODIPine 2021-08 Yes [id number] 5mg Take 1 [facility] 5 mg tablet 1-10 tablet by [facility] of 00:00: mouth in [place] 00 the morning. Branch apixaban 2021-08 Yes 1358 5mg Take 1 [facility] (ELIQUIS) 5 1-10 tablet by [facility] of mg tablet 00:00: mouth in [facility] 00 the morning Branch and 1 tablet in the evening. Indication s: atrial fibrillati on atorvastati 2021-08 Yes [id number] 40mg Take 1 [facility] n 40 mg 1-10 tablet by [facility] of tablet 00:00: mouth at [place] 00 bedtime. Medical Branch furosemide 2021-08 Yes [id number] 40mg Take 1 [facility] (LASIX) 40 1-10 tablet by [facility] mg tablet 00:00: mouth [place] 00 the Medical morning. Branch hydrALAZINE 2021-08 Yes [id number] 100mg Take 1 [facility] 100 mg 1-10 tablet by [facility] of tablet 00:00: mouth in [place] 00 the Medical morning Branch and 1 tablet at noon and 1 tablet in the evening. isosorbide 2021-08 Yes [id number] 60mg Take 1 [facility] mononitrate 1-10 tablet by [facility] of 60 mg 24 hr 00:00: mouth in [place] tablet 00 the Medical morning. Branch KCL 10 mEq 2021-08 Yes [id number] 10meq Take 1 [facility] tablet 1-10 tablet by [facility] of 00:00: mouth in [place] 00 the Medical morning. Branch amLODIPine 2021-08 Yes [id number] 5mg Take 1 [facility] 5 mg tablet 1-10 tablet by [facility] of 00:00: mouth in [place] 00 the Medical morning. Branch apixaban 2021-08 Yes 1358 5mg Take 1 [facility] (ELIQUIS) 5 1-10 tablet by [facility] mg tablet 00:00: mouth [place] 00 the Medical morning Branch and 1 tablet in the evening. Indication s: atrial fibrillati on atorvastati 2021-08 Yes [id number] 40mg Take 1 [facility] n 40 mg 1-10 tablet by [facility] of tablet 00:00: mouth at [place] 00 bedtime. Medical Branch furosemide 2021-08 Yes [id number] 40mg Take 1 [facility] (LASIX) 40 1-10 tablet by [facility] mg tablet 00:00: mouth [place] 00 the Medical morning. Branch hydrALAZINE 2021-08 Yes [id number] 100mg Take 1 [facility] 100 mg 1-10 tablet by [facility] of tablet 00:00: mouth in [place] 00 the Medical morning Branch and 1 tablet at noon and 1 tablet in the evening. isosorbide 2021-08 Yes [id number] 60mg Take 1 [facility] mononitrate 1-10 tablet by [facility] of 60 mg 24 hr 00:00: mouth in [place] tablet 00 the morning. Branch KCL 10 mEq 2021-08 Yes [id number] 10meq Take 1 [facility] tablet 1-10 tablet by [facility] of 00:00: mouth in [place] the morning. Branch amLODIPine 2021-08 Yes [id number] 5mg Take 1 [facility] 5 mg tablet 1-10 tablet by [facility] of 00:00: mouth in [place] 00 the morning. Branch apixaban 2021-08 Yes 1358 5mg Take 1 [facility] (ELIQUIS) 5 1-10 tablet by [facility] of mg tablet 00:00: mouth in [facility] 00 the morning Branch and 1 tablet in the evening. Indication s: atrial fibrillati on atorvastati 2021-08 Yes [id number] 40mg Take 1 [facility] n 40 mg 1-10 tablet by [facility] of tablet 00:00: mouth at [place] [address] bedtime. Medical Branch furosemide 2021-08 Yes [id number] 40mg Take 1 [facility] (LASIX) 40 1-10 tablet by [facility] of mg tablet 00:00: mouth in [facility] the morning. Branch hydrALAZINE 2021-08 Yes [id number] 100mg Take 1 [facility] 100 mg 1-10 tablet by [facility] of tablet 00:00: mouth in [place] [address] the morning Branch and 1 tablet at noon and 1 tablet in the evening. isosorbide 2021-08 Yes [id number] 60mg Take 1 [facility] mononitrate 1-10 tablet by [facility] of 60 mg 24 hr 00:00: mouth in [place] tablet the morning. Branch KCL 10 mEq 2021-08 Yes [id number] 10meq Take 1 [facility] tablet 1-10 tablet by [facility] of 00:00: mouth in [place] the morning. Branch amLODIPine 2021-08 Yes [id number] 5mg Take 1 [facility] 5 mg tablet 1-10 tablet by [facility] of 00:00: mouth in [place] 00 the morning. Branch apixaban 2021-08 Yes 1358 5mg Take 1 [facility] (ELIQUIS) 5 1-10 tablet by [facility] of mg tablet 00:00: mouth in [facility] 00 the morning Branch and 1 tablet in the evening. Indication s: atrial fibrillati on atorvastati 2021-08 Yes [id number] 40mg Take 1 [facility] n 40 mg 1-10 tablet by [facility] of tablet 00:00: mouth at [place] 00 bedtime. Medical Branch furosemide 2021-08 Yes [id number] 40mg Take 1 [facility] (LASIX) 40 1-10 tablet by [facility] mg tablet 00:00: [place] 00 the morning. Branch hydrALAZINE 2021-08 Yes [id number] 100mg Take 1 [facility] 100 mg 1-10 tablet by [facility] of tablet 00:00: mouth in [place] the morning Branch and 1 tablet at noon and 1 tablet in the evening. isosorbide 2021-08 Yes [id number] 60mg Take 1 [facility] mononitrate 1-10 tablet by [facility] of 60 mg 24 hr 00:00: mouth in [place] tablet the morning. Branch KCL 10 mEq 2021-08 Yes [id number] 10meq Take 1 [facility] tablet 1-10 tablet by [facility] of 00:00: mouth in [place] the morning. Branch amLODIPine 2021-08 Yes [id number] 5mg Take 1 [facility] 5 mg tablet 1-10 tablet by [facility] of 00:00: mouth in [place] the morning. Branch apixaban 2021-08 Yes 1358 5mg Take 1 [facility] (ELIQUIS) 5 1-10 tablet by [facility] of mg tablet 00:00: mouth in [facility] s the morning Branch and 1 tablet in the evening. Indication s: atrial fibrillati on atorvastati 2021-08 Yes [id number] 40mg Take 1 [facility] n 40 mg 1-10 tablet by it[facility] of tablet 00:00: mouth at [place] [address] bedtime. Medical Branch furosemide 2021-08 Yes [id number] 40mg Take 1 [facility] (LASIX) 40 1-10 tablet by [facility] of mg tablet 00:00: mouth in [facility] 00 the morning. Branch hydrALAZINE 2021-08 Yes [id number] 100mg Take 1 [facility] 100 mg 1-10 tablet by [facility] of tablet 00:00: mouth in [place] 00 the morning Branch and 1 tablet at noon and 1 tablet in the evening. isosorbide 2021-08 Yes [id number] 60mg Take 1 [facility] mononitrate 1-10 tablet by [facility] of 60 mg 24 hr 00:00: mouth in [place] tablet the morning. Branch KCL 10 mEq 2021-08 Yes [id number] 10meq Take 1 [facility] tablet 1-10 tablet by [facility] of 00:00: mouth in [place] 00 the morning. Branch amLODIPine 2021-08 Yes [id number] 5mg Take 1 [facility] 5 mg tablet 1-10 tablet by [facility] of 00:00: mouth in [place] 00 the morning. Branch apixaban 2021-08 Yes 1358 5mg Take 1 [facility] (ELIQUIS) 5 1-10 tablet by [facility] of mg tablet 00:00: mouth in [facility] 00 the morning Branch and 1 tablet in the evening. Indication s: atrial fibrillati on atorvastati 2021-08 Yes [id number] 40mg Take 1 [facility] n 40 mg 1-10 tablet by [facility] of tablet 00:00: mouth at [place] [address] bedtime. Medical Branch furosemide 2021-08 Yes [id number] 40mg Take 1 [facility] (LASIX) 40 1-10 tablet by [facility] of mg tablet 00:00: mouth in [facility] 00 the morning. Branch hydrALAZINE 2021-08 Yes [id number] 100mg Take 1 [facility] 100 mg 1-10 tablet by [facility] of tablet 00:00: mouth in [place] 00 the morning Branch and 1 tablet at noon and 1 tablet in the evening. isosorbide 2021-08 Yes [id number] 60mg Take 1 [facility] mononitrate 1-10 tablet by [facility] of 60 mg 24 hr 00:00: mouth in [place] tablet 00 the morning. Branch KCL 10 mEq 2021-08 Yes [id number] 10meq Take 1 [facility] tablet 1-10 tablet by [facility] of 00:00: mouth in [place] 00 the morning. Branch amLODIPine 2021-08 Yes [id number] 5mg Take 1 [facility] 5 mg tablet 1-10 tablet by [facility] of 00:00: mouth in [place] 00 the Medical morning. Branch apixaban 2021-08 Yes 1358 5mg Take 1 [facility] (ELIQUIS) 5 1-10 tablet by it[facility] of mg tablet 00:00: mouth in [facility] 00 the Medical morning Branch and 1 tablet in the evening. Indication s: atrial fibrillati on atorvastati 2021-08 Yes [id number] 40mg Take 1 [facility] n 40 mg 1-10 tablet by it[facility] of tablet 00:00: mouth at [place] [address] bedtime. Medical Branch furosemide 2021-08 Yes [id number] 40mg Take 1 [facility] (LASIX) 40 1-10 tablet by [facility] mg tablet 00:00: [facility] the morning. Branch hydrALAZINE 2021-08 Yes [id number] 100mg Take 1 [facility] 100 mg 1-10 tablet by [facility] of tablet 00:00: mouth in [place] 00 the morning Branch and 1 tablet at noon and 1 tablet in the evening. isosorbide 2021-08 Yes [id number] 60mg Take 1 [facility] mononitrate 1-10 tablet by [facility] of 60 mg 24 hr 00:00: mouth in [place] tablet the Medical morning. Branch KCL 10 mEq 2021-08 Yes [id number] 10meq Take 1 [facility] tablet 1-10 tablet by [facility] of 00:00: mouth in [place] 00 the morning. Branch amLODIPine 2021-08 Yes [id number] 5mg Take 1 [facility] 5 mg tablet 1-10 tablet by [facility] of 00:00: mouth in [place] 00 the morning. Branch apixaban 2021-08 Yes 1358 5mg Take 1 [facility] (ELIQUIS) 5 1-10 tablet by [facility] of mg tablet 00:00: mouth in [facility] 00 the morning Branch and 1 tablet in the evening. Indication s: atrial fibrillati on atorvastati 2021-08 Yes [id number] 40mg Take 1 [facility] n 40 mg 1-10 tablet by [facility] of tablet 00:00: mouth at [place] [address] bedtime. Medical Branch furosemide 2021-08 Yes [id number] 40mg Take 1 [facility] (LASIX) 40 1-10 tablet by [facility] mg tablet 00:00: [facility] the morning. Branch hydrALAZINE 2021-08 Yes [id number] 100mg Take 1 [facility] 100 mg 1-10 tablet by [facility] of tablet 00:00: mouth in [place] 00 the Medical morning Branch and 1 tablet at noon and 1 tablet in the evening. isosorbide 2021-08 Yes [id number] 60mg Take 1 [facility] mononitrate 1-10 tablet by [facility] of 60 mg 24 hr 00:00: mouth in [place] tablet 00 the Medical morning. Branch KCL 10 mEq 2021-08 Yes [id number] 10meq Take 1 [facility] tablet 1-10 tablet by [facility] of 00:00: mouth in [place] 00 the morning. Branch amLODIPine 2021-08 Yes [id number] 5mg Take 1 [facility] 5 mg tablet 1-10 tablet by it[facility] of 00:00: mouth in [place] 00 the morning. Branch apixaban 2021-08 Yes 1358 5mg Take 1 [facility] (ELIQUIS) 5 1-10 tablet by ity of mg tablet 00:00: mouth in [facility] the morning Branch and 1 tablet in the evening. Indication s: atrial fibrillati on atorvastati 2021-08 Yes [id number] 40mg Take 1 [facility] n 40 mg 1-10 tablet by [facility] of tablet 00:00: mouth at [place] [address] bedtime. Medical Branch furosemide 2021-08 Yes [id number] 40mg Take 1 [facility] (LASIX) 40 1-10 tablet by ity of mg tablet 00:00: mouth in [facility] 00 the morning. Branch hydrALAZINE 2021-08 Yes [id number] 100mg Take 1 [facility] 100 mg 1-10 tablet by [facility] of tablet 00:00: mouth in [place] [address] the morning Branch and 1 tablet at noon and 1 tablet in the evening. isosorbide 2021-08 Yes [id number] 60mg Take 1 [facility] mononitrate 1-10 tablet by [facility] of 60 mg 24 hr 00:00: mouth in [place] tablet 00 the morning. Branch KCL 10 mEq 2021-08 Yes [id number] 10meq Take 1 [facility] tablet 1-10 tablet by [facility] of 00:00: mouth in [place] 00 the morning. Branch amLODIPine 2021-08 Yes [id number] 5mg Take 1 [facility] 5 mg tablet 1-10 tablet by [facility]y of 00:00: mouth in [place] 00 the Medical morning. Branch apixaban 2021-08 Yes 1358 5mg Take 1 [facility] (ELIQUIS) 5 1-10 tablet by ity of mg tablet 00:00: mouth in [facility] 00 the Medical morning Branch and 1 tablet in the evening. Indication s: atrial fibrillati on atorvastati 2021-08 Yes [id number] 40mg Take 1 [facility] n 40 mg 1-10 tablet by [facility] of tablet 00:00: mouth at [place] 00 bedtime. Medical Branch furosemide 2021-08 Yes [id number] 40mg Take 1 [facility] (LASIX) 40 1-10 tablet by ity of mg tablet 00:00: mouth in [facility] 00 the morning. Branch hydrALAZINE 2021-08 Yes [id number] 100mg Take 1 [facility] 100 mg 1-10 tablet by ity of tablet 00:00: mouth in [place] the morning Branch and 1 tablet at noon and 1 tablet in the evening. isosorbide 2021-08 Yes [id number] 60mg Take 1 [facility] mononitrate 1-10 tablet by [facility] of 60 mg 24 hr 00:00: mouth in [place] tablet the morning. Branch KCL 10 mEq 2021-08 Yes [id number] 10meq Take 1 [facility] tablet 1-10 tablet by it[facility] of 00:00: mouth in [place] the morning. Branch amLODIPine 2021-08 Yes [id number] 5mg Take 1 [facility] 5 mg tablet 1-10 tablet by ity of 00:00: mouth in [place] the morning. Branch apixaban 2021-08 Yes 1358 5mg Take 1 [facility] (ELIQUIS) 5 1-10 tablet by ity of mg tablet 00:00: mouth in [facility] the morning Branch and 1 tablet in the evening. Indication s: atrial fibrillati on furosemide 2021-08 Yes [id number] 40mg Take 1 [facility] (LASIX) 40 1-10 tablet by ity of mg tablet 00:00: mouth in [facility] 00 the morning. Branch hydrALAZINE 2021-08 Yes [id number] 100mg Take 1 [facility] 100 mg 1-10 tablet by it[facility] of tablet 00:00: mouth in [place] the morning Branch and 1 tablet at noon and 1 tablet in the evening. isosorbide 2021-08 Yes [id number] 60mg Take 1 [facility] mononitrate 1-10 tablet by [facility]y of 60 mg 24 hr 00:00: mouth in [place] tablet the morning. Branch KCL 10 mEq 2021-08 Yes [id number] 10meq Take 1 [facility] tablet 1-10 tablet by [facility] of 00:00: mouth in [place] 00 the morning. Branch amLODIPine 2021-08 Yes [id number] 5mg Take 1 [facility] 5 mg tablet 1-10 tablet by [facility]y of 00:00: mouth in [place] 00 the Medical morning. Branch amLODIPine 2021-08 Yes [id number] 5mg Take 1 [facility] 5 mg tablet 1-10 tablet by ity of 00:00: mouth in [place] 00 the Medical morning. Branch apixaban 2021-08 Yes 1358 5mg Take 1 [facility] (ELIQUIS) 5 1-10 tablet by ity of mg tablet 00:00: mouth in [facility] 00 the Medical morning Branch and 1 tablet in the evening. Indication s: atrial fibrillati on furosemide 2021-08 Yes [id number] 40mg Take 1 [facility] (LASIX) 40 1-10 tablet by ity of mg tablet 00:00: mouth in [facility] 00 the Medical morning. Branch hydrALAZINE 2021-08 Yes [id number] 100mg Take 1 [facility] 100 mg 1-10 tablet by it[facility] of tablet 00:00: mouth in [place] 00 the morning Branch and 1 tablet at noon and 1 tablet in the evening. isosorbide 2021-08 Yes [id number] 60mg Take 1 [facility] mononitrate 1-10 tablet by [facility]y of 60 mg 24 hr 00:00: mouth in [place] tablet 00 the morning. Branch KCL 10 mEq 2021-08 Yes [id number] 10meq Take 1 [facility] tablet 1-10 tablet by [facility]y of 00:00: mouth in [place] 00 the Medical morning. Branch apixaban 2021-08 Yes 1358 5mg Take 1 [facility] (ELIQUIS) 5 1-10 tablet by ity of mg tablet 00:00: mouth in [facility] 00 the morning Branch and 1 tablet in the evening. Indication s: atrial fibrillati on atorvastati 2021-08 Yes [id number] 40mg Take 1 [facility] n 40 mg 1-10 tablet by it[facility] of tablet 00:00: mouth at [place] [address] bedtime. Medical Branch amLODIPine 2021-08 Yes [id number] 5mg Take 1 [facility] 5 mg tablet 1-10 tablet by ity of 00:00: mouth in [place] 00 the Medical morning. Branch furosemide 2021-08 Yes [id number] 40mg Take 1 [facility] (LASIX) 40 1-10 tablet by ity of mg tablet 00:00: mouth in [facility] 00 the Medical morning. Branch apixaban 2021-08 Yes 1358 5mg Take 1 [facility] (ELIQUIS) 5 1-10 tablet by ity of mg tablet 00:00: mouth in [facility] 00 the morning Branch and 1 tablet in the evening. Indication s: atrial fibrillati on furosemide 2021-08 Yes [id number] 40mg Take 1 [facility] (LASIX) 40 1-10 tablet by ity of mg tablet 00:00: mouth in [facility] 00 the morning. Branch hydrALAZINE 2021-08 Yes [id number] 100mg Take 1 [facility] 100 mg 1-10 tablet by [facility] of tablet 00:00: mouth in [place] [address] the morning Branch and 1 tablet at noon and 1 tablet in the evening. isosorbide 2021-08 Yes [id number] 60mg Take 1 [facility] mononitrate 1-10 tablet by [facility]y of 60 mg 24 hr 00:00: mouth in [place] tablet 00 the morning. Branch KCL 10 mEq 2021-08 Yes [id number] 10meq Take 1 [facility] tablet 1-10 tablet by [facility]y of 00:00: mouth in [place] [address] the morning. Branch hydrALAZINE 2021-08 Yes [id number] 100mg Take 1 [facility] 100 mg 1-10 tablet by [facility] of tablet 00:00: mouth in [place] [address] the morning Branch and 1 tablet at noon and 1 tablet in the evening. isosorbide 2021-08 Yes [id number] 60mg Take 1 [facility] mononitrate 1-10 tablet by [facility]y of 60 mg 24 hr 00:00: mouth in [place] tablet the morning. Branch amLODIPine 2021-08 Yes [id number] 5mg Take 1 [facility] 5 mg tablet 1-10 tablet by [facility]y of 00:00: mouth in [place] 00 the morning. Branch apixaban 2021-08 Yes 1358 5mg Take 1 [facility] (ELIQUIS) 5 1-10 tablet by ity of mg tablet 00:00: mouth in [facility] 00 the Medical morning Branch and 1 tablet in the evening. Indication s: atrial fibrillati on furosemide 2021-08 Yes [id number] 40mg Take 1 [facility] (LASIX) 40 1-10 tablet by [facility]y of mg tablet 00:00: mouth in [facility] 00 the Medical morning. Branch hydrALAZINE 2021-08 Yes [id number] 100mg Take 1 [facility] 100 mg 1-10 tablet by [facility] of tablet 00:00: mouth in [place] 00 the morning Branch and 1 tablet at noon and 1 tablet in the evening. isosorbide 2021-08 Yes [id number] 60mg Take 1 [facility] mononitrate 1-10 tablet by [facility]y of 60 mg 24 hr 00:00: mouth in [place] tablet the morning. Branch KCL 10 mEq 2021-08 Yes [id number] 10meq Take 1 [facility] tablet 1-10 tablet by ity of 00:00: mouth in [place] the morning. Branch KCL 10 mEq 2021-08 Yes [id number] 10meq Take 1 [facility] tablet 1-10 tablet by ity of 00:00: mouth in [place] the morning. Branch amLODIPine 2021-08 Yes [id number] 5mg Take 1 [facility] 5 mg tablet 1-10 tablet by ity of 00:00: mouth in [place] the morning. Branch apixaban 2021-08 Yes 1358 5mg Take 1 [facility] (ELIQUIS) 5 1-10 tablet by ity of mg tablet 00:00: mouth in [facility] the morning Branch and 1 tablet in the evening. Indication s: atrial fibrillati on furosemide 2021-08 Yes [id number] 40mg Take 1 [facility] (LASIX) 40 1-10 tablet by ity of mg tablet 00:00: mouth in [facility] the morning. Branch hydrALAZINE 2021-08 Yes [id number] 100mg Take 1 [facility] 100 mg 1-10 tablet by ity of tablet 00:00: mouth in [place] the morning Branch and 1 tablet at noon and 1 tablet in the evening. isosorbide 2021-08 Yes [id number] 60mg Take 1 [facility] mononitrate 1-10 tablet by [facility]y of 60 mg 24 hr 00:00: mouth in [place] tablet the morning. Branch KCL 10 mEq 2021-08 Yes [id number] 10meq Take 1 [facility] tablet 1-10 tablet by [facility]y of 00:00: mouth in [place] [address] the morning. Branch amLODIPine 2021-08 Yes [id number] 5mg Take 1 [facility] 5 mg tablet 1-10 tablet by [facility]y of 00:00: mouth in [place] [address] the morning. Branch apixaban 2021-08 Yes 1358 5mg Take 1 [facility] (ELIQUIS) 5 1-10 tablet by [facility] mg tablet 00:00: [place] 00 the Medical morning Branch and 1 tablet in the evening. Indication s: atrial fibrillati on furosemide 2021-08 Yes [id number] 40mg Take 1 [facility] (LASIX) 40 1-10 tablet by [facility] mg tablet 00:00: [place] 00 the Medical morning. Branch hydrALAZINE 2021-08 Yes [id number] 100mg Take 1 [facility] 100 mg 1-10 tablet by ity of tablet 00:00: mouth in [place] 00 the Medical morning Branch and 1 tablet at noon and 1 tablet in the evening. isosorbide 2021-08 Yes [id number] 60mg Take 1 [facility] mononitrate 1-10 tablet by [facility]y of 60 mg 24 hr 00:00: mouth in [place] tablet 00 the Medical morning. Branch KCL 10 mEq 2021-08 Yes [id number] 10meq Take 1 [facility] tablet 1-10 tablet by [facility]y of 00:00: mouth in [place] 00 the Medical morning. Branch amLODIPine 2021-08 Yes [id number] 5mg Take 1 [facility] 5 mg tablet 1-10 tablet by ity of 00:00: mouth in [place] 00 the Medical morning. Branch apixaban 2021-08 Yes 1358 5mg Take 1 [facility] (ELIQUIS) 5 1-10 tablet by [facility] of mg tablet 00:00: mouth [place] 00 the Medical morning Branch and 1 tablet in the evening. Indication s: atrial fibrillati on furosemide 2021-08 Yes [id number] 40mg Take 1 [facility] (LASIX) 40 1-10 tablet by [facility] of mg tablet 00:00: mouth [place] 00 the Medical morning. Branch hydrALAZINE 2021-08 Yes [id number] 100mg Take 1 [facility] 100 mg 1-10 tablet by [facility]y of tablet 00:00: mouth in [place] 00 the Medical morning Branch and 1 tablet at noon and 1 tablet in the evening. isosorbide 2021-08 Yes [id number] 60mg Take 1 [facility] mononitrate 1-10 tablet by [facility]y of 60 mg 24 hr 00:00: mouth in [place] tablet 00 the Medical morning. Branch KCL 10 mEq 2021-08 Yes [id number] 10meq Take 1 [facility] tablet 1-10 tablet by [facility]y of 00:00: mouth in [place] 00 the morning. Branch amLODIPine 2021-08 Yes [id number] 5mg Take 1 [facility] 5 mg tablet 1-10 tablet by [facility]y of 00:00: mouth in [place] the morning. Branch apixaban 2021-08 Yes 1358 5mg Take 1 [facility] (ELIQUIS) 5 1-10 tablet by ity of mg tablet 00:00: mouth in [facility] 00 the Medical morning Branch and 1 tablet in the evening. Indication s: atrial fibrillati on furosemide 2021-08 Yes [id number] 40mg Take 1 [facility] (LASIX) 40 1-10 tablet by [facility]y of mg tablet 00:00: mouth in [facility] 00 the morning. Branch hydrALAZINE 2021-08 Yes [id number] 100mg Take 1 [facility] 100 mg 1-10 tablet by ity of tablet 00:00: mouth in [place] 00 the morning Branch and 1 tablet at noon and 1 tablet in the evening. isosorbide 2021-08 Yes [id number] 60mg Take 1 [facility] mononitrate 1-10 tablet by [facility]y of 60 mg 24 hr 00:00: mouth in [place] tablet 00 the morning. Branch KCL 10 mEq 2021-08 Yes [id number] 10meq Take 1 [facility] tablet 1-10 tablet by [facility]y of 00:00: mouth in [place] the morning. Branch amLODIPine 2021-08 Yes [id number] 5mg Take 1 [facility] 5 mg tablet 1-10 tablet by ity of 00:00: mouth in [place] the morning. Branch apixaban 2021-08 Yes 1358 5mg Take 1 [facility] (ELIQUIS) 5 1-10 tablet by [facility]y of mg tablet 00:00: mouth in [facility] 00 the Medical morning Branch and 1 tablet in the evening. Indication s: atrial fibrillati on furosemide 2021-08 Yes [id number] 40mg Take 1 [facility] (LASIX) 40 1-10 tablet by [facility]y of mg tablet 00:00: mouth in [facility] 00 the Medical morning. Branch hydrALAZINE 2021-08 Yes [id number] 100mg Take 1 [facility] 100 mg 1-10 tablet by [facility]y of tablet 00:00: mouth in [place] 00 the Medical morning Branch and 1 tablet at noon and 1 tablet in the evening. isosorbide 2021-08 Yes [id number] 60mg Take 1 [facility] mononitrate 1-10 tablet by [facility]y of 60 mg 24 hr 00:00: mouth in [place] tablet the morning. Branch KCL 10 mEq 2021-08 Yes [id number] 10meq Take 1 [facility] tablet 1-10 tablet by [facility]y of 00:00: mouth in [place] the morning. Branch amLODIPine 2021-08 Yes [id number] 5mg Take 1 [facility] 5 mg tablet 1-10 tablet by [facility]y of 00:00: mouth in [place] the morning. Branch apixaban 2021-08 Yes 1358 5mg Take 1 [facility] (ELIQUIS) 5 1-10 tablet by [facility]y of mg tablet 00:00: mouth in [facility] the morning Branch and 1 tablet in the evening. Indication s: atrial fibrillati on furosemide 2021-08 Yes [id number] 40mg Take 1 [facility] (LASIX) 40 1-10 tablet by [facility]y of mg tablet 00:00: mouth in [facility] the morning. Branch hydrALAZINE 2021-08 Yes [id number] 100mg Take 1 [facility] 100 mg 1-10 tablet by [facility]y of tablet 00:00: mouth in [place] the Branch and 1 tablet at on and 1 tablet in the evening. isosorbide 2021-08 Yes [id number] 60mg Take 1 [facility] mononitrate 1-10 tablet by [facility]y of 60 mg 24 hr 00:00: mouth in [place] tablet the morning. Branch KCL 10 mEq 2021-08 Yes [id number] 10meq Take 1 [facility] tablet 1-10 tablet by [facility]y of 00:00: mouth in [place] the morning. Branch amLODIPine 2021-08 Yes [id number] 5mg Take 1 [facility] 5 mg tablet 1-10 tablet by [facility]y of 00:00: mouth in [place] the morning. Branch amLODIPine 2021-08 Yes [id number] 5mg Take 1 Univers 5 mg tablet 1-10 tablet by ity of 00:00: mouth in [place] [address] the morning. Branch hydrALAZINE 2021-08 Yes [id number] 100mg Take 1 Univers 100 mg 1-10 tablet by ity of tablet 00:00: mouth in [place] 00 the Medical morning Branch and 1 tablet at noon and 1 tablet in the evening. apixaban 2021-08 Yes [id number] 5mg Take 1 Univers (ELIQUIS) 5 1-10 tablet by ity of mg tablet 00:00: mouth in [facility] 00 the Medical morning Branch and 1 tablet in the evening. Indication s: atrial fibrillati on atorvastati 2021-08 Yes [id number] 40mg Take 1 Univers n 40 mg 1-10 tablet by ity of tablet 00:00: mouth at [place] [address] bedtime. Medical Branch amLODIPine 2021-08 Yes [id number] 5mg Take 1 Univers 5 mg tablet 1-10 tablet by ity of 00:00: mouth in [place] 00 the morning. Branch hydrALAZINE 2021-08 Yes [id number] 100mg Take 1 Univers 100 mg 1-10 tablet by ity of tablet 00:00: mouth in [place] [address] the Medical morning Branch and 1 tablet at noon and 1 tablet in the evening. furosemide 2021-08 Yes [id number] 40mg Take 1 Univers (LASIX) 40 1-10 tablet by ity of mg tablet 00:00: mouth in [facility] 00 the morning. Branch hydrALAZINE 2021-08 Yes [id number] 100mg Take 1 Univers 100 mg 1-10 tablet by ity of tablet 00:00: mouth in [place] [address] the morning Branch and 1 tablet at noon and 1 tablet in the evening. isosorbide 2021-08 Yes [id number] 60mg Take 1 Univers mononitrate 1-10 tablet by ity of 60 mg 24 hr 00:00: mouth in [place] tablet 00 the morning. Branch amLODIPine 2021-08 Yes [id number] 5mg Take 1 Univers 5 mg tablet 1-10 tablet by ity of 00:00: mouth in [place] [address] the morning. Branch hydrALAZINE 2021-08 Yes [id number] 100mg Take 1 Univers 100 mg 1-10 tablet by ity of tablet 00:00: mouth in [place] [address] the morning Branch and 1 tablet at noon and 1 tablet in the evening. KCL 10 mEq 2021-08 Yes [id number] 10meq Take 1 Univers tablet 1-10 tablet by ity of 00:00: mouth in [place] [address] the morning. Branch amLODIPine 2021-08 Yes [id number] 5mg Take 1 Univers 5 mg tablet 1-10 tablet by ity of 00:00: mouth in [place] the morning. Branch hydrALAZINE 2021-08 Yes [id number] 100mg Take 1 Univers 100 mg 1-10 tablet by ity of tablet 00:00: mouth in [place] the Medical morning Branch and 1 tablet at noon and 1 tablet in the evening. amLODIPine 2021- Yes [id number] 5mg Take 1 Univers 5 mg tablet 1-10 tablet by ity of 00:00: mouth in [place] the morning. Branch hydrALAZINE 2021-08 Yes [id number] 100mg Take 1 [facility] 100 mg 1-10 tablet by ity of tablet 00:00: mouth in [place] the morning Branch and 1 tablet at noon and 1 tablet in the evening. amLODIPine 2021- Yes [id number] 5mg Take 1 Univers 5 mg tablet 1-10 tablet by ity of 00:00: mouth in [place] the morning. Branch hydrALAZINE 2021-08 Yes [id number] 100mg Take 1 Univers 100 mg 1-10 tablet by ity of tablet 00:00: mouth in [place] the morning Branch and 1 tablet at noon and 1 tablet in the evening. amLODIPine 2021-08 Yes [id number] 5mg Take 1 Univers 5 mg tablet 1-10 tablet by ity of 00:00: mouth in [place] the morning. Branch hydrALAZINE 2021-08 Yes [id number] 100mg Take 1 [facility] 100 mg 1-10 tablet by ity of tablet 00:00: mouth in [place] the Medical morning Branch and 1 tablet at noon and 1 tablet in the evening. amLODIPine 2021- Yes [id number] 5mg Take 1 Univers 5 mg tablet 1-10 tablet by ity of 00:00: mouth in [place] the morning. Branch hydrALAZINE 2021-08 Yes [id number] 100mg Take 1 Univers 100 mg 1-10 tablet by ity of tablet 00:00: mouth in [place] [address] the Medical morning Branch and 1 tablet at noon and 1 tablet in the evening. amLODIPine 2021-1 Yes [id number] 5mg Take 1 Univers 5 mg tablet 1-10 tablet by ity of 00:00: mouth in [place] the morning. Branch apixaban 2021-08 Yes [id number] 5mg Take 1 Univers (ELIQUIS) 5 1-10 tablet by ity of mg tablet 00:00: mouth in [facility] 00 the morning Branch and 1 tablet in the evening. Indication s: atrial fibrillati on amLODIPine 2021-08 Yes [id number] 5mg Take 1 Univers 5 mg tablet 1-10 tablet by ity of 00:00: mouth in [place] the morning. Branch hydrALAZINE 2021-08 Yes [id number] 100mg Take 1 [facility] 100 mg 1-10 tablet by ity of tablet 00:00: mouth in [place] [address] the morning Branch and 1 tablet at noon and 1 tablet in the evening. atorvastati 2021-08 Yes [id number] 40mg Take 1 Univers n 40 mg 1-10 tablet by ity of tablet 00:00: mouth at [place] [address] bedtime. Medical Branch furosemide 2021-08 Yes [id number] 40mg Take 1 Univers (LASIX) 40 1-10 tablet by ity of mg tablet 00:00: mouth in [place] [address] the morning. Branch amLODIPine 2021-08 Yes [id number] 5mg Take 1 Univers 5 mg tablet 1-10 tablet by ity of 00:00: mouth in [place] the morning. Branch hydrALAZINE 2021-08 Yes [id number] 100mg Take 1 [facility] 100 mg 1-10 tablet by ity of tablet 00:00: mouth in [place] [address] the morning Branch and 1 tablet at noon and 1 tablet in the evening. hydrALAZINE 2021-08 Yes [id number] 100mg Take 1 Univers 100 mg 1-10 tablet by ity of tablet 00:00: mouth in [place] [address] the morning Branch and 1 tablet at noon and 1 tablet in the evening. isosorbide 2021-08 Yes [id number] 60mg Take 1 Univers mononitrate 1-10 tablet by ity of 60 mg 24 hr 00:00: mouth in [place] tablet 00 the morning. Branch KCL 10 mEq 2021-08 Yes [id number] 10meq Take 1 Univers tablet 1-10 tablet by ity of 00:00: mouth in [place] [address] the morning. Branch amLODIPine 2021-08 Yes [id number] 5mg Take 1 Univers 5 mg tablet 1-10 tablet by ity of 00:00: mouth in [place] the morning. Branch hydrALAZINE 2021-08 Yes [id number] 100mg Take 1 [facility] 100 mg 1-10 tablet by ity of tablet 00:00: mouth in [place] the morning Branch and 1 tablet at noon and 1 tablet in the evening. amLODIPine 2021-08 Yes [id number] 5mg Take 1 [facility] 5 mg tablet 1-10 tablet by ity of 00:00: mouth in [place] the morning. Branch hydrALAZINE 2021-08 Yes [id number] 100mg Take 1 [facility] 100 mg 1-10 tablet by ity of tablet 00:00: mouth in [place] the morning Branch and 1 tablet at noon and 1 tablet in the evening. amLODIPine 2021-08 Yes [id number] 5mg Take 1 Univers 5 mg tablet 1-10 tablet by ity of 00:00: mouth in [place] the morning. Branch hydrALAZINE 2021-08 Yes [id number] 100mg Take 1 [facility] 100 mg 1-10 tablet by ity of tablet 00:00: mouth in [place] the morning Branch and 1 tablet at noon and 1 tablet in the evening. amLODIPine 2021-08 Yes [id number] 5mg Take 1 Univers 5 mg tablet 1-10 tablet by ity of 00:00: mouth in [place] the morning. Branch apixaban 2021-08- No 1358 5mg Take 1 Univer s (ELIQUIS) 5 08-25 tablet by it y of mg tablet 00:00: 00:00 mouth in [place] 00 :00 the morning Branch and 1 tablet in the evening. Indication s: atrial fibrillati on furosemide 2021-08- No [id number] 40mg Take 1 Univers (LASIX) 40 08-25 tablet by ity of mg tablet 00:00: 00:00 mouth in [place] 00 :00 the Medical morning. Branch isosorbide 2021-08- No [id number] 60mg Take 1 Univers mononitrate 08-25 tablet by it y of 60 mg 24 hr 00:00: 00:00 mouth in [place] tablet 00 :00 the Medical morning. Branch KCL 10 mEq 2021-08- No [id number] 10meq Take 1 Univers tablet 08-25 tablet by ity of 00:00: 00:00 mouth in [place] 00 :00 the Medical morning. Branch apixaban 2021-08- No 1358 5mg Take 1 Univer s (ELIQUIS) 5 08-25 tablet by it y of mg tablet 00:00: 00:00 mouth in [place] 00 :00 the Medical morning Branch and 1 tablet in the evening. Indication s: atrial fibrillati on furosemide 2021-08- No [id number] 40mg Take 1 Univers (LASIX) 40 08-25 tablet by ity of mg tablet 00:00: 00:00 mouth in [place] 00 :00 the Medical morning. Branch isosorbide 2021-08- No [id number] 60mg Take 1 Univers mononitrate 08-25 tablet by it y of 60 mg 24 hr 00:00: 00:00 mouth in [place] tablet 00 :00 the Medical morning. Branch KCL 10 mEq 2021-08- No [id number] 10meq Take 1 Univers tablet 08-25 tablet by ity of 00:00: 00:00 mouth in [place] 00 :00 the Medical morning. Branch atorvastati 2021-08- No [id number] 40mg Take 1 Univers n 40 mg 08-25 tablet by ity of tablet 00:00: 00:00 mouth at [place] 00 :00 bedtime. Medical Branch atorvastati 2021-08- No [id number] 40mg Take 1 Univers n 40 mg 08-25 tablet by ity of tablet 00:00: 00:00 mouth at [place] 00 :00 bedtime. Medical Branch atorvastati 2021-08- No [id number] 40mg Take 1 Univers n 40 mg 08-25 tablet by ity of tablet 00:00: 00:00 mouth at [place] 00 :00 bedtime. Medical Branch atorvastati 2021-08- No [id number] 40mg Take 1 Univers n 40 mg [...] 00:00: mouth [place] mcg DsDv 00 daily. [facility] Branch Vital Signs Vital Name Observation Time Observation Value Comments Source Systolic blood 2023-03-09 18:19:00 136 mm[Hg] Univer sity of pressure [facility] Diastolic blood 2023-03-09 18:19:00 55 mm[Hg] Unive rsity of pressure [place] [facility] Heart rate 2023-03-09 18:19:00 72 /min Universi ty of [place] [facility] Body weight 2023-03-09 18:19:00 76.476 kg Universi ty of [place] [facility] BMI 2023-03-09 18:19:00 28.06 kg/m2 Universi ty of [place] [facility] Oxygen saturation in 2023-03-09 18:19:00 98 /min University of Arterial blood by [place] [facility] Pulse oximetry Branch Respiratory rate 2023-03-09 18:17:00 19 /min Univ ersity of [place] [facility] Body height 2023-03-09 18:17:00 165.1 cm Universi ty of [place] [facility] Systolic blood 2023-01-20 18:14:00 145 mm[Hg] Univer sity of pressure [place] [facility] Diastolic blood 2023-01-20 18:14:00 59 mm[Hg] Unive rsity of pressure [place] [facility] Heart rate 2023-01-20 18:07:00 75 /min Universi ty of [place] [facility] Respiratory rate 2023-01-20 18:07:00 16 /min Univ ersity of [place] [facility] Body height 2023-01-20 18:07:00 165.1 cm Universi ty of [place] [facility] Body weight 2023-01-20 18:07:00 78.472 kg Universi ty of [place] [facility] BMI 2023-01-20 18:07:00 28.79 kg/m2 Universi ty of [place] [facility] Oxygen saturation in 2023-01-20 18:07:00 99 /min University of Arterial blood by [place] [facility] Pulse oximetry Branch Systolic blood 2022-12-10 18:05:00 134 mm[Hg] Univer sity of pressure [place] [facility] Diastolic blood 2022-12-10 18:05:00 75 mm[Hg] Unive rsity of pressure [place] [facility] Heart rate 2022-12-10 18:05:00 62 /min Universi ty of [place] [facility] Body height 2022-12-10 18:05:00 165.1 cm [facility]i ty of [place] [facility] Body weight 2022-12-10 18:05:00 78.79 kg Universi ty of [place] [facility] BMI 2022-12-10 18:05:00 28.91 kg/m2 Universi ty of [place] [facility] Oxygen saturation in 2022-12-10 18:05:00 98 /min University of Arterial blood by [place] [facility] Pulse oximetry Branch Systolic blood 2022-09-23 17:25:00 138 mm[Hg] Univer sity of pressure [place] [facility] Diastolic blood 2022-09-23 17:25:00 71 mm[Hg] Unive rsity of pressure [place] [facility] Heart rate 2022-09-23 17:25:00 60 /min Universi ty of [place] [facility] Respiratory rate 2022-09-23 17:25:00 29 /min Univ ersity of [place] [facility] Oxygen saturation in 2022-09-23 17:25:00 100 /min University of Arterial blood by [place] [facility] Pulse oximetry Branch Body temperature 2022-09-23 17:07:00 36.56 Gabriella Univ ersity of [place] [facility] Body height 2022-09-17 18:00:00 165.1 cm Universi ty of [place] [facility] Body weight 2022-09-17 18:00:00 83.462 kg [facility]i ty of [place] [facility] BMI 2022-09-17 18:00:00 30.62 kg/m2 [facility] [place] [facility] Systolic blood 2022-09-23 15:19:00 144 mm[Hg] Univer sity of pressure [place] [facility] Diastolic blood 2022-09-23 15:19:00 69 mm[Hg] Unive rsity of pressure [place] [facility] Heart rate 2022-09-23 15:19:00 68 /min Universi ty of [place] [facility] Body temperature 2022-09-23 15:19:00 36.56 Gabriella Univ ersity of [place] [facility] Respiratory rate 2022-09-23 15:19:00 21 /min Univ ersity of [place] [facility] Oxygen saturation in 2022-09-23 15:19:00 100 /min University of Arterial blood by [place] [facility] Pulse oximetry Branch Body height 2022-09-17 18:00:00 165.1 cm Universi ty of [place] [facility] Body weight 2022-09-17 18:00:00 83.462 kg Universi ty of [place] [facility] BMI 2022-09-17 18:00:00 30.62 kg/m2 Universi ty of [place] [facility] Systolic blood 2022-09-15 16:51:00 178 mm[Hg] Univer sity of pressure [facility] Branch Diastolic blood 2022-09-15 16:51:00 72 mm[Hg] Unive rsity of pressure [facility] Branch Heart rate 2022-09-15 16:50:00 65 /min Universi ty of [facility] Body temperature 2022-09-15 16:50:00 36.06 Gabriella Univ ersity of [facility] Branch Body height 2022-09-15 16:50:00 165.1 cm Universi ty of [place] [facility] Body weight 2022-09-15 16:50:00 83.462 kg Universi ty of [facility] Branch BMI 2022-09-15 16:50:00 30.62 kg/m2 Universi ty of [facility] Systolic blood 2022-09-09 19:23:00 138 mm[Hg] Univer sity of pressure [facility] Diastolic blood 2022-09-09 19:23:00 60 mm[Hg] Unive rsity of pressure [facility] Heart rate 2022-09-09 19:23:00 63 /min Universi ty of [place] [facility] [place] Body height 2022-09-09 19:23:00 165.1 cm [facility]i ty of [place] [facility] Body weight 2022-09-09 19:23:00 78.472 kg [facility]i ty of [place] [facility] BMI 2022-09-09 19:23:00 28.79 kg/m2 Universi ty of [facility] Oxygen saturation in 2022-09-09 19:23:00 100 /min University Arterial blood by [facility] Pulse oximetry Branch Systolic blood 2022-08-21 20:02:00 147 mm[Hg] Univer sity of pressure [facility] Branch Diastolic blood 2022-08-21 20:02:00 72 mm[Hg] Unive rsity of pressure [facility] Heart rate 2022-08-21 20:01:00 58 /min Universi ty of [facility] Body temperature 2022-08-21 20:01:00 36.56 Gabriella Univ ersity of [facility] Body height 2022-08-21 20:01:00 165.1 cm Universi ty of [facility] Branch Body weight 2022-08-21 20:01:00 85.276 kg Universi ty [facility] BMI 2022-08-21 20:01:00 31.28 kg/m2 Universi ty [facility] Oxygen saturation in 2022-08-21 20:01:00 100 /min University of Arterial blood by [facility] Pulse oximetry Branch Systolic blood 2022-06-25 21:00:00 165 mm[Hg] Univer sity of pressure [facility] Diastolic blood 2022-06-25 21:00:00 74 mm[Hg] [facility] Heart rate 2022-06-25 21:00:00 77 /min Universi ty [facility] Respiratory rate 2022-06-25 20:59:00 19 /min [facility] Body height 2022-06-25 20:59:00 165.1 cm [facility] Body weight 2022-06-25 20:59:00 85.276 kg [facility] BMI 2022-06-25 20:59:00 31.28 kg/m2 [facility] Oxygen saturation in 2022-06-25 20:59:00 98 /min University of Arterial blood by [facility] Pulse oximetry Branch Procedures Procedure Date / Time Performing Source Performed Clinician DEXA AXIAL (HIP AND SPINE) 2023-01-[address] [facility] 19:21:32 Gely Reyes Medical Branch ASSIGNMENT OF BENEFITS 2023-01-25 Doctor Unassigned, [facility] 18:32:37 [place] [facility] PHACOEMULSIFICATION OF 2022-09-23 Rolan Elise [facility] CATARACT WITH INTRAOCULAR 16:20:00 Javy l Rosales LENS IMPLANT DAY SURGERY - ADC 2022-09-23 Doctor Unassigned, [facility] 06:01:00 [place] [facility] CONSENT/REFUSAL FOR DIAGNOSIS 2022-09-14 Doctor Unassigned, [facility] AND TREATMENT 19:08:37 [place] [facility] ASSIGNMENT OF BENEFITS 2022-09-14 Doctor Unassigned, [facility] 19:08:18 [place] [facility] MEDICAL RELEASE/CLEARANCE 2022-08-18 Doctor Unassigned, [facility] FORMS 06:01:00 [place] [facility] MEDICAL RELEASE/CLEARANCE 2022-08-18 Doctor Unassigned, [facility] FORMS 06:01:00 [place] [facility] INSURANCE CORRESPONDENCE 2022-07-16 Doctor Unassigned, [facility] 06:01:00 [place] [facility] EXTERNAL PROVIDER - ADC 2022-07-06 Doctor Unassigned, [facility] CARDIOLOGY 06:01:00 [place] [facility] HB ECG ROUTINE & RHYTHM STRIP 2022-06-25 [facility] 20[facility]46:54 Medical Branch NOTICE OF PRIVACY PRACTICES 2022-06-25 [facility] 20:28:07 [place] [facility] CONSENT/REFUSAL FOR DIAGNOSIS 2022-06-25 Doctor Unassigned, [facility] AND TREATMENT 20:27:39 [place] [facility] ASSIGNMENT OF BENEFITS 2022-06-25 Doctor Unassigned, [facility] 20:27:19 [place] [facility] Encounters Start End Encounter Admission Attending Care Care Encounter Source Date/Time Date/Time Type Type Clinicians Facility Department ID 2023-04-22 2023-04-22 Outpatient R SARAH [facility] [id number] Univers 13:20:00 13:20:00 , GELY pastor y of [facility] 2023-03-16 2023-03-16 Telephone SAMI Morales [id number] Univers 00:00:00 00:00:00 Yeyo GARCIA [id number] ity [facility] 4.2.7.2.686 [place] [id number] [address] 2023-03-09 2023-03-09 Outpatient R OSITO [facility] [id number] Univers 13:20:00 13:43:51 KELSIE kolb o f [facility] 2023-03-09 2023-03-09 [facility] [id number] [id number] Univers 13:20:00 13:43:51 Visit Kels[facility] [place] [facility] [place] [id number] Md dical NAL [address] BUILDING 2023-01-25 2023-01-25 [facility] 1.2.840.114 [id number] Univers 13:49:13 23:59:00 Encounter , Gelycameron [place]CC[place] 350.1.13.10 ity of Amy [place] 4.2.7.2.686 [facility] [id number] [facility] 807 Branch 2023-01-25 2023-01-25 [facility] 1.2.840.114 [id number] Univers 13:33:43 13:48:00 Encounter , Gely MCCLELLAND 350.1.13.10 ity of [place] 4.2.7.2.686 [facility] [id number] [facility] 800 Branch 2023-01-25 2023-01-[address] [facility] [id number] Univers 13:32:52 13:32:52 , GELY it y of [facility] 2023-01-25 2023-01-25 [facility] 1.2.840.114 [id number] Univers 13:32:52 13:32:52 Encounter , Gely MCCLELLAND 350.1.13.10 ity of [place] 4.2.7.2.686 [facility] [id number] [facility] 800 Branch 2023-01-25 2023-01-25 Orders Doctor SAMI 1.2.840.114 [id number] Univers 00:00:00 00:00:00 Only Unassigned, RADHA 350.1.13.10 ity of [facility] 4.2.7.2.686 [facility] [id number] [facility] 009 Branch 2023-01-20 2023-01-[address] [facility] [id number] Univers 14:28:14 23:59:00 , GELY it y of [facility] 2023-01-20 2023-01-20 [facility] 1.2.840.114 [id number] Univers 14:28:14 23:59:00 Encounter , Gely MCCLELLAND 350.1.13.10 ity of [place] 4.2.7.2.686 [facility] [id number] [facility] 801 Branch 2023-01-20 2023-01-20 [facility] 1.2.840.114 [id number] Univers 13:20:00 13:48:26 Visit , Gely HEALTH 350.1.13.10 ity of [place] 4.2.7.2.686 Victor Manuel as RADHA?BLEA [id number] [address] MEDICAL OFFICE BUILDING 2023-01-14 2023-01-14 Refill [facility] 1.2.840.114 [id number] Univers 00:00:00 00:00:00 , Gely HEALTH 350.1.13.10 ity of [place] 4.2.7.2.686 [place] Manuel as RADHA?BLEA [id number] [address] OFFICE [facility] 2023-01-07 2023-01-07 Outpatient R OSITO, [facility] [id number] Univers 13:00:00 13:00:00 KELSIE kolb o f [facility] 2022-12-11 2022-12-[address] [facility] [id number] Univers 11:15:00 11:15:00 , GELY it y of [facility] 2022-12-10 2022-12-[address] [facility] [id number] Univers 13:20:00 13:42:01 , GELY it y of [facility] 2022-12-10 2022-12-10 Office [facility] 1.2.840.114 [id number] Univers 13:20:00 13:42:01 Visit , Gely HEALTH 350.1.13.10 ity of [place] 4.2.7.2.686 Victor Manuel as RADHA?BLEA [id number] [address] OFFICE [facility] 2022-11-10 2022-11-10 Refill [facility] 1.2.840.114 [id number] Univers 00:00:00 00:00:00 , Gely HEALTH 350.1.13.10 ity of [place] 4.2.7.2.686 Victor Manuel as RADHA?BLEA [id number] [address] MEDICAL OFFICE BUILDING 2022-11-04 2022-11-04 Refill [facility] 1.2.840.114 [id number] Univers 00:00:00 00:00:00 , Gely OCAMPO 350.1.13.10 ity of [place] 4.2.7.2.686 Victor Manuel as RADHA?BLEA [id number] [address] MEDICAL OFFICE [facility] 2022-09-23 2022-09-23 Outpatient R [facility] OPH [id number] Univers 09:12:00 11:50:00 ROLAN ity of [facility] 2022-09-23 2022-09-23 Hospital [facility] [id number] Univers 09:12:00 11:50:00 Encounter Rolan [place]CC[place]LL[place] 350.1.13.10 [facility] of [facility] [place] [id number] [facility] [address] 2022-09-23 2022-09-23 Surgery [facility] 1.2.840.114 [id number] Univers 10:09:00 10:43:00 Rolan MCC[place]LLAND 350.1.13.10 it[place] of [facility] [place] [id number] [facility] [address] 2022-09-23 2022-09-23 [facility] 1.2.840.114 [id number] Univers 00:00:00 00:00:00 Management , Gely TERRENCE 350.1.13.10 ity of [place] 4.2.7.2.686 Victor Manuel as RADHA?BLEA [id number] [address] MEDICAL OFFICE [facility] 2022-09-23 2022-09-23 Orders Doctor SAMI 1.2.840.114 [id number] Univers 00:00:00 00:00:00 Only Unassigned, RADHA 350.1.13.10 ity of [facility] 4.2.7.2.686 Victor Manuel as [id number] [address] 2022-09-18 2022-09-18 Optical Fabrication Technician Lab, Mike - Vini [facility] 1.2.840.1 [id number] Univers 13:30:00 13:45:00 Visit Rolan Elise HEALTH 350.1.13.10 ity of [place] 4.2.7.2.686 Victor Manuel as RADHA?BLEA [id number] Md sarah TONEY [address] MEDICAL OFFICE BUILDING 2022-09-18 2022-09-18 Outpatient R ANIKA [facility] [id number] Univers 13:30:00 13:30:00 ROLAN ity of [facility] 2022-09-18 2022-09-18 Case [facility] 1.2.840.114 [id number] Univers 00:00:00 00:00:00 Management , Gely OCAMPO 350.1.13.10 ity of [place] 4.2.7.2.686 Victor Manuel as RADHA?BLEA [id number] Md sarah [facility] [address] MEDICAL OFFICE [facility] 2022-09-15 2022-09-[address] [facility] [id number] Univers 11:30:00 12:18:17 , GELY it y of [facility] 2022-09-15 2022-09-15 Office [facility] 1.2.840.114 [id number] Univers 11:30:00 12:18:17 Visit , Gely OCAMPO 350.1.13.10 ity of [place] 4.2.7.2.686 Victor Manuel as RADHA?BLEA [id number] [address] MEDICAL OFFICE [facility] 2022-09-14 2022-09-14 Orders Doctor GALLARDO 1.2.840.114 [id number] Univers 00:00:00 00:00:00 Only Unassigned, RADHA 350.1.13.10 ity of [facility] 4.2.7.2.686 Victor Manuel as [phone] [address] 2022-09-09 2022-09-09 Outpatient R OSITO [facility] [id number] Univers 13:40:00 13:41:05 KELSIE kolb o f [facility] 2022-09-09 2022-09-09 [facility] 1.2.840.114 [id number] Univers 13:40:00 13:41:05 Visit Kelsie MCCLELLAND 350.1.13.10 ity of [place] [id number] Md dicjudie GORODN 059 [facility] 2022-09-01 2022-09-01 Outpatient R OSITO [facility] [id number] Univers 15:00:00 15:00:00 KELSIE ity o f [facility] 2022-08-21 2022-08-21 Optical Fabrication Technician Lab, Ang - Db [facility] 1.2.840.1 14 [id number] Univers 14:45:00 14:51:39 Visit Gely Joseph Aym [facility] 350.1 .13.10 it[facility] 4.2.7.2.686 Victor Manuel as RADHA?BLEA [id number] Md sarah TONEY 353 [facility] OFFICE [facility] 2022-08-21 2022-08-21 Outpatient R SARAH [facility] [id number] Univers 14:00:00 14:46:29 , GELY it y of [facility] 2022-08-21 2022-08-21 Office [facility] 1.2.840.114 [id number] [facility] 14:00:00 14:46:29 Visit , Gely [facility] 350.1.13.10 ity of [place] 4.2.7.2.686 Victor Manuel as RADHA?BLEA [id number] Md sarah TONEY 044 [facility] OFFICE [facility] 2022-08-20 2022-08-20 Telephone [facility] [id number] Univers 00:00:00 00:00:00 Eduardbryan ADDISONTON 350.1.13.10 ity of [place] [id number] Md dicjudie NAL [address] [place] [address] 2022-07-27 2022-07-27 [facility]phone [facility] 1.2.313.287 [id number] Univers 00:00:00 00:00:00 Qiajaiden [place] 350.1.13.10 ity of [place] [id number] [facility] NAL [address] [place] [address] 2022-07-24 2022-07-24 Outpatient R [facility] [id number] Univers 15:17:20 23:59:00 JOSHRANJITBRYAN kolb o f [facility] 2022-07-16 2022-07-16 Orders Doctor SAMI 1.2.840.114 [id number] Univers 00:00:00 00:00:00 Only Unassigned, RADHA 350.1.13.10 ity of [facility] 4.2.7.2.686 Victor Manuel as [phone] [address] 2022-07-06 2022-07-06 Orders Doctor SAMI 1.2.840.114 [id number] Univers 00:00:00 00:00:00 Only Unassigned, RADHA 350.1.13.10 ity of [facility] 4.2.7.2.686 Victor Manuel as [id number] [address] 2022-07-02 2022-07-02 Telephone [facility] 1.2.192.213 [id number] Univers 00:00:00 00:00:00 Kelsie MCCLELLAND 350.1.13.10 ity of [facility] [place] [id number] Md dical NAL 059 [facility] 2022-06-25 2022-06-25 Outpatient R [facility] [id number] Univers 14:40:00 15:25:40 KELSIE kennedi o f [facility] 2022-06-25 2022-06-25 Office [facility] 1.2.840.114 [id number] Univers 14:40:00 15:25:40 Visit Kelsie MCCLELLAND 350.1.13.10 ity of [facility] [place] [id number] Md dical NAL 059 [facility] 2022-06-25 2022-06-25 Orders Doctor SAMI 1.2.840.114 [id number] Univers 00:00:00 00:00:00 Only Unassigned, RADHA 350.1.13.10 ity of [place] 4.2.7.2.686 Victor Manuel as [id number] [address] 2022-03-18 2022-03-18 Outpatient SYMONE Maldonado [facility] [id number] [facility] 09:16:00 09:16:00 Lauro 42 [facility] 2022-03-18 2022-03-18 Outpatient SYMONE Maldonado [id number] [facility] 09:16:00 09:16:00 Lauro [id number] [facility] Results Test Description Test Time Test Comments [...] CA) 9.4 mg/dL 8.0-10.5 N CBC W/AUTO [id number] 10:45:00 Test Item Value Reference Range Interpretation [...] = MDIFF) Notes Date/Time Note Provider Source 2023-03-16 Formatting of this note might be differe nt from the original. IM-CARDIOVASCULAR [facility] 21:56:51-00:00 DISEASE STAFF Spoke with the ER physician from [facility] She has been having a nosebl eed hence came to the ER. Patient had nasal back to control the bleeding. ER physician discussed with me regarding to see if Eliquis can be stopped for 7 days. Chart reviewed. No recent ab lation or cardioversion done based upon the chart review. Hence recommended acceptable to hold off Eliquis for 7 days. And then restart based upon the ENT recommendati on. Advised to give us a call for appointment with Cyn Mcneill after seeing ENT. 2022-03-20 [facility] 09:06:00-00:00 [facility] ([facility]) Clinical Note REPORT#:[id number] REPORT STATUS: Signed DATE:03/20/22 TIME: 905 PATIENT: JANUARY WILKINS UNIT #: [id number] ROOM/BED: : 52 AGE: 71 SEX: F ATTEND: Kit Lowe MD ADM AUTHOR: Jana Marie P * ALL edits or amendments must be made on the [email or web address] document * Clinical Note Note: The case was presented in the complex cardiovasc ular cases meeting this am MALACHI images reviewed, history of mitral clip.. Alex mtz has severe mitral regurgitation and will benefit from intervention to the aortic valve. She will need right and left heart cath prior to surgery as well as full pulmonary function test at 1550 RPT #:[id number] END OF REPORT 2022-03-20 [facility] 09:06:00-00:00 [facility] ([facility]) Clinical Note REPORT#:[id number] REPORT STATUS: Signed DATE:03/20/22 TIME: 905 PATIENT: JANUARY WILKINS UNIT #: [id number] ROOM/BED: : 52 AGE: 71 SEX: F ATTEND: Jazmine Lowe MD ADM AUTHOR: Jana Marie CHEF INSTRUCTOR * ALL edits or amendments must be made on the [email or web address] document * Radha Nayak 03/20/22 0906: Clinical [...] mentioned in the note. at 1550 at 1714 RPT #:[id number] END OF REPORT 2022-03-18 [facility] 15:15:00-00:00 [facility] ([facility]) Clinical Note REPORT#:[id number] REPORT STATUS: Signed DATE:03/18/22 TIME: 151 PATIENT: JANUARY WILKINS UNIT #: [id number] ROOM/BED: : 52 AGE: 71 SEX: F ATTEND: Jazmine Lowe MD ADM AUTHOR: Jana Marie * ALL edits or amendments must be made on the el [employer]/computer document * Clinical Note Note: STS RISK SCORES Procedure: Isolated MVR Risk of Mortality: 6.812% Renal Failure: 9.589% Permanent Stroke: 1.707% Prolonged Ventilation: 29.124% DSW Infection: 0.296% Reoperation: 5.421% Morbidity or Mortality: 34.985% Short Length of Stay: 5.408% Long Length of Stay: 24.520% at 0856 at 7464 RPT #:[id number] END OF REPORT 2022-03-18 [facility] 15:15:00-00:00 [facility] ([facility]) Clinical Note REPORT#:[id number] REPORT STATUS: Signed DATE:03/18/22 TIME: 151 PATIENT: JANUARY WILKINS UNIT #: [id number] ROOM/BED: : 52 AGE: 71 SEX: F ATTEND: Jazmine Lowe MD ADM AUTHOR: Jana Marie CHEF INSTRUCTOR * ALL edits or amendments must be made on the [email or web address] document * Clinical Note Note: STS RISK SCORES Procedure: Isolated MVR Risk of Mortality: 6.812% Renal Failure: 9.589% Permanent Stroke: 1.707% Prolonged Ventilation: 29.124% DSW Infection: 0.296% Reoperation: 5.421% Morbidity or Mortality: 34.985% Short Length of Stay: 5.408% Long Length of Stay: 24.520% at 0856 RPT #:[id number] END OF REPORT 2022-03-18 [facility] 14:55:00-00:00 [facility] ([facility]) Cardiothoracic Surgery Consult REPORT#:[id number] REPORT STATUS: Signed DATE:03/18/22 TIME: 1454 PATIENT: JANUARY WILKINS UNIT #: [id number] ROOM/BED: : 52 AGE: 71 SEX: F ATTEND: Jazmine Lowe MD ADM AUTHOR: Jana Marie CHEF INSTRUCTOR * ALL edits or amendments must be made on the [email or web address] document * Radha Nayak 03/18/22 1455: History of Present Illness HPI Chief complaint: Shortness of breath Chest pain PCP: PCP: Lauro Lowe MD Requesting Clinician Dr Lowe HPI: Very pleasant 71-year-old -[place] an female with past medical history of stroke about 10 years ago with residual expressi ve aphasia, obesity (BMI 36), hypertension, hyperlipidemia, COPD on home O2 DE N, former smoker, A. fib on Eliquis [...] PUFF INH DAILY 03/17/22 03/18/22 Fluticasone/Umeclidin/Vilante r (ROSAURALECECE ELLIPTA 1156 0930 100-62.5-25) Strength: 100-62.5 BLST.W.DEV [...] distress Abdomen: soft, non-tender Extremities: moves all Neuro/ORE SMELTER: abnormal speech, alert, oriented X 3 Psychiatry: [...] % (Auto) (14.0 - 32.0 %) 18.0 Young % (Auto) (4.8 - 9.0 %) 7.5 Eos % (Auto) (0.3 - 3.7 %) 1.5 Baso % (Auto) (0.0 - 2.0 %) 0.9 Neut # (Auto) (2.0 - 7.6 x10 3/uL) 5.44 Lymph # (Auto) (1.0 - 3.8 x10 3/uL) 1.36 Young # (Auto) (0.1 - 0.8 x10 3/uL) [...] 36), hypertension, hyperlipidemia, COPD on home O2 DE N, former smoker, A. fib on Eliquis [...] documented by ARTEM Piper. at 0856 at 7256 RPT #:[id number] END OF REPORT 2022-03-18 [facility] 14:55:00-00:00 [facility] ([facility] Cardiothoracic Surgery Consult REPORT#:[id number] REPORT STATUS: Signed DATE:03/18/22 TIME: 1455 PATIENT: JANUARY WILKINS UNIT #: [id number] ROOM/BED: : 52 AGE: 71 SEX: F ATTEND: Jazmine Lowe MD ADM AUTHOR: Jana Marie * ALL edits or amendments must be made on the el [employer]/computer document * History of Present Illness HPI Chief complaint: Shortness of breath Chest pain PCP: PCP: Lauro Lowe MD Requesting Clinician Dr Lowe HPI: Very pleasant 71-year-old -[place] female with past medical history of stroke about 10 years ago with residual expressi ve aphasia, obesity (BMI 36), hypertension, hyperlipidemia, COPD on home O2 DE N, former smoker, Adenike. bhavana on Eliquis who has been experie ncing [...] 0930 FUROSEMIDE (LASIX) 40 MG PO DAILY 03/17/2211/04 Strength: 20 MG TAB 1148 0930 GABAPENTIN [...] distress Abdomen: soft, non-tender Extremities: moves all Neuro/ORE SMELTER: abnormal speech, alert, oriented X 3 Psychiatry: [...] % (Auto) (14.0 - 32.0 %) 18.0 Young % (Auto) (4.8 - 9.0 %) 7.5 Eos % (Auto) (0.3 - 3.7 %) 1.5 Baso % (Auto) (0.0 - 2.0 %) 0.9 Neut # (Auto) (2.0 - 7.6 x10 3/uL) 5.44 Lymph # (Auto) (1.0 - 3.8 x10 3/uL) 1.36 Young # (Auto) (0.1 - 0.8 x10 3/uL) [...] 36), hypertension, hyperlipidemia, COPD on home O2 DE N, former smoker, A. fib on Eliquis [...] reviewed with Dr. Fu at 0856 RPT #:[id number] END OF REPORT
--- NOTE | 2023-03-17 19:10 | RAD REPORT ---
EXAM DESCRIPTION: CT - Head Brain Wo Cont - 03/17/2023 7:04 pm CLINICAL HISTORY: HEADACHE Headache, drowsiness COMPARISON: No comparisons TECHNIQUE: All CT scans are performed using dose optimization technique as appropriate and may inclu de automated exposure control or mA/KV adjustment according to patient size. FINDINGS: No intracranial hemorrhage, hydrocephalus or extra-axial fluid collection.Moderate diffuse brain atrophy.Gliosis in the left frontal region most likely related to remote infarct. The paranasal sinuses and mastoids are clear. The calvarium is intact. IMPRESSION: No acute intracranial abnormality. Moderate brain atrophy.
[2023-03-17 19:28] LABS: Hematocrit 32.4 % (36.0-45.0); Lymphocytes % 11.2 % (15.3-44.8); MCV 81.9 fL (80-100); MPV 9.4 fL (7.6-11.3); RBC Red Blood Cell Count 3.95 M/uL (3.86-4.86)
--- NOTE | 2023-03-17 19:44 | ER ---
Nurse's Notes [facility] Name: Mahendra Wilkins Age: 72 yrs Sex: Female : 1950 Arrival Date: 03/17/2023 Time: 18:20 Bed 13 Private MD: Diagnosis: Headache;Epistaxis Presentation: 03/17 18:33 Chief complaint: Patient states: headache. Coronavirus screen: Vaccine status: Patient me1 reports receiving the 2nd dose of the covid vaccine. At this time, the client does not indicate any symptoms associated with coronavirus-19. Ebola Screen: No symptoms or risks identified at this time. Initial Sepsis Screen: Does the patient meet any 2 criteria? No. Patient's initial sepsis screen is negative. Does the patient have a suspected source of infection? No. Patient's initial sepsis screen is negative. Risk Assessment: Do you want to hurt yourself or someone else? Patient reports no desire to harm self or others. Onset of symptoms was March 17, 2023. 18:33 Method Of Ar[place] [facility] [place] Acuity: SUSAN 4 me1 Triage Assessment: 18:36 Headache History: Denies prior headaches. General: Appears uncomfortable, well groomed, me1 well developed, well nourished, Behavior is calm, cooperative, appropriate for age. General: patient reports she came in last night for a nose bleed, nasal packing in place bilaterally. C/o headache 10/10 that has gradually worsened to that level due to the pressure from the packing. . Pain: Complains of pain in head Pain does not radiate. Pain currently is 10 out of 10 on a pain scale. Quality of pain is described as aching, Pain began gradually, 1 day ago. EENT: Nares nasal packing in place to bilateral nares to treat a nose bleed from last night. . Neuro: Level of Consciousness is awake, alert, obeys commands, Oriented to person, place, time, situation. Cardiovascular: Capillary refill < 3 seconds Patient's skin is warm and dry. Respiratory: Respiratory effort is even, unlabored, Respiratory pattern is regular, symmetrical. Historical: - Allergies: 18:34 No Known Allergies; me1 - Home Meds: 18:34 atorvastatin 40 mg Oral tab 1 tab once daily [Active]; Eliquis 2.5 mg Oral tab 1 tab me1 (Last Dose: 03/16/2023) [Active]; famotidine 20 mg Oral tab 1 tab once daily [Active]; gabapentin 300 mg Oral cap 1 cap 3 times per day [Active]; hydralazine 100 mg Oral tab 1 tab 3 times per day [Active]; isosorbide mononitrate 60 mg Oral Tb24 1 tab once daily [Active]; Linzess 145 mcg Oral cap 1 cap once daily [Active]; - PMHx: 18:34 acid reflux; Atrial fibrillation; High Cholesterol; Hypertension; me1 - PSHx: 18:36 heart; me1 - Immunization history:: Adult Immunizations up to date. - Social history:: Smoking status: Patient/guardian denies using tobacco, but has a distant history of tobacco abuse. - Family history:: not pertinent. Screenin:26 [facility] ED Fall Risk Assessment (Adult) History of falling in the last 3 months, me1 including since admission Score/Fall Risk Level 0 - 2 = Low Risk Oriented to surroundings, Maintained a safe environment, Hourly rounding (assess needs \T\ fall precautionary measures) done. Abuse screen: Denies threats or abuse. Denies injuries from another. Nutritional screening: No deficits noted. Tuberculosis screening: No symptoms or risk factors identified. Assessment: 19:00 Reassessment: See triage assessment. [facility] 19:57 Reassessment: Patient appears in no apparent distress at this time. Patient and/or nj1 family updated on plan of care and expected duration. Pain level reassessed. Patient is alert, oriented x 3, equal unlabored respirations, skin warm/dry/pink. Vital Signs: 18:36 BP 180 / 73; Pulse 94; Resp 18; Temp 98.1(A); Pulse Ox 97% on R/A; Weight 76.2 kg; nc1 Height 5 ft. 5 in. ; Pain 10/10; 19:57 BP 181 / 76; Pulse 90; Resp 18; Pulse Ox 100% on R/A; Pain 10/10; nj1 18:36 Body Mass Index 27.96 (76.20 kg, 165.1 cm) [facility] [place]:36 Pain Scale: Adult [facility] [place] 19:57 Pain Scale: Adult [facility] Yudy Coma Score: 19:41 Eye Response: spontaneous(4). Motor Response: obeys commands(6). Verbal Response: raghav oriented(5). Total: 15. ED Course: 18:23 Patient arrived in ED. mr 18:33 Suraj Wilkins MD is Attending Physician. [facility] 18:34 Triage completed. me1 18:36 Arm band placed on Patient placed in waiting room. me1 18:55 Constanza De La Fuente, RN is Primary Nurse. nj1 19:06 CT Head Brain wo Cont In Process Unspecified. EDMS 19:26 Missed attempt(s): 22 gauge 24 gauge in left in right antecubital area. nj1 19:27 Patient has correct armband on for positive identification. Bed in low position. Call nj1 light in reach. Adult w/ patient. Provided Education on: fall precautions, call light. 19:43 Janice Ramirez MD is Referral Physician. [facility] 19:57 No provider procedures requiring assistance completed. Patient did not have IV access nj1 during this emergency room visit. Administered Medications: 19:56 Not Given (Physician Discretion): NS 0.9% IV 500 ml IV at bolus once [facility] 19:56 Drug: Hydrocodone-Acetaminophen PO (7.5 mg-325 mg) 1 tabs Route: PO; nj1 Medication: 19:57 VIS not applicable for this client. nj1 Outcome: 19:43 Discharge ordered by . [facility] 19:57 Discharged to home via ambulance, with family. [facility] 19:57 Condition: stable 19:57 Discharge instructions given to patient, family, Instructed on discharge instructions, follow up and referral plans. Demonstrated understanding of instructions, follow-up care. 20:07 Patient left the ED. iw Signatures: Dispatcher [employer] EDOH Suraj Wilkins MD MD cha Rivera, Mary Gail Rosa, RN RN iw Constanza De La Fuente, RN RN nj1 Mell Allen, MAGDALENE RN me1
--- NOTE | 2023-03-17 19:44 | EDPHYS ---
Physician Documentation [facility] Name: Mahendra Wilkins Age: 72 yrs Sex: Female : 1950 Arrival Date: 03/17/2023 Time: 18:20 Bed 13 Private MD: LISA Physician Suraj Wilkins HPI: 03/17 19:38 This 72 yrs old Black Female presents to ER via Ambulatory with complaints of Headache. raghav 19:38 The patient complains of pain to the right eye, nose and left eye. The patient raghav describes the headache as aching, constant. Onset: The symptoms/episode began/occurred yesterday. Associated signs and symptoms: The patient has no apparent associated signs or symptoms. Severity of symptoms: At its worst the pain was moderate, in the emergency department the pain is unchanged. Headache History: Denies prior headaches. The symptoms are alleviated by nothing. the symptoms are aggravated by NASAL PACKING. The patient has not experienced similar symptoms in the past. Historical: - Allergies: 18:34 No Known Allergies; me1 - Home Meds: 18:34 atorvastatin 40 mg Oral tab 1 tab once daily [Active]; Eliquis 2.5 mg Oral tab 1 tab me1 (Last Dose: 03/16/2023) [Active]; famotidine 20 mg Oral tab 1 tab once daily [Active]; gabapentin 300 mg Oral cap 1 cap 3 times per day [Active]; hydralazine 100 mg Oral tab 1 tab 3 times per day [Active]; isosorbide mononitrate 60 mg Oral Tb24 1 tab once daily [Active]; Linzess 145 mcg Oral cap 1 cap once daily [Active]; - PMHx: 18:34 acid reflux; Atrial fibrillation; High Cholesterol; Hypertension; me1 - PSHx: 18:36 heart; me1 - Immunization history:: Adult Immunizations up to date. - Social history:: Smoking status: Patient/guardian denies using tobacco, but has a distant history of tobacco abuse. - Family history:: not pertinent. ROS: 19:38 Constitutional: Negative for fever, chills, and weight loss, Eyes: Negative for injury, raghav pain, redness, and discharge, Neck: Negative for injury, pain, and swelling, Cardiovascular: Negative for chest pain, palpitations, and edema, Respiratory: Negative for shortness of breath, cough, wheezing, and pleuritic chest pain, Abdomen/GI: Negative for abdominal pain, nausea, vomiting, diarrhea, and constipation, Back: Negative for injury and pain, : Negative for injury, bleeding, discharge, and swelling, MS/Extremity: Negative for injury and deformity, Skin: Negative for injury, rash, and discoloration, Neuro: Negative for headache, weakness, numbness, tingling, and seizure, Psych: Negative for depression, anxiety, suicide ideation, homicidal ideation, and hallucinations, Allergy/Immunology: Negative for hives, rash, and allergies, Endocrine: Negative for neck swelling, polydipsia, polyuria, polyphagia, and marked weight changes, Hematologic/Lymphatic: Negative for swollen nodes, abnormal bleeding, and unusual bruising. 19:38 ENT: Positive for nose bleed, BILATERAL NASAL PACKING. Exam: 19:38 Constitutional: This is a well developed, well nourished patient who is awake, alert, raghav and in no acute distress. Head/Face: Normocephalic, atraumatic. Eyes: Pupils equal round and reactive to light, extra-ocular motions intact. Lids and lashes normal. Conjunctiva and sclera are non-icteric and not injected. Cornea within normal limits. Periorbital areas with no swelling, redness, or edema. Neck: Trachea midline, no thyromegaly or masses palpated, and no cervical lymphadenopathy. Supple, full range of motion without nuchal rigidity, or vertebral point tenderness. No Meningismus. Chest/axilla: Normal chest wall appearance and motion. Nontender with no deformity. No lesions are appreciated. Cardiovascular: Regular rate and rhythm with a normal S1 and S2. No gallops, murmurs, or rubs. Normal PMI, no JVD. No pulse deficits. Respiratory: Lungs have equal breath sounds bilaterally, clear to auscultation and percussion. No rales, rhonchi or wheezes noted. No increased work of breathing, no retractions or nasal flaring. Abdomen/GI: Soft, non-tender, with normal bowel sounds. No distension or tympany. No guarding or rebound. No evidence of tenderness throughout. Back: No spinal tenderness. No costovertebral tenderness. Full range of motion. Skin: Warm, dry with normal turgor. Normal color with no rashes, no lesions, and no evidence of cellulitis. MS/ Extremity: Pulses equal, no cyanosis. Neurovascular intact. Full, normal range of motion. Neuro: Awake and alert, GCS 15, oriented to person, place, time, and situation. Cranial nerves II-XII grossly intact. Motor strength 5/5 in all extremities. Sensory grossly intact. Cerebellar exam normal. Normal gait. Psych: Awake, alert, with orientation to person, place and time. Behavior, mood, and affect are within normal limits. 19:38 ENT: Nose: Nasal mucosa: normal, Posterior pharynx: is normal, airway is patent, no erythema, no exudate, no peritonsilar mass, no pooling of secretions, no swelling, normal tonsil apperance, normal sized tonsils, normal uvula appearance, normal uvula size, Airway: normal, no evidence of obstruction, Tonsils: are normal in appearance, Uvula: normal, midline, non-edematous, no erythema, swelling, is not appreciated, erythema, is not appreciated, exudate, is not appreciated, peritonsillar mass, is not appreciated, pooling of secretions, is not appreciated. Vital Signs: 18:36 BP 180 / 73; Pulse 94; Resp 18; Temp 98.1(A); Pulse Ox 97% on R/A; Weight 76.2 kg; me1 Height 5 ft. 5 in. ; Pain 10/10; 19:57 BP 181 / 76; Pulse 90; Resp 18; Pulse Ox 100% on R/A; Pain 10/10; nj1 18:36 Body Mass Index 27.96 (76.20 kg, 165.1 cm) ma1 18:36 Pain Scale: Adult me1 19:57 Pain Scale: Adult nj1 Yudy Coma Score: 19:41 Eye Response: spontaneous(4). Motor Response: obeys commands(6). Verbal Response: raghav oriented(5). Total: 15. Procedures: 19:44 Foreign Body Removal: BILATERAL NASAL PACKING REMOVED ON PATIENTS PERSISTANCES. raghav MDM: 18:33 Patient medically screened. raghav 19:41 Differential diagnosis: hyponatremia, migraine, subdural hematoma, temporal arteritis, raghav tension headache. Data reviewed: vital signs, nurses notes, lab test result(s), radiologic studies, CT scan. Consideration of Admission/Observation Escalation of care including admission/observation considered. I considered the following discharge prescriptions or medication management in the emergency department Medications were administered in the Emergency Department. See MAR. Test considered but Not performed: MRI: NO MRI BRAIN. Care significantly affected by the following chronic conditions: Hypertension, GERD, A FIB, HIGH CHOLESTEROL. Counseling: I had a detailed discussion with the patient and/or guardian regarding: the historical points, exam findings, and any diagnostic results supporting the discharge/admit diagnosis, lab results, radiology results, the need for outpatient follow up, for definitive care, an ENT specialist, a family practitioner. 03/17 18:36 Order name: CBC with Diff raghav 03/17 18:36 Order name: CT Head Brain wo Cont; Complete Time: 19:38 raghav Administered Medications: 19:56 Not Given (Physician Discretion): NS 0.9% IV 500 ml IV at bolus once nj1 19:56 Drug: Hydrocodone-Acetaminophen PO (7.5 mg-325 mg) 1 tabs Route: PO; nj1 Disposition Summary: 03/17/23 19:43 Discharge Ordered Location: Home raghav Problem: new raghav Symptoms: have improved raghav Condition: Stable raghav Diagnosis - Headache raghav - Epistaxis raghav Followup: raghav - With: Private Physician - When: 2 - 3 days - Reason: Recheck today's complaints, Continuance of care, Re-evaluation by your physician Followup: raghav - With: Janice Ramirez MD - When: 2 - 3 days - Reason: Recheck today's complaints, Continuance of care, Re-evaluation by your physician Discharge Instructions: - Discharge Summary Sheet raghav - Nosebleed, Adult raghav - General Headache Without Cause raghav - Cool Mist Vaporizer raghav - General Headache Without Cause, [id number] rgahav - Nosebleed, Adult, [id number] raghav Forms: - Medication Reconciliation Form raghav - Thank You Letter raghav - Antibiotic Education raghav - Prescription Opioid Use raghav - Patient Portal Instructions raghav Signatures: Dispatcher [employer] Suraj Wilson MD MD cha Jaco, Norma RN RN nj1 Mell Allen RN RN ma1 Sarah Finch [id number] Corrections: (The following items were deleted from the chart) 19:56 19:31 Labs - recollect needed ordered. 5 nj1
[2023-03-17] MEDS ORDERED: HYDROCODONE/APAP 7.5/325 MG TAB ONE (20:02)
[2023-03-17 20:27] VITALS: TEMP 98.1
[2023-03-17 20:33] VITALS: BP 181/76; O2SAT 100
== END 2023-03-17 20:07 | disposition home or self-care (01) ==
LOC: ER 18:20
DX: R51.9 Headache, unspecified (principal); R04.0 Epistaxis; I48.91 Unspecified atrial fibrillation; Z79.01 Long term (current) use of anticoagulants; I10 Essential (primary) hypertension
CPT/HCPCS: 70450; 85025